=== PATIENT | male | born 1955 | race Caucasian/White ===

== ENCOUNTER → 2018-04-30 10:52 | Outpatient (CLI) | payer OTHER, SELFPAY ==
--- NOTE | 2018-04-30 10:54 | DI.RAD.S_ITS ---
PROCEDURE: XR CHEST 2V INDICATIONS: shortness of breath TECHNIQUE: 2 views of the chest were acquired. COMPARISON: None. FINDINGS: Surgical changes and devices: None. Lungs and pleura: No pleural effusions or pneumothorax. Lungs are abnormal with an interstitial prominence but no pneumonia or underlying neoplasm is found. Mediastinum: Mediastinal contours are normal. Heart size is normal. Bones and chest wall: No suspicious bony abnormalities. Soft tissues appear unremarkable. IMPRESSION: Interstitial prominence, no mass or consolidative pneumonia seen. Dictated by: Eulogio Ortega M.D. on 04/30/2018 at 11:23 Approved by: Eulogio Ortega M.D. on 04/30/2018 at 11:23
== END ==
PROVIDERS: PCP Family Medicine
DX: R06.02 Shortness of breath (principal); J06.9 Acute upper respiratory infection, unspecified
CPT/HCPCS: 71046

== ENCOUNTER → 2018-05-09 11:28 | Outpatient (CLI) | payer OTHER, SELFPAY ==
--- NOTE | 2018-05-09 11:29 | DI.RAD.S_ITS ---
PROCEDURE: XR CHEST 2V INDICATIONS: cough x3 months TECHNIQUE: 2 views of the chest were acquired. COMPARISON: [facility], CR, XR CHEST 2V, 04/30/2018, 10:31. FINDINGS: Surgical changes and devices: None. Lungs and pleura: No pleural effusions or pneumothorax. Lungs are clear except for a chronic mild interstitial prominence. Mediastinum: Mediastinal contours are normal. Heart size is normal. Bones and chest wall: No suspicious bony abnormalities. Soft tissues appear unremarkable. IMPRESSION: Chronic mild interstitial prominence, no acute disease, source persistent cough is not seen otherwise. Dictated by: Eulogio Ortega M.D. on 05/09/2018 at 13:18 Approved by: Eulogio Ortega M.D. on 05/09/2018 at 13:18
== END ==
PROVIDERS: Family Provider Family Medicine; PCP Family Medicine
DX: R05 Cough (principal)
CPT/HCPCS: 71046

== ENCOUNTER 2018-05-19 15:28 | Emergency (ER) | payer OTHER, SELFPAY ==
[2018-05-19 15:32] VITALS: BP 112/68; PULSE 85; RESP 20; TEMP 37.2; O2SAT 99
--- NOTE | 2018-05-19 16:05 | DI.RAD.S_ITS ---
PROCEDURE: XR CHEST 1V INDICATIONS: suspected sepsis TECHNIQUE: One view of the chest was acquired. COMPARISON: [facility], CR, XR CHEST 2V, 04/30/2018, 10:31. [facility], CR, XR CHEST 2V, 05/09/2018, 11:14. FINDINGS: Surgical changes and devices: None. Lungs and pleura: An incomplete inspiratory result is noted, causing a crowded appearance to the lung markings. No focal infiltrates are seen. No pneumothorax or significant pleural effusions are seen. Mediastinum: Mediastinal contours appear normal. Heart size is normal. Bones and chest wall: Age-appropriate bony degenerative changes are seen. No suspicious bony lesions. Overlying soft tissues appear unremarkable. IMPRESSION: Limited portable chest examination, without a significant cardiopulmonary abnormality identified. If there is clinical concern for a developing pulmonary process, a short-term followup chest series (with PA and lateral views, performed in deep inspiration) is suggested for further evaluation. Dictated by: Rasheed Alfaro M.D. on 05/19/2018 at 15:16 Approved by: Rasheed Alfaro M.D. on 05/19/2018 at 15:17
[2018-05-19 16:13] LABS: Add Manual Diff / Slide Review NO; Basophils Percent Auto 0.3 % (0-2); Eosinophils Percent Auto 1.7 % (2-4); Hemoglobin 10.2 g/dL (13.5-17.5); Lymphocytes Percent Auto 4.4 % (25-40); Mean Corpuscular HGB Conc 33.9 % (30-36); Mean Corpuscular Volume 76.7 fL (80-100); Monocytes Percent Auto 9.7 % (3-14); Neutrophils Absolute Auto 10100 /uL (3000-5900); Neutrophils Percent Auto 83.9 % (50-75); Platelet Count 237 X10^3/uL (150-400); Red Blood Cell Count 3.91 X10^6/uL (4.5-5.9); Red Cell Distribution Width 14.5 % (11.6-14.8)
[2018-05-19 16:19] LABS: INR 1.8 (0.9-1.3); Prothrombin Time 19.3 SECONDS (10.1-12.7)
[2018-05-19 16:21] LABS: PTT Partial Thromboplastin Tim 28 SECONDS (26.4-36.2)
[2018-05-19 16:22] LABS: Lactate (Lactic Acid) 1.2 mmol/L (0.7-2.1)
[2018-05-19 16:24] LABS: Alanine Aminotransferase 22 IU/L (21-72); Albumin 3.7 g/dL (3.5-5.0); Albumin Globulin Ratio 1.1 (1.0-2.8); Alkaline Phosphatase 96 U/L (38-126); Aspartate Aminotransferase 25 IU/L (17-59); Bilirubin Total 0.9 mg/dL (0.2-1.3); Blood Urea Nitrogen 25 mg/dL (9-20); Calcium 8.6 mg/dL (8.4-10.2); Carbon Dioxide 27 mmol/L (22-32); Chloride 90 mmol/L (98-107); Creatine Kinase 38 U/L (55-170); Estimated Glomerular Filt Rate > 60.0 mL/min (>60); Globulin 3.4 g/dL (1.7-4.1); Glucose 137 mg/dL (80-110); HEMOLYSIS < 15 (0-50); Lipase 30 U/L (23-300); Potassium 4.1 mmol/L (3.4-5.1); Sodium 128 mmol/L (137-145); Total Protein 7.1 g/dL (6.3-8.2)
[2018-05-19 16:42] LABS: Troponin I < 0.012 ng/mL (0.01-0.034)
[2018-05-19 16:50] LABS: Procalcitonin 1.61 ng/mL (<0.5)
--- NOTE | 2018-05-19 16:52 | DI.CT.S_ITS ---
PROCEDURE: CT ABDOMEN PELVIS W CON INDICATIONS: anemia,weakness, weight loss, PO and IV contrast please. TECHNIQUE: After the administration of oral and intravenous contrast, 5 mm thick sections acquired from the diaphragms to the symphysis. 5 mm thick coronal and sagittal reformats were performed. For radiation dose reduction, the following was used: automated exposure control, adjustment of mA and/or kV according to patient size. COMPARISON: None. FINDINGS: Image quality: Excellent. ABDOMEN: Lung bases: Chronic appearing thickening of interlobular septa is seen through all visualized bilateral lower lung timmons. No pleural effusion or pneumothorax is seen Heart size is normal. Solid organs: Liver is normal in size. 1.4 x 0.8 cm hypointense area in posterior aspect of left hepatic lobe is seen and is not consistent with a simple cyst. Subtle 7 mm hypointense area involving anterior aspect of right hepatic lobe is also seen and is too small to characterize. 4 mm hypodense area is noted in right hepatic dome and is also too small to characterize. Gallbladder is mildly distended. No calcified gallstone is seen. There is suggestion of small amount of pericholecystic fluid. No definite gallbladder wall thickening.. Biliary system is non-dilated. Heterogeneous contrast enhancement involving head of pancreas is seen, underlying pancreatic head mass cannot be excluded. There is no peripancreatic fluid collection. Marked splenomegaly is seen. A few calcified granuloma are noted in the splenic parenchyma. No discrete splenic lesion. No adrenal nodules. Kidneys are normal in size and enhancement, without hydronephrosis. Peritoneum and bowel: Stomach, small bowel, and colon loops are normal in caliber and wall thickness. No free fluid or air. Appendix is visualized and is within normal limits. Small hiatal hernia is seen. Nodes and vessels: Extensive retroperitoneal adenopathy is noted with prominent periaortic lymph nodes measures up to 1.7 cm in short axis diameter in right and left periaortic space. There is also suggestion of prominent lymph nodes along celiac axis and near GE junction measures up to 1.4 cm in short axis diameter. Subcentimeter lymph nodes are noted near head of pancreas that measures up to 7-8 mm in size. Miscellaneous: No ventral hernias. PELVIS: Genitourinary: Bladder wall thickness is normal. Mildly enlarged prostate gland with mild mass effect of floor of urinary bladder is seen. Miscellaneous: There is a small fat containing right inguinal hernia. Prominent bilateral inguinal lymph nodes are seen measures up to 1.3 x 2.7 cm in size in left inguinal region. Largest lymph node in right inguinal region measures 1.8 x 2.9 cm in size. Bones: No suspicious bony lesions. No vertebral body compression fractures. IMPRESSION: 1. Markedly enlarged retroperitoneal lymph nodes. Enlarged bilateral inguinal lymph nodes as well as celiac nodes. Subcentimeter lymph node seen adjacent to head of pancreas. Findings could represent extensive metastatic adenopathy versus lymphoma. 2. Marked splenomegaly, no discrete splenic lesion. 3. Questionable 1.6 cm area of heterogeneous enhancement involving head of pancreas. Consider further evaluation of this region with MRI of abdomen without and with contrast. Multiple small hypodense areas scattered in left and right hepatic lobes as described above. Finding could represent a hepatic hemangioma versus hepatic cysts. These can also be evaluated on MRI of abdomen study. 4. No bowel obstruction. No free fluid or free air. Small hiatal hernia. Dictated by: Tiago Martinez M.D. on 05/19/2018 at 18:05 Approved by: Tiago Martinez M.D. on 05/19/2018 at 18:19
[2018-05-19] MEDS: SODIUM CHLORIDE 0.9% 1,000 ML 1000 ML IV (17:04)
[2018-05-19 17:21] VITALS: BP 109/56; PULSE 84; RESP 16; O2SAT 99
[2018-05-19 18:40] LABS: Bacteria Urine None Seen; RBC Urine None Seen (0-5/HPF)
--- NOTE | 2018-05-19 18:43 | ED.WEAKNESS ---
HPI - Weakness General Chief complaint: Weakness Stated complaint: SENT BY WALK IN CLINIC,MULTIPLE COMPLAINTS Time Seen by Provider: 05/19/18 16:09 Source: patient Mode of arrival: ambulatory Limitations: no limitations History of Present Illness HPI Narrative: This is a 62-year-old gentleman who comes to the emergency department with complaint weakness, general fatigue with been going on for about 5 months. He states he has also had a mild cough for about 5 months. Patient states that sometimes he will cough so hard that it causes pain in his back. The sometimes gets hot flashes. He has had anorexia and some early satiety with meals. He is eating about a quarter of what he would normally eat and a meal and only once daily. He states he has had about a 24 lb weight loss over the last 2 weeks. Patient states that when he tries to eat he will often vomit up his food. He is not really having diarrhea or constipation. His stools have been sort of a distinct yellowish color. He has not had any major urinary issues other than difficulty with starting and stopping stream. He is not having any chest pain or shortness of breath. He was treated for what sounded like pneumonia couple months ago. He has also been having lot of dental work done as a result of a traumatic jaw injury in the 1970s followed by a requiring extensive facial maxilla surgery. Patient also has a history of testicular cancer 14 years ago. States he had 1 round of radiation, 3 rounds of chemo and does not currently follow with any oncologist. It is unclear when his last evaluation for cancer surveillance was. He also takes medication for migraines including nadolol. MD Complaint: generalized weakness Onset (ago): month(s) (5) Duration: constant Location: generalized Associated symptoms: other (cough) Related Data Home Medications Medication Instructions Recorded Confirmed [knee joint compound] 2 tab PO DAILY #0 12/31/16 05/19/18 esomeprazole magnesium [Nexium] 20 mg PO DAILY #0 12/31/16 05/19/18 omega 6-eof-hqe-fish oil [Fish Oil] 2 cap PO DAILY #0 12/31/16 05/19/18 glucosamine-chondroitin 1 dose PO DAILY 05/19/18 05/19/18 Previous Rx's Medication Instructions Recorded nadolol 80 mg tablet 80 mg PO DAILY #30 tab 02/10/18 naratriptan 2.5 mg tablet 2.5 mg PO .COMPLEX PRN #12 tab 02/10/18 Allergies Allergy/AdvReac Type Severity Reaction Status Date / Time ioidine i.v. Allergy Unknown Uncoded 12/18/17 12:15 Review of Systems Review of Systems All systems reviewed & are unremarkable except as noted in HPI and below Constitutional Reports anorexia, Reports body ache(s), Reports chills, Reports fatigue, Reports fever(s), Denies frequent falls, Reports headache(s), Reports lethargy, Reports night sweats, Reports poor appetite, Reports weakness and Reports weight loss ENT Ears, Nose, Mouth, and Throat: Reports headache(s) Cardiovascular Denies chest pain, Denies edema, Denies irregular heart rhythm, Denies lightheadedness, Denies palpitations, Denies dyspnea, Denies dyspnea on exertion and Denies orthopnea Respiratory Reports cough, Denies hemoptysis, Reports pain with cough, Denies dyspnea, Denies dyspnea on exertion and Denies wheezing Gastrointestinal Gastrointestinal: Denies abdominal pain, Denies melena, Denies hematochezia, Reports change in stool character, Denies constipation, Denies diarrhea, Denies loose stools, Reports nausea and Reports vomiting Genitourinary Denies dysuria, Reports nocturia and Reports urinary hesitancy (sometimes) Musculoskeletal Reports back pain (with cough), Reports muscle weakness, Denies numbness and Denies tingling Neurologic Denies frequent falls, Reports headache(s), Denies numbness, Denies tingling and Reports weakness Endocrine Reports fatigue and Denies palpitations Allergic/Immunologic Denies wheezing PFSH Medical History Migraines (Acute) Family History Mother Hypochondria Sister Age: 65 Breast cancer Sister Age: 64 Spina bifida Social History Smoking Status: Never smoker Exam Initial Vital Signs Initial Vital Signs: Vital Signs Temperature 98.9 F 05/19/18 15:32 Pulse Rate 85 05/19/18 15:32 Respiratory Rate 20 05/19/18 15:32 Blood Pressure 112/68 05/19/18 15:32 Pulse Oximetry 99 05/19/18 15:32 Const General: cooperative, healthy appearing, in distress (mild) and No diaphoretic Orientation: alert, awake and oriented x3 Chest Chest: normal inspection of the chest Resp Effort & Inspection: normal respiratory effort, able to speak in complete sentences, no respiratory distress and no use of accessory muscles Auscultation: clear to auscultation bilaterally, no rales, no rhonchi and no wheezes Cardio Rate: regular rate Rhythm: regular rhythm Heart Sounds: no click, no gallops, no murmurs and no rubs Pulses: normal peripheral pulses GI Inspection: non-distended Palpation: soft, firm, No guarding, No pulsatile mass, No rigid, splenomegaly, No tender and No ascites Auscultation: normal bowel sounds General: No CVA tenderness Back/Spine/Pelvis Back: normal to inspection Skin General: no rashes or lesions noted, No jaundice and No petechiae Neuro General: alert, oriented x3 and no focal motor deficits Speech: speech normal Extrem General: full ROM, no clubbing, cyanosis or edema and no pedal edema Course Orders Ordered: ED Orders 05/19/18 18:20 Urine Microscopic Stat Discontinued Medications Sodium Chloride (Normal Saline 0.9%) 1,000 mls @ 1,000 mls/hr IV BOLUS ONE Stop: 05/19/18 17:03 Last Infusion: 05/19/18 18:34 Dose: 0 mls/hr Admin: 05/19/18 17:04 Dose: 1,000 mls/hr Consultations Consultation #1: Oncology paged regarding patient CT and lab work. Spoke with Dr. Vance with oncology here in [place]. Plan for follow up in the next few days to get biopsy and further evaluation and treatment. Time: 19:26 Vital Signs - 8 hr 05/19/18 19:49 Pulse Rate 94 H Respiratory Rate 14 Blood Pressure [Left Arm] 145/100 H Pulse Oximetry 98 MDM - Weakness Lab Data Attestation: I reviewed the patient's lab results. Result diagrams: 05/19/18 15:58 05/19/18 15:58 Lab Results 05/19/18 05/19/18 05/19/18 Range/Units 15:58 15:58 15:58 WBC 12.0 H (4.5-11.0) X10^3/uL RBC 3.91 L (4.5-5.9) X10^6/uL Hgb 10.2 L (13.5-17.5) g/dL Hct 30.0 L (41-53) % MCV 76.7 L (80-100) fL MCH 26.0 (26-34) PG MCHC 33.9 (30-36) % RDW 14.5 (11.6-14.8) % Plt Count 237 (150-400) X10^3/uL Neut % (Auto) 83.9 H (50-75) % Lymph % (Auto) 4.4 L (25-40) % [place] % (Auto) 9.7 (3-14) % Eos % (Auto) 1.7 L (2-4) % Baso % (Auto) 0.3 (0-2) % Neut # (Auto) 05053 H (7556-0182) /uL PT 19.3 H (10.1-12.7) SECONDS INR 1.8 H (0.9-1.3) APTT 28 (26.4-36.2) SECONDS Sodium (137-145) mmol/L Potassium (3.4-5.1) mmol/L Chloride (98-107) mmol/L Carbon Dioxide (22-32) mmol/L BUN (9-20) mg/dL Creatinine (0.66-1.25) mg/dL Estimated GFR (>60) mL/min BUN/Creatinine Ratio (6-22) Glucose (80-110) mg/dL Lactate (0.7-2.1) mmol/L Calcium (8.4-10.2) mg/dL Total Bilirubin (0.2-1.3) mg/dL AST (17-59) IU/L ALT (21-72) IU/L Alkaline Phosphatase (38-126) U/L Total Creatine Kinase (55-170) U/L Troponin I (0.01-0.034) ng/mL Total Protein (6.3-8.2) g/dL Albumin (3.5-5.0) g/dL Globulin (1.7-4.1) g/dL Albumin/Globulin Ratio (1.0-2.8) Lipase (23-300) U/L Procalcitonin 1.61 H (<0.5) ng/mL Urine RBC (0-5/HPF) Urine WBC (0-5/HPF) Ur Squamous Epith Cells Urine Bacteria (None) Ur Culture Indicated? Micro UA Comment 05/19/18 05/19/18 05/19/18 Range/Units 15:58 15:58 18:20 WBC (4.5-11.0) X10^3/uL RBC (4.5-5.9) X10^6/uL Hgb (13.5-17.5) g/dL Hct (41-53) % MCV (80-100) fL MCH (26-34) PG MCHC (30-36) % RDW (11.6-14.8) % Plt Count (150-400) X10^3/uL Neut % (Auto) (50-75) % Lymph % (Auto) (25-40) % [place] % (Auto) (3-14) % Eos % (Auto) (2-4) % Baso % (Auto) (0-2) % Neut # (Auto) (8605-8411) /uL PT (10.1-12.7) SECONDS INR (0.9-1.3) APTT (26.4-36.2) SECONDS Sodium 128 L (137-145) mmol/L Potassium 4.1 (3.4-5.1) mmol/L Chloride 90 L (98-107) mmol/L Carbon Dioxide 27 (22-32) mmol/L BUN 25 H (9-20) mg/dL Creatinine 1.00 (0.66-1.25) mg/dL Estimated GFR > 60.0 (>60) mL/min BUN/Creatinine Ratio 25.0 H (6-22) Glucose 137 H (80-110) mg/dL Lactate 1.2 (0.7-2.1) mmol/L Calcium 8.6 (8.4-10.2) mg/dL Total Bilirubin 0.9 (0.2-1.3) mg/dL AST 25 (17-59) IU/L ALT 22 (21-72) IU/L Alkaline Phosphatase 96 (38-126) U/L Total Creatine Kinase 38 L (55-170) U/L Troponin I < 0.012 (0.01-0.034) ng/mL Total Protein 7.1 (6.3-8.2) g/dL Albumin 3.7 (3.5-5.0) g/dL Globulin 3.4 (1.7-4.1) g/dL Albumin/Globulin Ratio 1.1 (1.0-2.8) Lipase 30 (23-300) U/L Procalcitonin (<0.5) ng/mL Urine RBC None seen (0-5/HPF) Urine WBC 0-1/hpf (0-5/HPF) Ur Squamous Epith Cells 0-1 /hpf Urine Bacteria None seen (None) Ur Culture Indicated? Cult not indicated Micro UA Comment Not Reportable Urine Dip Bedside Urine Glucose Negative Bedside Urine Bilirubin - Negative Bedside Urine Ketone - Negative Urine Specific [place] 1.005 Bedside Urine Occult Blood - Negative Bedside Urine pH 6.0 Bedside Urine Protein +/- 15 Bedside Urine Urobilinogen +/- 1mg Bedside Urine Nitrite - Negative Bedside Urine Leukocytes - Negative Esterase Imaging Data Chest x-ray: Radiologist's impression: Patient: Abbi Diaz BMR#: [id number] : 5Acct:[id number] Age/Sex: 62 / MDate of Service: 05/19/18 Loc: ED Accession Number: [id number] Procedure: XR chest 1V Ordering Provider: Vladimir Pastrana D.O. PROCEDURE: XR CHEST 1V INDICATIONS: suspected sepsis TECHNIQUE: One view of the chest was acquired. COMPARISON: [facility], , XR CHEST 2V, 04/30/2018, 10:31. [facility], , XR CHEST 2V, 05/09/2018, 11:14. FINDINGS: Surgical changes and devices: None. Lungs and pleura: An incomplete inspiratory result is noted, causing a crowded appearance to the lung markings. No focal infiltrates are seen. No pneumothorax or significant pleural effusions are seen. Mediastinum: Mediastinal contours appear normal. Heart size is normal. Bones and chest wall: Age-appropriate bony degenerative changes are seen. No suspicious bony lesions. Overlying soft tissues appear unremarkable. IMPRESSION: Limited portable chest examination, without a significant cardiopulmonary abnormality identified. If there is clinical concern for a developing pulmonary process, a short-term followup chest series (with PA and lateral views, performed in deep inspiration) is suggested for further evaluation. Dictated by: Rasheed Alfaro M.D. on 05/19/2018 at 15:16 Approved by: Rasheed Alfaro M.D. on 05/19/2018 at 15:17 CT scan - abdomen: Radiologist's impression: Patient: Abbi Diaz BMR#: [id number] : 5Acct:[id number] Age/Sex: 62 / MDate of Service: 05/19/18 Loc: ED Accession Number: [id number] Procedure: CT abdomen pelvis w con Ordering Provider: Vladimir Pastrana D.O. PROCEDURE: CT ABDOMEN PELVIS W CON INDICATIONS: anemia,weakness, weight loss, PO and IV contrast please. TECHNIQUE: After the administration of oral and intravenous contrast, 5 mm thick sections acquired from the diaphragms to the symphysis. 5 mm thick coronal and sagittal reformats were performed. For radiation dose reduction, the following was used: automated exposure control, adjustment of mA and/or kV according to patient size. COMPARISON: None. FINDINGS: Image quality: Excellent. ABDOMEN: Lung bases: Chronic appearing thickening of interlobular septa is seen through all visualized bilateral lower lung timmons. No pleural effusion or pneumothorax is seen Heart size is normal. Solid organs: Liver is normal in size. 1.4 x 0.8 cm hypointense area in posterior aspect of left hepatic lobe is seen and is not consistent with a simple cyst. Subtle 7 mm hypointense area involving anterior aspect of right hepatic lobe is also seen and is too small to characterize. 4 mm hypodense area is noted in right hepatic dome and is also too small to characterize. Gallbladder is mildly distended. No calcified gallstone is seen. There is suggestion of small amount of pericholecystic fluid. No definite gallbladder wall thickening.. Biliary system is non-dilated. Heterogeneous contrast enhancement involving head of pancreas is seen, underlying pancreatic head mass cannot be excluded. There is no peripancreatic fluid collection. Marked splenomegaly is seen. A few calcified granuloma are noted in the splenic parenchyma. No discrete splenic lesion. No adrenal nodules. Kidneys are normal in size and enhancement, without hydronephrosis. Peritoneum and bowel: Stomach, small bowel, and colon loops are normal in caliber and wall thickness. No free fluid or air. Appendix is visualized and is within normal limits. Small hiatal hernia is seen. Nodes and vessels: Extensive retroperitoneal adenopathy is noted with prominent periaortic lymph nodes measures up to 1.7 cm in short axis diameter in right and left periaortic space. There is also suggestion of prominent lymph nodes along celiac axis and near GE junction measures up to 1.4 cm in short axis diameter. Subcentimeter lymph nodes are noted near head of pancreas that measures up to 7-8 mm in size. Miscellaneous: No ventral hernias. PELVIS: Genitourinary: Bladder wall thickness is normal. Mildly enlarged prostate gland with mild mass effect of floor of urinary bladder is seen. Miscellaneous: There is a small fat containing right inguinal hernia. Prominent bilateral inguinal lymph nodes are seen measures up to 1.3 x 2.7 cm in size in left inguinal region. Largest lymph node in right inguinal region measures 1.8 x 2.9 cm in size. Bones: No suspicious bony lesions. No vertebral body compression fractures. IMPRESSION: 1. Markedly enlarged retroperitoneal lymph nodes. Enlarged bilateral inguinal lymph nodes as well as celiac nodes. Subcentimeter lymph node seen adjacent to head of pancreas. Findings could represent extensive metastatic adenopathy versus lymphoma. 2. Marked splenomegaly, no discrete splenic lesion. 3. Questionable 1.6 cm area of heterogeneous enhancement involving head of pancreas. Consider further evaluation of this region with MRI of abdomen without and with contrast. Multiple small hypodense areas scattered in left and right hepatic lobes as described above. Finding could represent a hepatic hemangioma versus hepatic cysts. These can also be evaluated on MRI of abdomen study. 4. No bowel obstruction. No free fluid or free air. Small hiatal hernia. Dictated by: Tiago Martinez M.D. on 05/19/2018 at 18:05 Approved by: Tiago Martinez M.D. on 05/19/2018 at 18:19 Discharge Plan Departure Patient Disposition: Home Clinical Impression: Lymphadenopathy, abdominal Discharge Date/Time: 05/19/18 20:36 Interventions: ED Discharge Assessment Last Done: 05/19/18 20:36 Instructions: DI for Lymphadenopathy Activity Restrictions/Additional Instructions: Call 1st thing in the morning to follow up with the Oncology Clinic. I spoke with Dr. Vance they will be expecting your phone call and would planning to setup a biopsy and further evaluation. You may continue your home medications as prescribed. Return to the emergency department for any fevers greater than 100.4, worsening symptoms, syncope, chest pain or shortness of breath. Prescriptions: No Action esomeprazole magnesium [Nexium] 20 MG capsule,delayed release(DR/EC) 20 mg PO DAILY Qty: 0 RF: 0 omega 9-umk-hsf-fish oil [Fish Oil] 1,000 MG capsule 2 cap PO DAILY Qty: 0 RF: 0 [knee joint compound] 2 tab PO DAILY Qty: 0 RF: 0 glucosamine-chondroitin 1 dose PO DAILY RF: 0 nadolol 80 mg tablet 80 mg PO DAILY Qty: 30 RF: 11 naratriptan 2.5 mg tablet 2.5 mg PO .COMPLEX PRN (Reason: migraine headache) Qty: 12 RF: 11 Referrals: Antonio Sykes MD [Primary Care Provider] - Doug Vance MD [Physician] -
[2018-05-19 18:57] LABS: Culture Indicated Urine Cult Not Indicated; Squamous Epithelial Cell Urine 0-1 /HPF; WBC Urine 0-1/HPF (0-5/HPF)
[2018-05-19 19:49] VITALS: BP 145/100; PULSE 94; RESP 14; O2SAT 98
== END 2018-05-19 20:36 | disposition home or self-care (01) ==
PROVIDERS: Emergency Medicine; Emergency Provider Emergency Medicine; Family Provider Family Medicine; PCP Family Medicine
DX: R59.0 Localized enlarged lymph nodes (principal)
CPT/HCPCS: 36415; 36591; 71045; 74177; 80053; 81003; 81015; 82550; 82553; 83605; 83690; 84145; 84484; 85025; 85610; 85730; 87040; 93041; 96360; 99283; 99285; Q9967

== ENCOUNTER 2018-05-22 13:12 | Inpatient (IN) | payer OTHER, SELFPAY ==
[2018-05-22] VITALS (8 sets, daily range): BP systolic 91–113; BP diastolic 46–62; PULSE 91–102; RESP 16–20; TEMP 36.1–37.2; O2SAT 94–99; BMI 25.0
--- NOTE | 2018-05-22 | DI.CT.S_ITS ---
PROCEDURE: CT CHEST WO CON INDICATIONS: pneumonia TECHNIQUE: Noncontrast 5 mm thick sections acquired from the pulmonary apices to the posterior costophrenic angles. 7 mm thick coronal and sagittal MIP reformats were then acquired. For radiation dose reduction, the following was used: automated exposure control, adjustment of mA and/or kV according to patient size. COMPARISON: [facility], CR, XR CHEST 1V, 05/19/2018, 16:09. [facility], CT, CT ABDOMEN PELVIS W CON, 05/19/2018, 17:38. [facility], CR, XR CHEST 2V, 05/22/2018, 14:37. FINDINGS: Image quality: There are respiratory motion artifacts. Lungs and pleura: There are small bilateral nodules or nodular infiltrates, left greater than right. Small bilateral pleural effusions are present, left greater than right. No pneumothorax. Central and peripheral airways are patent and normal in caliber. Mediastinum: Heart size is normal. There is moderate to severe coronary atherosclerosis. No pericardial effusion. There are enlarged mediastinal nodes. The largest lymph node is in the subcarinal region measuring 2.6 x 3.7 cm. Thoracic aorta and central pulmonary arteries are normal in size. Esophagus is normal in caliber. No hiatal hernia. Bones and chest wall: No suspicious bony lesions. No vertebral body compression fractures. Enlarged axillary or supraclavicular present bilaterally. Thyroid gland is normal as visualized. Abdomen: Liver demonstrates nodular contour suggesting cirrhosis. Calcified granulomas are present in spleen. Spleen is enlarged which may be secondary to portal hypertension. There is marked retroperitoneal lymphadenopathy. IMPRESSION: 1. Bilateral small lung nodules or nodular infiltrates, suspicious for atypical infections. Differential diagnoses include inflammatory nodules and metastatic disease. 2. Mediastinal, hilar, supraclavicular and axillary lymphadenopathy, as well as retroperitoneal lymphadenopathy. Differential diagnoses include lymphoma and metastasis. 3. Nodular contour of liver suggesting cirrhosis. 4. Splenomegaly. This finding is nonspecific and may be secondary to infectious, inflammatory or neoplastic etiology. In the setting of chronic liver disease, this finding could be secondary to portal hypertension. Recommend clinical correlation and follow up. 5. Old calcified granulomatous in spleen. Dictated by: Claudia Ritter M.D. on 05/22/2018 at 20:11 Approved by: Claudia Ritter M.D. on 05/22/2018 at 20:23
--- NOTE | 2018-05-22 14:59 | DI.RAD.S_ITS ---
PROCEDURE: XR CHEST 2V INDICATIONS: 62-year-old man productive cough, weakness, tactile fever and chills TECHNIQUE: 2 views of the chest were acquired. COMPARISON: [facility], CT, CT ABDOMEN PELVIS W CON, 05/19/2018, 17:38. [facility], CR, XR CHEST 2V, 04/30/2018, 10:31. [facility], CR, XR CHEST 1V, 05/19/2018, 16:09. [facility], CR, XR CHEST 2V, 05/09/2018, 11:14. FINDINGS: Surgical changes and devices: None. Lungs and pleura: There are left mid to lower lung infiltrate. Probable small left pleural effusion or pleural thickening. No pneumothorax. Mediastinum: Mediastinal contours are normal. Heart size is normal. Bones and chest wall: No suspicious bony abnormalities. Soft tissues appear unremarkable. IMPRESSION: Left mid to lower lung infiltrates, suspicious for pneumonia. There is small left pleural effusion or pleural thickening. Dictated by: Claudia Ritter M.D. on 05/22/2018 at 15:32 Approved by: Claudia Ritter M.D. on 05/22/2018 at 15:35
[2018-05-22] MEDS: SODIUM CHLORIDE 0.9% 1,000 ML 1000 ML IV ×2 (15:01→16:44)
--- NOTE | 2018-05-22 15:09 | ED_ITS ---
HPI - Weakness <Yessenia Dotson PA-C - Last Filed: 05/22/18 21:46> General Chief complaint: Weakness Stated complaint: CANT EAT,OUT OF ENERGY,CANT STAND UP Time Seen by Provider: 05/22/18 14:07 Source: patient Mode of arrival: ambulatory Limitations: no limitations History of Present Illness HPI Narrative: This 62-year-old gentleman states that he was sent here by the cancer center. He was seen here a few days ago with general weakness and fatigue that has been going on for months, he states gradually worsening every day. He has had unintended weight loss. He has had an intermittently productive cough last 4 months as well his CT scan was concerning for multiple areas of lymphadenopathy concerning for metastatic lesions or lymphoma. He was referred to the Cancer Center, however when he went there today, he was unable to be seen due to new oncologist not being yet credentialed with his insurance. Over the last couple of days since he was here, he states that he has had even less oral intake. He states he has no appetite. He states that in the last 2 days he has drank 1 small bottle of water and 1 Boost each day. Normally he would drink 10 bottles of water. He states that when he has tried to eat, even when he eats a small amount, he tends to vomit. He denies nausea currently and states he has not vomited in the last 2 days which she thinks relates to not eating. He denies any acute symptoms such as new chest pain, abdominal pain, or dyspnea. His cough is not worse. He denies any new fever. He states he is able to get around the house but has to walk slowly. Systems review is also positive for ongoing bilateral posterior shoulder pain. Related Data Home Medications Medication Instructions Recorded Confirmed esomeprazole magnesium [Nexium] 20 mg PO DAILY #0 12/31/16 05/22/18 omega [id number]-fish oil [Fish Oil] 2 cap PO DAILY #0 12/31/16 05/22/18 [id number] serr 1 tab PO QAM 05/22/18 05/22/18 [Glucosamine Daily Complex] Previous Rx's Medication Instructions Recorded nadolol 80 mg tablet 80 mg PO DAILY #30 tab 02/10/18 Allergies Allergy/AdvReac Type Severity Reaction Status Date / Time iodine Allergy Verified 05/22/18 13:17 Review of Systems <Yessenia Dotson PA-C - Last Filed: 05/22/18 21:46> Review of Systems All systems reviewed & are unremarkable except as noted in HPI and below Exam <Yessenia Dotson PA-C - Last Filed: 05/22/18 21:46> Narrative Exam Narrative: GENERAL APPEARANCE: Patient resting comfortably, in no distress. Eating ice chips HEENT: PERRL, EOMI, conjunctivae a little pale, no scleral icterus NECK: Supple, no masses LUNGS: Clear to auscultation bilaterally, no cough on exam. HEART: Rate and rhythm regular, normal S1 and S2, no S3 or S4. ABDOMEN: Soft, nontender, nondistended, bowel sounds present x 4 quadrants, no masses palpable, no hepatosplenomegaly. EXTREMITIES: No edema, no cyanosis, no calf tenderness NEUROLOGIC: Patient is alert and oriented with normal speech and coordination DERMATOLOGIC: No jaundice or exanthem Initial Vital Signs Initial Vital Signs: Vital Signs Temperature 97.0 F L 05/22/18 13:17 Pulse Rate 100 H 05/22/18 13:17 Respiratory Rate 16 05/22/18 13:17 Blood Pressure 111/62 05/22/18 13:17 Pulse Oximetry 99 05/22/18 13:17 <Nydia Norwood DO - Last Filed: 05/23/18 10:14> Initial Vital Signs Initial Vital Signs: Vital Signs Temperature 97.0 F L 05/22/18 13:17 Pulse Rate 100 H 05/22/18 13:17 Respiratory Rate 16 05/22/18 13:17 Blood Pressure 111/62 05/22/18 13:17 Pulse Oximetry 99 05/22/18 13:17 Course <Yessenia Dotson PA-C - Last Filed: 05/22/18 21:46> Additional Information: Patient is actually feeling somewhat improved in terms of weakness after fluids though states he is starting to have some recurrent pain when up out of bed. He appears to have a new pneumonia on his chest x-ray (not noted on previous studies) with increasing weakness, maybe related. More hyponatremic today as well prior to fluids. I spoke with Dr. Pineda injection molder hospitalist who agrees to admit patient for IV antibiotics and monitoring. He is being scheduled with Oncologist at [facility]. Orders Ordered: ED Orders 05/23/18 05:40 Complete Blood Count AUTO DIFF Routine Comprehensive Metabolic Panel Routine Acetaminophen (Tylenol) 650 mg PO Q6HR PRN PRN Reason: As Needed for Fever/Mild Pain Hydrocodone Bitart/Acetaminophen ([place] 5/325) 1 tab PO Q4HR PRN PRN Reason: Pain, Moderate (4-6) Last Admin: 05/23/18 08:21 Dose: 1 tab Admin: 05/23/18 03:16 Dose: 1 tab Admin: 05/22/18 19:46 Dose: 1 tab Al Hydrox/Mg Hydrox/Simethicone (Maalox Plus) 30 ml PO Q6HR PRN PRN Reason: Dyspepsia Bisacodyl (Dulcolax) 10 mg WA DAILY PRN PRN Reason: Constipation Docusate Sodium (Colace) 100 mg PO BID [facility] Last Admin: 05/23/18 08:24 Dose: 100 mg Admin: 05/22/18 20:44 Dose: 100 mg Enoxaparin Sodium (Lovenox) 40 mg SUBCUT DAILY [facility] Last Admin: 05/23/18 08:24 Dose: 40 mg Sodium Chloride (Normal Saline 0.9%) 1,000 mls @ 100 mls/hr IV CONT [facility] Last Admin: 05/23/18 03:25 Dose: 100 mls/hr Infusion: 05/23/18 03:25 Dose: 100 mls/hr Admin: 05/22/18 19:43 Dose: 100 mls/hr Ceftriaxone Sodium/Dextrose (Rocephin) 1 gm in 50 mls @ 100 mls/hr IV Q24H [facility] Last Infusion: 05/22/18 20:45 Dose: 0 mls/hr Admin: 05/22/18 19:44 Dose: 100 mls/hr Magnesium Hydroxide (Milk Of Magnesia) 30 ml PO DAILY PRN PRN Reason: Constipation Nadolol (Corgard) 80 mg PO DAILY [facility] Last Admin: 05/23/18 08:24 Dose: 80 mg Pantoprazole Sodium (Protonix) 20 mg PO 0600 [facility] Last Admin: 05/23/18 05:35 Dose: 20 mg Discontinued Medications Sodium Chloride (Normal Saline 0.9%) 1,000 mls @ 1,000 mls/hr IV BOLUS ONE Stop: 05/22/18 15:57 Last Infusion: 05/22/18 16:38 Dose: 0 mls/hr Admin: 05/22/18 15:01 Dose: 1,000 mls/hr Sodium Chloride (Normal Saline 0.9%) 1,000 mls @ 1,000 mls/hr IV BOLUS ONE Stop: 05/22/18 16:53 Last Infusion: 05/22/18 17:13 Dose: 1,000 mls/hr Admin: 05/22/18 16:44 Dose: 1,000 mls/hr Azithromycin 250 mg/ Dextrose 250 mls @ 250 mls/hr IV NOW ONE Stop: 05/22/18 18:48 Last Infusion: 05/22/18 21:59 Dose: 0 mls/hr Admin: 05/22/18 20:44 Dose: 250 mls/hr Vital Signs - 8 hr 05/23/18 06:05 05/23/18 08:00 05/23/18 08:24 Temperature 97.8 F 98.7 F Pulse Rate 95 H 89 110 H Respiratory Rate 16 22 Blood Pressure 92/52 L 133/66 133/66 Pulse Oximetry 96 92 <Nydia Norwood, - Last Filed: 05/23/18 10:14> Orders Ordered: ED Orders 05/23/18 05:40 Complete Blood Count AUTO DIFF Routine Comprehensive Metabolic Panel Routine Acetaminophen (Tylenol) 650 mg PO Q6HR PRN PRN Reason: As Needed for Fever/Mild Pain Hydrocodone Bitart/Acetaminophen ([place] 5/325) 1 tab PO Q4HR PRN PRN Reason: Pain, Moderate (4-6) Last Admin: 05/23/18 08:21 Dose: 1 tab Admin: 05/23/18 03:16 Dose: 1 tab Admin: 05/22/18 19:46 Dose: 1 tab Al Hydrox/Mg Hydrox/Simethicone (Maalox Plus) 30 ml PO Q6HR PRN PRN Reason: Dyspepsia Bisacodyl (Dulcolax) 10 mg WA DAILY PRN PRN Reason: Constipation Docusate Sodium (Colace) 100 mg PO BID [facility] Last Admin: 05/23/18 08:24 Dose: 100 mg Admin: 05/22/18 20:44 Dose: 100 mg Enoxaparin Sodium (Lovenox) 40 mg SUBCUT DAILY [facility] Last Admin: 05/23/18 08:24 Dose: 40 mg Sodium Chloride (Normal Saline 0.9%) 1,000 mls @ 100 mls/hr IV CONT [facility] Last Admin: 05/23/18 03:25 Dose: 100 mls/hr Infusion: 05/23/18 03:25 Dose: 100 mls/hr Admin: 05/22/18 19:43 Dose: 100 mls/hr Ceftriaxone Sodium/Dextrose (Rocephin) 1 gm in 50 mls @ 100 mls/hr IV Q24H [facility] Last Infusion: 05/22/18 20:45 Dose: 0 mls/hr Admin: 05/22/18 19:44 Dose: 100 mls/hr Magnesium Hydroxide (Milk Of Magnesia) 30 ml PO DAILY PRN PRN Reason: Constipation Nadolol (Corgard) 80 mg PO DAILY [facility] Last Admin: 05/23/18 08:24 Dose: 80 mg Pantoprazole Sodium (Protonix) 20 mg PO 0600 [facility] Last Admin: 05/23/18 05:35 Dose: 20 mg Discontinued Medications Sodium Chloride (Normal Saline 0.9%) 1,000 mls @ 1,000 mls/hr IV BOLUS ONE Stop: 05/22/18 15:57 Last Infusion: 05/22/18 16:38 Dose: 0 mls/hr Admin: 05/22/18 15:01 Dose: 1,000 mls/hr Sodium Chloride (Normal Saline 0.9%) 1,000 mls @ 1,000 mls/hr IV BOLUS ONE Stop: 05/22/18 16:53 Last Infusion: 05/22/18 17:13 Dose: 1,000 mls/hr Admin: 05/22/18 16:44 Dose: 1,000 mls/hr Azithromycin 250 mg/ Dextrose 250 mls @ 250 mls/hr IV NOW ONE Stop: 05/22/18 18:48 Last Infusion: 05/22/18 21:59 Dose: 0 mls/hr Admin: 05/22/18 20:44 Dose: 250 mls/hr Vital Signs - 8 hr 05/23/18 06:05 05/23/18 08:00 05/23/18 08:24 Temperature 97.8 F 98.7 F Pulse Rate 95 H 89 110 H Respiratory Rate 16 22 Blood Pressure 92/52 L 133/66 133/66 Pulse Oximetry 96 92 MDM - Weakness <Yessenia Dotson PA-C - Last Filed: 05/22/18 21:46> Lab Data Attestation: I reviewed the patient's lab results. Result diagrams: 05/23/18 05:40 05/23/18 05:40 Lab Results 05/22/18 05/22/18 05/22/18 Range/Units 15:38 15:38 15:38 WBC 10.1 (4.5-11.0) X10^3/uL RBC 3.39 L (4.5-5.9) X10^6/uL Hgb 9.1 L (13.5-17.5) g/dL Hct 25.7 L (41-53) % MCV 75.9 L (80-100) fL MCH 26.9 (26-34) PG MCHC 35.4 (30-36) % RDW 14.8 (11.6-14.8) % Plt Count 208 (150-400) X10^3/uL Neut % (Auto) (50-75) % Lymph % (Auto) (25-40) % [place] % (Auto) (3-14) % Eos % (Auto) (2-4) % Baso % (Auto) (0-2) % Neut # (Auto) (1453-4869) /uL Total Counted 100 Seg Neutrophils % 78.0 H (38-70) % Band Neutrophils % 1.0 L (3-7) % Atypical Lymphs % 5.0 H ( - 0) % Monocytes % (Manual) 12.0 H (2-11) % Eosinophils % (Manual) 3.0 (2-4) % Basophils % (Manual) 1.0 (0-1) % Neutrophils # (Manual) 7979 H (1942-4971) /uL RBC Morphology Not Reportable Anisocytosis 1+ H PT 19.4 H (10.1-12.7) SECONDS INR 1.8 H (0.9-1.3) APTT 28 (26.4-36.2) SECONDS ABG pH (7.35-7.45) ABG pCO2 (35-45) mmHg ABG pO2 (80-105) mmHg ABG HCO3 (23-27) mmol/L ABG Total CO2 (23-27) mmol/L ABG O2 Saturation (95-100) % ABG Base Excess (-2-3) mmol/L FiO2 Sodium 125 L (137-145) mmol/L Potassium 3.8 (3.4-5.1) mmol/L Chloride 92 L (98-107) mmol/L Carbon Dioxide 25 (22-32) mmol/L BUN 24 H (9-20) mg/dL Creatinine 1.00 (0.66-1.25) mg/dL Estimated GFR > 60.0 (>60) mL/min BUN/Creatinine Ratio 24.0 H (6-22) Glucose 134 H (80-110) mg/dL Lactate (0.7-2.1) mmol/L Calcium 7.7 L (8.4-10.2) mg/dL Total Bilirubin 1.0 (0.2-1.3) mg/dL AST 23 (17-59) IU/L ALT 26 (21-72) IU/L Alkaline Phosphatase 92 (38-126) U/L Total Protein 6.3 (6.3-8.2) g/dL Albumin 3.1 L (3.5-5.0) g/dL Globulin 3.2 (1.7-4.1) g/dL Albumin/Globulin Ratio 1.0 (1.0-2.8) 05/22/18 05/22/18 05/23/18 Range/Units 15:38 19:11 05:40 WBC 10.3 (4.5-11.0) X10^3/uL RBC 3.51 L (4.5-5.9) X10^6/uL Hgb 9.2 L (13.5-17.5) g/dL Hct 27.1 L (41-53) % MCV 77.2 L (80-100) fL MCH 26.1 (26-34) PG MCHC 33.8 (30-36) % RDW 15.0 H (11.6-14.8) % Plt Count 211 (150-400) X10^3/uL Neut % (Auto) 79.9 H (50-75) % Lymph % (Auto) 3.7 L (25-40) % [place] % (Auto) 11.6 (3-14) % Eos % (Auto) 4.2 H (2-4) % Baso % (Auto) 0.6 (0-2) % Neut # (Auto) 8300 H (0278-4015) /uL Total Counted Seg Neutrophils % (38-70) % Band Neutrophils % (3-7) % Atypical Lymphs % ( - 0) % Monocytes % (Manual) (2-11) % Eosinophils % (Manual) (2-4) % Basophils % (Manual) (0-1) % Neutrophils # (Manual) (9358-1012) /uL RBC Morphology Anisocytosis PT (10.1-12.7) SECONDS INR (0.9-1.3) APTT (26.4-36.2) SECONDS ABG pH 7.48 H (7.35-7.45) ABG pCO2 27.4 L (35-45) mmHg ABG pO2 63 L (80-105) mmHg ABG HCO3 20 L (23-27) mmol/L ABG Total CO2 21 L (23-27) mmol/L ABG O2 Saturation 94 L (95-100) % ABG Base Excess -3.0 L (-2-3) mmol/L FiO2 21 Sodium (137-145) mmol/L Potassium (3.4-5.1) mmol/L Chloride (98-107) mmol/L Carbon Dioxide (22-32) mmol/L BUN (9-20) mg/dL Creatinine (0.66-1.25) mg/dL Estimated GFR (>60) mL/min BUN/Creatinine Ratio (6-22) Glucose (80-110) mg/dL Lactate 1.2 (0.7-2.1) mmol/L Calcium (8.4-10.2) mg/dL Total Bilirubin (0.2-1.3) mg/dL AST (17-59) IU/L ALT (21-72) IU/L Alkaline Phosphatase (38-126) U/L Total Protein (6.3-8.2) g/dL Albumin (3.5-5.0) g/dL Globulin (1.7-4.1) g/dL Albumin/Globulin Ratio (1.0-2.8) 05/23/18 Range/Units 05:40 WBC (4.5-11.0) X10^3/uL RBC (4.5-5.9) X10^6/uL Hgb (13.5-17.5) g/dL Hct (41-53) % MCV (80-100) fL MCH (26-34) PG MCHC (30-36) % RDW (11.6-14.8) % Plt Count (150-400) X10^3/uL Neut % (Auto) (50-75) % Lymph % (Auto) (25-40) % [place] % (Auto) (3-14) % Eos % (Auto) (2-4) % Baso % (Auto) (0-2) % Neut # (Auto) (2851-7394) /uL Total Counted Seg Neutrophils % (38-70) % Band Neutrophils % (3-7) % Atypical Lymphs % ( - 0) % Monocytes % (Manual) (2-11) % Eosinophils % (Manual) (2-4) % Basophils % (Manual) (0-1) % Neutrophils # (Manual) (1294-5293) /uL RBC Morphology Anisocytosis PT (10.1-12.7) SECONDS INR (0.9-1.3) APTT (26.4-36.2) SECONDS ABG pH (7.35-7.45) ABG pCO2 (35-45) mmHg ABG pO2 (80-105) mmHg ABG HCO3 (23-27) mmol/L ABG Total CO2 (23-27) mmol/L ABG O2 Saturation (95-100) % ABG Base Excess (-2-3) mmol/L FiO2 Sodium 127 L (137-145) mmol/L Potassium 4.4 (3.4-5.1) mmol/L Chloride 94 L (98-107) mmol/L Carbon Dioxide 23 (22-32) mmol/L BUN 24 H (9-20) mg/dL Creatinine 1.10 (0.66-1.25) mg/dL Estimated GFR > 60.0 (>60) mL/min BUN/Creatinine Ratio 21.8 (6-22) Glucose 141 H (80-110) mg/dL Lactate (0.7-2.1) mmol/L Calcium 7.5 L (8.4-10.2) mg/dL Total Bilirubin 0.8 (0.2-1.3) mg/dL AST 20 (17-59) IU/L ALT 22 (21-72) IU/L Alkaline Phosphatase 93 (38-126) U/L Total Protein 6.4 (6.3-8.2) g/dL Albumin 3.2 L (3.5-5.0) g/dL Globulin 3.2 (1.7-4.1) g/dL Albumin/Globulin Ratio 1.0 (1.0-2.8) ABG Data Interpretation: [address] [address] XRay Report Signed Patient: Abbi Diaz MR#: [id number] : 1955 Acct:[id number] Age/Sex: 62 / M Date of Service: 05/22/18 Loc: ED Accession Number: [id number] Procedure: XR chest 2V Ordering Provider: Yessenia Dotson P.A-C PROCEDURE: XR CHEST 2V INDICATIONS: 62-year-old man productive cough, weakness, tactile fever and chills TECHNIQUE: 2 views of the chest were acquired. COMPARISON: [facility], CT, CT ABDOMEN PELVIS W CON, 05/19/2018, 17:38. [facility], CR, XR CHEST 2V, 04/30/2018, 10:31. [facility], CR, XR CHEST 1V, 05/19/2018, 16:09. [facility], CR, XR CHEST 2V, 05/09/2018, 11:14. FINDINGS: Surgical changes and devices: None. Lungs and pleura: There are left mid to lower lung infiltrate. Probable small left pleural effusion or pleural thickening. No pneumothorax. Mediastinum: Mediastinal contours are normal. Heart size is normal. Bones and chest wall: No suspicious bony abnormalities. Soft tissues appear unremarkable. IMPRESSION: Left mid to lower lung infiltrates, suspicious for pneumonia. There is small left pleural effusion or pleural thickening. Dictated by: Claudia Ritter M.D. on 05/22/2018 at 15:32 Approved by: Claudia Ritter M.D. on 05/22/2018 at 15:35 <Nydia Norwood DO - Last Filed: 05/23/18 10:14> Lab Data Lab Results 05/22/18 05/22/18 05/22/18 Range/Units 15:38 15:38 15:38 WBC 10.1 (4.5-11.0) X10^3/uL RBC 3.39 L (4.5-5.9) X10^6/uL Hgb 9.1 L (13.5-17.5) g/dL Hct 25.7 L (41-53) % MCV 75.9 L (80-100) fL MCH 26.9 (26-34) PG MCHC 35.4 (30-36) % RDW 14.8 (11.6-14.8) % Plt Count 208 (150-400) X10^3/uL Neut % (Auto) (50-75) % Lymph % (Auto) (25-40) % [place] % (Auto) (3-14) % Eos % (Auto) (2-4) % Baso % (Auto) (0-2) % Neut # (Auto) (2898-7714) /uL Total Counted 100 Seg Neutrophils % 78.0 H (38-70) % Band Neutrophils % 1.0 L (3-7) % Atypical Lymphs % 5.0 H ( - 0) % Monocytes % (Manual) 12.0 H (2-11) % Eosinophils % (Manual) 3.0 (2-4) % Basophils % (Manual) 1.0 (0-1) % Neutrophils # (Manual) 7979 H (7927-2637) /uL RBC Morphology Not Reportable Anisocytosis 1+ H PT 19.4 H (10.1-12.7) SECONDS INR 1.8 H (0.9-1.3) APTT 28 (26.4-36.2) SECONDS ABG pH (7.35-7.45) ABG pCO2 (35-45) mmHg ABG pO2 (80-105) mmHg ABG HCO3 (23-27) mmol/L ABG Total CO2 (23-27) mmol/L ABG O2 Saturation (95-100) % ABG Base Excess (-2-3) mmol/L FiO2 Sodium 125 L (137-145) mmol/L Potassium 3.8 (3.4-5.1) mmol/L Chloride 92 L (98-107) mmol/L Carbon Dioxide 25 (22-32) mmol/L BUN 24 H (9-20) mg/dL Creatinine 1.00 (0.66-1.25) mg/dL Estimated GFR > 60.0 (>60) mL/min BUN/Creatinine Ratio 24.0 H (6-22) Glucose 134 H (80-110) mg/dL Lactate (0.7-2.1) mmol/L Calcium 7.7 L (8.4-10.2) mg/dL Total Bilirubin 1.0 (0.2-1.3) mg/dL AST 23 (17-59) IU/L ALT 26 (21-72) IU/L Alkaline Phosphatase 92 (38-126) U/L Total Protein 6.3 (6.3-8.2) g/dL Albumin 3.1 L (3.5-5.0) g/dL Globulin 3.2 (1.7-4.1) g/dL Albumin/Globulin Ratio 1.0 (1.0-2.8) 05/22/18 05/22/18 05/23/18 Range/Units 15:38 19:11 05:40 WBC 10.3 (4.5-11.0) X10^3/uL RBC 3.51 L (4.5-5.9) X10^6/uL Hgb 9.2 L (13.5-17.5) g/dL Hct 27.1 L (41-53) % MCV 77.2 L (80-100) fL MCH 26.1 (26-34) PG MCHC 33.8 (30-36) % RDW 15.0 H (11.6-14.8) % Plt Count 211 (150-400) X10^3/uL Neut % (Auto) 79.9 H (50-75) % Lymph % (Auto) 3.7 L (25-40) % [place] % (Auto) 11.6 (3-14) % Eos % (Auto) 4.2 H (2-4) % Baso % (Auto) 0.6 (0-2) % Neut # (Auto) 8300 H (5250-1449) /uL Total Counted Seg Neutrophils % (38-70) % Band Neutrophils % (3-7) % Atypical Lymphs % ( - 0) % Monocytes % (Manual) (2-11) % Eosinophils % (Manual) (2-4) % Basophils % (Manual) (0-1) % Neutrophils # (Manual) (8812-1652) /uL RBC Morphology Anisocytosis PT (10.1-12.7) SECONDS INR (0.9-1.3) APTT (26.4-36.2) SECONDS ABG pH 7.48 H (7.35-7.45) ABG pCO2 27.4 L (35-45) mmHg ABG pO2 63 L (80-105) mmHg ABG HCO3 20 L (23-27) mmol/L ABG Total CO2 21 L (23-27) mmol/L ABG O2 Saturation 94 L (95-100) % ABG Base Excess -3.0 L (-2-3) mmol/L FiO2 21 Sodium (137-145) mmol/L Potassium (3.4-5.1) mmol/L Chloride (98-107) mmol/L Carbon Dioxide (22-32) mmol/L BUN (9-20) mg/dL Creatinine (0.66-1.25) mg/dL Estimated GFR (>60) mL/min BUN/Creatinine Ratio (6-22) Glucose (80-110) mg/dL Lactate 1.2 (0.7-2.1) mmol/L Calcium (8.4-10.2) mg/dL Total Bilirubin (0.2-1.3) mg/dL AST (17-59) IU/L ALT (21-72) IU/L Alkaline Phosphatase (38-126) U/L Total Protein (6.3-8.2) g/dL Albumin (3.5-5.0) g/dL Globulin (1.7-4.1) g/dL Albumin/Globulin Ratio (1.0-2.8) 05/23/18 Range/Units 05:40 WBC (4.5-11.0) X10^3/uL RBC (4.5-5.9) X10^6/uL Hgb (13.5-17.5) g/dL Hct (41-53) % MCV (80-100) fL MCH (26-34) PG MCHC (30-36) % RDW (11.6-14.8) % Plt Count (150-400) X10^3/uL Neut % (Auto) (50-75) % Lymph % (Auto) (25-40) % [place] % (Auto) (3-14) % Eos % (Auto) (2-4) % Baso % (Auto) (0-2) % Neut # (Auto) (2902-5570) /uL Total Counted Seg Neutrophils % (38-70) % Band Neutrophils % (3-7) % Atypical Lymphs % ( - 0) % Monocytes % (Manual) (2-11) % Eosinophils % (Manual) (2-4) % Basophils % (Manual) (0-1) % Neutrophils # (Manual) (5080-6563) /uL RBC Morphology Anisocytosis PT (10.1-12.7) SECONDS INR (0.9-1.3) APTT (26.4-36.2) SECONDS ABG pH (7.35-7.45) ABG pCO2 (35-45) mmHg ABG pO2 (80-105) mmHg ABG HCO3 (23-27) mmol/L ABG Total CO2 (23-27) mmol/L ABG O2 Saturation (95-100) % ABG Base Excess (-2-3) mmol/L FiO2 Sodium 127 L (137-145) mmol/L Potassium 4.4 (3.4-5.1) mmol/L Chloride 94 L (98-107) mmol/L Carbon Dioxide 23 (22-32) mmol/L BUN 24 H (9-20) mg/dL Creatinine 1.10 (0.66-1.25) mg/dL Estimated GFR > 60.0 (>60) mL/min BUN/Creatinine Ratio 21.8 (6-22) Glucose 141 H (80-110) mg/dL Lactate (0.7-2.1) mmol/L Calcium 7.5 L (8.4-10.2) mg/dL Total Bilirubin 0.8 (0.2-1.3) mg/dL AST 20 (17-59) IU/L ALT 22 (21-72) IU/L Alkaline Phosphatase 93 (38-126) U/L Total Protein 6.4 (6.3-8.2) g/dL Albumin 3.2 L (3.5-5.0) g/dL Globulin 3.2 (1.7-4.1) g/dL Albumin/Globulin Ratio 1.0 (1.0-2.8) Discharge Plan Departure Patient Disposition: Admitted As Inpatient Clinical Impression: Pneumonia, Dehydration Discharge Date/Time: 05/22/18 17:14 Interventions: ED Discharge Assessment Last Done: 05/22/18 17:14 Admit Date/Time: 05/22/18 17:05 Admit Provider: Lesly Pineda <Nydia Norwood, - Last Filed: 05/23/18 10:14> Cosign ED Attending Cosignature Attestation: I was immediately available in the department for consultation. Documentation has been reviewed. I agree with assessment and plan.
--- NOTE | 2018-05-22 15:32 | PC.NURSE ---
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
--- NOTE | 2018-05-22 15:40 | TAR.TRANSNT ---
Pt recently dx with adenopathy and advised to f/u with oncologist. Pt in process of waiting for [employer] approval for [facility] oncologist visit but now plans to f/u at [facility]. c/o generalized weakness, hasn't been eating or hydrating well due decreased appetite and N-V. Wt loss >20lbs last a few months. pt also c/o productive cough-yellow thick mucous and has had occasional tactile temp, chills, sweaty.
[2018-05-22 15:47] LABS: Hematocrit 25.7 % (41-53); Hemoglobin 9.1 g/dL (13.5-17.5); Mean Corpuscular HGB Conc 35.4 % (30-36); Mean Corpuscular Hemoglobin 26.9 PG (26-34); Mean Corpuscular Volume 75.9 fL (80-100); Platelet Count 208 X10^3/uL (150-400); Red Blood Cell Count 3.39 X10^6/uL (4.5-5.9); Red Cell Distribution Width 14.8 % (11.6-14.8); White Blood Cell Count 10.1 X10^3/uL (4.5-11.0)
[2018-05-22 15:54] LABS: INR 1.8 (0.9-1.3); Prothrombin Time 19.4 SECONDS (10.1-12.7)
[2018-05-22 15:57] LABS: PTT Partial Thromboplastin Tim 28 SECONDS (26.4-36.2)
[2018-05-22 15:58] LABS: Lactate (Lactic Acid) 1.2 mmol/L (0.7-2.1)
[2018-05-22 15:59] LABS: Alanine Aminotransferase 26 IU/L (21-72); Albumin 3.1 g/dL (3.5-5.0); Alkaline Phosphatase 92 U/L (38-126); Aspartate Aminotransferase 23 IU/L (17-59); Blood Urea Nitrogen 24 mg/dL (9-20); Calcium 7.7 mg/dL (8.4-10.2); Carbon Dioxide 25 mmol/L (22-32); Chloride 92 mmol/L (98-107); Estimated Glomerular Filt Rate > 60.0 mL/min (>60); Globulin 3.2 g/dL (1.7-4.1); Glucose 134 mg/dL (80-110); HEMOLYSIS < 15 (0-50); Potassium 3.8 mmol/L (3.4-5.1); Sodium 125 mmol/L (137-145); Total Protein 6.3 g/dL (6.3-8.2)
[2018-05-22 16:15] LABS: Neutrophils Absolute Manual 7979 /uL (3000-5900); Total Cells Counted 100
[2018-05-22 16:19] LABS: Anisocytosis 1+
--- NOTE | 2018-05-22 18:39 | PC.NURSE ---
patient is a&ox4, reports 5/10 pain and reports feeling SOB. O2 sat is 95% on RA. Patient denies tingling or numbness, skin is intact, and he demonstrates he can ambulate safely SBA to BR. Patient reports he has had low urinary output last couple days d/t not being able to keep food/fluids down. Patient reports he has lost about 25 lbs in the last couple weeks. Patient reports when he has to talk for more than a few minutes it stimulates him to cough hard and gag, and then throw up. Lung sounds are difficult to auscletate at this time d/t patient coughing. Bowel tones are present. Heart rate is regular. Patient requested his bed be turned so he can comfortably lay on his left side and watch TV. Sodium level today was 125, H&H was 9.1 and 25.7. Patient has been oriented to room and call light, states he will not get oob by himself and will call for assistance. Will continue to monitor.
--- NOTE | 2018-05-22 18:56 | PM.HP.1 ---
History of Present Illness Date Patient Seen: 05/22/18 Time Patient Seen: 18:58 Chief complaint: CANT EAT,OUT OF ENERGY,CANT STAND UP Narrative: A 62-year-old male previously healthy presents with several week history of increasing cough anorexia and weight loss. He [facility] the end of April with the symptoms of cough he was treated with an antibiotic at that time he was seen again this Saturday on the 19 of May and then referred to the ER because he was little bit hypotensive. ER at that time did a CT scan of the abdomen that showed extensive adenopathy and was set up to see Oncology however when he went to see Oncology was told that he could be seen because he had a an insurance that they did not see. In the meantime his cough and symptoms got worse increasing weakness increasing lethargy and presented back to the ER today. Cough shortness of breath decreased appetite weight loss anorexia and lethargy are his main symptoms. 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) Chronic intractable headache (11/07/17) Testicular cancer (Resolved) Migraines (Acute) Family & Social History Social History: household members none Prior Living Arrangements Apartment/Condo Safety & Behavioral: Feels Safe in Current Yes Environment Been Physically Hurt or No Threatened By a Person Suicidal Ideation Description None Suicide Plan Description No Plan Tobacco & Substance use: Smoking Status Never smoker alcohol intake never alcohol intake frequency 0-2 drinks per day Substance Use Type does not use Meds Home Medications Medication Instructions Recorded Confirmed Type esomeprazole magnesium [Nexium] 20 mg PO DAILY #0 12/31/16 05/22/18 History omega 2-nqt-ctv-fish oil [Fish Oil] 2 cap PO DAILY #0 12/31/16 05/22/18 History nadolol 80 mg tablet 80 mg PO DAILY #30 tab 02/10/18 05/22/18 Rx [id number] serr 1 tab PO QAM 05/22/18 05/22/18 History [Glucosamine Daily Complex] Allergies Allergy/AdvReac Type Severity Reaction Status Date / Time iodine Allergy Verified 05/22/18 13:17 Review of Systems Constitutional Constitutional: Reports anorexia and Reports headache(s) ENT Ears, Nose, Mouth, and Throat: Yes headache(s) Cardiovascular Cardiovascular: Denies chest pain, Reports lightheadedness and Reports shortness of breath Respiratory Respiratory: Denies change in phlegm color, Reports cough and Reports dyspnea Gastrointestinal Gastrointestinal: Denies hematochezia, Denies coffee ground emesis, Denies nausea and Denies vomiting Genitourinary Genitourinary: Denies difficulty urinating and Denies dysuria Musculoskeletal Musculoskeletal: Reports back pain Integumentary/Breasts Skin/Breast: Reports system reviewed and no additional complaints, except as documented Neurologic Neurologic: Reports system reviewed and no additional complaints, except as documented and Reports headache(s) Psychiatric Psychiatric: Reports system reviewed and no additional complaints, except as documented Endocrine Endocrine: Reports system reviewed and no additional complaints, except as documented Hematologic/Lymphatic Hematologic/Lymphatic: Denies easy bleeding and Denies easy bruising Allergic/Immunologic Allergic/Immunologic: Reports system reviewed and no additional complaints, except as documented Exam Vital Signs (past 8 hours): - 05/22/18 13:17 05/22/18 15:49 05/22/18 16:49 Temperature 97.0 F L Pulse Rate 100 H 91 H 94 H Respiratory Rate 16 16 Blood Pressure 111/62 Blood Pressure [Right Arm] 110/57 L 91/55 L Pulse Oximetry 99 98 97 05/22/18 17:39 05/22/18 18:47 Temperature 97.8 F Pulse Rate 94 H Respiratory Rate 20 Blood Pressure 113/60 Blood Pressure [Right Arm] Pulse Oximetry 95 95 Oxygen Delivery Method Room Air Oxygen Flow Rate 0 Narrative Exam Narrative: He is resting on the bed he is looking somewhat uncomfortable resting on his left side as the patient feels more comfortable on that side. Oropharynx clear Neck no adenopathy noted Lungs decreased breath sounds in the bases bilateral no wheezing Heart tachycardic Abdomen soft no tenderness to palpation bowel sounds hypoactive Lower extremities no edema Skin warm and dry Neuro exam awake alert Of gives a good history no memory deficits Objective Labs Result Diagrams: 05/22/18 15:38 05/22/18 15:38 Labs: Laboratory Results - last 24 hr 05/22/18 05/22/18 05/22/18 15:38 15:38 15:38 WBC 10.1 RBC 3.39 L Hgb 9.1 L Hct 25.7 L MCV 75.9 L MCH 26.9 MCHC 35.4 RDW 14.8 Plt Count 208 Total Counted 100 Seg Neutrophils % 78.0 H Band Neutrophils % 1.0 L Atypical Lymphs % 5.0 H Monocytes % (Manual) 12.0 H Eosinophils % (Manual) 3.0 Basophils % (Manual) 1.0 Neutrophils # (Manual) 7979 H RBC Morphology Not Reportable Anisocytosis 1+ H PT 19.4 H INR 1.8 H APTT 28 Sodium 125 L Potassium 3.8 Chloride 92 L Carbon Dioxide 25 BUN 24 H Creatinine 1.00 Estimated GFR > 60.0 BUN/Creatinine Ratio 24.0 H Glucose 134 H Lactate Calcium 7.7 L Total Bilirubin 1.0 AST 23 ALT 26 Alkaline Phosphatase 92 Total Protein 6.3 Albumin 3.1 L Globulin 3.2 Albumin/Globulin Ratio 1.0 05/22/18 15:38 WBC RBC Hgb Hct MCV MCH MCHC RDW Plt Count Total Counted Seg Neutrophils % Band Neutrophils % Atypical Lymphs % Monocytes % (Manual) Eosinophils % (Manual) Basophils % (Manual) Neutrophils # (Manual) RBC Morphology Anisocytosis PT INR APTT Sodium Potassium Chloride Carbon Dioxide BUN Creatinine Estimated GFR BUN/Creatinine Ratio Glucose Lactate 1.2 Calcium Total Bilirubin AST ALT Alkaline Phosphatase Total Protein Albumin Globulin Albumin/Globulin Ratio Assessment & Plan Plan: Assessment/Plan Narrative: One. Possible pneumonia x-ray showing left mid to lower lung infiltrates. Small left pleural effusion. Chronic cough. White count mildly elevated. Plan to do room air blood gas plant do a CT scan of the lungs look at this little closer plan to place him on IV antibiotics and do blood cultures 2. Hyponatremia patient will place on IV fluids normal saline he is symptomatic from this with extreme fatigue 3. Retroperitoneal adenopathy by CT scan. He has splenomegaly and a possible mass in the pancreas. There is some lesions in the liver also. Consider a MRI of the pancreas and liver to further evaluate. He also has significant anemia that may go along with this lymphadenopathy this could represent lymphoma. Finding something to biopsy would be important. He does have bilateral inguinal lymph nodes that might be a place that we could do a biopsy. Referral to Oncology at some point also. 4. Code status full code 5. Disposition initially admitted as an inpatient for the probable pneumonia and the sit significant hyponatremia along with his probable lymphoma. Quality VTE Deep Vein Thrombosis/Pulmonary Embolism Present on Admission: No
[2018-05-22 19:21] LABS: Fractionated Inspired Oxygen 21; HCO3 ABG 20 mmol/L (23-27); Oxygen Saturation ABG 94 % (95-100); PCO2 ABG 27.4 mmHg (35-45); PO2 ABG 63 mmHg (80-105); TCO2 ABG 21 mmol/L (23-27); pH ABG 7.48 (7.35-7.45)
[2018-05-22] MEDS: SODIUM CHLORIDE 0.9% 1,000 ML 100 ML IV (19:43)
[2018-05-22] MEDS: CEFTRIAXONE 1 GM/50 ML FROZ.PIGGY IV (19:44)
[2018-05-22] MEDS: HYDROCODONE/ACET 5/325 TABLET 1 TAB PO (19:46)
[2018-05-22] MEDS: DOCUSATE 100 MG CAPSULE PO (20:44)
[2018-05-22] MEDS: AZITHROMYCIN 250 MG in DEXTROSE 5% IN WATER 250 ML IV (20:44)
[2018-05-23] VITALS (9 sets, daily range): BP systolic 88–133; BP diastolic 51–66; PULSE 85–110; RESP 16–22; TEMP 36.3–37.2; O2SAT 91–98; BMI 25.7
[2018-05-23] MEDS: HYDROCODONE/ACET 5/325 TABLET 1 TAB PO ×4 (03:16→20:31)
[2018-05-23] MEDS: SODIUM CHLORIDE 0.9% 1,000 ML 100 ML IV ×2 (03:25→13:50)
[2018-05-23] MEDS: PANTOPRAZOLE 20 MG TABLET PO (05:35)
[2018-05-23 06:19] LABS: Add Manual Diff / Slide Review NO; Basophils Percent Auto 0.6 % (0-2); Eosinophils Percent Auto 4.2 % (2-4); Hematocrit 27.1 % (41-53); Hemoglobin 9.2 g/dL (13.5-17.5); Lymphocytes Percent Auto 3.7 % (25-40); Mean Corpuscular HGB Conc 33.8 % (30-36); Mean Corpuscular Hemoglobin 26.1 PG (26-34); Mean Corpuscular Volume 77.2 fL (80-100); Monocytes Percent Auto 11.6 % (3-14); Neutrophils Absolute Auto 8300 /uL (3000-5900); Neutrophils Percent Auto 79.9 % (50-75); Platelet Count 211 X10^3/uL (150-400); Red Blood Cell Count 3.51 X10^6/uL (4.5-5.9); White Blood Cell Count 10.3 X10^3/uL (4.5-11.0)
[2018-05-23 06:26] LABS: Alanine Aminotransferase 22 IU/L (21-72); Albumin 3.2 g/dL (3.5-5.0); Alkaline Phosphatase 93 U/L (38-126); Aspartate Aminotransferase 20 IU/L (17-59); BUN Creatinine Ratio 21.8 (6-22); Bilirubin Total 0.8 mg/dL (0.2-1.3); Blood Urea Nitrogen 24 mg/dL (9-20); Calcium 7.5 mg/dL (8.4-10.2); Carbon Dioxide 23 mmol/L (22-32); Chloride 94 mmol/L (98-107); Estimated Glomerular Filt Rate > 60.0 mL/min (>60); Globulin 3.2 g/dL (1.7-4.1); Glucose 141 mg/dL (80-110); HEMOLYSIS < 15 (0-50); Potassium 4.4 mmol/L (3.4-5.1); Sodium 127 mmol/L (137-145); Total Protein 6.4 g/dL (6.3-8.2)
[2018-05-23] MEDS: ENOXAPARIN 40 MG/0.4 ML SYRINGE SUBCUT (08:24)
[2018-05-23] MEDS: NADOLOL 40 MG TABLET 80 MG PO (08:24)
[2018-05-23] MEDS: DOCUSATE 100 MG CAPSULE PO ×2 (08:24→21:59)
[2018-05-23] MEDS: SODIUM CHLORIDE 0.9% 500 ML IV (14:08)
--- NOTE | 2018-05-23 14:43 | PC.NURSE ---
Pt states improvement in overall feeling and increased appetite through out the day. Obtained 500ml NS bolus order for dark tea colored urine, tachycardia, hypotension, and decreased skin turgor.
--- NOTE | 2018-05-23 15:04 | P.PN_ITS ---
Subjective Date Patient Seen: 05/23/18 Time Patient Seen: 15:01 Interval history: Chart reviewed, patient seen and examined Overall patient feels significantly better. He has had no further diarrhea and no further vomitting. He tolerated his food without difficulty He denies shortness of breath Exam Vital Signs (past 8 hours): - 05/23/18 08:00 05/23/18 08:10 05/23/18 08:24 Temperature 98.7 F Pulse Rate 89 110 H Respiratory Rate 22 Blood Pressure 133/66 133/66 Pulse Oximetry 92 93 05/23/18 12:00 Temperature 98.9 F Pulse Rate 85 Respiratory Rate 22 Blood Pressure 88/52 L Pulse Oximetry 91 Oxygen Delivery Method Room Air Oxygen Flow Rate 0 Narrative Exam Narrative: Lungs: clear to auscultation CV: RRR nl Sl S2 Abd: soft/ mildly distended, no fluid wave Ext: 2+ pitting edema bilaterally Objective Labs Result Diagrams: 05/23/18 05:40 05/23/18 05:40 Labs: Laboratory Results - last 24 hr 05/22/18 05/22/18 05/22/18 15:38 15:38 15:38 WBC 10.1 RBC 3.39 L Hgb 9.1 L Hct 25.7 L MCV 75.9 L MCH 26.9 MCHC 35.4 RDW 14.8 Plt Count 208 Neut % (Auto) Lymph % (Auto) Fountain % (Auto) Eos % (Auto) Baso % (Auto) Neut # (Auto) Total Counted 100 Seg Neutrophils % 78.0 H Band Neutrophils % 1.0 L Atypical Lymphs % 5.0 H Monocytes % (Manual) 12.0 H Eosinophils % (Manual) 3.0 Basophils % (Manual) 1.0 Neutrophils # (Manual) 7979 H RBC Morphology Not Reportable Anisocytosis 1+ H PT 19.4 H INR 1.8 H APTT 28 ABG pH ABG pCO2 ABG pO2 ABG HCO3 ABG Total CO2 ABG O2 Saturation ABG Base Excess FiO2 Sodium 125 L Potassium 3.8 Chloride 92 L Carbon Dioxide 25 BUN 24 H Creatinine 1.00 Estimated GFR > 60.0 BUN/Creatinine Ratio 24.0 H Glucose 134 H Lactate Calcium 7.7 L Total Bilirubin 1.0 AST 23 ALT 26 Alkaline Phosphatase 92 Total Protein 6.3 Albumin 3.1 L Globulin 3.2 Albumin/Globulin Ratio 1.0 05/22/18 05/22/18 05/23/18 15:38 19:11 05:40 WBC 10.3 RBC 3.51 L Hgb 9.2 L Hct 27.1 L MCV 77.2 L MCH 26.1 MCHC 33.8 RDW 15.0 H Plt Count 211 Neut % (Auto) 79.9 H Lymph % (Auto) 3.7 L Fountain % (Auto) 11.6 Eos % (Auto) 4.2 H Baso % (Auto) 0.6 Neut # (Auto) 8300 H Total Counted Seg Neutrophils % Band Neutrophils % Atypical Lymphs % Monocytes % (Manual) Eosinophils % (Manual) Basophils % (Manual) Neutrophils # (Manual) RBC Morphology Anisocytosis PT INR APTT ABG pH 7.48 H ABG pCO2 27.4 L ABG pO2 63 L ABG HCO3 20 L ABG Total CO2 21 L ABG O2 Saturation 94 L ABG Base Excess -3.0 L FiO2 21 Sodium Potassium Chloride Carbon Dioxide BUN Creatinine Estimated GFR BUN/Creatinine Ratio Glucose Lactate 1.2 Calcium Total Bilirubin AST ALT Alkaline Phosphatase Total Protein Albumin Globulin Albumin/Globulin Ratio 05/23/18 05:40 WBC RBC Hgb Hct MCV MCH MCHC RDW Plt Count Neut % (Auto) Lymph % (Auto) Fountain % (Auto) Eos % (Auto) Baso % (Auto) Neut # (Auto) Total Counted Seg Neutrophils % Band Neutrophils % Atypical Lymphs % Monocytes % (Manual) Eosinophils % (Manual) Basophils % (Manual) Neutrophils # (Manual) RBC Morphology Anisocytosis PT INR APTT ABG pH ABG pCO2 ABG pO2 ABG HCO3 ABG Total CO2 ABG O2 Saturation ABG Base Excess FiO2 Sodium 127 L Potassium 4.4 Chloride 94 L Carbon Dioxide 23 BUN 24 H Creatinine 1.10 Estimated GFR > 60.0 BUN/Creatinine Ratio 21.8 Glucose 141 H Lactate Calcium 7.5 L Total Bilirubin 0.8 AST 20 ALT 22 Alkaline Phosphatase 93 Total Protein 6.4 Albumin 3.2 L Globulin 3.2 Albumin/Globulin Ratio 1.0 Assessment & Plan (1) Hyponatremia syndrome: Problem details: Iv hydration, will check serum osmolality Current visit: Yes Status: Acute (2) Dehydration: Problem details: continue fluids, d/c nadolol for now Current visit: Yes Status: Acute (3) Pneumonia: Problem details: continue antibiotics Qualifiers: Aspiration pneumonia type: Laterality: left Lung location: lower lobe of lung Pneumonia type: due to unspecified organism Qualified Code(s): J18.1 - Lobar pneumonia, unspecified organism Current visit: Yes Status: Acute (4) Hyponatremia: Current visit: Yes Status: Acute (5) Anemia: Current visit: Yes Status: Acute (6) Lymphadenopathy, abdominal: Problem details: Outpatient Oncology evaluation Current visit: No Status: Acute Quality VTE Deep Vein Thrombosis/Pulmonary Embolism Present on Admission: No
--- NOTE | 2018-05-23 15:33 | CM.DANOTE ---
Discharge Planning/Care Management DCP: assesssment: case received, EMR reviewed and met briefly with pt and his sister Denise. Pt is a 62 year old male who [facility] to care of hospitalist team. Payer: [facility] Brief check in only....pt is sitting on side of bed, coughing continually and whimpering in pain. Denise says he is supposed to cough all that up but it hurts his back badly. P: DCP team to follow as POC unfolds....much is unclear at this time CM Discharge Assessment Start: 05/23/18 15:30 Freq: Status: Active Protocol: Document 05/23/18 15:31 ITV (Rec: 05/23/18 15:33 ITV [id number]) Discharge Planning Assessment Advance Directives? No Advance Directives on File No History Provided By Patient Family Member Medical Record Has Patient been admitted in last 30 No days? Prior Living Arrangements Apartment/Condo Household Members none Comment sister: Denise Colón is at bedside: [phone] Independent with ADL's Yes Is patient alert and oriented? Yes Whiteboard Updated in Patient Room with Yes name and ext. # of Program Checker Review Status In Process Next Review Type Continued Stay Review
--- NOTE | 2018-05-23 16:02 | PT.IPTN ---
Current Diagnoses Anemia, unspecified (05/22/18) Dehydration (05/22/18) Hypo-osmolality and hyponatremia (05/22/18) Lobar pneumonia, unspecified organism (05/22/18) Pneumonia, unspecified organism (05/22/18) Localized enlarged lymph nodes (05/22/18) Physical Therapy Treatment Note M3 PT-IP Subjective Start: 05/23/18 15:59 Freq: NEEDED Status: Active Protocol: Document 05/23/18 16:00 AB (Rec: 05/23/18 16:02 AB [id number]) Subjective Physical Therapy Visit Type Type Patient Refusal Notes checked on pt and pt stated that he has back pain due to his coughing spells and had pain meds and is just getting comfortable. pt refused PT at this time but agreeable to do it tomorrow. will check on pt tomorrow morning.
[2018-05-23] MEDS: CEFTRIAXONE 1 GM/50 ML FROZ.PIGGY IV (20:27)
--- NOTE | 2018-05-23 21:51 | PC.NURSE ---
assumed care of pt from outgoing shift. PT awake, sister at bedside. PT complains of pain, given pain med per MAR. Pt uses call light. compliant with nursing assessments. Pt vitals ok, similar to what they have been. states may want to go for a walk. urine still tea colored and minimal. pt taking orals, ice chips and some water. Pt denies any needs. discussed plan of acre with pt and pt compliant. uses call light. frequent checks. will continue to monitor pt for safety.
[2018-05-24] VITALS (14 sets, daily range): BP systolic 75–125; BP diastolic 44–72; PULSE 77–97; RESP 13–22; TEMP 36.3–38.1; O2SAT 93–97
[2018-05-24] MEDS: ACETAMINOPHEN 325 MG TABLET 650 MG PO ×3 (00:26→10:29)
[2018-05-24] MEDS: SODIUM CHLORIDE 0.9% 1,000 ML 100 ML IV ×3 (00:27→20:38)
[2018-05-24] MEDS: PANTOPRAZOLE 20 MG TABLET PO (05:00)
[2018-05-24 05:34] LABS: Alanine Aminotransferase 20 IU/L (21-72); Albumin Globulin Ratio 0.9 (1.0-2.8); Alkaline Phosphatase 95 U/L (38-126); Aspartate Aminotransferase 20 IU/L (17-59); BUN Creatinine Ratio 22.5 (6-22); Bilirubin Total 0.7 mg/dL (0.2-1.3); Blood Urea Nitrogen 27 mg/dL (9-20); Calcium 7.1 mg/dL (8.4-10.2); Carbon Dioxide 20 mmol/L (22-32); Chloride 96 mmol/L (98-107); Estimated Glomerular Filt Rate > 60.0 mL/min (>60); Globulin 3.3 g/dL (1.7-4.1); Glucose 107 mg/dL (80-110); HEMOLYSIS < 15 (0-50); Hematocrit 27.8 % (41-53); Hemoglobin 9.4 g/dL (13.5-17.5); Mean Corpuscular HGB Conc 33.8 % (30-36); Mean Corpuscular Volume 76.9 fL (80-100); Platelet Count 245 X10^3/uL (150-400); Potassium 4.1 mmol/L (3.4-5.1); Red Blood Cell Count 3.62 X10^6/uL (4.5-5.9); Red Cell Distribution Width 14.8 % (11.6-14.8); Sodium 126 mmol/L (137-145); Total Protein 6.3 g/dL (6.3-8.2); White Blood Cell Count 12.1 X10^3/uL (4.5-11.0)
[2018-05-24 05:41] LABS: Add Manual Diff / Slide Review YES
[2018-05-24] MEDS: HYDROCODONE/ACET 5/325 TABLET 1 TAB PO ×4 (06:08→20:37)
[2018-05-24 06:25] LABS: Anisocytosis 1+
[2018-05-24] MEDS: guaiFENesin Liquid 100 MG/5 ML UDC PO ×2 (06:33→13:28)
[2018-05-24] MEDS: SODIUM CHLORIDE 0.9% 1,000 ML 1000 ML IV (09:14)
[2018-05-24] MEDS: DOCUSATE 100 MG CAPSULE PO ×2 (09:14→20:19)
[2018-05-24] MEDS: ENOXAPARIN 40 MG/0.4 ML SYRINGE SUBCUT (09:14)
--- NOTE | 2018-05-24 09:21 | P.PN_ITS ---
Subjective Date Patient Seen: 05/24/18 Interval history: Patient with poor appetite and oral intake. This a.m. with low blood pressure 78 systolic. Urine output remains low but improving. He did have some vomiting last night with eating small amount supper. No nausea. Also states his cough is better since admission. Exam Vital Signs (past 8 hours): - 05/24/18 02:00 05/24/18 02:25 05/24/18 05:00 Temperature 98.2 F 97.6 F Pulse Rate 97 H Respiratory Rate 22 Blood Pressure 125/72 Pulse Oximetry 96 94 05/24/18 06:13 05/24/18 07:40 Temperature 100.5 F H 98.2 F Pulse Rate 77 Respiratory Rate 18 Blood Pressure 78/44 L Pulse Oximetry 93 Oxygen Delivery Method Room Air Oxygen Flow Rate 0 Narrative Exam Narrative: GENERAL: Patient is asleep but is easily awakened, no acute distress HEENT: Head normocephalic, atraumatic. Pupils equal. CHEST: Clear to auscultation bilaterally. CARDIAC: Regular rate and rhythm. ABDOMEN: Soft and nontender EXTREMITIES: Mild pretibial, ankle and pedal edema bilaterally NEUROLOGICAL: Pleasant, well oriented, nonfocal SKIN: Warm, dry, no petechiae, no rash Objective Labs Result Diagrams: 05/24/18 05:05 05/24/18 05:05 Labs: Laboratory Results - last 24 hr 05/24/18 05/24/18 05:05 05:05 WBC 12.1 H RBC 3.62 L Hgb 9.4 L Hct 27.8 L MCV 76.9 L MCH 26.0 MCHC 33.8 RDW 14.8 Plt Count 245 Neut % (Auto) Not Reportable Lymph % (Auto) Not Reportable Hayes % (Auto) Not Reportable Eos % (Auto) Not Reportable Baso % (Auto) Not Reportable Seg Neutrophils % 75.0 H Band Neutrophils % 10.0 H Lymphocytes % (Manual) 2.0 L Monocytes % (Manual) 9.0 Eosinophils % (Manual) 3.0 Basophils % (Manual) 1.0 RBC Morphology Not Reportable Anisocytosis 1+ H Sodium 126 L Potassium 4.1 Chloride 96 L Carbon Dioxide 20 L BUN 27 H Creatinine 1.20 Estimated GFR > 60.0 BUN/Creatinine Ratio 22.5 H Glucose 107 Calcium 7.1 L Total Bilirubin 0.7 AST 20 ALT 20 L Alkaline Phosphatase 95 Total Protein 6.3 Albumin 3.0 L Globulin 3.3 Albumin/Globulin Ratio 0.9 L Assessment & Plan Plan: Assessment/Plan Narrative: 1. Acute dehydration: Patient is receiving IV fluids. Urine output low but improving. Hypotensive this morning for unclear reasons but does not appear septic or another acute distress. Plan: Continue IV hydration with normal saline. Give additional 1 L normal saline bolus for hypotension. Trach urine output. 2. Hyponatremia, likely due to dehydration: Stable but not improving. Continue IV fluids. 3. Possible bacterial pneumonia: Cough is chronic x5 months although improving in hospital. He had left lower lobe infiltrates on lung imaging so it is difficult to separate out from his metastatic malignancy. He had recent outpatient treatment with a Z-Christian. Plan: Continue IV Rocephin and switch to oral antibiotic at discharge to complete 10 day course. 4. Metastatic malignancy, unknown nature, recently diagnosed based on CT imaging: He has diffuse pulmonary and retroperitoneal adenopathy. He has oncology appointment at [facility] on next SaturdayMay 30. He has history of testicular carcinoma treated with radiation and 3 cycles chemotherapy about 14 years ago back in [place]. 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 He never smoked. 5. Anemia, secondary to malignancy 6. Moderate protein calorie malnutrition: Noted greater than 25 lb weight loss in the past 6 months. 7. DVT prophylaxis: Continue low-dose Lovenox 8. Disposition: Continue inpatient care. Possible discharge tomorrow if medically stable. Quality VTE Deep Vein Thrombosis/Pulmonary Embolism Present on Admission: No
--- NOTE | 2018-05-24 10:36 | PC.NURSE ---
Addendum entered by Nakita Hussein R.N. 05/24/18 15:25: - pt continues to moan, earlier norco has started to provide some relief, does not want to ambul at this time or stand to void, discussed voiding patterns with pt and bladder scan done now shows 320ml in bladder, discussed cath with pt and declines now and would like to try to void soon when he feels some more relief from the norco. Original Note: Addendum entered by Nakita Hussein R.N. 05/24/18 14:08: ANXIETY/PAIN//GI - pt seated chair, req assistance to br, was given guif for cough earlier, reported incr back pain after coughing and pt seated chair, leaning forward moaning, states pain back intense after cough, given norco 5/325mg now with sip water before mobilizing. Original Note: Addendum entered by Nakita Hussein R.N. 05/24/18 13:13: MS - pt req that he wanted to ambulate, had stand w/fww for several minutes, no dizziness, with ammunition supervisor and 2nd w/wc behind pt, ambul around SW loop x2, before sitting back down bp checked and 94/56, hr 80. Original Note: Addendum entered by Nakita Hussein R.N. 05/24/18 12:33: MS/VITALS - SVP OPERATIONS assisted to chair, positioned comfort, legs elev, bp 78/44 reported to taken after the completion of the 1L NS bolus, new lab ordered. Original Note: AM NOTE - sitting up dangle position w/cool clothes on head and his shoulders, moaning, poor sleep last night, had coughing earlier, the guif helped relieve, bs dim w/few fine crackles, ra 94%, hr reg 76, bp 78/44 this am, 1+ pedal edema, Dr. Haro notified this am and new order for 1L bolus admin, poor appetite and had kitchen staff in to try and find palatable food for lunch, vicnent bites fruit and juice this am, when ready to rest, given norco 5/325mg and addl x1 tab tylenol, states sheets are irritating to his skin, declines chair at this time.
--- NOTE | 2018-05-24 12:25 | PT.IPTN ---
Current Diagnoses Anemia, unspecified (05/22/18) Dehydration (05/22/18) Hypo-osmolality and hyponatremia (05/22/18) Lobar pneumonia, unspecified organism (05/22/18) Pneumonia, unspecified organism (05/22/18) Localized enlarged lymph nodes (05/22/18) Physical Therapy Treatment Note M3 PT-IP Subjective Start: 05/23/18 15:59 Freq: NEEDED Status: Active Protocol: Document 05/24/18 12:22 AB (Rec: 05/24/18 12:24 AB [id number]) Subjective Physical Therapy Visit Type Notes per nurse Nakita: pt on hold for PT this morning due to low BP and she is giving pt a bolus and also will give pt pain meds and stated that pt will take a nap afterwards and just better see pt for PT in the afternoon.
[2018-05-24 12:48] LABS: Cortisol AM (Before 10AM) 18.3 ug/dL (4.46-22.7)
--- NOTE | 2018-05-24 16:24 | PT.IPTN ---
Current Diagnoses Anemia, unspecified (05/22/18) Dehydration (05/22/18) Hypo-osmolality and hyponatremia (05/22/18) Lobar pneumonia, unspecified organism (05/22/18) Pneumonia, unspecified organism (05/22/18) Localized enlarged lymph nodes (05/22/18) Physical Therapy Treatment Note M3 PT-IP Subjective Start: 05/23/18 15:59 Freq: NEEDED Status: Active Protocol: Document 05/24/18 16:23 AB (Rec: 05/24/18 16:24 AB [id number]) Subjective Physical Therapy Visit Type Type Patient Refusal Notes checked on pt and pt sitting on chair and stated that he is not feeling well and cannot do PT. offered to assist to bed but pt prefers to just sit on chair. Pt has (+) SOB. nursing aware.
--- NOTE | 2018-05-24 16:27 | OT.IP.TRT ---
Current Diagnoses Anemia, unspecified (05/22/18) Dehydration (05/22/18) Hypo-osmolality and hyponatremia (05/22/18) Lobar pneumonia, unspecified organism (05/22/18) Pneumonia, unspecified organism (05/22/18) Localized enlarged lymph nodes (05/22/18) Occupational Therapy Treatment Note M3 OT- IP Subjective and Pain Start: 05/24/18 16:25 Freq: Status: Active Protocol: Document 05/24/18 16:25 [facility] (Rec: 05/24/18 16:27 [facility] [id number]) OT- Subjective Occupational Therapy Visit Type Type Patient Unavailable Notes Pt sleeping in chair when checked on in PM, therefore to do OT eval on Saturday as not OT present on Saturday.
[2018-05-24] MEDS: CEFTRIAXONE 1 GM/50 ML FROZ.PIGGY IV (18:41)
[2018-05-24] MEDS: ZOLPIDEM 5 MG TABLET PO (21:23)
--- NOTE | 2018-05-24 22:46 | PC.NURSE ---
assumed care of pt from outgoing shift. Pt asleep at this time. belongings and call light within reach. pt compliant with assessment. pt complains of pain and given med per NOV. requested ambien for sleep. pt in bed. very distended and abdomen is much firmer today than it was yesterday. pt hands are dusky and yellow tinged. will continue to monitor. pt walked with propeller tester twice. after maradiaga in bed he gets very hot. cools off with ice chips and fan, and takes gown off. will continue to monitor.
[2018-05-25 00:30] VITALS: O2SAT 97
[2018-05-25] MEDS: guaiFENesin Liquid 100 MG/5 ML UDC PO ×3 (00:35→10:14)
[2018-05-25] MEDS: HYDROCODONE/ACET 5/325 TABLET 1 TAB PO ×3 (02:03→10:16)
[2018-05-25] MEDS: ACETAMINOPHEN 325 MG TABLET 650 MG PO ×3 (02:04→10:17)
[2018-05-25 03:00] VITALS: BP 121/44; PULSE 100; RESP 18; TEMP 36.4; O2SAT 94
[2018-05-25] MEDS: PANTOPRAZOLE 20 MG TABLET PO (05:15)
[2018-05-25] MEDS: SODIUM CHLORIDE 0.9% 1,000 ML 100 ML IV (05:42)
[2018-05-25 07:25] VITALS: BP 89/47; PULSE 83; RESP 18; TEMP 36.1; O2SAT 97
[2018-05-25] MEDS: DOCUSATE 100 MG CAPSULE PO (09:14)
[2018-05-25] MEDS: ENOXAPARIN 40 MG/0.4 ML SYRINGE SUBCUT (09:14)
[2018-05-25 09:30] VITALS: O2SAT 96
--- NOTE | 2018-05-25 09:55 | PT.IIE ---
Current Diagnoses Anemia, unspecified (05/22/18) Dehydration (05/22/18) Hypo-osmolality and hyponatremia (05/22/18) Lobar pneumonia, unspecified organism (05/22/18) Pneumonia, unspecified organism (05/22/18) Localized enlarged lymph nodes (05/22/18) Medical History (Last Updated 05/22/18 @ 18:57 by Gregory Hastings MD) Arthralgia of left knee (04/04/17) Tailor's bunion of right foot (04/04/17) History of unilateral orchiectomy (04/04/17) History of malignant neoplasm of testis (04/04/17) Chronic intractable headache (11/07/17) Testicular cancer (Resolved) Migraines (Acute) Physical Therapy Inpatient Evaluation/Re-Eval M1 PT/OT-IP Prior Functional Status Start: 05/24/18 16:25 Freq: NEEDED Status: Active Protocol: Document 05/25/18 09:55 [facility] (Rec: 05/25/18 12:17 [facility] [id number]) Medical Review Prior Functional Status Medical History Reviewed Yes Communication WNL Mobility and Gait outdoor gait without device Activities of Daily Living and IADL's indep. I/ADLs Social History Household Members none Living Arrangements Apartment/Condo Number of Floors (Floors) One Floor Number of Stairs To Enter/Railing? ramped entry Home Environment Standard Height Toilet Additional Social History Comment pt wit increased cough, anorexia, weight loss and possible pneumonia per chest radiograph. Chest CT showed possible metastasis. M2 PT-IP Current Condition Start: 05/23/18 15:59 Freq: NEEDED Status: Active Protocol: Document 05/25/18 09:55 [facility] (Rec: 05/25/18 12:17 [facility] [id number]) Physical Therapy Current Condition Current Condition Evaluation Date 05/25/18 Treatment Diagnosis weakness, pneumonia M3 PT-IP Subjective Start: 05/23/18 15:59 Freq: NEEDED Status: Active Protocol: Document 05/25/18 09:55 [facility] (Rec: 05/25/18 12:17 [facility] [id number]) Subjective Physical Therapy Visit Type Type Initial Evaluation Visit Start Time 09:30 Visit Stop Time 09:55 Total Visit Minutes 25 Number of TUBING MACHINE OPERATOR Visits 0 Physical Therapy Visit Comments Patient Comments pt states he is SOB, he needs his voice to be able to work but fears he cannot work yet. M4 PT-IP Mobility and Gait Start: 05/23/18 15:59 Freq: NEEDED Status: Active Protocol: Document 05/25/18 09:55 [facility] (Rec: 05/25/18 12:17 [facility] [id number]) PT-Transfer Assessment Sit to and From Stand Sit to and from Stand Independent Equipment Transfer Assistive Device Gait Belt Front Wheeled Walker Transfers Transfer Destination Chair Transfer Technique Stand Step Pivot Transfer Ability Level of Assist Standby Assistance Gait Assessment Gait Gait Assistance Required: Standby Assistance Distance (Feet) 500 Assistive Devices Assistive Device Gait Belt Front Wheeled Walker Gait Deviations General Gait Pattern Decreased Stride Length Factors Limiting Gait Function Factors Limiting Gait Function Decreased Activity Tolerance Decreased Strength Respiratory Distress Comments Gait Comments pt able to speak 2-3 words per breath during ambulation, fatigued. O2 saturation 96-98% . BP 121/63. PT-Balance Assessment Sitting Balance and Reactions Static Sitting Balance Ability Normal Dynamic Sitting Balance Ability Normal Standing Balance and Reactions Static Standing Balance Ability Good Dynamic Standing Balance Ability Good Device Used FWW M5 PT-IP Objective Assessments Start: 05/23/18 15:59 Freq: NEEDED Status: Active Protocol: Document 05/25/18 09:55 [facility] (Rec: 05/25/18 12:17 [facility] [id number]) Orientation Orientation/Cognition Level of Alertness Alert Orientation Name Age Birthday Month Date Year Day of Week Place Situation Strength Upper Extremity Strength Assessment Within Functional Limits Comments Strength Comments LE grossly 4/5. Coordination Assessment Gross Coordination Gross Coordination WNL Muscle Tone Muscle Tone WNL Yes M7 PT-IP Assessment and Plan Start: 05/23/18 15:59 Freq: NEEDED Status: Active Protocol: Document 05/25/18 09:55 [facility] (Rec: 05/25/18 12:17 [facility] [id number]) PT Summary Assessment and Plan Potential Rehabilitation Potential Fair Status of Condition at Evaluation Unstable Summary Impairments Strength Gait Activity Tolerance Assessment Summary Pt requires cuing for energy conservation and fatigues with ambulation, recommend using a walker which his sister has one he can use. Eventually, if weakness persists, pt would likely benefit from a 4WW for energy conservation (seat for seated rest). He demonstrates good safety awareness. Overall , pt likely to be able to d/c home when medically stable. We will continue to follow for safe progression of ambulation and activity tolerance. High complexity due to medical and potential progression of disease. Goals Bed Mobility Goal Independent Transfer Goal Independent Gait Goal Independent Gait Distance 300 Days to Meet Goals 2 Frequency of Treatment Frequency Of Treatment Once a Day Treatment Plan Physical Therapy Treatment Plan Gait Training Therapeutic Exercise Neuromuscular Re-ed Other Recommendations and Next Treatment gait with 4WW, progression Focus toward cane. Recommendations To Nursing Amount of Assist Needed Standby Assistance Discharge Recommendations PT Discharge Recommendations Home with Assistance
--- NOTE | 2018-05-25 11:24 | PM.DS.1 ---
History of Present Illness Chief complaint: CANT EAT,OUT OF ENERGY,CANT STAND UP Narrative: A 62-year-old male previously healthy presents with several week history of increasing cough anorexia and weight loss. He was seen [facility] if the end april with the symptoms of cough he was treated with an antibiotic at that time he was seen again this Saturday on the 19 of May and then referred to the ER because he was little bit hypotensive. ER at that time did a CT scan of the abdomen that showed extensive adenopathy and was set up to see Oncology however when he went to see Oncology was told that he could be seen because he had a an insurance that they did not see. In the meantime his cough and symptoms got worse increasing weakness increasing lethargy and presented back to the ER today. Cough shortness of breath decreased appetite weight loss anorexia and lethargy are his main symptoms. Discharge Providers Date of admission: 05/22/18 17:05 Primary care physician: Antonio Sykes MD Consults: 05/22/18 17:51 Consult to Dietitian, Adult Routine Comment: Reason For Exam: probable cancer. wt loss 25+ lbs in 3 weeks 05/23/18 15:06 Consult to Occupational Therapy Evaluate & Treat Comment: Physician Instructions: Evaluate and treat Consult to Physical Therapy Evaluate & Treat Comment: Physician Instructions: Evaluate and Treat Discharge provider: Bunny Haro MD Summary Discharge Diagnosis: 1. Acute dehydration 2. Hyponatremia, persistent 3. Bacterial pneumonia 4. Metastatic malignancy, unknown primary 5. Anemia of malignancy 6. Severe protein calorie malnutrition 7. Hypotension Hospital Course: Patient was hypovolemic and provided IV hydration during course of hospitalization. Unfortunately he did develop significant 3rd spacing due to hypoalbuminemia from malnutrition. Serum sodium really did not change from admission with sodium of 126 on labs yesterday in spite of normal saline. Serum sodium was 128 on admission. His late morning serum cortisol was 18 which makes adrenal insufficiency unlikely as cause of low sodium and low blood pressures. He had on and off low blood pressures even down to below 80 systolic but not very responsive to IV fluid boluses. However, he did not present as sepsis syndrome. This a.m. BP 80/47 but BP a few hours earlier 121/44 so he does tend to fluctuate quite a bit with his blood pressures. However, he is not feeling dizzy or off balance with standing and walking in spite of his low blood pressure. We did take him off his nadolol which he takes for migraine prophylaxis. We thought he might have some degree bacterial pneumonia. He has had chronic cough x5 months. Chest x-ray with left lower lobe infiltrates although hard to separate out from his metastatic cancer abnormalities. He had been treated with Zithromax as outpatient with continued cough. However his cough did improve quite a bit with Rocephin. He is being discharged on 1 week of cefuroxime by mouth to complete 10 day course of antibiotic for presumed pneumonia. He is severely malnourished with over 25 lb weight loss in the past 5-6 months and evidence of muscle wasting. This is all most obviously secondary to his malignancy. He was seen by crm marketing analyst and was provided appropriate dietary recommendations. In regards to his metastatic cancer he has an appointment on SaturdayMay 30 with [facility]. He has history of testicular carcinoma treated with radiation and 3 cycles chemotherapy about 14 years ago back in [place]. 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 He never smoked. Status at Discharge Functional status at discharge: independent ambulation Time Spent with Patient Greater than 30 minutes Exam Vital Signs (past 8 hours): - 05/25/18 07:25 Temperature 97.0 F L Pulse Rate 83 Respiratory Rate 18 Blood Pressure 89/47 L Pulse Oximetry 97 Oxygen Delivery Method Room Air Oxygen Flow Rate 0 Narrative Exam Narrative: GENERAL: Patient is asleep but is easily awakened, no acute distress HEENT: Head normocephalic, atraumatic. Pupils equal. CHEST: Clear to auscultation bilaterally. CARDIAC: Regular rate and rhythm. ABDOMEN: Soft and nontender EXTREMITIES: Mild pretibial, ankle and pedal edema bilaterally NEUROLOGICAL: Pleasant, well oriented, nonfocal SKIN: Warm, dry, no petechiae, no rash Objective Labs Result Diagrams: 05/24/18 05:05 05/24/18 05:05 Labs: Laboratory Results - last 24 hr 05/24/18 05:05 Cortisol AM Sample 18.3 Discharge Plan Discharge Plan Patient Disposition: Home Discharge Med Rec/Prescriptions Prescriptions: New cefuroxime axetil 500 mg tablet 500 mg PO Q12H 7 Days Qty: 14 RF: 0 ondansetron 4 mg tablet,disintegrating 4 mg PO TID PRN (Reason: nausea and vomiting) 5 Days Qty: 15 RF: 0 Continue esomeprazole magnesium [Nexium] 20 MG capsule,delayed release(DR/EC) 20 mg PO DAILY Qty: 0 RF: 0 omega 4-bhq-xlj-fish oil [Fish Oil] 1,000 MG capsule 2 cap PO DAILY Qty: 0 RF: 0 [id number] serr [Glucosamine Daily Complex] 1,500-400-100 mg-unit-mg Tablet 1 tab PO QAM RF: 0 Discontinued nadolol 80 mg tablet 80 mg PO DAILY Qty: 30 RF: 11 Follow up/Referrals: Antonio Sykes MD [Primary Care Provider] - 3-5 Days Provider Discharge Instructions Diet: Diet as Tolerated Visit Report/Discharge Packet Visit Report Forms: Stroke Signs & Symptoms Discharge Data Primary Care Provider: Antonio Sykes Attending Provider: Lesly Pineda Admit Date/Time: 05/22/18 17:05 Quality VTE Deep Vein Thrombosis/Pulmonary Embolism Present on Admission: No
--- NOTE | 2018-05-25 11:35 | P.DS_ITS ---
History of Present Illness Chief complaint: CANT EAT,OUT OF ENERGY,CANT STAND UP Narrative: A 62-year-old male previously healthy presents with several week history of increasing cough anorexia and weight loss. He was seen in the [facility] if the end april with the symptoms of cough he was treated with an antibiotic at that time he was seen again this Saturday on the 19 of May and then referred to the ER because he was little bit hypotensive. ER at that time did a CT scan of the abdomen that showed extensive adenopathy and was set up to see Oncology however when he went to see Oncology was told that he could be seen because he had a an insurance that they did not see. In the meantime his cough and symptoms got worse increasing weakness increasing lethargy and presented back to the ER today. Cough shortness of breath decreased appetite weight loss anorexia and lethargy are his main symptoms. Discharge Providers Date of admission: 05/22/18 17:05 Primary care physician: Antonio Sykes MD Consults: 05/22/18 17:51 Consult to Dietitian, Adult Routine Comment: Reason For Exam: probable cancer. wt loss 25+ lbs in 3 weeks 05/23/18 15:06 Consult to Occupational Therapy Evaluate & Treat Comment: Physician Instructions: Evaluate and treat Consult to Physical Therapy Evaluate & Treat Comment: Physician Instructions: Evaluate and Treat Discharge provider: Bunny Haro MD Summary Discharge Diagnosis: 1. Acute dehydration 2. Hyponatremia, persistent 3. Bacterial pneumonia 4. Metastatic malignancy, unknown primary 5. Anemia of malignancy 6. Severe protein calorie malnutrition 7. Hypotension Hospital Course: Patient was hypovolemic and provided IV hydration during course of hospitalization. Unfortunately he did develop significant 3rd spacing due to hypoalbuminemia from malnutrition. Serum sodium really did not change from admission with sodium of 126 on labs yesterday in spite of normal saline. Serum sodium was 128 on admission. His late morning serum cortisol was 18 which makes adrenal insufficiency unlikely as cause of low sodium and low blood pressures. He had on and off low blood pressures even down to below 80 systolic but not very responsive to IV fluid boluses. However, he did not present as sepsis syndrome. This a.m. BP 80/47 but BP a few hours earlier 121/ 44 so he does tend to fluctuate quite a bit with his blood pressures. However, he is not feeling dizzy or off balance with standing and walking in spite of his low blood pressure. We did take him off his nadolol which he takes for migraine prophylaxis. We thought he might have some degree bacterial pneumonia. He has had chronic cough x5 months. Chest x-ray with left lower lobe infiltrates although hard to separate out from his metastatic cancer abnormalities. He had been treated with Zithromax as outpatient with continued cough. However his cough did improve quite a bit with Rocephin. He is being discharged on 1 week of cefuroxime by mouth to complete 10 day course of antibiotic for presumed pneumonia. He is severely malnourished with over 25 lb weight loss in the past 5-6 months and evidence of muscle wasting. This is all most obviously secondary to his malignancy. He was seen by sheetrock applicator and was provided appropriate dietary recommendations. In regards to his metastatic cancer he has an appointment on SaturdayMay 30 with [facility]. He has history of testicular carcinoma treated with radiation and 3 cycles chemotherapy about 14 years ago back in [place]. 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 He never smoked. Status at Discharge Functional status at discharge: independent ambulation Time Spent with Patient Greater than 30 minutes Exam Vital Signs (past 8 hours): - 05/25/18 07:25 Temperature 97.0 F L Pulse Rate 83 Respiratory Rate 18 Blood Pressure 89/47 L Pulse Oximetry 97 Oxygen Delivery Method Room Air Oxygen Flow Rate 0 Narrative Exam Narrative: GENERAL: Patient is asleep but is easily awakened, no acute distress HEENT: Head normocephalic, atraumatic. Pupils equal. CHEST: Clear to auscultation bilaterally. CARDIAC: Regular rate and rhythm. ABDOMEN: Soft and nontender EXTREMITIES: Mild pretibial, ankle and pedal edema bilaterally NEUROLOGICAL: Pleasant, well oriented, nonfocal SKIN: Warm, dry, no petechiae, no rash Objective Labs Result Diagrams: 05/24/18 05:05 05/24/18 05:05 Labs: Laboratory Results - last 24 hr 05/24/18 05:05 Cortisol AM Sample 18.3 Discharge Plan Discharge Plan Patient Disposition: Home Discharge Med Rec/Prescriptions Prescriptions: New cefuroxime axetil 500 mg tablet 500 mg PO Q12H 7 Days Qty: 14 RF: 0 ondansetron 4 mg tablet,disintegrating 4 mg PO TID PRN (Reason: nausea and vomiting) 5 Days Qty: 15 RF: 0 Continue esomeprazole magnesium [Nexium] 20 MG capsule,delayed release(DR/EC) 20 mg PO DAILY Qty: 0 RF: 0 omega 4-dfw-dfs-fish oil [Fish Oil] 1,000 MG capsule 2 cap PO DAILY Qty: 0 RF: 0 [id number] serr [Glucosamine Daily Complex] 1,500-400-100 mg- unit-mg Tablet 1 tab PO QAM RF: 0 Discontinued nadolol 80 mg tablet 80 mg PO DAILY Qty: 30 RF: 11 Follow up/Referrals: Antonio Sykes MD [Primary Care Provider] - 3-5 Days Provider Discharge Instructions Diet: Diet as Tolerated Visit Report/Discharge Packet Visit Report Forms: Stroke Signs & Symptoms Discharge Data Primary Care Provider: Antonio Sykes Attending Provider: Lesly Pineda Admit Date/Time: 05/22/18 17:05 Quality VTE Deep Vein Thrombosis/Pulmonary Embolism Present on Admission: No
--- NOTE | 2018-05-25 11:35 | PC.NURSE ---
Addendum entered by Nakita Hussein R.N. 05/25/18 14:20: DC - when family arrived, reviewed dc instructions, scripts sent electronically to [facility], belongings gathered, clothing, cell phone, bag, tsf to and escorted to family car by electric well logging operator. Original Note: AM NOTE - awake, seated chair, sob at rest, bs clear w/find crackles lll, 02 sat 96% ra, abd is firm, did have bm earlier,2+ pedal edema, wearing dar hose, occass cough, states not as hard as previously, does incr back pain w/cough, given guif and norco tab this am prior to mobilizing with phys therapy, no dizziness when up, did ambul w/fww down hallway and ret chair.
[2018-05-25 11:55] VITALS: BP 81/52; PULSE 99; RESP 20; TEMP 36.4; O2SAT 94
[2018-05-26 16:20] LABS: Osmolality, Serum 265 mosm/kg (260-310)
== END 2018-05-25 13:35 | disposition home or self-care (01) | DRG 193 ==
LOC: ED 16:35 → AC 17:06
PROVIDERS: Internal Medicine; Admitting Provider Internal Medicine; Emergency Provider Internal Medicine; Family Provider Family Medicine; PCP Family Medicine; Visit Provider Internal Medicine
DX: J15.9 Unspecified bacterial pneumonia (principal); E43 Unspecified severe protein-calorie malnutrition; J90 Pleural effusion, not elsewhere classified; E87.1 Hypo-osmolality and hyponatremia; C78.6 Secondary malignant neoplasm of retroperitoneum and peritoneum; Z68.25 Body mass index [BMI] 25.0-25.9, adult; C80.1 Malignant (primary) neoplasm, unspecified; D63.0 Anemia in neoplastic disease; Z85.47 Personal history of malignant neoplasm of testis; R16.1 Splenomegaly, not elsewhere classified; E86.0 Dehydration; Z77.090 Contact with and (suspected) exposure to asbestos; G43.909 Migraine, unspecified, not intractable, without status migrainosus
CPT/HCPCS: 36415; 36600; 71046; 71250; 80053; 82533; 82805; 83605; 83930; 85025; 85610; 85730; 87040; 96360; 96361; 97163; 99283; 99285; J1650

== ENCOUNTER 2018-05-30 16:41 | Emergency (ER) | payer OTHER, SELFPAY ==
[2018-05-22 17:37] VITALS: BMI 25.0
[2018-05-30 16:48] VITALS: BP 138/84; PULSE 114; RESP 20; TEMP 36; O2SAT 97; BMI 27.6
--- NOTE | 2018-05-30 16:52 | DI.RAD.S_ITS ---
PROCEDURE: XR ACUTE ABDOMEN SERIES INDICATIONS: Abdominal pain TECHNIQUE: One view chest and two views of the abdomen were acquired. COMPARISON: None. FINDINGS: Surgical changes and devices: None. Chest: Small bilateral pleural fluid collections noted. There is interstitial prominence and bilateral hilar opacities compatible pulmonary edema. Heart size is normal. No pleural effusions. No pneumoperitoneum. Abdomen: Bowel gas pattern is nonspecific. Scattered air-fluid levels are noted which do not have differential height. No suspicious calcifications. Visualized solid organ contours appear normal. Bones: No suspicious bony lesions. IMPRESSION: 1. Pulmonary edema. 2. Small bilateral pleural effusions. 3. Nonspecific bowel gas pattern without definite evidence of obstruction. If patient's symptoms persist or worsen, then repeat plain film radiographs or CT scan abdomen/pelvis should be considered for further evaluation. Dictated by: Marisol Vasquez MD, PhD on 05/30/2018 at 18:32 Approved by: Marisol Vasquez MD, PhD on 05/30/2018 at 18:33
--- NOTE | 2018-05-30 17:04 | DI.US.S_ITS ---
PROCEDURE: US ABDOMEN LIMITED INDICATIONS: new ascites TECHNIQUE: Real-time focused scanning was performed of the abdomen, with image documentation. COMPARISON: None. FINDINGS: Moderate ascites noted in the right lower quadrant, left lower quadrant and right upper quadrant. No ascites identified in the left upper quadrant. IMPRESSION: Moderate ascites. Dictated by: Marisol Vasquez MD, PhD on 05/30/2018 at 17:47 Approved by: Marisol Vasquez MD, PhD on 05/30/2018 at 17:47
--- NOTE | 2018-05-30 17:18 | ED.ABDPAIN ---
HPI - Abdominal Pain <Glenn TorresDO - Last Filed: 05/31/18 07:20> General Chief Complaint: Abdominal Pain Stated Complaint: DEHYDRATION FAST HEART RATE Time Seen by Provider: 05/30/18 16:51 Source: patient and family Mode of arrival: ambulatory Limitations: no limitations History of Present Illness HPI narrative: 62-year-old male with history of testicular cancer presents to the emergency department with his and a chief complaint of worsening symptoms over the past week including significant abdominal swelling, decreased bowel movements and 27 lb weight loss over past few weeks. The patient was sent by his oncologist to have significant concern for recurrence of his cancer or the presence of another such as lymphoma. Patient was evaluated in the emergency department on May 22 and was admitted for generalized weakness, patient is had multiple evaluations suggesting pneumonia but did not respond to antibiotics. During these frequent visits to outpatient clinics for possible pneumonia he was eventually sent to the emergency department because he had become hypotensive. During the ER evaluation he had an abdominal CT showed extensive lymphadenopathy. The patient continues to worsen and has not eaten in many days. He has had no bowel movement in 4 days. He takes significant help to get out of the wheelchair, this is a change even from his most recent hospitalization. MD complaint: abdominal pain Onset (ago): week(s) Pain Consistency: constant Location: diffuse Severity: severe Quality: cramping Radiation: none Migration to: no migration Relieving factors: nothing Exacerbating factors: movement Associated symptoms: nausea and constipation Related Data Home Medications Medication Instructions Recorded Confirmed esomeprazole magnesium [Nexium] 20 mg PO DAILY #0 12/31/16 05/27/18 omega 3-xla-xjz-fish oil [Fish Oil] 2 cap PO DAILY #0 12/31/16 05/27/18 [id number] serr 1 tab PO QAM 05/22/18 05/27/18 [Glucosamine Daily Complex] cetirizine 1 tab PO BID PRN 05/30/18 05/30/18 famotidine 1 tab PO DAILY 05/30/18 05/30/18 hydroxyzine pamoate 1 cap PO BID PRN 05/30/18 05/30/18 nadolol 80 mg PO DAILY 05/30/18 05/30/18 naratriptan 1 tab PO DIRECTED 05/30/18 05/30/18 Previous Rx's Medication Instructions Recorded cefuroxime axetil 500 mg PO Q12H 7 Days #14 tab 05/25/18 albuterol sulfate HFA 90 1 puff INHALATION Q4-6H PRN #6.7 05/27/18 mcg/actuation aerosol inhaler gram furosemide 40 mg tablet 40 mg PO DAILY PRN #8 tab 05/27/18 Allergies Allergy/AdvReac Type Severity Reaction Status Date / Time iodine Allergy Verified 05/27/18 14:53 Review of Systems <DO Petra Lewis Last Filed: 05/31/18 07:20> Review of Systems All systems reviewed & are unremarkable except as noted in HPI and below Constitutional Denies chills, Denies fever(s), Denies lethargy, Reports poor appetite, Reports weakness and Reports weight loss Eyes Denies change in vision, Denies eye discharge, Denies irritation and Denies loss of vision ENT Ears, Nose, Mouth, and Throat: Denies change in voice, Denies neck pain and Denies sore throat Cardiovascular Denies chest pain, Denies irregular heart rhythm, Denies lightheadedness, Denies palpitations, Denies dyspnea, Denies dyspnea on exertion and Denies orthopnea Respiratory Denies cough, Denies dyspnea, Denies dyspnea on exertion and Denies wheezing Gastrointestinal Gastrointestinal: Reports abdominal pain, Denies change in bowel habits, Denies diarrhea, Reports nausea and Denies vomiting Genitourinary Denies hematuria, Denies flank pain, Denies urinary incontinence and Denies urinary urgency Musculoskeletal Denies neck pain Integumentary/Breasts Denies pruritus, Denies erythema, Denies rash and Denies wounds Neurologic Denies confusion, Denies loss of vision and Reports weakness Psychiatric Denies anxiety, Denies confusion, Denies depression, Denies homicidal ideation and Denies suicidal ideation Endocrine Denies palpitations Hematologic/Lymphatic Denies easy bruising Allergic/Immunologic Denies wheezing Exam <DO Petra Lewis Filed: 05/31/18 07:20> Narrative Exam Narrative: 62-year-old male, ill-appearing in obviously very uncomfortable, writhing in pain the cart Initial Vital Signs Initial Vital Signs: Vital Signs Temperature 96.8 F L 05/30/18 16:48 Pulse Rate 114 H 05/30/18 16:48 Respiratory Rate 20 05/30/18 16:48 Blood Pressure 138/84 05/30/18 16:48 Pulse Oximetry 97 05/30/18 16:48 Const General: cooperative, well developed and acute distress Nutritional Appearance: underweight Orientation: alert, awake, oriented x3 and not confused [facility] Head: normocephalic and atraumatic Ears: external ears normal and TM's normal bilaterally Nose: external nose normal and No nasal discharge Face and sinus: sinuses nontender, face symmetric, no sinus tenderness and dry mucous membranes Teeth and gingiva: dentition normal Throat: tonsils normal and uvula midline Eyes General: appearance normal, both eyes and all related structures Eyelids: eyelids normal Conjunctivae: conjunctivae normal Sclera: sclerae normal Pupils: PERRL EOM: EOM intact bilaterally Neck Neck: normal visual inspection, trachea midline, No lymphadenopathy, No midline deformity and No JVD Lymphatic: No lymphedema Resp Effort & Inspection: normal respiratory effort, able to speak in complete sentences, no respiratory distress and no use of accessory muscles Auscultation: clear to auscultation bilaterally, no rales, no rhonchi and no wheezes Cardio Rate: tachycardic Rhythm: regular rhythm Heart Sounds: no click, no gallops, no murmurs and no rubs Pulses: normal peripheral pulses GI Inspection: distended Palpation: soft, firm, guarding, No pulsatile mass, tender and ascites Auscultation: normal bowel sounds and hypoactive bowel sounds External: inguinal lymphadenopathy (Tender in the right) on the right Penis: normal penis Scrotum: scrotum normal Testes: normal Back/Spine/Pelvis Back: No CVA tenderness Cervical Spine: cervical ROM normal and No pain with cervical ROM Thoracic/Lumbar Spine: thoracic and lumbar spine normal to inspection Skin General: no rashes or lesions noted, No jaundice and No petechiae Neuro General: alert, oriented x3, gait normal and no focal motor deficits Speech: speech normal Extrem Right lower extremity: edema Left lower extremity: edema <Nydia Norwood, - Last Filed: 05/31/18 04:34> Initial Vital Signs Initial Vital Signs: Vital Signs Temperature 96.8 F L 05/30/18 16:48 Pulse Rate 114 H 05/30/18 16:48 Respiratory Rate 20 05/30/18 16:48 Blood Pressure 138/84 05/30/18 16:48 Pulse Oximetry 97 05/30/18 16:48 Course <Glenn Torres DO - Last Filed: 05/31/18 07:20> Orders Ordered: Discontinued Medications Hydromorphone HCl (Dilaudid) 0.5 mg IV NOW ONE Stop: 05/30/18 17:02 Last Admin: 05/30/18 18:50 Dose: 0.5 mg Hydromorphone HCl (Dilaudid) 0.5 mg IV NOW ONE Stop: 05/30/18 21:43 Last Admin: 05/30/18 21:43 Dose: 0.5 mg Hydromorphone HCl (Dilaudid) 0.5 mg IV NOW ONE Stop: 05/30/18 23:53 Last Admin: 05/30/18 23:53 Dose: 0.5 mg Sodium Chloride (Normal Saline 0.9%) 1,000 mls @ 1,000 mls/hr IV BOLUS ONE Stop: 05/30/18 17:50 Last Infusion: 05/30/18 21:30 Dose: 0 mls/hr Admin: 05/30/18 18:49 Dose: 1,000 mls/hr Sodium Chloride (Normal Saline 0.9%) 1,000 mls @ 200 mls/hr IV CONT MARIEL Last Infusion: 05/31/18 00:58 Dose: 0 mls/hr Infusion: 05/31/18 00:48 Dose: 200 mls/hr Admin: 05/31/18 00:17 Dose: 200 mls/hr Ondansetron HCl (Zofran) 4 mg IV NOW ONE Stop: 05/30/18 16:52 Last Admin: 05/30/18 18:49 Dose: 4 mg Reevaluation(s) Reevaluation #1: initial evaluation and orders by myself. Patient had received PICC access and first round of pain meds when I was giving sign out to Dr. Norwood. She will disposition patient, with likely admission, probable transfer Vital Signs - 8 hr 05/31/18 00:00 Pulse Rate 134 H Respiratory Rate 25 H Blood Pressure [Right Arm] 164/93 H Pulse Oximetry 93 <Nydia Norwood DO - Last Filed: 05/31/18 04:34> Orders Ordered: Discontinued Medications Hydromorphone HCl (Dilaudid) 0.5 mg IV NOW ONE Stop: 05/30/18 17:02 Last Admin: 05/30/18 18:50 Dose: 0.5 mg Hydromorphone HCl (Dilaudid) 0.5 mg IV NOW ONE Stop: 05/30/18 21:43 Last Admin: 05/30/18 21:43 Dose: 0.5 mg Hydromorphone HCl (Dilaudid) 0.5 mg IV NOW ONE Stop: 05/30/18 23:53 Last Admin: 05/30/18 23:53 Dose: 0.5 mg Sodium Chloride (Normal Saline 0.9%) 1,000 mls @ 1,000 mls/hr IV BOLUS ONE Stop: 05/30/18 17:50 Last Infusion: 05/30/18 21:30 Dose: 0 mls/hr Admin: 05/30/18 18:49 Dose: 1,000 mls/hr Sodium Chloride (Normal Saline 0.9%) 1,000 mls @ 200 mls/hr IV CONT MARIEL Last Infusion: 05/31/18 00:58 Dose: 0 mls/hr Infusion: 05/31/18 00:48 Dose: 200 mls/hr Admin: 05/31/18 00:17 Dose: 200 mls/hr Ondansetron HCl (Zofran) 4 mg IV NOW ONE Stop: 05/30/18 16:52 Last Admin: 05/30/18 18:49 Dose: 4 mg Reevaluation(s) Reevaluation #1: Patient signed out to me at discharge by Dr. Torres. I have seen evaluated patient myself. Pain seems to be much better controlled after Dilaudid. He was seen by Dr. Serna earlier today he was sent to the emergency department for further testing evaluation admission, lymph node biopsy and surgical consult for port placement. Patient would like to start treatment as soon as possible. He has had overall weakness and failure to thrive at which has progressively gotten worse. Consultations Consultation #1: [place] doctor Ponce, recommend patient go to [facility] Consultation #2: Dr. Fontanez [facility] Time: 22:41 Consultation #3: Dr. Zhang oncology has been updated on patient. He saw the patient earlier today. He does not yet know what is the primary cancer and needs biopsy. Interventional Radiology is not available at [facility]. Patient will also likely need IV fluids all and a port placed. He recommends patient be transferred over to [facility]. Hospitalist at [facility] has been updated on patient's symptoms and oncology recommendations. Vital Signs - 8 hr 05/31/18 00:00 Pulse Rate 134 H Respiratory Rate 25 H Blood Pressure [Right Arm] 164/93 H Pulse Oximetry 93 MDM - Abdominal Pain <Glenn Torres DO - Last Filed: 05/31/18 07:20> Differential Diagnosis Differential diagnosis: Likely abdominal pain, acute appendicitis, constipation, gastroenteritis, pancreatitis and small bowel obstruction Lab Data Attestation: I reviewed the patient's lab results. Result diagrams: 05/30/18 19:00 05/30/18 19:00 Lab Results 05/30/18 05/30/18 Range/Units 19:00 19:00 WBC 16.5 H (4.5-11.0) X10^3/uL RBC 3.63 L (4.5-5.9) X10^6/uL Hgb 9.3 L (13.5-17.5) g/dL Hct 27.8 L (41-53) % MCV 76.5 L (80-100) fL MCH 25.6 L (26-34) PG MCHC 33.4 (30-36) % RDW 15.9 H (11.6-14.8) % Plt Count 64 L (150-400) X10^3/uL Neut % (Auto) Not Reportable Lymph % (Auto) Not Reportable [place] % (Auto) Not Reportable Eos % (Auto) Not Reportable Baso % (Auto) Not Reportable Total Counted 100 Seg Neutrophils % 71.0 H (38-70) % Band Neutrophils % 6.0 (3-7) % Lymphocytes % (Manual) 9.0 L (25-45) % Monocytes % (Manual) 12.0 H (2-11) % Eosinophils % (Manual) 2.0 (2-4) % Neutrophils # (Manual) 19934 H (6446-0002) /uL RBC Morphology Not Reportable Polychromasia 1+ H Anisocytosis 1+ H Sodium 129 L (137-145) mmol/L Potassium 5.1 (3.4-5.1) mmol/L Chloride 101 (98-107) mmol/L Carbon Dioxide 22 (22-32) mmol/L BUN 26 H (9-20) mg/dL Creatinine 1.00 (0.66-1.25) mg/dL Estimated GFR > 60.0 (>60) mL/min BUN/Creatinine Ratio 26.0 H (6-22) Glucose 121 H (80-110) mg/dL Calcium 7.7 L (8.4-10.2) mg/dL Total Bilirubin 0.6 (0.2-1.3) mg/dL AST 34 (17-59) IU/L ALT 27 (21-72) IU/L Alkaline Phosphatase 166 H D (38-126) U/L Total Protein 6.7 (6.3-8.2) g/dL Albumin 2.9 L (3.5-5.0) g/dL Globulin 3.8 (1.7-4.1) g/dL Albumin/Globulin Ratio 0.8 L (1.0-2.8) Point of care testing: Point of Care Testing Glucose POC 138 Imaging Data US - abdomen: Radiologist's impression: [address] [address] Ultrasound Report Signed Patient: Abbi Diaz MR#: [id number] : 1955 Acct:[id number] Age/Sex: 62 / M Date of Service: 05/30/18 Loc: ED Accession Number: [id number] Procedure: US abdomen limited Ordering Provider: Glenn Torres D.O. PROCEDURE: US ABDOMEN LIMITED INDICATIONS: new ascites TECHNIQUE: Real-time focused scanning was performed of the abdomen, with image documentation. COMPARISON: None. FINDINGS: Moderate ascites noted in the right lower quadrant, left lower quadrant and right upper quadrant. No ascites identified in the left upper quadrant. IMPRESSION: Moderate ascites. Dictated by: Marisol Vasquez MD, PhD on 05/30/2018 at 17:47 Approved by: Marisol Vasquez MD, PhD on 05/30/2018 at 17:47 <Nydia Norwood DO - Last Filed: 05/31/18 04:34> Medical Records Attestation: I reviewed the patient's medical records. Lab Data Attestation: I reviewed the patient's lab results. Lab Results 05/30/18 05/30/18 Range/Units 19:00 19:00 WBC 16.5 H (4.5-11.0) X10^3/uL RBC 3.63 L (4.5-5.9) X10^6/uL Hgb 9.3 L (13.5-17.5) g/dL Hct 27.8 L (41-53) % MCV 76.5 L (80-100) fL MCH 25.6 L (26-34) PG MCHC 33.4 (30-36) % RDW 15.9 H (11.6-14.8) % Plt Count 64 L (150-400) X10^3/uL Neut % (Auto) Not Reportable Lymph % (Auto) Not Reportable [place] % (Auto) Not Reportable Eos % (Auto) Not Reportable Baso % (Auto) Not Reportable Total Counted 100 Seg Neutrophils % 71.0 H (38-70) % Band Neutrophils % 6.0 (3-7) % Lymphocytes % (Manual) 9.0 L (25-45) % Monocytes % (Manual) 12.0 H (2-11) % Eosinophils % (Manual) 2.0 (2-4) % Neutrophils # (Manual) 87392 H (0578-6738) /uL RBC Morphology Not Reportable Polychromasia 1+ H Anisocytosis 1+ H Sodium 129 L (137-145) mmol/L Potassium 5.1 (3.4-5.1) mmol/L Chloride 101 (98-107) mmol/L Carbon Dioxide 22 (22-32) mmol/L BUN 26 H (9-20) mg/dL Creatinine 1.00 (0.66-1.25) mg/dL Estimated GFR > 60.0 (>60) mL/min BUN/Creatinine Ratio 26.0 H (6-22) Glucose 121 H (80-110) mg/dL Calcium 7.7 L (8.4-10.2) mg/dL Total Bilirubin 0.6 (0.2-1.3) mg/dL AST 34 (17-59) IU/L ALT 27 (21-72) IU/L Alkaline Phosphatase 166 H D (38-126) U/L Total Protein 6.7 (6.3-8.2) g/dL Albumin 2.9 L (3.5-5.0) g/dL Globulin 3.8 (1.7-4.1) g/dL Albumin/Globulin Ratio 0.8 L (1.0-2.8) Point of care testing: Point of Care Testing Glucose POC 138 Imaging Data Chest x-ray: Radiologist's impression: PROCEDURE: XR CHEST FOR PICC 1V INDICATIONS: picc placement COMPARISON: None. FINDINGS: PICC was placed by the intravenous therapy team from the left side. Fluoroscopic spot film demonstrates tip of PICC in the mid SVC. IMPRESSION: Tip of PICC lies within the mid SVC. Dictated by: Marisol Vasquez MD, PhD on 05/30/2018 at 18:42 Abdominal x-ray: Radiologist's impression: PROCEDURE: XR ACUTE ABDOMEN SERIES INDICATIONS: Abdominal pain TECHNIQUE: One view chest and two views of the abdomen were acquired. COMPARISON: None. FINDINGS: Surgical changes and devices: None. Chest: Small bilateral pleural fluid collections noted. There is interstitial prominence and bilateral hilar opacities compatible pulmonary edema. Heart size is normal. No pleural effusions. No pneumoperitoneum. Abdomen: Bowel gas pattern is nonspecific. Scattered air-fluid levels are noted which do not have differential height. No suspicious calcifications. Visualized solid organ contours appear normal. Bones: No suspicious bony lesions. IMPRESSION: 1. Pulmonary edema. 2. Small bilateral pleural effusions. 3. Nonspecific bowel gas pattern without definite evidence of obstruction. If patient's symptoms persist or worsen, then repeat plain film radiographs or CT scan abdomen/pelvis should be considered for further evaluation. Dictated by: Marisol Vasquez MD, PhD on 05/30/2018 at 18:32 CT Chest/AB/Pelvis: Radiologist's impression: [place] [address] CT Scan Report Signed Patient: Abbi Diaz MR#: [id number] : 1955 Acct:[id number] Age/Sex: 62 / M Date of Service: 05/30/18 Loc: ED Accession Number: [id number] Procedure: CT chest abd pel w con Ordering Provider: Glenn Torres D.O. PROCEDURE: CT CHEST ABD PEL W CON INDICATIONS: severe abdominal pain, not eating, lymphadenopathy, no BM TECHNIQUE: After the administration of intravenous contrast, 5 mm thick sections acquired from the lung apices to the symphysis. 5 mm coronal and sagittal reformats were performed, with additional 7 mm MIP reformats through the lungs. For radiation dose reduction, the following was used: automated exposure control, adjustment of mA and/or kV according to patient size. COMPARISON: None. FINDINGS: Image quality: Excellent. CHEST: Lungs and pleura: Patchy airspace opacities noted in the lung bases bilaterally. Small bilateral pleural fluid collection is noted. There is bilateral perihilar predominant interstitial prominence. Central and peripheral airways appear patent and normal in caliber. Mediastinum: Heart size is normal. Atherosclerotic calcifications are noted in the aorta, great vessels and the coronary vasculature. No pericardial effusion. Bulky mediastinal and bilateral hilar lymphadenopathy is noted. Thoracic aorta and central pulmonary arteries are normal in size. Esophagus is normal in caliber. No hiatal hernia. Chest wall: Bilateral neck visualized level I, level III and level IV lymphadenopathy. Bilateral axillary or supraclavicular lymphadenopathy. Thyroid gland is within normal limits. ABDOMEN: Solid organs: Liver is normal in size and enhancement. Gallbladder chains a small gallstone. Biliary system is non dilated. Pancreas enhances normally. Spleen is enlarged measuring 14.8 cm in long axis. Punctate calcifications noted in the spleen compatible sequela prior granulomatous disease. No adrenal nodules. Kidneys demonstrate normal size and enhancement, without hydronephrosis. Peritoneum and bowel: Bowel loops demonstrate normal wall thickness and caliber. No free air. Moderate amount of ascites is scattered throughout the abdomen and pelvis. Nodes and vessels: Bulky retroperitoneal lymphadenopathy is noted. Scattered enlarged lymph nodes are noted in the mesentery. Aorta and inferior vena cava are normal in size. Miscellaneous: No ventral hernias. PELVIS: Genitourinary: Bladder wall thickness is normal. Miscellaneous: No inguinal hernias. Bilateral inguinal lymphadenopathy is noted. Bones: No suspicious bony lesions. No vertebral body compression fractures. IMPRESSION: 1. Extensive, bulky lymphadenopathy involving the visualized neck, the mediastinum, jt, the axilla, the retroperitoneum, the mesentery and the bilateral groins highly suspicious for lymphoma. 2. Splenomegaly concerning for lymphomatous involvement. 3. Patchy airspace opacities in the lung bases bilaterally which could represent pneumonia or lymphomatous involvement. 4. Interstitial prominence involving the lungs bilaterally with perihilar predominance concerning for pulmonary edema versus carcinomatosis. 5. Atherosclerosis including the coronary vasculature. 6. Cholelithiasis. Dictated by: Marisol Vasquez MD, PhD on 05/30/2018 at 19:56 Approved by: Marisol Vasquez MD, PhD on 05/30/2018 at 20:08 [facility] Narrative Medical decision making narrative: Patient's pain is controlled with Dilaudid all. He does have increased leukocytosis he has been afebrile. Low suspicion for spontaneous bacterial peritonitis. Blood cultures from May 19 and May 22 are all negative. History of testicular cancer 14 years ago, overall decline over the last 5 months and mostly over the last 1 month. 25 lb weight loss. Discharge Plan Departure Patient Disposition: [facility] Clinical Impression: Lymphoma, Chronic hyponatremia Discharge Date/Time: 05/31/18 01:06 Interventions: ED Discharge Assessment Last Done: 05/31/18 00:54 Prescriptions: No Action furosemide 40 mg tablet 40 mg PO DAILY PRN (Reason: edema) Qty: 8 RF: 0 albuterol sulfate 90 mcg/actuation HFA aerosol inhaler 1 puff INHALATION Q4-6H PRN (Reason: shortness of breath or wheezing) Qty: 6.7 RF: 0 esomeprazole magnesium [Nexium] 20 MG capsule,delayed release(DR/EC) 20 mg PO DAILY Qty: 0 RF: 0 omega 4-yag-eyo-fish oil [Fish Oil] 1,000 MG capsule 2 cap PO DAILY Qty: 0 RF: 0 sidlutsydzq-W5-Vlhlvukno serr [Glucosamine Daily Complex] 1,500-400-100 mg-unit-mg Tablet 1 tab PO QAM RF: 0 cefuroxime axetil 500 mg tablet 500 mg PO Q12H 7 Days Qty: 14 RF: 0 nadolol 80 mg tablet 80 mg PO DAILY RF: 0 cetirizine 10 mg tablet 1 tab PO BID PRN (Reason: Allergy Symptoms) RF: 0 famotidine 40 mg tablet 1 tab PO DAILY RF: 0 naratriptan 2.5 mg tablet 1 tab PO DIRECTED RF: 0 hydroxyzine pamoate 25 mg capsule 1 cap PO BID PRN (Reason: Itching) RF: 0
--- NOTE | 2018-05-30 17:29 | ED_ITS ---
HPI - Abdominal Pain <Glenn TorresDO - Last Filed: 05/31/18 07:20> General Chief Complaint: Abdominal Pain Stated Complaint: DEHYDRATION FAST HEART RATE Time Seen by Provider: 05/30/18 16:51 Source: patient and family Mode of arrival: ambulatory Limitations: no limitations History of Present Illness HPI narrative: 62-year-old male with history of testicular cancer presents to the emergency department with his and a chief complaint of worsening symptoms over the past week including significant abdominal swelling, decreased bowel movements and 27 lb weight loss over past few weeks. The patient was sent by his oncologist to have significant concern for recurrence of his cancer or the presence of another such as lymphoma. Patient was evaluated in the emergency department on May 22 and was admitted for generalized weakness , patient is had multiple evaluations suggesting pneumonia but did not respond to antibiotics. During these frequent visits to outpatient clinics for possible pneumonia he was eventually sent to the emergency department because he had become hypotensive. During the ER evaluation he had an abdominal CT showed extensive lymphadenopathy. The patient continues to worsen and has not eaten in many days. He has had no bowel movement in 4 days. He takes significant help to get out of the wheelchair, this is a change even from his most recent hospitalization. MD complaint: abdominal pain Onset (ago): week(s) Pain Consistency: constant Location: diffuse Severity: severe Quality: cramping Radiation: none Migration to: no migration Relieving factors: nothing Exacerbating factors: movement Associated symptoms: nausea and constipation Related Data Home Medications Medication Instructions Recorded Confirmed esomeprazole magnesium [Nexium] 20 mg PO DAILY #0 12/31/16 05/27/18 omega 3-dnf-yzz-fish oil [Fish Oil] 2 cap PO DAILY #0 12/31/16 05/27/18 [id number] serr 1 tab PO QAM 05/22/18 05/27/18 [Glucosamine Daily Complex] cetirizine 1 tab PO BID PRN 05/30/18 05/30/18 famotidine 1 tab PO DAILY 05/30/18 05/30/18 hydroxyzine pamoate 1 cap PO BID PRN 05/30/18 05/30/18 nadolol 80 mg PO DAILY 05/30/18 05/30/18 naratriptan 1 tab PO DIRECTED 05/30/18 05/30/18 Previous Rx's Medication Instructions Recorded cefuroxime axetil 500 mg PO Q12H 7 Days #14 tab 05/25/18 albuterol sulfate HFA 90 1 puff INHALATION Q4-6H PRN #6.7 05/27/18 mcg/actuation aerosol inhaler gram furosemide 40 mg tablet 40 mg PO DAILY PRN #8 tab 05/27/18 Allergies Allergy/AdvReac Type Severity Reaction Status Date / Time iodine Allergy Verified 05/27/18 14:53 Review of Systems <DO Petra Lewis Last Filed: 05/31/18 07:20> Review of Systems All systems reviewed & are unremarkable except as noted in HPI and below Constitutional Denies chills, Denies fever(s), Denies lethargy, Reports poor appetite, Reports weakness and Reports weight loss Eyes Denies change in vision, Denies eye discharge, Denies irritation and Denies loss of vision ENT Ears, Nose, Mouth, and Throat: Denies change in voice, Denies neck pain and Denies sore throat Cardiovascular Denies chest pain, Denies irregular heart rhythm, Denies lightheadedness, Denies palpitations, Denies dyspnea, Denies dyspnea on exertion and Denies orthopnea Respiratory Denies cough, Denies dyspnea, Denies dyspnea on exertion and Denies wheezing Gastrointestinal Gastrointestinal: Reports abdominal pain, Denies change in bowel habits, Denies diarrhea, Reports nausea and Denies vomiting Genitourinary Denies hematuria, Denies flank pain, Denies urinary incontinence and Denies urinary urgency Musculoskeletal Denies neck pain Integumentary/Breasts Denies pruritus, Denies erythema, Denies rash and Denies wounds Neurologic Denies confusion, Denies loss of vision and Reports weakness Psychiatric Denies anxiety, Denies confusion, Denies depression, Denies homicidal ideation and Denies suicidal ideation Endocrine Denies palpitations Hematologic/Lymphatic Denies easy bruising Allergic/Immunologic Denies wheezing Exam <DO Petra Lewis Filed: 05/31/18 07:20> Narrative Exam Narrative: 62-year-old male, ill-appearing in obviously very uncomfortable , writhing in pain the cart Initial Vital Signs Initial Vital Signs: Vital Signs Temperature 96.8 F L 05/30/18 16:48 Pulse Rate 114 H 05/30/18 16:48 Respiratory Rate 20 05/30/18 16:48 Blood Pressure 138/84 05/30/18 16:48 Pulse Oximetry 97 05/30/18 16:48 Const General: cooperative, well developed and acute distress Nutritional Appearance: underweight Orientation: alert, awake, oriented x3 and not confused [facility] Head: normocephalic and atraumatic Ears: external ears normal and TM's normal bilaterally Nose: external nose normal and No nasal discharge Face and sinus: sinuses nontender, face symmetric, no sinus tenderness and dry mucous membranes Teeth and gingiva: dentition normal Throat: tonsils normal and uvula midline Eyes General: appearance normal, both eyes and all related structures Eyelids: eyelids normal Conjunctivae: conjunctivae normal Sclera: sclerae normal Pupils: PERRL EOM: EOM intact bilaterally Neck Neck: normal visual inspection, trachea midline, No lymphadenopathy, No midline deformity and No JVD Lymphatic: No lymphedema Resp Effort & Inspection: normal respiratory effort, able to speak in complete sentences, no respiratory distress and no use of accessory muscles Auscultation: clear to auscultation bilaterally, no rales, no rhonchi and no wheezes Cardio Rate: tachycardic Rhythm: regular rhythm Heart Sounds: no click, no gallops, no murmurs and no rubs Pulses: normal peripheral pulses GI Inspection: distended Palpation: soft, firm, guarding, No pulsatile mass, tender and ascites Auscultation: normal bowel sounds and hypoactive bowel sounds External: inguinal lymphadenopathy (Tender in the right) on the right Penis: normal penis Scrotum: scrotum normal Testes: normal Back/Spine/Pelvis Back: No CVA tenderness Cervical Spine: cervical ROM normal and No pain with cervical ROM Thoracic/Lumbar Spine: thoracic and lumbar spine normal to inspection Skin General: no rashes or lesions noted, No jaundice and No petechiae Neuro General: alert, oriented x3, gait normal and no focal motor deficits Speech: speech normal Extrem Right lower extremity: edema Left lower extremity: edema <Nydia Norwood, - Last Filed: 05/31/18 04:34> Initial Vital Signs Initial Vital Signs: Vital Signs Temperature 96.8 F L 05/30/18 16:48 Pulse Rate 114 H 05/30/18 16:48 Respiratory Rate 20 05/30/18 16:48 Blood Pressure 138/84 05/30/18 16:48 Pulse Oximetry 97 05/30/18 16:48 Course <Glenn Torres DO - Last Filed: 05/31/18 07:20> Orders Ordered: Discontinued Medications Hydromorphone HCl (Dilaudid) 0.5 mg IV NOW ONE Stop: 05/30/18 17:02 Last Admin: 05/30/18 18:50 Dose: 0.5 mg Hydromorphone HCl (Dilaudid) 0.5 mg IV NOW ONE Stop: 05/30/18 21:43 Last Admin: 05/30/18 21:43 Dose: 0.5 mg Hydromorphone HCl (Dilaudid) 0.5 mg IV NOW ONE Stop: 05/30/18 23:53 Last Admin: 05/30/18 23:53 Dose: 0.5 mg Sodium Chloride (Normal Saline 0.9%) 1,000 mls @ 1,000 mls/hr IV BOLUS ONE Stop: 05/30/18 17:50 Last Infusion: 05/30/18 21:30 Dose: 0 mls/hr Admin: 05/30/18 18:49 Dose: 1,000 mls/hr Sodium Chloride (Normal Saline 0.9%) 1,000 mls @ 200 mls/hr IV CONT MARIEL Last Infusion: 05/31/18 00:58 Dose: 0 mls/hr Infusion: 05/31/18 00:48 Dose: 200 mls/hr Admin: 05/31/18 00:17 Dose: 200 mls/hr Ondansetron HCl (Zofran) 4 mg IV NOW ONE Stop: 05/30/18 16:52 Last Admin: 05/30/18 18:49 Dose: 4 mg Reevaluation(s) Reevaluation #1: initial evaluation and orders by myself. Patient had received PICC access and first round of pain meds when I was giving sign out to Dr. Norwood. She will disposition patient, with likely admission, probable transfer Vital Signs - 8 hr 05/31/18 00:00 Pulse Rate 134 H Respiratory Rate 25 H Blood Pressure [Right Arm] 164/93 H Pulse Oximetry 93 <Nydia Norwood DO - Last Filed: 05/31/18 04:34> Orders Ordered: Discontinued Medications Hydromorphone HCl (Dilaudid) 0.5 mg IV NOW ONE Stop: 05/30/18 17:02 Last Admin: 05/30/18 18:50 Dose: 0.5 mg Hydromorphone HCl (Dilaudid) 0.5 mg IV NOW ONE Stop: 05/30/18 21:43 Last Admin: 05/30/18 21:43 Dose: 0.5 mg Hydromorphone HCl (Dilaudid) 0.5 mg IV NOW ONE Stop: 05/30/18 23:53 Last Admin: 05/30/18 23:53 Dose: 0.5 mg Sodium Chloride (Normal Saline 0.9%) 1,000 mls @ 1,000 mls/hr IV BOLUS ONE Stop: 05/30/18 17:50 Last Infusion: 05/30/18 21:30 Dose: 0 mls/hr Admin: 05/30/18 18:49 Dose: 1,000 mls/hr Sodium Chloride (Normal Saline 0.9%) 1,000 mls @ 200 mls/hr IV CONT MARIEL Last Infusion: 05/31/18 00:58 Dose: 0 mls/hr Infusion: 05/31/18 00:48 Dose: 200 mls/hr Admin: 05/31/18 00:17 Dose: 200 mls/hr Ondansetron HCl (Zofran) 4 mg IV NOW ONE Stop: 05/30/18 16:52 Last Admin: 05/30/18 18:49 Dose: 4 mg Reevaluation(s) Reevaluation #1: Patient signed out to me at discharge by Dr. Torres. I have seen evaluated patient myself. Pain seems to be much better controlled after Dilaudid. He was seen by Dr. Serna earlier today he was sent to the emergency department for further testing evaluation admission, lymph node biopsy and surgical consult for port placement. Patient would like to start treatment as soon as possible. He has had overall weakness and failure to thrive at which has progressively gotten worse. Consultations Consultation #1: [facility], recommend patient go to [facility] Consultation #2: Dr. Fontanez Recommends patient be admitted at [facility] where his oncologist is Time: 22:41 Consultation #3: Dr. Zhang oncology has been updated on patient. He saw the patient earlier today. He does not yet know what is the primary cancer and needs biopsy. Interventional Radiology is not available at [facility]. Patient will also likely need IV fluids all and a port placed. He recommends patient be transferred over to [facility]. Hospitalist at [facility] has been updated on patient's symptoms and oncology recommendations. Vital Signs - 8 hr 05/31/18 00:00 Pulse Rate 134 H Respiratory Rate 25 H Blood Pressure [Right Arm] 164/93 H Pulse Oximetry 93 MDM - Abdominal Pain <Glenn Torres DO - Last Filed: 05/31/18 07:20> Differential Diagnosis Differential diagnosis: Likely abdominal pain, acute appendicitis, constipation , gastroenteritis, pancreatitis and small bowel obstruction Lab Data Attestation: I reviewed the patient's lab results. Result diagrams: 05/30/18 19:00 05/30/18 19:00 Lab Results 05/30/18 05/30/18 Range/Units 19:00 19:00 WBC 16.5 H (4.5-11.0) X10^3/uL RBC 3.63 L (4.5-5.9) X10^6/uL Hgb 9.3 L (13.5-17.5) g/dL Hct 27.8 L (41-53) % MCV 76.5 L (80-100) fL MCH 25.6 L (26-34) PG MCHC 33.4 (30-36) % RDW 15.9 H (11.6-14.8) % Plt Count 64 L (150-400) X10^3/uL Neut % (Auto) Not Reportable Lymph % (Auto) Not Reportable [place] % (Auto) Not Reportable Eos % (Auto) Not Reportable Baso % (Auto) Not Reportable Total Counted 100 Seg Neutrophils % 71.0 H (38-70) % Band Neutrophils % 6.0 (3-7) % Lymphocytes % (Manual) 9.0 L (25-45) % Monocytes % (Manual) 12.0 H (2-11) % Eosinophils % (Manual) 2.0 (2-4) % Neutrophils # (Manual) 66579 H (7779-2667) /uL RBC Morphology Not Reportable Polychromasia 1+ H Anisocytosis 1+ H Sodium 129 L (137-145) mmol/L Potassium 5.1 (3.4-5.1) mmol/L Chloride 101 (98-107) mmol/L Carbon Dioxide 22 (22-32) mmol/L BUN 26 H (9-20) mg/dL Creatinine 1.00 (0.66-1.25) mg/dL Estimated GFR > 60.0 (>60) mL/min BUN/Creatinine Ratio 26.0 H (6-22) Glucose 121 H (80-110) mg/dL Calcium 7.7 L (8.4-10.2) mg/dL Total Bilirubin 0.6 (0.2-1.3) mg/dL AST 34 (17-59) IU/L ALT 27 (21-72) IU/L Alkaline Phosphatase 166 H D (38-126) U/L Total Protein 6.7 (6.3-8.2) g/dL Albumin 2.9 L (3.5-5.0) g/dL Globulin 3.8 (1.7-4.1) g/dL Albumin/Globulin Ratio 0.8 L (1.0-2.8) Point of care testing: Point of Care Testing Glucose POC 138 Imaging Data US - abdomen: Radiologist's impression: [address] [address] Ultrasound Report Signed Patient: Abbi Diaz MR#: [id number] : 1955 Acct:[id number] Age/Sex: 62 / M Date of Service: 05/30/18 Loc: ED Accession Number: [id number] Procedure: US abdomen limited Ordering Provider: Glenn Torres D.O. PROCEDURE: US ABDOMEN LIMITED INDICATIONS: new ascites TECHNIQUE: Real-time focused scanning was performed of the abdomen, with image documentation. COMPARISON: None. FINDINGS: Moderate ascites noted in the right lower quadrant, left lower quadrant and right upper quadrant. No ascites identified in the left upper quadrant. IMPRESSION: Moderate ascites. Dictated by: Marisol Vasquez MD, PhD on 05/30/2018 at 17:47 Approved by: Marisol Vasquez MD, PhD on 05/30/2018 at 17:47 <Nydia Norwood DO - Last Filed: 05/31/18 04:34> Medical Records Attestation: I reviewed the patient's medical records. Lab Data Attestation: I reviewed the patient's lab results. Lab Results 05/30/18 05/30/18 Range/Units 19:00 19:00 WBC 16.5 H (4.5-11.0) X10^3/uL RBC 3.63 L (4.5-5.9) X10^6/uL Hgb 9.3 L (13.5-17.5) g/dL Hct 27.8 L (41-53) % MCV 76.5 L (80-100) fL MCH 25.6 L (26-34) PG MCHC 33.4 (30-36) % RDW 15.9 H (11.6-14.8) % Plt Count 64 L (150-400) X10^3/uL Neut % (Auto) Not Reportable Lymph % (Auto) Not Reportable [place] % (Auto) Not Reportable Eos % (Auto) Not Reportable Baso % (Auto) Not Reportable Total Counted 100 Seg Neutrophils % 71.0 H (38-70) % Band Neutrophils % 6.0 (3-7) % Lymphocytes % (Manual) 9.0 L (25-45) % Monocytes % (Manual) 12.0 H (2-11) % Eosinophils % (Manual) 2.0 (2-4) % Neutrophils # (Manual) 47738 H (9605-5415) /uL RBC Morphology Not Reportable Polychromasia 1+ H Anisocytosis 1+ H Sodium 129 L (137-145) mmol/L Potassium 5.1 (3.4-5.1) mmol/L Chloride 101 (98-107) mmol/L Carbon Dioxide 22 (22-32) mmol/L BUN 26 H (9-20) mg/dL Creatinine 1.00 (0.66-1.25) mg/dL Estimated GFR > 60.0 (>60) mL/min BUN/Creatinine Ratio 26.0 H (6-22) Glucose 121 H (80-110) mg/dL Calcium 7.7 L (8.4-10.2) mg/dL Total Bilirubin 0.6 (0.2-1.3) mg/dL AST 34 (17-59) IU/L ALT 27 (21-72) IU/L Alkaline Phosphatase 166 H D (38-126) U/L Total Protein 6.7 (6.3-8.2) g/dL Albumin 2.9 L (3.5-5.0) g/dL Globulin 3.8 (1.7-4.1) g/dL Albumin/Globulin Ratio 0.8 L (1.0-2.8) Point of care testing: Point of Care Testing Glucose POC 138 Imaging Data Chest x-ray: Radiologist's impression: PROCEDURE: XR CHEST FOR PICC 1V INDICATIONS: picc placement COMPARISON: None. FINDINGS: PICC was placed by the intravenous therapy team from the left side. Fluoroscopic spot film demonstrates tip of PICC in the mid SVC. IMPRESSION: Tip of PICC lies within the mid SVC. Dictated by: Marisol Vasquez MD, PhD on 05/30/2018 at 18:42 Abdominal x-ray: Radiologist's impression: PROCEDURE: XR ACUTE ABDOMEN SERIES INDICATIONS: Abdominal pain TECHNIQUE: One view chest and two views of the abdomen were acquired. COMPARISON: None. FINDINGS: Surgical changes and devices: None. Chest: Small bilateral pleural fluid collections noted. There is interstitial prominence and bilateral hilar opacities compatible pulmonary edema. Heart size is normal. No pleural effusions. No pneumoperitoneum. Abdomen: Bowel gas pattern is nonspecific. Scattered air-fluid levels are noted which do not have differential height. No suspicious calcifications. Visualized solid organ contours appear normal. Bones: No suspicious bony lesions. IMPRESSION: 1. Pulmonary edema. 2. Small bilateral pleural effusions. 3. Nonspecific bowel gas pattern without definite evidence of obstruction. If patient's symptoms persist or worsen, then repeat plain film radiographs or CT scan abdomen/pelvis should be considered for further evaluation. Dictated by: Marisol Vasquez MD, PhD on 05/30/2018 at 18:32 CT Chest/AB/Pelvis: Radiologist's impression: [place] [address] CT Scan Report Signed Patient: Abbi Diaz MR#: [id number] : 1955 Acct:[id number] Age/Sex: 62 / M Date of Service: 05/30/18 Loc: ED Accession Number: [id number] Procedure: CT chest abd pel w con Ordering Provider: Glenn Torres D.O. PROCEDURE: CT CHEST ABD PEL W CON INDICATIONS: severe abdominal pain, not eating, lymphadenopathy, no BM TECHNIQUE: After the administration of intravenous contrast, 5 mm thick sections acquired from the lung apices to the symphysis. 5 mm coronal and sagittal reformats were performed, with additional 7 mm MIP reformats through the lungs. For radiation dose reduction, the following was used: automated exposure control, adjustment of mA and/or kV according to patient size. COMPARISON: None. FINDINGS: Image quality: Excellent. CHEST: Lungs and pleura: Patchy airspace opacities noted in the lung bases bilaterally. Small bilateral pleural fluid collection is noted. There is bilateral perihilar predominant interstitial prominence. Central and peripheral airways appear patent and normal in caliber. Mediastinum: Heart size is normal. Atherosclerotic calcifications are noted in the aorta, great vessels and the coronary vasculature. No pericardial effusion. Bulky mediastinal and bilateral hilar lymphadenopathy is noted. Thoracic aorta and central pulmonary arteries are normal in size. Esophagus is normal in caliber. No hiatal hernia. Chest wall: Bilateral neck visualized level I, level III and level IV lymphadenopathy. Bilateral axillary or supraclavicular lymphadenopathy. Thyroid gland is within normal limits. ABDOMEN: Solid organs: Liver is normal in size and enhancement. Gallbladder chains a small gallstone. Biliary system is non dilated. Pancreas enhances normally. Spleen is enlarged measuring 14.8 cm in long axis. Punctate calcifications noted in the spleen compatible sequela prior granulomatous disease. No adrenal nodules. Kidneys demonstrate normal size and enhancement, without hydronephrosis. Peritoneum and bowel: Bowel loops demonstrate normal wall thickness and caliber. No free air. Moderate amount of ascites is scattered throughout the abdomen and pelvis. Nodes and vessels: Bulky retroperitoneal lymphadenopathy is noted. Scattered enlarged lymph nodes are noted in the mesentery. Aorta and inferior vena cava are normal in size. Miscellaneous: No ventral hernias. PELVIS: Genitourinary: Bladder wall thickness is normal. Miscellaneous: No inguinal hernias. Bilateral inguinal lymphadenopathy is noted. Bones: No suspicious bony lesions. No vertebral body compression fractures. IMPRESSION: 1. Extensive, bulky lymphadenopathy involving the visualized neck, the mediastinum, jt, the axilla, the retroperitoneum, the mesentery and the bilateral groins highly suspicious for lymphoma. 2. Splenomegaly concerning for lymphomatous involvement. 3. Patchy airspace opacities in the lung bases bilaterally which could represent pneumonia or lymphomatous involvement. 4. Interstitial prominence involving the lungs bilaterally with perihilar predominance concerning for pulmonary edema versus carcinomatosis. 5. Atherosclerosis including the coronary vasculature. 6. Cholelithiasis. Dictated by: Marisol Vasquez MD, PhD on 05/30/2018 at 19:56 Approved by: Marisol Vasquez MD, PhD on 05/30/2018 at 20:[address] [facility] Narrative Medical decision making narrative: Patient's pain is controlled with Dilaudid all. He does have increased leukocytosis he has been afebrile. Low suspicion for spontaneous bacterial peritonitis. Blood cultures from May 19 and May 22 are all negative. History of testicular cancer 14 years ago, overall decline over the last 5 months and mostly over the last 1 month. 25 lb weight loss. Discharge Plan Departure Patient Disposition: [facility] Clinical Impression: Lymphoma, Chronic hyponatremia Discharge Date/Time: 05/31/18 01:06 Interventions: ED Discharge Assessment Last Done: 05/31/18 00:54 Prescriptions: No Action furosemide 40 mg tablet 40 mg PO DAILY PRN (Reason: edema) Qty: 8 RF: 0 albuterol sulfate 90 mcg/actuation HFA aerosol inhaler 1 puff INHALATION Q4-6H PRN (Reason: shortness of breath or wheezing) Qty: 6.7 RF: 0 esomeprazole magnesium [Nexium] 20 MG capsule,delayed release(DR/EC) 20 mg PO DAILY Qty: 0 RF: 0 omega 0-qtr-bww-fish oil [Fish Oil] 1,000 MG capsule 2 cap PO DAILY Qty: 0 RF: 0 nldjfhjists-Y2-Phcyxvfld serr [Glucosamine Daily Complex] 1,500-400-100 mg- unit-mg Tablet 1 tab PO QAM RF: 0 cefuroxime axetil 500 mg tablet 500 mg PO Q12H 7 Days Qty: 14 RF: 0 nadolol 80 mg tablet 80 mg PO DAILY RF: 0 cetirizine 10 mg tablet 1 tab PO BID PRN (Reason: Allergy Symptoms) RF: 0 famotidine 40 mg tablet 1 tab PO DAILY RF: 0 naratriptan 2.5 mg tablet 1 tab PO DIRECTED RF: 0 hydroxyzine pamoate 25 mg capsule 1 cap PO BID PRN (Reason: Itching) RF: 0
--- NOTE | 2018-05-30 18:23 | DI.RAD.S_ITS ---
PROCEDURE: XR CHEST FOR PICC 1V INDICATIONS: picc placement COMPARISON: None. FINDINGS: PICC was placed by the intravenous therapy team from the left side. Fluoroscopic spot film demonstrates tip of PICC in the mid SVC. IMPRESSION: Tip of PICC lies within the mid SVC. Dictated by: Marisol Vasquez MD, PhD on 05/30/2018 at 18:42 Approved by: Marisol Vasquez MD, PhD on 05/30/2018 at 18:42
--- NOTE | 2018-05-30 18:30 | DI.CT.S_ITS ---
PROCEDURE: CT CHEST ABD PEL W CON INDICATIONS: severe abdominal pain, not eating, lymphadenopathy, no BM TECHNIQUE: After the administration of intravenous contrast, 5 mm thick sections acquired from the lung apices to the symphysis. 5 mm coronal and sagittal reformats were performed, with additional 7 mm MIP reformats through the lungs. For radiation dose reduction, the following was used: automated exposure control, adjustment of mA and/or kV according to patient size. COMPARISON: None. FINDINGS: Image quality: Excellent. CHEST: Lungs and pleura: Patchy airspace opacities noted in the lung bases bilaterally. Small bilateral pleural fluid collection is noted. There is bilateral perihilar predominant interstitial prominence. Central and peripheral airways appear patent and normal in caliber. Mediastinum: Heart size is normal. Atherosclerotic calcifications are noted in the aorta, great vessels and the coronary vasculature. No pericardial effusion. Bulky mediastinal and bilateral hilar lymphadenopathy is noted. Thoracic aorta and central pulmonary arteries are normal in size. Esophagus is normal in caliber. No hiatal hernia. Chest wall: Bilateral neck visualized level I, level III and level IV lymphadenopathy. Bilateral axillary or supraclavicular lymphadenopathy. Thyroid gland is within normal limits. ABDOMEN: Solid organs: Liver is normal in size and enhancement. Gallbladder chains a small gallstone. Biliary system is non dilated. Pancreas enhances normally. Spleen is enlarged measuring 14.8 cm in long axis. Punctate calcifications noted in the spleen compatible sequela prior granulomatous disease. No adrenal nodules. Kidneys demonstrate normal size and enhancement, without hydronephrosis. Peritoneum and bowel: Bowel loops demonstrate normal wall thickness and caliber. No free air. Moderate amount of ascites is scattered throughout the abdomen and pelvis. Nodes and vessels: Bulky retroperitoneal lymphadenopathy is noted. Scattered enlarged lymph nodes are noted in the mesentery. Aorta and inferior vena cava are normal in size. Miscellaneous: No ventral hernias. PELVIS: Genitourinary: Bladder wall thickness is normal. Miscellaneous: No inguinal hernias. Bilateral inguinal lymphadenopathy is noted. Bones: No suspicious bony lesions. No vertebral body compression fractures. IMPRESSION: 1. Extensive, bulky lymphadenopathy involving the visualized neck, the mediastinum, jt, the axilla, the retroperitoneum, the mesentery and the bilateral groins highly suspicious for lymphoma. 2. Splenomegaly concerning for lymphomatous involvement. 3. Patchy airspace opacities in the lung bases bilaterally which could represent pneumonia or lymphomatous involvement. 4. Interstitial prominence involving the lungs bilaterally with perihilar predominance concerning for pulmonary edema versus carcinomatosis. 5. Atherosclerosis including the coronary vasculature. 6. Cholelithiasis. Dictated by: Marisol Vasquez MD, PhD on 05/30/2018 at 19:56 Approved by: Marisol Vasquez MD, PhD on 05/30/2018 at 20:08
[2018-05-30] MEDS: ONDANSETRON 4 MG/2 ML INJ IV (18:49)
[2018-05-30] MEDS: SODIUM CHLORIDE 0.9% 1,000 ML 1000 ML IV (18:49)
[2018-05-30] MEDS: HYDROMORPHONE 1 MG INJ 0.5 MG IV ×3 (18:50→23:53)
--- NOTE | 2018-05-30 19:11 | PC.NURSE ---
PICC LINE PLACED WITH NO PROBLEMS. LT ARM BASCILIC VEIN. PICC NOTE TO BE IN SVC. LT ARM 26CM AROUND AT TIME OF PLACEMENT. 39CM IN ARM AND 5CM OUT. FLUSHED BOTH LUMENS AND HEP LOCKED.
[2018-05-30 19:14] LABS: Hematocrit 27.8 % (41-53); Hemoglobin 9.3 g/dL (13.5-17.5); Mean Corpuscular HGB Conc 33.4 % (30-36); Mean Corpuscular Hemoglobin 25.6 PG (26-34); Mean Corpuscular Volume 76.5 fL (80-100); Platelet Count 64 X10^3/uL (150-400); Red Blood Cell Count 3.63 X10^6/uL (4.5-5.9); Red Cell Distribution Width 15.9 % (11.6-14.8); White Blood Cell Count 16.5 X10^3/uL (4.5-11.0)
[2018-05-30 19:18] LABS: Add Manual Diff / Slide Review YES
[2018-05-30 19:23] LABS: Alanine Aminotransferase 27 IU/L (21-72); Albumin 2.9 g/dL (3.5-5.0); Albumin Globulin Ratio 0.8 (1.0-2.8); Alkaline Phosphatase 166 U/L (38-126); Aspartate Aminotransferase 34 IU/L (17-59); Bilirubin Total 0.6 mg/dL (0.2-1.3); Blood Urea Nitrogen 26 mg/dL (9-20); Calcium 7.7 mg/dL (8.4-10.2); Carbon Dioxide 22 mmol/L (22-32); Chloride 101 mmol/L (98-107); Estimated Glomerular Filt Rate > 60.0 mL/min (>60); Globulin 3.8 g/dL (1.7-4.1); Glucose 121 mg/dL (80-110); HEMOLYSIS < 15 (0-50); Potassium 5.1 mmol/L (3.4-5.1); Sodium 129 mmol/L (137-145); Total Protein 6.7 g/dL (6.3-8.2)
[2018-05-30 19:35] LABS: Neutrophils Absolute Manual 12705 /uL (3000-5900); Total Cells Counted 100
[2018-05-30 19:37] LABS: Anisocytosis 1+; Polychromasia 1+
[2018-05-30 19:55] VITALS: BP 159/82; PULSE 109; RESP 17; O2SAT 95
[2018-05-30 21:00] VITALS: BP 154/88; PULSE 114; RESP 31; O2SAT 94
[2018-05-30 22:00] VITALS: BP 151/87; PULSE 113; RESP 21; O2SAT 91
[2018-05-30 23:00] VITALS: BP 149/85; PULSE 118; RESP 23; TEMP 37.6; O2SAT 92
[2018-05-31] VITALS: BP 164/93; PULSE 134; RESP 25; O2SAT 93
[2018-05-31] MEDS: SODIUM CHLORIDE 0.9% 1,000 ML 200 ML IV (00:17)
== END 2018-05-31 01:06 | disposition short-term general hospital (02) ==
PROVIDERS: Emergency Medicine; Emergency Provider Emergency Medicine; Family Provider Family Medicine; PCP Student in an Organized Health Care Education/Training Program
DX: C85.90 Non-Hodgkin lymphoma, unspecified, unspecified site (principal); E87.1 Hypo-osmolality and hyponatremia
CPT/HCPCS: 36569; 71260; 74022; 74177; 76705; 80053; 82962; 85025; 96361; 96374; 96375; 96376; 99284; 99285; J1170; J2405; Q9967

== ENCOUNTER → 2018-10-07 10:07 | Outpatient (CLI) | payer OTHER, SELFPAY ==
[2018-05-22 17:37] VITALS: BMI 25.0
--- NOTE | 2018-10-07 10:13 | DI.CT.S_ITS ---
PROCEDURE: CT CHEST ABD PEL W CON INDICATIONS: Lymphoma surveillance TECHNIQUE: After the administration of oral and intravenous contrast, 5 mm thick sections acquired from the lung apices to the symphysis. 5 mm coronal and sagittal reformats were performed, with additional 7 mm coronal MIP reformats through the lungs. For radiation dose reduction, the following was used: automated exposure control, adjustment of mA and/or kV according to patient size. COMPARISON: [facility], CT, CT CHEST WO CON, 05/22/2018, 19:09. [facility], CR, XR CHEST 1 VIEW, 06/07/2018, 13:30. [facility], CT, CT CHEST ABD PEL W CON, 05/30/2018, 19:03. FINDINGS: Image quality: Excellent. CHEST: Lungs and pleura: There is right lower lobe infiltrate and consolidation consistent with pneumonia. A 1.1 cm groundglass nodule is present in the lingula. There is trace left pleural effusion, decreased compared to last exam. Right pleural effusion has resolved. No pneumothorax. Central and peripheral airways appear patent and normal in caliber. Mediastinum: Decreased mediastinal and bilateral hilar lymphadenopathy. For example a 1.9 x 3.4 cm subcarinal lymph node seen on the last CT now measures 1.5 x 3.0 cm. The previous 2.2 cm right hilar lymph node now measures 1.5 cm. Heart size is normal. Trace pericardial effusion. There is a cardiac pacemaker. Moderate coronary artery calcification. Thoracic aorta and central pulmonary arteries are normal in size. Esophagus is normal in caliber. There is a small hiatal hernia. Chest wall: Bilateral supraclavicular and axillary lymphadenopathy appears slightly decreased. Thyroid gland is normal. ABDOMEN: Solid organs: Liver and spleen are moderately enlarged but stable in size. There are calcified granulomas in the liver and spleen. Small indeterminate hepatic hypodensities are most likely cysts. Gallbladder contains small gallstones. Biliary system is non dilated. Pancreas enhances normally. Spleen is normal in size and enhancement. No adrenal nodules. Kidneys demonstrate normal size and enhancement, without hydronephrosis. Peritoneum and bowel: Bowel loops demonstrate normal wall thickness and caliber. No free air. There is a small amount of ascites, decreased. Nodes and vessels: There is retroperitoneal or mesenteric adenopathy, decreased compared to the last exam. For instance, a 2.9 x 4.3 cm periportal lymph node just behind the portal vein now measures 1.4 x 2.0 cm. A 1.9 cm aortocaval lymph node now measures 1.0 cm. Several small iliac lymph nodes are noted bilaterally, decreased in size since the last exam. Aorta and inferior vena cava are normal in size. Mild aortic calcification. Miscellaneous: No ventral hernias. PELVIS: Genitourinary: Bladder wall thickness is normal. Miscellaneous: There is decreased bilateral inguinal lymphadenopathy. For example, the largest left inguinal lymph node measures 1.2 x 2.2 cm, previously 1.6 x 3.3 cm. A small fat containing right inguinal hernia is noted. There surgical clips in the right groin. Bones: No suspicious bony lesions. No vertebral body compression fractures. IMPRESSION: 1. Decreased lymphadenopathy in thorax, abdomen and pelvis. 2. Stable hepatosplenomegaly. 3. Decreased ascites. 4. Left lower lobe pneumonia. A 1.1 cm groundglass nodule is noted in the lingula. There is trace residual left pleural effusion, which is decreased compared to the prior examination. Right pleural effusion has resolved. 5. Cholelithiasis. 6. Remote granulomatous infections involving the liver and spleen. Dictated by: Claudia Ritter M.D. on 10/07/2018 at 12:21 Approved by: Claudia Ritter M.D. on 10/07/2018 at 18:00
== END ==
PROVIDERS: Family Provider Family Medicine; PCP Student in an Organized Health Care Education/Training Program; Visit Provider Internal Medicine Hematology & Oncology
DX: C85.90 Non-Hodgkin lymphoma, unspecified, unspecified site (principal); J18.9 Pneumonia, unspecified organism; R59.1 Generalized enlarged lymph nodes; R16.2 Hepatomegaly with splenomegaly, not elsewhere classified; R18.8 Other ascites; K80.80 Other cholelithiasis without obstruction
CPT/HCPCS: 71260; 74177; Q9967

== ENCOUNTER → 2018-10-20 11:35 | Outpatient (CLI) | payer OTHER, SELFPAY ==
[2018-05-22 17:37] VITALS: BMI 25.0
--- NOTE | 2018-10-20 | PATH_ITS ---
Note [facility] Accession Number: [id number] TESTS RESULT FLAG UNITS REF RANGE LAB Clinician Provided Cytology Information No. of containers..01 Other (Miscellaneous) 01 ASCITIES DIAGNOSIS: 02 ASCITIES NEGATIVE FOR MALIGNANT CELLS. Pathologist ICD10: 02 R18.8 02 Wilmer Mistry MD, PhD, Pathologist NPI- [id number] Wero Viera, Supervisor [employer] (ASCP) 01 5.5 CC, YELLOW, CLEAR /LCS FLAG LEGEND: L-Low Normal,H-High Normal,LL-Alert Low,HH-Alert High <-Panic Low,>-Panic High,A-Abnormal,AA-Critical Abnormal Performed at: 01 =Z [facility] [address], [place] [address] Phil Kamara MD, 02 LCL[facility] [address] [place] [id number] Charito Gaming MD, Performed at: 01 [facility] [address], [place], [place] [id number] MD Phil Kamara MD Phone: [phone]
--- NOTE | 2018-10-20 11:36 | DI.RAD.S_ITS ---
PROCEDURE: XR CHEST 2V INDICATIONS: cough TECHNIQUE: 2 views of the chest were acquired. COMPARISON: [facility], CT, CT CHEST ABD PEL W CON, 10/07/2018, 11:09. [facility], CR, XR CHEST FOR PICC 1V, 05/30/2018, 18:32. [facility], CR, XR CHEST 2V, 05/22/2018, 14:37. FINDINGS: Surgical changes and devices: None. Lungs and pleura: Lungs are abnormal with generalized pulmonary edema slightly worse than on the comparison study is from late last year in April and May. A recent chest CT 10/07/18 and shown asymmetric mild to moderate left lower lobe pulmonary edema/alveolitis but this has appreciably worsened bilaterally. No pleural effusions or pneumothorax. Mediastinum: Mediastinal contours are normal. Heart size is normal. Bones and chest wall: No suspicious bony abnormalities. Soft tissues appear unremarkable. IMPRESSION: Alveolar infiltration is prominent bilaterally, left greater than right, representing a significant interval worsening from the most recent chest CT imaging from 10/07/18. The appearance may reflect worsening asymmetric atypical pneumonia. Port-A-Cath is noted, in normal position from right sided approach. Dictated by: Eulogio Ortega M.D. on 10/20/2018 at 13:00 Approved by: Eulogio Ortega M.D. on 10/20/2018 at 13:03
--- NOTE | 2018-10-20 11:36 | DI.US.S_ITS ---
PROCEDURE: US PARACENTESIS INDICATIONS: ASCITIES TECHNIQUE: The indications, alternatives, benefits, risks, and complications of the procedure were explained to the patient. Written informed consent was obtained and placed in the chart. The abdomen and pelvis were examined sonographically, and an appropriate site was chosen for paracentesis. The skin was prepared and draped in the usual sterile fashion, and 1% lidocaine was infiltrated from the skin down through the peritoneal surface. A 19-gauge catheter-covered needle was then introduced into the peritoneal space, the catheter was advanced and the needle was withdrawn, and thereafter peritoneal fluid was withdrawn. The catheter was then removed and a dressing was applied. The fluid was discarded if the clinician did not order diagnostic testing of the fluid. COMPARISON: [facility], CT, CT CHEST ABD PEL W CON, 10/07/2018, 11:09. FINDINGS: Access site: Right lower anterior pelvic body wall Needle: 20 gauge 1.5 inch straight needle, under ultrasound guidance. Fluid volume and description: 2 small aliquots were obtained in 2 separate syringes from this pathway, with this procedure utilized due to the absence of significant ascites and only a small access pathway for safe paracentesis. Fluid sent for diagnostic testing: At the direction of the ordering health care provider, in 2 aliquots, to include cytology. Medications: 1% lidocaine for local anaesthesia. Complications: None. IMPRESSION: Successful ultrasound-guided paracentesis. The amount of peritoneal fluid is low, and only a small access point for safe paracentesis was identified. Fluid was obtained, into small aliquots, and provided to the clinical laboratory for analysis. Dictated by: Eulogio Ortega M.D. on 10/20/2018 at 13:06 Approved by: Eulogio Ortega M.D. on 10/20/2018 at 13:09
[2018-10-20 14:07] LABS: LDH Body Fluid 287 U/L; Total Protein Body Fluid < 2.0 g/dL
[2018-10-20 14:47] LABS: Body Fluid Appearance SLIGHTLY CLOUDY; Body Fluid Color YELLOW
[2018-10-20 14:48] LABS: Body Fluid Clotted? NO CLOTS PRESENT
[2018-10-20 14:49] LABS: Eosinophils Body Fluid 0 %; Mononuclear WBC Body Fluid 93 %; Polynuclear WBC Body Fluid 5 %
[2018-10-20 14:50] LABS: Body Fluid Tot Nucleated Cells 749 /uL; Other Cells Body Fluid 2 %
[2018-10-20 14:51] LABS: Body Fluid Red Blood Cells 1293 /uL
== END ==
PROVIDERS: Family Provider Family Medicine; PCP Student in an Organized Health Care Education/Training Program; Visit Provider Nurse Practitioner Gerontology
DX: C85.90 Non-Hodgkin lymphoma, unspecified, unspecified site (principal)
CPT/HCPCS: 49083; 71046; 83615; 84157; 87070; 87075; 87205; 89051

== ENCOUNTER 2018-10-20 15:46 | Emergency (ER) | payer OTHER, SELFPAY ==
[2018-05-22 17:37] VITALS: BMI 25.0
[2018-10-20 16:01] VITALS: BP 117/72; PULSE 109; RESP 14; TEMP 36.6; O2SAT 96
[2018-10-20 16:49] VITALS: BP 128/67; PULSE 118; RESP 18; O2SAT 96
--- NOTE | 2018-10-20 16:52 | PC.NURSE ---
Pt w/ extensive cancer history. last chemo 08/2018. Sent from cancer care r/t + pneumonia on chest x ray.
[2018-10-20 16:56] LABS: Hemoglobin 7.7 g/dL (13.5-17.5); Red Blood Cell Count 2.58 X10^6/uL (4.5-5.9)
[2018-10-20 17:00] VITALS: BP 115/60; RESP 25
[2018-10-20 17:01] LABS: Hematocrit 22.6 % (41-53); Mean Corpuscular Hemoglobin 29.8 PG (26-34); Mean Corpuscular Volume 87.7 fL (80-100); Platelet Count 40 X10^3/uL (150-400); Red Cell Distribution Width 18.6 % (11.6-14.8); White Blood Cell Count 7.6 X10^3/uL (4.5-11.0)
[2018-10-20 17:03] LABS: INR 1.8 (0.9-1.3); Prothrombin Time 20.7 SECONDS (10.1-12.7)
[2018-10-20 17:05] LABS: Add Manual Diff / Slide Review YES
[2018-10-20 17:06] LABS: PTT Partial Thromboplastin Tim 32 SECONDS (26.4-36.2)
[2018-10-20 17:08] LABS: Alanine Aminotransferase 27 IU/L (21-72); Albumin Globulin Ratio 1.1 (1.0-2.8); Alkaline Phosphatase 136 U/L (38-126); Aspartate Aminotransferase 25 IU/L (17-59); BUN Creatinine Ratio 43.8 (6-22); Bilirubin Total 0.9 mg/dL (0.2-1.3); Blood Urea Nitrogen 35 mg/dL (9-20); Calcium 11.3 mg/dL (8.4-10.2); Carbon Dioxide 24 mmol/L (22-32); Chloride 101 mmol/L (98-107); Estimated Glomerular Filt Rate > 60.0 mL/min (>60); Globulin 2.8 g/dL (1.7-4.1); Glucose 105 mg/dL (80-110); HEMOLYSIS < 15 (0-50); Lipase 24 U/L (23-300); Potassium 3.8 mmol/L (3.4-5.1); Sodium 134 mmol/L (137-145); Total Protein 5.8 g/dL (6.3-8.2)
[2018-10-20 17:09] LABS: Lactate (Lactic Acid) 1.3 mmol/L (0.7-2.1)
[2018-10-20 17:24] LABS: Neutrophils Absolute Manual 5624 /uL (3000-5900); Nucleated Red Blood Cells 1 #/Diff; Total Cells Counted 100
[2018-10-20 17:25] LABS: Anisocytosis 2+; Poikilocytosis 1+
[2018-10-20] MEDS: levoFLOXacin 750 MG/150 ML PIGGYBACK 100 MG IV (17:54)
[2018-10-20 18:23] VITALS: BP 124/83; PULSE 109
--- NOTE | 2018-10-20 18:43 | ED.SOB ---
HPI - SOB/Dyspnea General Chief Complaint: Shortness of Breath/Dyspnea Stated Complaint: THINKS HE HAS PNEUMONIA Time Seen by Provider: 10/20/18 17:28 Source: patient Mode of arrival: ambulatory Limitations: no limitations History of Present Illness Patient is a 63-year-old male with known T-cell lymphoma. He is not currently undergoing chemotherapy. He came to the emergency department today after he was told to come by his oncology office. It appears that earlier today he had a paracentesis performed which was unremarkable. He also had a chest x-ray which was concerning for pneumonia. Apparently this pneumonia was seen on a CT scan of his chest abdomen pelvis several days ago but it does not appear that he was treated with any antibiotics. Patient states that he has been having a cough otherwise feels at baseline Related Data Home Medications Medication Instructions Recorded Confirmed esomeprazole magnesium [Nexium] 40 mg PO DAILY #0 12/31/16 08/14/18 velirppmdre-F5-Kvraufmou serr 2 tab PO QAM 05/22/18 08/14/18 [Glucosamine Daily Complex] lokmjkn-nmbtzvzcrywcp-kmbcadpo 1 tab PO Q4-6H PRN 06/24/18 08/14/18 [Excedrin Extra Strength] filgrastim-sndz [Zarxio] 5 mcg/kg SUBCUT Q24H 06/24/18 08/14/18 fish,bora,flax oils-om3,6,9no1 1 cap PO DAILY 07/04/18 08/14/18 [[place] 3-6-9 Complex] nadolol 80 mg PO DAILY 07/04/18 08/14/18 ondansetron 4 mg PO TID PRN 07/04/18 08/14/18 loratadine 10 mg PO DAILY 10/17/18 10/17/18 prednisone See Rx Instructions .ROUTE .COMPLEX 10/20/18 10/20/18 Previous Rx's Medication Instructions Recorded zolpidem [Ambien] 10 mg PO BEDTIME PRN #30 tab 08/14/18 oxycodone-acetaminophen 1 tab PO Q4-6H PRN #60 tab 09/04/18 sertraline 50 mg PO DAILY #60 tab 09/04/18 acyclovir 800 mg PO Q12H #60 tab 10/10/18 levofloxacin [Levaquin] 750 mg PO DAILY 5 Days #5 tab 10/20/18 Allergies Allergy/AdvReac Type Severity Reaction Status Date / Time Sulfa (Sulfonamide Allergy Intermediate Hives Verified 10/20/18 16:03 Antibiotics) iodine Allergy Verified 10/20/18 16:03 Review of Systems Constitutional Denies fever(s) Cardiovascular Denies chest pain and Denies dyspnea Respiratory Reports cough and Denies dyspnea Gastrointestinal Gastrointestinal: Denies abdominal pain, Denies nausea and Denies vomiting Musculoskeletal Denies myalgias and Denies arthralgias Neurologic Denies behavioral changes Psychiatric Denies behavioral changes Hematologic/Lymphatic Denies easy bleeding and Denies easy bruising PFSH Family History Mother Hypochondria Sister Age: 65 Breast cancer Sister Age: 64 Spina bifida Social History household members: none Smoking Status: Never smoker alcohol intake: never Social History household members: none Smoking Status: Never smoker alcohol intake: never Exam Initial Vital Signs Initial Vital Signs: Vital Signs Temperature 98 F 10/20/18 16:01 Pulse Rate 109 H 10/20/18 16:01 Respiratory Rate 14 10/20/18 16:01 Blood Pressure 117/72 10/20/18 16:01 Pulse Oximetry 96 10/20/18 16:01 Const General: cooperative, comfortable, well developed, well groomed and No acute distress Orientation: alert, awake and oriented x3 HENMT Head: normal to inspection and normocephalic Resp Effort & Inspection: normal respiratory effort Auscultation: clear to auscultation bilaterally Cardio Rate: tachycardic Rhythm: regular rhythm Pulses: radial pulses present GI Inspection: non-distended Palpation: soft Skin Lesions: no lesions Rashes: no rashes Neuro General: alert, awake and oriented x3 Extrem General: normal to inspection and capillary refill normal Psych Appearance: grossly normal and well kempt Course Orders Ordered: ED Orders 10/20/18 16:44 Complete Blood Count AUTO DIFF Stat Comprehensive Metabolic Panel Stat Lactate (Lactic Acid) Stat Lipase Stat Partial Thromboplastin Time Stat Procalcitonin Stat Prothrombin Time INR Stat 10/20/18 17:05 Blood Culture Stat Discontinued Medications Levofloxacin (Levaquin) 750 mg in 150 mls @ 100 mls/hr IV NOW ONE Stop: 10/20/18 19:15 Last Infusion: 10/20/18 19:48 Dose: 0 mls/hr Admin: 10/20/18 17:54 Dose: 100 mls/hr Vital Signs - 8 hr 10/20/18 16:01 10/20/18 16:49 10/20/18 17:00 Temperature 98 F Pulse Rate 109 H 118 H Respiratory Rate 14 18 25 H Blood Pressure 117/72 Blood Pressure [Left Arm] 128/67 115/60 Pulse Oximetry 96 96 10/20/18 18:23 10/20/18 19:00 Temperature Pulse Rate 109 H 106 H Respiratory Rate 20 Blood Pressure Blood Pressure [Left Arm] 124/83 135/73 Pulse Oximetry 98 MDM - SOB/Dyspnea Lab Data Attestation: I reviewed the patient's lab results. Result diagrams: 10/20/18 16:44 10/20/18 16:44 Lab Results 10/20/18 10/20/18 10/20/18 Range/Units 16:44 16:44 16:44 WBC 7.6 (4.5-11.0) X10^3/uL RBC 2.58 L (4.5-5.9) X10^6/uL Hgb 7.7 L (13.5-17.5) g/dL Hct 22.6 L (41-53) % MCV 87.7 (80-100) fL MCH 29.8 (26-34) PG MCHC 34.0 (30-36) % RDW 18.6 H (11.6-14.8) % Plt Count 40 L (150-400) X10^3/uL Neut % (Auto) Not Reportable Lymph % (Auto) Not Reportable [place] % (Auto) Not Reportable Eos % (Auto) Not Reportable Baso % (Auto) Not Reportable Lymph # (Auto) Not Reportable [place] # (Auto) Not Reportable Baso # (Auto) Not Reportable Total Counted 100 Seg Neutrophils % 67.0 (38-70) % Band Neutrophils % 7.0 (3-7) % Lymphocytes % (Manual) 3.0 L (25-45) % Atypical Lymphs % 8.0 H ( - 0) % Monocytes % (Manual) 13.0 H (2-11) % Eosinophils % (Manual) 2.0 (2-4) % Neutrophils # (Manual) 5624 (5854-0269) /uL Nucleated RBCs 1 H ( - 0) #/Diff RBC Morphology See below Poikilocytosis 1+ H Anisocytosis 2+ H PT 20.7 H (10.1-12.7) SECONDS INR 1.8 H (0.9-1.3) APTT 32 D (26.4-36.2) SECONDS Sodium (137-145) mmol/L Potassium (3.4-5.1) mmol/L Chloride (98-107) mmol/L Carbon Dioxide (22-32) mmol/L BUN (9-20) mg/dL Creatinine (0.66-1.25) mg/dL Estimated GFR (>60) mL/min BUN/Creatinine Ratio (6-22) Glucose (80-110) mg/dL Lactate (0.7-2.1) mmol/L Calcium (8.4-10.2) mg/dL Total Bilirubin (0.2-1.3) mg/dL AST (17-59) IU/L ALT (21-72) IU/L Alkaline Phosphatase (38-126) U/L Total Protein (6.3-8.2) g/dL Albumin (3.5-5.0) g/dL Globulin (1.7-4.1) g/dL Albumin/Globulin Ratio (1.0-2.8) Lipase (23-300) U/L Procalcitonin 3.00 H (<0.5) ng/mL 10/20/18 10/20/18 Range/Units 16:44 16:44 WBC (4.5-11.0) X10^3/uL RBC (4.5-5.9) X10^6/uL Hgb (13.5-17.5) g/dL Hct (41-53) % MCV (80-100) fL MCH (26-34) PG MCHC (30-36) % RDW (11.6-14.8) % Plt Count (150-400) X10^3/uL Neut % (Auto) Lymph % (Auto) [place] % (Auto) Eos % (Auto) Baso % (Auto) Lymph # (Auto) [place] # (Auto) Baso # (Auto) Total Counted Seg Neutrophils % (38-70) % Band Neutrophils % (3-7) % Lymphocytes % (Manual) (25-45) % Atypical Lymphs % ( - 0) % Monocytes % (Manual) (2-11) % Eosinophils % (Manual) (2-4) % Neutrophils # (Manual) (9864-4511) /uL Nucleated RBCs ( - 0) #/Diff RBC Morphology Poikilocytosis Anisocytosis PT (10.1-12.7) SECONDS INR (0.9-1.3) APTT (26.4-36.2) SECONDS Sodium 134 L (137-145) mmol/L Potassium 3.8 (3.4-5.1) mmol/L Chloride 101 (98-107) mmol/L Carbon Dioxide 24 (22-32) mmol/L BUN 35 H (9-20) mg/dL Creatinine 0.80 (0.66-1.25) mg/dL Estimated GFR > 60.0 (>60) mL/min BUN/Creatinine Ratio 43.8 H (6-22) Glucose 105 (80-110) mg/dL Lactate 1.3 (0.7-2.1) mmol/L Calcium 11.3 H (8.4-10.2) mg/dL Total Bilirubin 0.9 (0.2-1.3) mg/dL AST 25 (17-59) IU/L ALT 27 (21-72) IU/L Alkaline Phosphatase 136 H (38-126) U/L Total Protein 5.8 L (6.3-8.2) g/dL Albumin 3.0 L (3.5-5.0) g/dL Globulin 2.8 (1.7-4.1) g/dL Albumin/Globulin Ratio 1.1 (1.0-2.8) Lipase 24 (23-300) U/L Procalcitonin (<0.5) ng/mL Urine Dip Bedside Urine Glucose Negative Bedside Urine Bilirubin - Negative Bedside Urine Ketone - Negative Urine Specific [place] 1.020 Bedside Urine Occult Blood - Negative Bedside Urine pH 6.0 Bedside Urine Protein +/- 15 Bedside Urine Urobilinogen - Negative Bedside Urine Nitrite - Negative Bedside Urine Leukocytes - Negative Esterase MDM Narrative Medical decision making narrative: Patient is not neutropenic. Does have an elevated procalcitonin but his lactate is unremarkable. He was given Levaquin here in the emergency department. Patient is afebrile. He states he feels at baseline. He is not hypoxic. Discussed the case with Dr. Hastings who is the hospitalist to stated that the patient could be treated as an outpatient. I discussed the case with Dr. Palacios oncology who states that the patient does look well and tolerate oral intake is not unreasonable for him to be treated as an outpatient. I did discuss this with the patient. He was given a prescription for Levaquin. Informed him of return precautions. He expressed understanding and agreement with plan. Discharge Plan Departure Patient Disposition: Home Clinical Impression: Pneumonia Discharge Date/Time: 10/20/18 19:50 Interventions: ED Discharge Assessment Last Done: 10/20/18 19:49 Instructions: DI for Pneumonia -- Adult Activity Restrictions/Additional Instructions: Your 1st dose of the antibiotics will be tomorrow 10/21/18. I do recommend you contact your oncology office tomorrow for follow-up and also your primary care doctor's office. Continue all of your other medication. Return to the emergency department for any new or worsening symptoms Prescriptions: New levofloxacin [Levaquin] 750 mg tablet 750 mg PO DAILY 5 Days Qty: 5 RF: 0 No Action esomeprazole magnesium [Nexium] 20 MG capsule,delayed release(DR/EC) 40 mg PO DAILY Qty: 0 RF: 0 uddglcnyoqk-D0-Lbuzgnwzk serr [Glucosamine Daily Complex] 1,500-400-100 mg-unit-mg Tablet 2 tab PO QAM RF: 0 prednisone 50 mg tablet See Rx Instructions .ROUTE .COMPLEX RF: 0 ogdjdps-lzwngfeqdozus-gptyfoje [Excedrin Extra Strength] 250-250-65 mg Tablet 1 tab PO Q4-6H PRN (Reason: Migraine Headache) RF: 0 filgrastim-sndz [Zarxio] 480 mcg/0.8 mL Syringe 5 mcg/kg SUBCUT Q24H RF: 0 nadolol 80 mg Tablet 80 mg PO DAILY RF: 0 ondansetron 4 mg Tablet,Disintegrating 4 mg PO TID PRN (Reason: Nausea) RF: 0 fish,bora,flax oils-om3,6,9no1 [[place] 3-6-9 Complex] 400-400-400 mg Capsule 1 cap PO DAILY RF: 0 zolpidem [Ambien] 10 mg Tablet 10 mg PO BEDTIME PRN (Reason: insomnia) Qty: 30 RF: 0 oxycodone-acetaminophen 5-325 mg Tablet 1 tab PO Q4-6H PRN (Reason: Pain (Scale Score 7-10)) Qty: 60 RF: 0 sertraline 50 mg Tablet 50 mg PO DAILY Qty: 60 RF: 0 acyclovir 800 mg Tablet 800 mg PO Q12H Qty: 60 RF: 2 loratadine 10 mg Capsule 10 mg PO DAILY RF: 0 Referrals: Shawn Osborne MD [Primary Care Provider] -
[2018-10-20 19:00] VITALS: BP 135/73; PULSE 106; RESP 20; O2SAT 98
== END 2018-10-20 19:50 | disposition home or self-care (01) ==
PROVIDERS: Emergency Medicine; Emergency Provider Emergency Medicine; Family Provider Family Medicine; PCP Student in an Organized Health Care Education/Training Program
DX: J18.9 Pneumonia, unspecified organism (principal)
CPT/HCPCS: 36415; 36591; 49083; 71046; 80053; 81003; 83605; 83615; 83690; 84145; 84157; 85025; 85610; 85730; 87040; 87070; 87075; 87205; 89051; 96365; 96366; 99283; 99284; J1956

== ENCOUNTER 2018-10-27 14:33 | Emergency (ER) | payer OTHER, SELFPAY ==
[2018-05-22 17:37] VITALS: BMI 25.0
[2018-10-27] VITALS (9 sets, daily range): BP systolic 87–139; BP diastolic 45–98; PULSE 105–114; RESP 18–27; TEMP 36.4–36.6; O2SAT 94–97; BMI 23.2
--- NOTE | 2018-10-27 15:36 | ED.EPISTAXIS ---
HPI - Epistaxis General Chief complaint: Nasal Problem Stated complaint: nose bleed Time Seen by Provider: 10/27/18 15:22 Source: patient and family Mode of arrival: ambulatory Limitations: no limitations History of Present Illness HPI Narrative: This is a 63-year-old male who comes to the emergency department with complaint of nosebleed patient states he has had a few small once but today was large. He has known lymphoma and his platelets have been low. He had a platelet transfusion on . Patient states that it seem like clots were coming from both sides but it started on the right side. Patient has felt slightly dizzy denying any shortness of breath at this time, no chest pain or pressure. He states he has been having swelling in his lower extremities. Patient states that started about 8 days ago. States that he is currently off his chemotherapy because his doctor told him he needs to get healthier before he can return to treatment. He has been off that for about 5 weeks. He has not had nosebleeds that require cauterization or intervention in the past. Related Data Home Medications Medication Instructions Recorded Confirmed esomeprazole magnesium [Nexium] 40 mg PO DAILY #0 12/31/16 10/27/18 [id number]-Eggmfniaq serr 2 tab PO QAM 05/22/18 10/27/18 [Glucosamine Daily Complex] eivdjql-imebsbgrnonnz-poiyddso 1 tab PO Q4-6H PRN 06/24/18 10/27/18 [Excedrin Extra Strength] filgrastim-sndz [Zarxio] 5 mcg/kg SUBCUT Q24H 06/24/18 10/27/18 fish,bora,flax oils-om3,6,9no1 1 cap PO DAILY 07/04/18 10/27/18 [Gardiner 3-6-9 Complex] nadolol 80 mg PO DAILY 07/04/18 10/27/18 ondansetron 4 mg PO TID PRN 07/04/18 10/27/18 loratadine 10 mg PO DAILY 10/17/18 10/27/18 prednisone See Rx Instructions .ROUTE .COMPLEX 10/20/18 10/27/18 levofloxacin 500 mg PO DAILY 10/27/18 10/27/18 Previous Rx's Medication Instructions Recorded zolpidem [Ambien] 10 mg PO BEDTIME PRN #30 tab 08/14/18 oxycodone-acetaminophen 1 tab PO Q4-6H PRN #60 tab 09/04/18 sertraline 50 mg PO DAILY #60 tab 09/04/18 acyclovir 800 mg PO Q12H #60 tab 10/10/18 Allergies Allergy/AdvReac Type Severity Reaction Status Date / Time Sulfa (Sulfonamide Allergy Intermediate Hives Verified 10/20/18 16:03 Antibiotics) iodine Allergy Verified 10/20/18 16:03 Review of Systems ENT Ears, Nose, Mouth, and Throat: Reports nasal discharge (Epistaxis) Cardiovascular Denies chest pain, Denies syncope, Reports edema (Bilateral lower extremity), Denies irregular heart rhythm, Denies lightheadedness, Denies palpitations, Denies dyspnea, Denies dyspnea on exertion and Denies orthopnea Respiratory Reports cough, Denies pain on inspiration, Denies pain with cough, Denies dyspnea, Denies dyspnea on exertion and Denies wheezing Gastrointestinal Gastrointestinal: Denies abdominal pain, Denies change in bowel habits, Denies diarrhea, Denies nausea and Denies vomiting Genitourinary Denies hematuria, Denies flank pain and Denies urinary urgency Musculoskeletal Reports other (Swelling bilaterally) Integumentary/Breasts Reports unusual bruising Neurologic Denies syncope Endocrine Denies palpitations Allergic/Immunologic Denies wheezing PFSH Medical History Arthralgia of left knee (04/04/17) Tailor's bunion of right foot (04/04/17) 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 HEENT: Atraumatic, pupils are equal round reactive to light, extraocular movements are intact, patient has some drying blood but no active bleeding noted. On the right septum there appears to be bruising /ecchymosis but no clear source of bleeding. On the left side of the septum there is a small area of bruising that looks like there may have been ulceration there is no active bleeding no signs of trauma, TMs are clear with no fluid, there is no conjunctival pallor. Throat is clear without any exudates, erythema, tonsillar enlargement or uvular deviation. HEART: Regular rate and rhythm without murmur, clicks, rubs. LUNGS:Lungs clear to auscultation, no wheezes, rales, crackles, chest moves symmetrically. ABD:bowel sounds normal, soft, non-tender, no guarding, rebound, rigidity, no masses noted, no hepatosplenomegaly :No CVA tenderness, [male/female exam] MSCL: Non-tender, no muscle atrophy, muscles strength 5/5 upper and lower extremities, full range of motion, normal gait NEURO:CN 2-12 intact, sensation normal, reflexes 2/4 upper and lower extremities. finger nose finger test normal, heel manning test normal, romberg normal Initial Vital Signs Initial Vital Signs: Vital Signs Temperature 97.9 F 10/27/18 15:12 Pulse Rate 108 H 10/27/18 15:12 Respiratory Rate 20 10/27/18 15:12 Blood Pressure 99/62 10/27/18 15:12 Course Orders Ordered: ED Orders 10/27/18 15:35 XR chest 1V Stat B Type Natriuretic Peptide Stat Complete Blood Count AUTO DIFF Stat Comprehensive Metabolic Panel Stat Partial Thromboplastin Time Stat Procalcitonin Stat Prothrombin Time INR Stat 10/27/18 17:25 Packed Cells Stat Platelet Irradiated Stat Type and Screen Stat Discontinued Medications Ceftriaxone Sodium/Dextrose (Rocephin) 2 gm in 50 mls @ 100 mls/hr IV NOW ONE Stop: 10/27/18 17:24 Last Infusion: 10/27/18 18:07 Dose: 0 mls/hr Admin: 10/27/18 17:29 Dose: 100 mls/hr Vital Signs - 8 hr 10/27/18 15:12 10/27/18 16:35 10/27/18 18:10 Temperature 97.9 F Pulse Rate 108 H 112 H 112 H Respiratory Rate 20 18 21 Blood Pressure 99/62 Blood Pressure [Right Arm] 87/54 L 105/49 L Pulse Oximetry 95 97 MDM - Epistaxis Lab Data Attestation: I reviewed the patient's lab results. Result diagrams: 10/27/18 15:35 10/27/18 15:35 Lab Results 10/27/18 10/27/18 10/27/18 Range/Units 15:35 15:35 15:35 WBC 14.8 H (4.5-11.0) X10^3/uL RBC 2.99 L (4.5-5.9) X10^6/uL Hgb 8.8 L (13.5-17.5) g/dL Hct 26.5 L (41-53) % MCV 88.5 (80-100) fL MCH 29.5 (26-34) PG MCHC 33.3 (30-36) % RDW 18.0 H (11.6-14.8) % Plt Count 11 L* (150-400) X10^3/uL Neut % (Auto) Not Reportable Lymph % (Auto) Not Reportable Archer % (Auto) Not Reportable Eos % (Auto) Not Reportable Baso % (Auto) Not Reportable Lymph # (Auto) Not Reportable Archer # (Auto) Not Reportable Baso # (Auto) Not Reportable Total Counted 100 Seg Neutrophils % 77.0 H (38-70) % Band Neutrophils % 12.0 H (3-7) % Lymphocytes % (Manual) 8.0 L (25-45) % Eosinophils % (Manual) 3.0 (2-4) % Neutrophils # (Manual) 51696 H (3599-8079) /uL RBC Morphology Normal morphology PT 27.5 H D (10.1-12.7) SECONDS INR 2.3 H (0.9-1.3) APTT 38 H D (26.4-36.2) SECONDS Sodium 129 L (137-145) mmol/L Potassium 3.9 (3.4-5.1) mmol/L Chloride 99 (98-107) mmol/L Carbon Dioxide 16 L (22-32) mmol/L BUN 68 H (9-20) mg/dL Creatinine 1.70 H (0.66-1.25) mg/dL Estimated GFR 40.9 L (>60) mL/min BUN/Creatinine Ratio 40.0 H (6-22) Glucose 72 L (80-110) mg/dL Calcium 8.7 (8.4-10.2) mg/dL Total Bilirubin 0.5 (0.2-1.3) mg/dL AST 31 (17-59) IU/L ALT 24 (21-72) IU/L Alkaline Phosphatase 141 H (38-126) U/L B-Natriuretic Peptide 233 H (<100) Total Protein 6.0 L (6.3-8.2) g/dL Albumin 2.9 L (3.5-5.0) g/dL Globulin 3.1 (1.7-4.1) g/dL Albumin/Globulin Ratio 0.9 L (1.0-2.8) Procalcitonin (<0.5) ng/mL Crossmatch 10/27/18 10/27/18 Range/Units 15:35 17:25 WBC (4.5-11.0) X10^3/uL RBC (4.5-5.9) X10^6/uL Hgb (13.5-17.5) g/dL Hct (41-53) % MCV (80-100) fL MCH (26-34) PG MCHC (30-36) % RDW (11.6-14.8) % Plt Count (150-400) X10^3/uL Neut % (Auto) Lymph % (Auto) Archer % (Auto) Eos % (Auto) Baso % (Auto) Lymph # (Auto) Archer # (Auto) Baso # (Auto) Total Counted Seg Neutrophils % (38-70) % Band Neutrophils % (3-7) % Lymphocytes % (Manual) (25-45) % Eosinophils % (Manual) (2-4) % Neutrophils # (Manual) (7704-7355) /uL RBC Morphology PT (10.1-12.7) SECONDS INR (0.9-1.3) APTT (26.4-36.2) SECONDS Sodium (137-145) mmol/L Potassium (3.4-5.1) mmol/L Chloride (98-107) mmol/L Carbon Dioxide (22-32) mmol/L BUN (9-20) mg/dL Creatinine (0.66-1.25) mg/dL Estimated GFR (>60) mL/min BUN/Creatinine Ratio (6-22) Glucose (80-110) mg/dL Calcium (8.4-10.2) mg/dL Total Bilirubin (0.2-1.3) mg/dL AST (17-59) IU/L ALT (21-72) IU/L Alkaline Phosphatase (38-126) U/L B-Natriuretic Peptide (<100) Total Protein (6.3-8.2) g/dL Albumin (3.5-5.0) g/dL Globulin (1.7-4.1) g/dL Albumin/Globulin Ratio (1.0-2.8) Procalcitonin 13.65 H (<0.5) ng/mL Crossmatch See Detail Imaging Data Chest x-ray: Radiologist's impression: [address] [address] XRay Report Signed Patient: Abbi Diaz BMR#: [id number] : 5Acct:[id number] Age/Sex: 63 / MDate of Service: 10/27/18 Loc: ED Accession Number: [id number] Procedure: XR chest 1V Ordering Provider: Margarette Watson D.O. PROCEDURE: XR CHEST 1V INDICATIONS: swelling in legs. TECHNIQUE: One view of the chest was acquired. COMPARISON: [facility], CT, CT CHEST ABD PEL W CON, 10/07/2018, 11:09. [facility], CR, XR CHEST 2V, 10/20/2018, 11:39. FINDINGS: Surgical changes and devices: There is a right sided laurence cath central line with the tip overlying the low superior vena cava, unchanged. Lungs and pleura: Interstitial prominence is identified within the bilateral perihilar regions with probable developing bibasilar airspace disease. No large effusion or pneumothorax is evident. However, there may be a trace left-sided pleural effusion. The overall aeration of the lungs has a similar pattern to the prior study, but may be slightly more pronounced on the current examination. Mediastinum: Mediastinal contours appear normal. Heart size is normal. There is aortic atherosclerosis. Bones and chest wall: No suspicious bony lesions. Overlying soft tissues appear unremarkable. IMPRESSION: Overall findings are suggestive of pulmonary edema. However, atypical pneumonia and or interstitial lung changes may also have this appearance and clinical correlation is recommended. Dictated by: Darron Wilkinson M.D. on 10/27/2018 at 14:48 Approved by: Darron Wilkinson M.D. on 10/27/2018 at 14:53 [facility] Narrative Medical decision making narrative: patient's platelets were checked today as he has had low platelets Um and with his bleeding it would be prudent to recheck. Today's platelet level is 11. Contacted Oncology and spoke with Dr. patient was recently diagnosed with pneumonia on the and started on antibiotics. Procalcitonin was repeated today as his white count appears to be raising. His cough has not improved. CBC shows an elevated BUN and creatinine will await BNP and if not elevated we will start IV fluids. IV fluids started. Patient epistaxis stopped after afrin and nasal clamp, no recurrence in the last several hours. Platelets ordered will be here around 9p. Patient is wishing to return home. Discussed changing antibiotics, given dose of Rocephin. Discussed with Dr. Norwood who will follow patient for final disposition. Discharge Plan Departure Clinical Impression: Epistaxis, Thrombocytopenia Instructions: DI for Nosebleed Prescriptions: No Action esomeprazole magnesium [Nexium] 20 MG capsule,delayed release(DR/EC) 40 mg PO DAILY Qty: 0 RF: 0 dtnhcitciar-B5-Vnmcswblg serr [Glucosamine Daily Complex] 1,500-400-100 mg-unit-mg Tablet 2 tab PO QAM RF: 0 prednisone 50 mg tablet See Rx Instructions .ROUTE .COMPLEX RF: 0 levofloxacin 500 mg tablet 500 mg PO DAILY RF: 0 Excedrin Extra Strength 250-250-65 mg Tablet 1 tab PO Q4-6H PRN (Reason: Migraine Headache) RF: 0 Zarxio 480 mcg/0.8 mL Syringe 5 mcg/kg SUBCUT Q24H RF: 0 nadolol 80 mg Tablet 80 mg PO DAILY RF: 0 ondansetron 4 mg Tablet,Disintegrating 4 mg PO TID PRN (Reason: Nausea) RF: 0 fish,bora,flax oils-om3,6,9no1 [Gardiner 3-6-9 Complex] 400-400-400 mg Capsule 1 cap PO DAILY RF: 0 zolpidem [Ambien] 10 mg Tablet 10 mg PO BEDTIME PRN (Reason: insomnia) Qty: 30 RF: 0 oxycodone-acetaminophen 5-325 mg Tablet 1 tab PO Q4-6H PRN (Reason: Pain (Scale Score 7-10)) Qty: 60 RF: 0 sertraline 50 mg Tablet 50 mg PO DAILY Qty: 60 RF: 0 acyclovir 800 mg Tablet 800 mg PO Q12H Qty: 60 RF: 2 loratadine 10 mg Capsule 10 mg PO DAILY RF: 0 Referrals: Shawn Osborne MD [Primary Care Provider] -
--- NOTE | 2018-10-27 15:40 | ED_ITS ---
HPI - Epistaxis General Chief complaint: Nasal Problem Stated complaint: nose bleed Time Seen by Provider: 10/27/18 15:22 Source: patient and family Mode of arrival: ambulatory Limitations: no limitations History of Present Illness HPI Narrative: This is a 63-year-old male who comes to the emergency department with complaint of nosebleed patient states he has had a few small once but today was large. He has known lymphoma and his platelets have been low. He had a platelet transfusion on . Patient states that it seem like clots were coming from both sides but it started on the right side. Patient has felt slightly dizzy denying any shortness of breath at this time, no chest pain or pressure. He states he has been having swelling in his lower extremities. Patient states that started about 8 days ago. States that he is currently off his chemotherapy because his doctor told him he needs to get healthier before he can return to treatment. He has been off that for about 5 weeks. He has not h ad nosebleeds that require cauterization or intervention in the past. Related Data Home Medications Medication Instructions Recorded Confirmed esomeprazole magnesium [Nexium] 40 mg PO DAILY #0 12/31/16 10/27/18 [id number] serr 2 tab PO QAM 05/22/18 10/27/18 [Glucosamine Daily Complex] zddpjom-sldhumkdlbmzk-ssgnefig 1 tab PO Q4-6H PRN 06/24/18 10/27/18 [Excedrin Extra Strength] filgrastim-sndz [Zarxio] 5 mcg/kg SUBCUT Q24H 06/24/18 10/27/18 fish,bora,flax oils-om3,6,9no1 1 cap PO DAILY 07/04/18 10/27/18 [Luck 3-6-9 Complex] nadolol 80 mg PO DAILY 07/04/18 10/27/18 ondansetron 4 mg PO TID PRN 07/04/18 10/27/18 loratadine 10 mg PO DAILY 10/17/18 10/27/18 prednisone See Rx Instructions .ROUTE .COMPLEX 10/20/18 10/27/18 levofloxacin 500 mg PO DAILY 10/27/18 10/27/18 Previous Rx's Medication Instructions Recorded zolpidem [Ambien] 10 mg PO BEDTIME PRN #30 tab 08/14/18 oxycodone-acetaminophen 1 tab PO Q4-6H PRN #60 tab 09/04/18 sertraline 50 mg PO DAILY #60 tab 09/04/18 acyclovir 800 mg PO Q12H #60 tab 10/10/18 Allergies Allergy/AdvReac Type Severity Reaction Status Date / Time Sulfa (Sulfonamide Allergy Intermediate Hives Verified 10/20/18 16:03 Antibiotics) iodine Allergy Verified 10/20/18 16:03 Review of Systems ENT Ears, Nose, Mouth, and Throat: Reports nasal discharge (Epistaxis) Cardiovascular Denies chest pain, Denies syncope, Reports edema (Bilateral lower extremity), Denies irregular heart rhythm, Denies lightheadedness, Denies palpitations, Denies dyspnea, Denies dyspnea on exertion and Denies orthopnea Respiratory Reports cough, Denies pain on inspiration, Denies pain with cough, Denies dyspnea, Denies dyspnea on exertion and Denies wheezing Gastrointestinal Gastrointestinal: Denies abdominal pain, Denies change in bowel habits, Denies diarrhea, Denies nausea and Denies vomiting Genitourinary Denies hematuria, Denies flank pain and Denies urinary urgency Musculoskeletal Reports other (Swelling bilaterally) Integumentary/Breasts Reports unusual bruising Neurologic Denies syncope Endocrine Denies palpitations Allergic/Immunologic Denies wheezing PFSH Medical History Arthralgia of left knee (04/04/17) Tailor's bunion of right foot (04/04/17) 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 HEENT: Atraumatic, pupils are equal round reactive to light, extraocular movements are intact, patient has some drying blood but no active bleeding noted. On the right septum there appears to be bruising /ecchymosis but no clear source of bleeding. On the left side of the septum there is a small area of bruising that looks like there may have been ulceration there is no active bleeding no signs of trauma, TMs are clear with no fluid, there is no conjunctival pallor. Throat is clear without any exudates, erythema, tonsillar enlargement or uvular deviation. HEART: Regular rate and rhythm without murmur, clicks, rubs. LUNGS:Lungs clear to auscultation, no wheezes, rales, crackles, chest moves symmetrically. ABD:bowel sounds normal, soft, non-tender, no guarding, rebound, rigidity, no masses noted, no hepatosplenomegaly :No CVA tenderness, [male/female exam] MSCL: Non-tender, no muscle atrophy, muscles strength 5/5 upper and lower extremities, full range of motion, normal gait NEURO:CN 2-12 intact, sensation normal, reflexes 2/4 upper and lower extremities. finger nose finger test normal, heel manning test normal, romberg normal Initial Vital Signs Initial Vital Signs: Vital Signs Temperature 97.9 F 10/27/18 15:12 Pulse Rate 108 H 10/27/18 15:12 Respiratory Rate 20 10/27/18 15:12 Blood Pressure 99/62 10/27/18 15:12 Course Orders Ordered: ED Orders 10/27/18 15:35 XR chest 1V Stat B Type Natriuretic Peptide Stat Complete Blood Count AUTO DIFF Stat Comprehensive Metabolic Panel Stat Partial Thromboplastin Time Stat Procalcitonin Stat Prothrombin Time INR Stat 10/27/18 17:25 Packed Cells Stat Platelet Irradiated Stat Type and Screen Stat Discontinued Medications Ceftriaxone Sodium/Dextrose (Rocephin) 2 gm in 50 mls @ 100 mls/hr IV NOW ONE Stop: 10/27/18 17:24 Last Infusion: 10/27/18 18:07 Dose: 0 mls/hr Admin: 10/27/18 17:29 Dose: 100 mls/hr Vital Signs - 8 hr 10/27/18 15:12 10/27/18 16:35 10/27/18 18:10 Temperature 97.9 F Pulse Rate 108 H 112 H 112 H Respiratory Rate 20 18 21 Blood Pressure 99/62 Blood Pressure [Right Arm] 87/54 L 105/49 L Pulse Oximetry 95 97 MDM - Epistaxis Lab Data Attestation: I reviewed the patient's lab results. Result diagrams: 10/27/18 15:35 10/27/18 15:35 Lab Results 10/27/18 10/27/18 10/27/18 Range/Units 15:35 15:35 15:35 WBC 14.8 H (4.5-11.0) X10^3/uL RBC 2.99 L (4.5-5.9) X10^6/uL Hgb 8.8 L (13.5-17.5) g/dL Hct 26.5 L (41-53) % MCV 88.5 (80-100) fL MCH 29.5 (26-34) PG MCHC 33.3 (30-36) % RDW 18.0 H (11.6-14.8) % Plt Count 11 L* (150-400) X10^3/uL Neut % (Auto) Not Reportable Lymph % (Auto) Not Reportable Cecil % (Auto) Not Reportable Eos % (Auto) Not Reportable Baso % (Auto) Not Reportable Lymph # (Auto) Not Reportable Cecil # (Auto) Not Reportable Baso # (Auto) Not Reportable Total Counted 100 Seg Neutrophils % 77.0 H (38-70) % Band Neutrophils % 12.0 H (3-7) % Lymphocytes % (Manual) 8.0 L (25-45) % Eosinophils % (Manual) 3.0 (2-4) % Neutrophils # (Manual) 65772 H (0781-2379) /uL RBC Morphology Normal morphology PT 27.5 H D (10.1-12.7) SECONDS INR 2.3 H (0.9-1.3) APTT 38 H D (26.4-36.2) SECONDS Sodium 129 L (137-145) mmol/L Potassium 3.9 (3.4-5.1) mmol/L Chloride 99 (98-107) mmol/L Carbon Dioxide 16 L (22-32) mmol/L BUN 68 H (9-20) mg/dL Creatinine 1.70 H (0.66-1.25) mg/dL Estimated GFR 40.9 L (>60) mL/min BUN/Creatinine Ratio 40.0 H (6-22) Glucose 72 L (80-110) mg/dL Calcium 8.7 (8.4-10.2) mg/dL Total Bilirubin 0.5 (0.2-1.3) mg/dL AST 31 (17-59) IU/L ALT 24 (21-72) IU/L Alkaline Phosphatase 141 H (38-126) U/L B-Natriuretic Peptide 233 H (<100) Total Protein 6.0 L (6.3-8.2) g/dL Albumin 2.9 L (3.5-5.0) g/dL Globulin 3.1 (1.7-4.1) g/dL Albumin/Globulin Ratio 0.9 L (1.0-2.8) Procalcitonin (<0.5) ng/mL Crossmatch 10/27/18 10/27/18 Range/Units 15:35 17:25 WBC (4.5-11.0) X10^3/uL RBC (4.5-5.9) X10^6/uL Hgb (13.5-17.5) g/dL Hct (41-53) % MCV (80-100) fL MCH (26-34) PG MCHC (30-36) % RDW (11.6-14.8) % Plt Count (150-400) X10^3/uL Neut % (Auto) Lymph % (Auto) Cecil % (Auto) Eos % (Auto) Baso % (Auto) Lymph # (Auto) Cecil # (Auto) Baso # (Auto) Total Counted Seg Neutrophils % (38-70) % Band Neutrophils % (3-7) % Lymphocytes % (Manual) (25-45) % Eosinophils % (Manual) (2-4) % Neutrophils # (Manual) (0045-1756) /uL RBC Morphology PT (10.1-12.7) SECONDS INR (0.9-1.3) APTT (26.4-36.2) SECONDS Sodium (137-145) mmol/L Potassium (3.4-5.1) mmol/L Chloride (98-107) mmol/L Carbon Dioxide (22-32) mmol/L BUN (9-20) mg/dL Creatinine (0.66-1.25) mg/dL Estimated GFR (>60) mL/min BUN/Creatinine Ratio (6-22) Glucose (80-110) mg/dL Calcium (8.4-10.2) mg/dL Total Bilirubin (0.2-1.3) mg/dL AST (17-59) IU/L ALT (21-72) IU/L Alkaline Phosphatase (38-126) U/L B-Natriuretic Peptide (<100) Total Protein (6.3-8.2) g/dL Albumin (3.5-5.0) g/dL Globulin (1.7-4.1) g/dL Albumin/Globulin Ratio (1.0-2.8) Procalcitonin 13.65 H (<0.5) ng/mL Crossmatch See Detail Imaging Data Chest x-ray: Radiologist's impression: [address] [id number] XRay Report Signed Patient: Abbi Diaz BMR#: [id number] : 5Acct:[id number] Age/Sex: 63 / MDate of Service: 10/27/18 Loc: ED Accession Number: [id number] Procedure: XR chest 1V Ordering Provider: Margarette Watson D.O. PROCEDURE: XR CHEST 1V INDICATIONS: swelling in legs. TECHNIQUE: One view of the chest was acquired. COMPARISON: [facility], CT, CT CHEST ABD PEL W CON, 10/07/2018, 11:09. [facility], CR, XR CHEST 2V, 10/20/2018, 11:39. FINDINGS: Surgical changes and devices: There is a right sided laurence cath central line with the tip overlying the low superior vena cava, unchanged. Lungs and pleura: Interstitial prominence is identified within the bilateral perihilar regions with probable developing bibasilar airspace disease. No large effusion or pneumothorax is evident. However, there may be a trace left-sided pleural effusion. The overall aeration of the lungs has a similar pattern to the prior study, but may be slightly more pronounced on the current examination. Mediastinum: Mediastinal contours appear normal. Heart size is normal. There is aortic atherosclerosis. Bones and chest wall: No suspicious bony lesions. Overlying soft tissues appear unremarkable. IMPRESSION: Overall findings are suggestive of pulmonary edema. However, atypical pneumonia and or interstitial lung changes may also have this appearance and clinical correlation is recommended. Dictated by: Darron Wilkinson M.D. on 10/27/2018 at 14:48 Approved by: Darron Wilkinson M.D. on 10/27/2018 at 14:53 [facility] Narrative Medical decision making narrative: patient's platelets were checked today as he has had low platelets Um and with his bleeding it would be prudent to recheck. Today's platelet level is 11. Contacted Oncology and spoke with Dr. patient was recently diagnosed with pneumonia on the and started on antibiotics. Procalcitonin was repeated today as his white count appears to be raising. His cough has not improved. CBC shows an elevated BUN and creatinine will await BNP and if not elevated we will start IV fluids. IV fluids started. Patient epistaxis stopped after afrin and nasal clamp, no recurrence in the last several hours. Platelets ordered will be here around 9p. Patient is wishing to return home. Discussed changing antibiotics, given dose of Rocephin. Discussed with Dr. Norwood who will follow patient for final disposition. Discharge Plan Departure Clinical Impression: Epistaxis, Thrombocytopenia Instructions: DI for Nosebleed Prescriptions: No Action esomeprazole magnesium [Nexium] 20 MG capsule,delayed release(DR/EC) 40 mg PO DAILY Qty: 0 RF: 0 [id number] serr [Glucosamine Daily Complex] 1,500-400-100 mg-unit-mg Tablet 2 tab PO QAM RF: 0 prednisone 50 mg tablet See Rx Instructions .ROUTE .COMPLEX RF: 0 levofloxacin 500 mg tablet 500 mg PO DAILY RF: 0 Excedrin Extra Strength 250-250-65 mg Tablet 1 tab PO Q4-6H PRN (Reason: Migraine Headache) RF: 0 Zarxio 480 mcg/0.8 mL Syringe 5 mcg/kg SUBCUT Q24H RF: 0 nadolol 80 mg Tablet 80 mg PO DAILY RF: 0 ondansetron 4 mg Tablet,Disintegrating 4 mg PO TID PRN (Reason: Nausea) RF: 0 fish,bora,flax oils-om3,6,9no1 [Luck 3-6-9 Complex] 400-400-400 mg Capsule 1 cap PO DAILY RF: 0 zolpidem [Ambien] 10 mg Tablet 10 mg PO BEDTIME PRN (Reason: insomnia) Qty: 30 RF: 0 oxycodone-acetaminophen 5-325 mg Tablet 1 tab PO Q4-6H PRN (Reason: Pain (Scale Score 7-10)) Qty: 60 RF: 0 sertraline 50 mg Tablet 50 mg PO DAILY Qty: 60 RF: 0 acyclovir 800 mg Tablet 800 mg PO Q12H Qty: 60 RF: 2 loratadine 10 mg Capsule 10 mg PO DAILY RF: 0 Referrals: Shawn Osborne MD [Primary Care Provider] -
--- NOTE | 2018-10-27 15:43 | PC.NURSE ---
pt c/o nose bleed, started this am, intermittent blood dripping from right nostril, nasal clamp on. pt has chronic low platelets due to cancer.
[2018-10-27 15:51] LABS: INR 2.3 (0.9-1.3); Prothrombin Time 27.5 SECONDS (10.1-12.7)
[2018-10-27 15:53] LABS: PTT Partial Thromboplastin Tim 38 SECONDS (26.4-36.2)
[2018-10-27 15:55] LABS: Hematocrit 26.5 % (41-53); Hemoglobin 8.8 g/dL (13.5-17.5); Mean Corpuscular HGB Conc 33.3 % (30-36); Mean Corpuscular Hemoglobin 29.5 PG (26-34); Mean Corpuscular Volume 88.5 fL (80-100); Red Blood Cell Count 2.99 X10^6/uL (4.5-5.9); White Blood Cell Count 14.8 X10^3/uL (4.5-11.0)
[2018-10-27 15:57] LABS: Alanine Aminotransferase 24 IU/L (21-72); Albumin 2.9 g/dL (3.5-5.0); Albumin Globulin Ratio 0.9 (1.0-2.8); Alkaline Phosphatase 141 U/L (38-126); Aspartate Aminotransferase 31 IU/L (17-59); Bilirubin Total 0.5 mg/dL (0.2-1.3); Blood Urea Nitrogen 68 mg/dL (9-20); Calcium 8.7 mg/dL (8.4-10.2); Carbon Dioxide 16 mmol/L (22-32); Chloride 99 mmol/L (98-107); Estimated Glomerular Filt Rate 40.9 mL/min (>60); Globulin 3.1 g/dL (1.7-4.1); Glucose 72 mg/dL (80-110); HEMOLYSIS < 15 (0-50); Potassium 3.9 mmol/L (3.4-5.1); Sodium 129 mmol/L (137-145)
[2018-10-27 15:58] LABS: Add Manual Diff / Slide Review YES; Platelet Count 11 X10^3/uL (150-400)
[2018-10-27 16:27] LABS: B Type Natriuretic Peptide 233 (<100)
[2018-10-27 16:29] LABS: Procalcitonin 13.65 ng/mL (<0.5)
[2018-10-27 16:37] LABS: Neutrophils Absolute Manual 13172 /uL (3000-5900); Total Cells Counted 100
[2018-10-27 16:38] LABS: RBC Morphology Normal Morphology
[2018-10-27] MEDS: CEFTRIAXONE 2 GM/50 ML FROZ.PIGGY IV (17:29)
--- NOTE | 2018-10-27 19:35 | PC.NURSE ---
patient given turkey sandwich, vanilla pudding and chicken noodle soup.
[2018-10-27] MEDS: OXYCODONE/APAP 5/325 PREPACK 1 BOTTLE MISC (21:35)
== END 2018-10-27 21:51 | disposition home or self-care (01) ==
PROVIDERS: Emergency Medicine; Emergency Provider Emergency Medicine; Family Provider Family Medicine; PCP Student in an Organized Health Care Education/Training Program
DX: D69.6 Thrombocytopenia, unspecified (principal); R04.0 Epistaxis
CPT/HCPCS: 36430; 36591; 71045; 80053; 83880; 84145; 85025; 85610; 85730; 86850; 86900; 86901; 86945; 96365; 96375; 99283; 99285; P9016; J0696; J1642; P9035

== ENCOUNTER → 2018-11-10 10:00 | Oncology outpatient (ONC) | payer OTHER, SELFPAY ==
[2018-05-22 17:37] VITALS: BMI 25.0
[2018-06-19] VITALS (7 sets, daily range): BP systolic 111–137; BP diastolic 65–73; PULSE 97–123; RESP 16–18; TEMP 36.1–37; O2SAT 100
--- NOTE | 2018-06-19 09:15 | ONC.PN ---
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 History of present illness Mr. Irvin Diaz is a 62-year-old gentleman whom I saw at [facility]. He is transfer his care to [facility]. He has a remote history of left testicular cancer diagnosed in 2004 status post radical left orchiectomy followed by chemotherapy for 3 cycles without radiation treatment. Patient presented with about 5-6 months of history of weight loss, fatigue, malaise, abdominal distention, and adenopathy. CT CAP on 05/30/2018 showed extensive lymphadenopathy in the neck, retroperitoneum, along the celiac axis, near the GE junction, head of pancreas and prominent bilateral inguinal lymph nodes as well as markedly enlarged spleen. Patient was hospitalized at [facility] on May 31, 2018. Patient underwent TTE on 05/31/2018 that showedLVEF of 60-65%. Due to findings of ascites, patient underwent paracentesis and the cytology showed atypical lymphocytes suspicious for lymphoma. He underwent excisional biopsy of the right groin lymph node on June 03, 2018. And the final pathology showed T-lymphoproliferative disorder, favoring angioimmunoblastic T-cell lymphoma. And on June 10, 2018 patient was transferred to [facility] for further evaluation and treatment. At [facility], on June 11, 2018 the patient underwent bone marrow aspiration biopsy. The final pathology showed morphologically abnormal bone marrow with multi-focal, ill-defined mixed (lymphohistiocytic and eosinophilic) infiltrate suggestive of marrow involvement by T-cell lymphoma, hypercellular marrow with trilineage hematopoiesis and anemia with borderline microcytic anemia and absolute lymphopenia. At [facility], the patient was started on chemotheray CHOEP (C1D1 = Jun 12, 2018) Doxorubicin 50 mg/m2 (95 mg) IVP once. IV push over 10-15 minutes day 1, for 1 dose Vincristine 1.4 mg/m2(max = 2 mg) IV once. Infuse over 10 min. Day 1, for 1 dose Cyclophosphamide 750 mg/m2 (1400 mg) IV once. Infused over 1 hr. Day 1, dfor 1 dose Etoposide 100 mg/m2 (190 mg) IVPB Q24H. Days 1 to 2, for 2 doses Prednisone 100 mg p.o. Q24H. Days 1 to 5, for 5 doses Cycle every 21 days. Patient said that his energy level is great. He was able to walk by himself. However he is having exertional fatigue. Patient said that the appetite is excellent. He is having some problems sleeping likely due to the use of prednisone. Patient continues to have back pain at the site of the bone marrow. Patient denies any shortness of breath. The hiccup has completely resolved. He denies chest pain. He denies nausea or vomiting. He said the abdomen still feels achy and irritated but mild. He denies any constipation or diarrhea. Patient denies any sore throat. He denies any fever. Patient is currently taking medications including acyclovir, Bactrim DS, Levaquin and filgrastim injection. The last dose of filgrastim injection is next Saturday (06/23/2018) - Additional ROS All systems PM: reviewed and no additional remarkable complaints except as stated Home Medications and Allergies Home Medications Medication Instructions Recorded Confirmed Type esomeprazole magnesium [Nexium] 20 mg PO DAILY #0 12/31/16 05/27/18 History omega 4-csx-oug-fish oil [Fish Oil] 2 cap PO DAILY #0 12/31/16 05/27/18 History vpxiefkoqsb-C9-Somaifrfh serr 1 tab PO QAM 05/22/18 05/27/18 History [Glucosamine Daily Complex] furosemide 40 mg tablet 40 mg PO DAILY PRN #8 tab 05/27/18 Rx hydroxyzine pamoate 1 cap PO BID PRN 05/30/18 05/30/18 History Allergies Allergy/AdvReac Type Severity Reaction Status Date / Time iodine Allergy Verified 05/27/18 14:53 Exam Vital signs: Temperature 97.8?, heart rate 123, respiratory rate 18, blood pressure 137/65, oxygenation 100% on room air, weight 70.4 kilos. Narrative: Constitutional: well developed, thin, not in any acute respiratory distress, well groomed, pleasant and cooperative. HEENT: Normocephalic atraumatic. Extraocular muscle movement intact. Pupils are round, equal and reactive to light and accommodations. Anicteric sclera. No hearing difficulty; Oral mucus membrane moist and without ulcers. Neck: Supple, symmetrical, and tracheal midline; No palpable thyromegaly and no palpable lymph nodes. Respiratory: No use of accessory muscles. Clear to auscultation, and no wheezes or rales or rubs. Cardiovascular: Regular rate and rhythm, S1 and S2 normal, no murmurs gallops or rubs. No JVD. Abdomen: Soft, nontender, non-distended, bowel sounds normal, no palpable organomegaly, no hernia, no palpable masses. Lower extremities: 2+ pitting edema bilaterally. Lymphatic: positive for cervical, axillary, and left sided inguinal adenopathy. Musculoskeletal: mild to moderate sarcopenia noted. Skin: no rashes, no ulcers, no petechiae Neurological: Awake and alert and oriented x3. CN II-XII grossly intact. No focal motor or sensory deficit. Psychiatric: Good judgment, good insight, normal affect, normal thought process, cooperative, no depression, no anxiety. Results - Labs All labs were reviewed. Patient's WBC 0.5. Hemoglobin level 6.7, HCT 19.7, platelets count 130. Assessment and Plan (1) T-cell lymphoma We will continue the treatment with chemotherapy initiated at [facility]. The regimen is CHOEP, C1D1 = 06/12/2018: Doxorubicin 50 mg/m2 (95 mg) IVP once. IV push over 10-15 minutes day 1, for 1 dose Vincristine 1.4 mg/m2(max = 2 mg) IV once. Infuse over 10 min. Day 1, for 1 dose Cyclophosphamide 750 mg/m2 (1400 mg) IV once. Infused over 1 hr. Day 1, dfor 1 dose Etoposide 100 mg/m2 (190 mg) IVPB Q24H. Days 1 to 2, for 2 doses Prednisone 100 mg p.o. Q24H. Days 1 to 5, for 5 doses Cycle every 21 days. (2) Neutropenia, drug-induced Patient is currently taking prophylactically Levaquin, Bactrim, and acyclovir. I encouraged instructed the patient to continue as instructed. Patient is also taking filgrastim 480 mg once daily. Patient has 3 more doses left. The last dose will be on next Saturday. I instructed patient continue to use the filgrastim. I will see the patient next Saturday and repeat CBC and CMP. (3) Anemia Severe anemia with tachycardia. We will give patient 2 units of blood transfusion today. (4) History of malignant neoplasm of testis Patient underwent radical left orchiectomy followed by 3 cycles of chemotherapy likely in 2003. No clinical evidence or biochemical evidence of disease recurrence or metastasis. I will continue active surveillance.
[2018-06-19 11:16] LABS: Mean Corpuscular Hemoglobin 26.9 PG (26-34); Platelet Count 130 X10^3/uL (150-400); Red Blood Cell Count 2.49 X10^6/uL (4.5-5.9); Red Cell Distribution Width 23.8 % (11.6-14.8)
[2018-06-19 11:22] LABS: Hemoglobin 6.7 g/dL (13.5-17.5); White Blood Cell Count 0.5 X10^3/uL (4.5-11.0)
[2018-06-19 11:23] LABS: Hematocrit 19.7 % (41-53)
[2018-06-19 11:24] LABS: Add Manual Diff / Slide Review NO; Alanine Aminotransferase 17 IU/L (21-72); Albumin 3.7 g/dL (3.5-5.0); Albumin Globulin Ratio 1.1 (1.0-2.8); Alkaline Phosphatase 108 U/L (38-126); Aspartate Aminotransferase 9 IU/L (17-59); BUN Creatinine Ratio 26.7 (6-22); Bilirubin Total 0.5 mg/dL (0.2-1.3); Blood Urea Nitrogen 16 mg/dL (9-20); Carbon Dioxide 25 mmol/L (22-32); Chloride 100 mmol/L (98-107); Estimated Glomerular Filt Rate > 60.0 mL/min (>60); Globulin 3.4 g/dL (1.7-4.1); Glucose 150 mg/dL (80-110); HEMOLYSIS < 15 (0-50); Potassium 3.3 mmol/L (3.4-5.1); Sodium 137 mmol/L (137-145); Total Protein 7.1 g/dL (6.3-8.2)
[2018-06-19 11:46] LABS: Anisocytosis 2+; Hypochromasia 2+
[2018-06-19] MEDS: SODIUM CHLORIDE 0.9% 250 ML 21 ML IV (14:26)
[2018-06-19] MEDS: HYDROCODONE/ACET 5/325 TABLET 2 TAB PO (14:28)
--- NOTE | 2018-06-20 10:43 | ONC.NAV ---
Description: New Pt Intro Activity: Met with pt to introduce myself as the Pt Daniel/PRODUCTION TECH, offer services card, and explain some of the available resources and support available here. Pt indicated a (3) on his distress screening, expressing financial and insurance concerns. Discussed the availability of the Medical Relief Fund, as well as discussed questions that he had relating to how to apply for Social Security Disability. F/u later with sending him the link for the Social Security online application. Pt became tearful during this visit, sharing that his is also a long-time cancer survivor, that she's a [place] citizen, and actually is needing to reside in [place] right now in order to access the medical care and insurance that she needs. Pt is living with his niece, who helps him with ADL's as needed. Pt's will be visiting later this coming weekend, and will be able to remain with him for about 2-weeks. He states that they only see each other twice per year right now, which has been very hard on both of them, emotionally and financially. PRODUCTION TECH offered emotional and coping support as he processes this new diagnosis and impending cancer treatment. Plan: Continue to monitor pt for resource and support needs.
[2018-06-23 15:56] LABS: Add Manual Diff / Slide Review NO; Basophils Percent Auto 0.8 % (0-2); Eosinophils Percent Auto 0.8 % (2-4); Hematocrit 24.6 % (41-53); Hemoglobin 8.4 g/dL (13.5-17.5); Lymphocytes Percent Auto 6.3 % (25-40); Mean Corpuscular HGB Conc 34.1 % (30-36); Mean Corpuscular Hemoglobin 26.6 PG (26-34); Mean Corpuscular Volume 78.1 fL (80-100); Monocytes Percent Auto 0.7 % (3-14); Neutrophils Absolute Auto 11000 /uL (3000-5900); Neutrophils Percent Auto 91.4 % (50-75); Platelet Count 81 X10^3/uL (150-400); Red Blood Cell Count 3.15 X10^6/uL (4.5-5.9); Red Cell Distribution Width 21.2 % (11.6-14.8); White Blood Cell Count 12.1 X10^3/uL (4.5-11.0)
[2018-06-23 16:04] LABS: Alanine Aminotransferase 18 IU/L (21-72); Albumin 4.1 g/dL (3.5-5.0); Albumin Globulin Ratio 1.2 (1.0-2.8); Alkaline Phosphatase 119 U/L (38-126); Aspartate Aminotransferase 18 IU/L (17-59); BUN Creatinine Ratio 24.3 (6-22); Bilirubin Total 0.4 mg/dL (0.2-1.3); Blood Urea Nitrogen 17 mg/dL (9-20); Calcium 9.2 mg/dL (8.4-10.2); Carbon Dioxide 25 mmol/L (22-32); Chloride 103 mmol/L (98-107); Estimated Glomerular Filt Rate > 60.0 mL/min (>60); Globulin 3.3 g/dL (1.7-4.1); Glucose 97 mg/dL (80-110); HEMOLYSIS < 15 (0-50); Sodium 140 mmol/L (137-145); Total Protein 7.4 g/dL (6.3-8.2)
[2018-06-23 16:27] LABS: Anisocytosis 3+
[2018-06-23 16:29] LABS: Hypochromasia 2+; Microcytosis 2+
[2018-06-23 16:30] LABS: Poikilocytosis 1+
--- NOTE | 2018-06-23 17:01 | ONC.PN ---
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 History of present illness Mr. Irvin Diaz is a 62-year-old gentleman whom I saw at [facility]. He is transfer his care to [facility]. He has a remote history of left testicular cancer diagnosed in 2004 status post radical left orchiectomy followed by chemotherapy for 3 cycles without radiation treatment. Patient presented with about 5-6 months of history of weight loss, fatigue, malaise, abdominal distention, and adenopathy. CT CAP on 05/30/2018 showed extensive lymphadenopathy in the neck, retroperitoneum, along the celiac axis, near the GE junction, head of pancreas and prominent bilateral inguinal lymph nodes as well as markedly enlarged spleen. Patient was hospitalized at [facility] on May 31, 2018. Patient underwent TTE on 05/31/2018 that showedLVEF of 60-65%. Due to findings of ascites, patient underwent paracentesis and the cytology showed atypical lymphocytes suspicious for lymphoma. He underwent excisional biopsy of the right groin lymph node on June 03, 2018. And the final pathology showed T-lymphoproliferative disorder, favoring angioimmunoblastic T-cell lymphoma. And on June 10, 2018 patient was transferred to [facility] for further evaluation and treatment. At [facility], on June 11, 2018 the patient underwent bone marrow aspiration biopsy. The final pathology showed morphologically abnormal bone marrow with multi-focal, ill-defined mixed (lymphohistiocytic and eosinophilic) infiltrate suggestive of marrow involvement by T-cell lymphoma, hypercellular marrow with trilineage hematopoiesis and anemia with borderline microcytic anemia and absolute lymphopenia. At [facility], the patient was started on chemotheray CHOEP (C1D1 = Jun 12, 2018) Doxorubicin 50 mg/m2 (95 mg) IVP once. IV push over 10-15 minutes day 1, for 1 dose Vincristine 1.4 mg/m2(max = 2 mg) IV once. Infuse over 10 min. Day 1, for 1 dose Cyclophosphamide 750 mg/m2 (1400 mg) IV once. Infused over 1 hr. Day 1, dfor 1 dose Etoposide 100 mg/m2 (190 mg) IVPB Q24H. Days 1 to 2, for 2 doses Prednisone 100 mg p.o. Q24H. Days 1 to 5, for 5 doses Cycle every 21 days. Interim Events: Patient completed the last injection of filgrastim today. Patient overall has been doing well and he said he has good energy especially after the blood transfusion during his previous visit with me last week. Patient started taking Bactrim the 1st dose on June 19, 2018. The next day patient noticed scattered petechiae in the right lower extremity. With time the patient noticed peteahiae in his left lower extremity too. Today the rashes seem to be more confluent on the right side. Patient reported minimal itching associated with the rashes. He denies any bleeding events. He denies any fever or chills. Patient has already taking Bactrim today. He is complaining lots of back pain, sometimes as severe 05/19. - Patient Self-Reported Symptoms SR Constitution: Chills, Weight loss/gain SR ears, nose, mouth, throat issues: Cough SR Cardiovascular issues: Extreme swelling SR Musculoskeletal issues: Back or neck pain SR Neuro issues: Headache - Additional ROS All systems PM: reviewed and no additional remarkable complaints except as stated Home Medications and Allergies Home Medications Medication Instructions Recorded Confirmed Type esomeprazole magnesium [Nexium] 20 mg PO DAILY #0 12/31/16 05/27/18 History omega 3-ujs-jhy-fish oil [Fish Oil] 2 cap PO DAILY #0 12/31/16 05/27/18 History sufppkqmpsr-W4-Xdwepsfij serr 1 tab PO QAM 05/22/18 05/27/18 History [Glucosamine Daily Complex] furosemide 40 mg tablet 40 mg PO DAILY PRN #8 tab 05/27/18 Rx hydroxyzine pamoate 1 cap PO BID PRN 05/30/18 05/30/18 History oxycodone-acetaminophen 1 tab PO Q4-6H PRN 10 Days #60 tab 06/23/18 Rx Allergies Allergy/AdvReac Type Severity Reaction Status Date / Time iodine Allergy Verified 05/27/18 14:53 Exam Vital signs: Temp 97.0 F L 06/19/18 18:47 Pulse 99 H 06/19/18 18:47 Resp 17 06/19/18 18:47 BP 126/65 06/19/18 18:47 Pulse Ox 100 06/19/18 11:30 ECOG 1 Narrative: Constitutional: well developed, thin, not in any acute respiratory distress, well groomed, pleasant and cooperative, accompanied by his today HEENT: Normocephalic atraumatic. Extraocular muscle movement intact. Pupils are round, equal and reactive to light and accommodations. Anicteric sclera. No hearing difficulty; Oral mucus membrane moist and without ulcers. Neck: Supple, symmetrical, and tracheal midline; No palpable thyromegaly and no palpable lymph nodes. Respiratory: No use of accessory muscles. Clear to auscultation, and no wheezes or rales or rubs. Cardiovascular: Regular rate and rhythm, S1 and S2 normal, no murmurs gallops or rubs. No JVD. Abdomen: Soft, nontender, non-distended, bowel sounds normal, no palpable organomegaly, no hernia, no palpable masses. Lower extremities: 2+ pitting edema bilaterally. Confluent petechiae noted in both lower extremities up to the knee level. No scraches. Lymphatic: positive for cervical, axillary, and left sided inguinal adenopathy. Musculoskeletal: mild to moderate sarcopenia noted. Skin: no rashes, no ulcers. see Lower extremities above. Neurological: Awake and alert and oriented x3. CN II-XII grossly intact. No focal motor or sensory deficit. Psychiatric: Good judgment, good insight, normal affect, normal thought process, cooperative, no depression, no anxiety. Results - Labs WBC 12.1 X10^3/uL (4.5-11.0) H 06/23/18 15:32 RBC 3.15 X10^6/uL (4.5-5.9) L 06/23/18 15:32 Hgb 8.4 g/dL (13.5-17.5) L 06/23/18 15: Hct 24.6 % (41-53) L 06/23/18 15:32 MCV 78.1 fL (80-100) L 06/23/18 15:32 MCH 26.6 PG (26-34) 06/23/18 15: MCHC 34.1 % (30-36) 06/23/18 15:32 RDW 21.2 % (11.6-14.8) H 06/23/18 15:32 Plt Count 81 X10^3/uL (150-400) L 06/23/18 15: Neut % (Auto) 91.4 % (50-75) H 06/23/18 15:32 Lymph % (Auto) 6.3 % (25-40) L 06/23/18 15:32 [place] % (Auto) 0.7 % (3-14) L 06/23/18 15: Eos % (Auto) 0.8 % (2-4) L 06/23/18 15:32 Baso % (Auto) 0.8 % (0-2) 06/23/18 15: Neut # (Auto) 53642 /uL (0631-9815) H 06/23/18 15:32 RBC Morphology Not Reportable 06/23/18 15: Hypochromasia 2+ H 06/23/18: Poikilocytosis 1+ H 06/23/18:32 Anisocytosis 3+ H 06/23/18: Microcytosis 2+ H 06/23/18 15:32 Sodium 140 mmol/L (137-145) 06/23/18 15: Potassium 3.0 mmol/L (3.4-5.1) L 06/23/18: Chloride 103 mmol/L (98-107) 06/23/18: Carbon Dioxide 25 mmol/L (22-32) 06/23/18 15: BUN 17 mg/dL (9-20) 06/23/18: Creatinine 0.70 mg/dL (0.66-1.25) 06/23/18 15:32 Estimated GFR > 60.0 mL/min (>60) 06/23/18 15: BUN/Creatinine Ratio 24.3 (6-22) H 06/23/18: Glucose 97 mg/dL (80-110) 06/23/18 15: Calcium 9.2 mg/dL (8.4-10.2) 06/23/18 15: Total Bilirubin 0.4 mg/dL (0.2-1.3) 06/23/18 15: AST 18 IU/L (17-59) 06/23/18 15: ALT 18 IU/L (21-72) L 06/23/18 15:32 Alkaline Phosphatase 119 U/L (38-126) 06/23/18 15: Total Protein 7.4 g/dL (6.3-8.2) 10/15/18 15:32 Albumin 4.1 g/dL (3.5-5.0) 06/23/18 15:32 Globulin 3.3 g/dL (1.7-4.1) 06/23/18 15:32 Albumin/Globulin Ratio 1.2 (1.0-2.8) 06/23/18 15:32 Blood Type A Positive 06/19/18 11:07 Antibody Screen Negative 06/19/18 11:07 Crossmatch See Detail 06/19/18 11:07 Assessment and Plan (1) T-cell lymphoma We will continue the treatment with chemotherapy initiated at [facility]. The regimen is CHOEP, C1D1 = 06/12/2018: Doxorubicin 50 mg/m2 (95 mg) IVP once. IV push over 10-15 minutes day 1, for 1 dose Vincristine 1.4 mg/m2(max = 2 mg) IV once. Infuse over 10 min. Day 1, for 1 dose Cyclophosphamide 750 mg/m2 (1400 mg) IV once. Infused over 1 hr. Day 1, dfor 1 dose Etoposide 100 mg/m2 (190 mg) IVPB Q24H. Days 1 to 2, for 2 doses Prednisone 100 mg p.o. Q24H. Days 1 to 5, for 5 doses Cycle every 21 days. His next cycle will be scheduled for 07/03/2018 (next ) (2) Neutropenia, drug-induced Patient just completed filgrastim injection today. His white cell count has improved to more than 10,000. No fever and no chills. We will stop the Levaquin. And will have the patient come back next Saturday for further evaluation. (3) Anemia The transfusion threshold will be 7.0/21. Status post blood transfusion last Saturday. Hemoglobin and hematocrit were 8.4/24.6. We will continue the weekly check and transfuse on a as needed basis. (4) Thrombocytopenia Patient has developed more thrombocytopenia since his last visit. Clinically patient did show bilateral lower extremity petechiae. But he does not have any other active bleeding events. Patient's platelet count was 81 today. The etiology of the thrombocytopenia could be due to his underlying lymphoma, or chemotherapy related or Bactrim allergic reactions. It is difficult to differentiate. I advised the patient to temporarily hold Bactrim. I will have the patient come back in 1 week and repeat CBC with differentials. (5) Petechiae Bilateral lower extremities. Confluent. Right more so than the left. No other active bleeding events. I will continue active surveillance. Please see thrombocytopenia above. (6) Pain, low back His back pain is most likely related to his underlying T-cell lymphoma. It is 9/10 in severity. I will prescribe oxycodone 5/325, 1# p.o. every 4-6 hours on an as needed basis. Sixty pills written. (7) History of malignant neoplasm of testis Patient underwent radical left orchiectomy followed by 3 cycles of chemotherapy likely in 2003. No clinical evidence or biochemical evidence of disease recurrence or metastasis. I will continue active surveillance. - Time Spent with Patient Plan in summary 1. Hold Bactrim for now. 2. Oxycodone 5/325 x 60#, 1# q4-6 h, prn back pain 3. RTC in 1 week (next Saturday). We will repeat CBC with differentials and CMP. We will need to evaluate the patient clinically and decide if he is fit enough for 2nd cycle of chemotherapy with CHOEP (on )
--- NOTE | 2018-06-23 17:06 | P.PNONC_ITS ---
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 History of present illness Mr. Irvin Diaz is a 62-year-old gentleman whom I saw at [facility]. He is transfer his care to [facility]. He has a remote history of left testicular cancer diagnosed in 2004 status post radical left orchiectomy followed by chemotherapy for 3 cycles without radiation treatment. Patient presented with about 5-6 months of history of weight loss, fatigue, malaise, abdominal distention, and adenopathy. CT CAP on 05/30/2018 showed extensive lymphadenopathy in the neck, retroperitoneum, along the celiac axis, near the GE junction, head of pancreas and prominent bilateral inguinal lymph nodes as well as markedly enlarged spleen. Patient was hospitalized at [facility] on May 31, 2018. Patient underwent TTE on 05/31/2018 that showedLVEF of 60-65%. Due to findings of ascites, patient underwent paracentesis and the cytology showed atypical lymphocytes suspicious for lymphoma. He underwent excisional biopsy of the right groin lymph node on June 03, 2018. And the final pathology showed T- lymphoproliferative disorder, favoring angioimmunoblastic T-cell lymphoma. And on June 10, 2018 patient was transferred to [facility] for further evaluation and treatment. At [facility], on June 11, 2018 the patient underwent bone marrow aspiration biopsy. The final pathology showed morphologically abnormal bone marrow with multi-focal, ill-defined mixed (lymphohistiocytic and eosinophilic) infiltrate suggestive of marrow involvement by T-cell lymphoma, hypercellular marrow with trilineage hematopoiesis and anemia with borderline microcytic anemia and absolute lymphopenia. At [facility], the patient was started on chemotheray CHOEP (C1D1 = Jun 12, 2018) Doxorubicin 50 mg/m2 (95 mg) IVP once. IV push over 10-15 minutes day 1, for 1 dose Vincristine 1.4 mg/m2(max = 2 mg) IV once. Infuse over 10 min. Day 1, for 1 dose Cyclophosphamide 750 mg/m2 (1400 mg) IV once. Infused over 1 hr. Day 1, dfor 1 dose Etoposide 100 mg/m2 (190 mg) IVPB Q24H. Days 1 to 2, for 2 doses Prednisone 100 mg p.o. Q24H. Days 1 to 5, for 5 doses Cycle every 21 days. Interim Events: Patient completed the last injection of filgrastim today. Patient overall has been doing well and he said he has good energy especially after the blood transfusion during his previous visit with me last week. Patient started taking Bactrim the 1st dose on June 19, 2018. The next day patient noticed scattered petechiae in the right lower extremity. With time the patient noticed peteahiae in his left lower extremity too. Today the rashes seem to be more confluent on the right side. Patient reported minimal itching associated with the rashes. He denies any bleeding events. He denies any fever or chills. Patient has already taking Bactrim today. He is complaining lots of back pain , sometimes as severe 05/19. - Patient Self-Reported Symptoms SR Constitution: Chills, Weight loss/gain SR ears, nose, mouth, throat issues: Cough SR Cardiovascular issues: Extreme swelling SR Musculoskeletal issues: Back or neck pain SR Neuro issues: Headache - Additional ROS All systems PM: reviewed and no additional remarkable complaints except as stated Home Medications and Allergies Home Medications Medication Instructions Recorded Confirmed Type esomeprazole magnesium [Nexium] 20 mg PO DAILY #0 12/31/16 05/27/18 History omega 5-nrj-fbh-fish oil [Fish Oil] 2 cap PO DAILY #0 12/31/16 05/27/18 History clbogtzihfn-K8-Dgcnnsnun serr 1 tab PO QAM 05/22/18 05/27/18 History [Glucosamine Daily Complex] furosemide 40 mg tablet 40 mg PO DAILY PRN #8 tab 05/27/18 Rx hydroxyzine pamoate 1 cap PO BID PRN 05/30/18 05/30/18 History oxycodone-acetaminophen 1 tab PO Q4-6H PRN 10 Days #60 tab 06/23/18 Rx Allergies Allergy/AdvReac Type Severity Reaction Status Date / Time iodine Allergy Verified 05/27/18 14:53 Exam Vital signs: 3 Temp 97.0 F L 06/19/18 18:47 Pulse 99 H 06/19/18 18:47 Resp 17 06/19/18 18:47 BP 126/65 06/19/18 18:47 Pulse Ox 100 06/19/18 11:30 ECOG 1 Narrative: Constitutional: well developed, thin, not in any acute respiratory distress, well groomed, pleasant and cooperative, accompanied by his today HEENT: Normocephalic atraumatic. Extraocular muscle movement intact. Pupils are round, equal and reactive to light and accommodations. Anicteric sclera. No hearing difficulty; Oral mucus membrane moist and without ulcers. Neck: Supple, symmetrical, and tracheal midline; No palpable thyromegaly and no palpable lymph nodes. Respiratory: No use of accessory muscles. Clear to auscultation, and no wheezes or rales or rubs. Cardiovascular: Regular rate and rhythm, S1 and S2 normal, no murmurs gallops or rubs. No JVD. Abdomen: Soft, nontender, non-distended, bowel sounds normal, no palpable organomegaly, no hernia, no palpable masses. Lower extremities: 2+ pitting edema bilaterally. Confluent petechiae noted in both lower extremities up to the knee level. No scraches. Lymphatic: positive for cervical, axillary, and left sided inguinal adenopathy. Musculoskeletal: mild to moderate sarcopenia noted. Skin: no rashes, no ulcers. see Lower extremities above. Neurological: Awake and alert and oriented x3. CN II-XII grossly intact. No focal motor or sensory deficit. Psychiatric: Good judgment, good insight, normal affect, normal thought process , cooperative, no depression, no anxiety. Results - Labs 3 WBC 12.1 X10^3/uL (4.5-11.0) H 06/23/18 15:32 RBC 3.15 X10^6/uL (4.5-5.9) L 06/23/18 15:32 Hgb 8.4 g/dL (13.5-17.5) L 06/23/18 15:32 Hct 24.6 % (41-53) L 06/23/18 15:32 MCV 78.1 fL (80-100) L 06/23/18 15:32 MCH 26.6 PG (26-34) 06/23/18 15: MCHC 34.1 % (30-36) 06/23/18 15:32 RDW 21.2 % (11.6-14.8) H 06/23/18 15:32 Plt Count 81 X10^3/uL (150-400) L 06/23/18 15: Neut % (Auto) 91.4 % (50-75) H 06/23/18 15:32 Lymph % (Auto) 6.3 % (25-40) L 06/23/18 15:32 [place] % (Auto) 0.7 % (3-14) L 06/23/18: Eos % (Auto) 0.8 % (2-4) L 06/23/18 15:32 Baso % (Auto) 0.8 % (0-2) 06/23/18: Neut # (Auto) 47749 /uL (6249-4510) H 06/23/18 15: RBC Morphology Not Reportable 06/23/18: Hypochromasia 2+ H 06/23/18: Poikilocytosis 1+ H 06/23/18: Anisocytosis 3+ H 06/23/18: Microcytosis 2+ H 06/23/18 15:32 Sodium 140 mmol/L (137-145) 06/23/18: Potassium 3.0 mmol/L (3.4-5.1) L 06/23/18: Chloride 103 mmol/L (98-107) 06/23/18: Carbon Dioxide 25 mmol/L (22-32) 06/23/18: BUN 17 mg/dL (9-20) 06/23/18: Creatinine 0.70 mg/dL (0.66-1.25) 06/23/18 15: Estimated GFR > 60.0 mL/min (>60) 06/23/18 15: BUN/Creatinine Ratio 24.3 (6-22) H 06/23/18: Glucose 97 mg/dL (80-110) 06/23/18: Calcium 9.2 mg/dL (8.4-10.2) 06/23/18: Total Bilirubin 0.4 mg/dL (0.2-1.3) 06/23/18: AST 18 IU/L (17-59) 06/23/18: ALT 18 IU/L (21-72) L 06/23/18 15: Alkaline Phosphatase 119 U/L (38-126) 06/23/18: Total Protein 7.4 g/dL (6.3-8.2) 10/15/18 15:32 Albumin 4.1 g/dL (3.5-5.0) 06/23/18 15:32 Globulin 3.3 g/dL (1.7-4.1) 06/23/18 15:32 Albumin/Globulin Ratio 1.2 (1.0-2.8) 06/23/18 15:32 Blood Type A Positive 06/19/18 11:07 Antibody Screen Negative 06/19/18 11:07 Crossmatch See Detail 06/19/18 11:07 Assessment and Plan (1) T-cell lymphoma We will continue the treatment with chemotherapy initiated at [facility]. The regimen is CHOEP, C1D1 = 06/12/2018: Doxorubicin 50 mg/m2 (95 mg) IVP once. IV push over 10-15 minutes day 1, for 1 dose Vincristine 1.4 mg/m2(max = 2 mg) IV once. Infuse over 10 min. Day 1, for 1 dose Cyclophosphamide 750 mg/m2 (1400 mg) IV once. Infused over 1 hr. Day 1, dfor 1 dose Etoposide 100 mg/m2 (190 mg) IVPB Q24H. Days 1 to 2, for 2 doses Prednisone 100 mg p.o. Q24H. Days 1 to 5, for 5 doses Cycle every 21 days. His next cycle will be scheduled for 07/03/2018 (next ) (2) Neutropenia, drug-induced Patient just completed filgrastim injection today. His white cell count has improved to more than 10,000. No fever and no chills. We will stop the Levaquin. And will have the patient come back next Saturday for further evaluation. (3) Anemia The transfusion threshold will be 7.0/21. Status post blood transfusion last Saturday. Hemoglobin and hematocrit were 8.4/24.6. We will continue the weekly check and transfuse on a as needed basis. (4) Thrombocytopenia Patient has developed more thrombocytopenia since his last visit. Clinically patient did show bilateral lower extremity petechiae. But he does not have any other active bleeding events. Patient's platelet count was 81 today. The etiology of the thrombocytopenia could be due to his underlying lymphoma, or chemotherapy related or Bactrim allergic reactions. It is difficult to differentiate. I advised the patient to temporarily hold Bactrim. I will have the patient come back in 1 week and repeat CBC with differentials. (5) Petechiae Bilateral lower extremities. Confluent. Right more so than the left. No other active bleeding events. I will continue active surveillance. Please see thrombocytopenia above. (6) Pain, low back His back pain is most likely related to his underlying T-cell lymphoma. It is 9 /10 in severity. I will prescribe oxycodone 5/325, 1# p.o. every 4-6 hours on an as needed basis. Sixty pills written. (7) History of malignant neoplasm of testis Patient underwent radical left orchiectomy followed by 3 cycles of chemotherapy likely in 2003. No clinical evidence or biochemical evidence of disease recurrence or metastasis. I will continue active surveillance. - Time Spent with Patient Plan in summary 1. Hold Bactrim for now. 2. Oxycodone 5/325 x 60#, 1# q4-6 h, prn back pain 3. RTC in 1 week (next Saturday). We will repeat CBC with differentials and CMP. We will need to evaluate the patient clinically and decide if he is fit enough for 2nd cycle of chemotherapy with CHOEP (on )
[2018-06-24 08:46] VITALS: BP 133/72; PULSE 116; RESP 19; TEMP 36.8; O2SAT 99
[2018-06-30 09:04] LABS: Mean Corpuscular HGB Conc 34.8 % (30-36); Mean Corpuscular Volume 80.5 fL (80-100); Platelet Count 162 X10^3/uL (150-400); Red Blood Cell Count 2.81 X10^6/uL (4.5-5.9); Red Cell Distribution Width 23.6 % (11.6-14.8); White Blood Cell Count 10.4 X10^3/uL (4.5-11.0)
[2018-06-30 09:11] LABS: Hemoglobin 7.9 g/dL (13.5-17.5)
[2018-06-30 09:12] LABS: Add Manual Diff / Slide Review YES; Hematocrit 22.6 % (41-53)
[2018-06-30 09:29] LABS: Alanine Aminotransferase 22 IU/L (21-72); Albumin 3.8 g/dL (3.5-5.0); Albumin Globulin Ratio 1.2 (1.0-2.8); Alkaline Phosphatase 119 U/L (38-126); Aspartate Aminotransferase 14 IU/L (17-59); BUN Creatinine Ratio 13.3 (6-22); Bilirubin Total 0.4 mg/dL (0.2-1.3); Blood Urea Nitrogen 8 mg/dL (9-20); Calcium 8.6 mg/dL (8.4-10.2); Carbon Dioxide 26 mmol/L (22-32); Chloride 100 mmol/L (98-107); Estimated Glomerular Filt Rate > 60.0 mL/min (>60); Globulin 3.2 g/dL (1.7-4.1); Glucose 121 mg/dL (80-110); HEMOLYSIS < 15 (0-50); Potassium 3.6 mmol/L (3.4-5.1); Sodium 139 mmol/L (137-145)
[2018-06-30 09:43] LABS: Neutrophils Absolute Manual 7384 /uL (3000-5900); Nucleated Red Blood Cells 3 #/Diff; Total Cells Counted 100
[2018-06-30 09:44] VITALS: BP 153/85; PULSE 127; RESP 18; TEMP 37.1; O2SAT 100
[2018-06-30 09:44] LABS: Anisocytosis 3+
[2018-06-30 09:45] LABS: Polychromasia 2+
--- NOTE | 2018-06-30 09:54 | ONC.PN ---
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 History of present illness Mr. Irvin Diaz is a 62-year-old gentleman whom I saw at [facility]. He is transfer his care to [facility]. He has a remote history of left testicular cancer diagnosed in 2004 status post radical left orchiectomy followed by chemotherapy for 3 cycles without radiation treatment. Patient presented with about 5-6 months of history of weight loss, fatigue, malaise, abdominal distention, and adenopathy. CT CAP on 05/30/2018 showed extensive lymphadenopathy in the neck, retroperitoneum, along the celiac axis, near the GE junction, head of pancreas and prominent bilateral inguinal lymph nodes as well as markedly enlarged spleen. Patient was hospitalized at [facility] on May 31, 2018. Patient underwent TTE on 05/31/2018 that showedLVEF of 60-65%. Due to findings of ascites, patient underwent paracentesis and the cytology showed atypical lymphocytes suspicious for lymphoma. He underwent excisional biopsy of the right groin lymph node on June 03, 2018. And the final pathology showed T-lymphoproliferative disorder, favoring angioimmunoblastic T-cell lymphoma. And on June 10, 2018 patient was transferred to [facility] for further evaluation and treatment. At [facility], on June 11, 2018 the patient underwent bone marrow aspiration biopsy. The final pathology showed morphologically abnormal bone marrow with multi-focal, ill-defined mixed (lymphohistiocytic and eosinophilic) infiltrate suggestive of marrow involvement by T-cell lymphoma, hypercellular marrow with trilineage hematopoiesis and anemia with borderline microcytic anemia and absolute lymphopenia. At [facility], the patient was started on chemotheray CHOEP (C1D1 = Jun 12, 2018) Doxorubicin 50 mg/m2 (95 mg) IVP once. IV push over 10-15 minutes day 1, for 1 dose Vincristine 1.4 mg/m2(max = 2 mg) IV once. Infuse over 10 min. Day 1, for 1 dose Cyclophosphamide 750 mg/m2 (1400 mg) IV once. Infused over 1 hr. Day 1, dfor 1 dose Etoposide 100 mg/m2 (190 mg) IVPB Q24H. Days 1 to 2, for 2 doses Prednisone 100 mg p.o. Q24H. Days 1 to 5, for 5 doses Cycle every 21 days. Interim Events: He said he has been doing fine except the migraine headache which probably has recurred. The intensity of the pain is about 7-8/10 every day, used to nadalol 80 mg daily. He is wondering if he is Ok to continue. As far as the lower extremity erythema is concerned, it has almost completely resolved after the Bactrim was held. Patient reports good appetite and the weight has improved by about 2 lb since last visit. No fever. No chills. No nausea no vomiting. No hiccups. No abdominal pain. Overall he has been doing well. - Patient Self-Reported Symptoms SR Constitution: Weight loss/gain (gain 2 lbs since last visit, good appetite) SR ears, nose, mouth, throat issues: Cough (minor cough, dry with some upper chest congestion) SR Cardiovascular issues: Extreme swelling (improving.) SR Skin issues: Skin rash or itching (on the lower legs and are improving.) SR Musculoskeletal issues: Back or neck pain (on oxycodone and helpful.) SR Neuro issues: Headache (migraine.) - Additional ROS All systems PM: reviewed and no additional remarkable complaints except as stated Home Medications and Allergies Home Medications Medication Instructions Recorded Confirmed Type esomeprazole magnesium [Nexium] 40 mg PO DAILY #0 12/31/16 06/24/18 History omega 2-cnj-ffx-fish oil [Fish Oil] 2 cap PO DAILY #0 12/31/16 06/24/18 History xfesatrjixe-V1-Ksqimrolm serr 2 tab PO QAM 05/22/18 06/24/18 History [Glucosamine Daily Complex] oxycodone-acetaminophen 1 tab PO Q4-6H PRN 10 Days #60 tab 06/23/18 06/24/18 Rx acyclovir 800 mg PO Q12H 06/24/18 06/30/18 History zkfuoaf-vmgoxoxmkapkk-jaxoxtgb 1 tab PO Q4-6H PRN 06/24/18 06/24/18 History [Excedrin Extra Strength] filgrastim-sndz [Zarxio] 5 mcg/kg SUBCUT Q24H 06/24/18 06/24/18 History furosemide 20 mg PO BID 06/24/18 06/24/18 History levofloxacin 750 mg PO DAILY 06/24/18 06/24/18 History ondansetron 4 mg PO Q6-8H PRN 06/24/18 06/24/18 History Allergies Allergy/AdvReac Type Severity Reaction Status Date / Time Sulfa (Sulfonamide Allergy Intermediate Hives Verified 06/24/18 08:50 Antibiotics) iodine Allergy Verified 05/27/18 14:53 Exam Vital signs: Temp 98.8 F 06/30/18 09:44 Pulse 127 H 06/30/18 09:44 Resp 18 06/30/18 09:44 BP 153/85 H 06/30/18 09:44 Pulse Ox 100 06/30/18 09:44 ECOG 1 Narrative: Constitutional: Well developed, thin, not in any acute respiratory distress, average body habitus, well groomed, pleasant and cooperative. HEENT: Normocephalic atraumatic. Extraocular muscle movement intact. Pupils are round, equal and reactive to light and accommodations. Anicteric sclera. No hearing difficulty; Oral mucus membrane moist and without ulcers. Neck: Supple, symmetrical, and tracheal midline; No palpable thyromegaly and no palpable lymph nodes. Respiratory: No use of accessory muscles. Clear to auscultation, and no wheezes or rales or rubs. Cardiovascular: Regular rate and rhythm, S1 and S2 normal, no murmurs gallops or rubs. No JVD. No pitting edema of lower extremities. Abdomen: Soft, nontender, non-distended, bowel sounds normal, no hernia, no palpable masses. Palpable splenomegaly and mild hepatomegaly. Lower extremities: 1+ edema, erythema almost resolved. Lymphatic: no palpable lymph nodes in the neck, axillae, or groins. Musculoskeletal: normal gait and station, no clubbing, no cyanosis, no pitting edema. Skin: no rashes, no ulcers, no petechiae Neurological: Awake and alert and oriented x3. CN II-XII grossly intact. No focal motor or sensory deficit. Psychiatric: Good judgment, good insight, normal affect, normal thought process, cooperative, no depression, no anxiety. Results - Labs WBC 10.4 X10^3/uL (4.5-11.0) 06/30/18 08:39 RBC 2.81 X10^6/uL (4.5-5.9) L 06/30/18 08:39 Hgb 7.9 g/dL (13.5-17.5) L 06/30/18 08:39 Hct 22.6 % (41-53) L 06/30/18 08:39 MCV 80.5 fL (80-100) 06/30/18 08:39 MCH 28.0 PG (26-34) 06/30/18 08:39 MCHC 34.8 % (30-36) 06/30/18 08:39 RDW 23.6 % (11.6-14.8) H 06/30/18 08:39 Plt Count 162 X10^3/uL (150-400) 06/30/18 08:39 Neut % (Auto) Not Reportable 06/30/18 08:39 Lymph % (Auto) Not Reportable 06/30/18 08:39 [place] % (Auto) Not Reportable 06/30/18 08:39 Eos % (Auto) Not Reportable 06/30/18 08:39 Baso % (Auto) Not Reportable 06/30/18 08:39 Neut # (Auto) 33834 /uL (4884-0708) H 06/23/18 15:32 Total Counted 100 06/30/18 08:39 Seg Neutrophils % 63.0 % (38-70) 06/30/18 08:39 Band Neutrophils % 8.0 % (3-7) H 06/30/18 08:39 Lymphocytes % (Manual) 11.0 % (25-45) L 06/30/18 08:39 Atypical Lymphs % 3.0 % (-0) H 06/30/18 08:39 Monocytes % (Manual) 6.0 % (2-11) 06/30/18 08:39 Basophils % (Manual) 1.0 % (0-1) 06/30/18 08:39 Metamyelocytes % 4.0 % (-0) H 06/30/18 08:39 Myelocytes % 4.0 % (-0) H 06/30/18 08:39 Neutrophils # (Manual) 7384 /uL (8407-8300) H 06/30/18 08:39 Nucleated RBCs 3 #/Diff (-0) H 06/30/18 08:39 RBC Morphology See below 06/30/18 08:39 Polychromasia 2+ H 06/30/18 08:39 Hypochromasia 2+ H 06/23/18 15:32 Poikilocytosis 1+ H 06/23/18 15:32 Anisocytosis 3+ H 06/30/18 08:39 Microcytosis 2+ H 06/23/18 15:32 Sodium 139 mmol/L (137-145) 06/30/18 08:39 Potassium 3.6 mmol/L (3.4-5.1) 06/30/18 08:39 Chloride 100 mmol/L (98-107) 06/30/18 08:39 Carbon Dioxide 26 mmol/L (22-32) 06/30/18 08:39 BUN 8 mg/dL (9-20) L 06/30/18 08:39 Creatinine 0.60 mg/dL (0.66-1.25) L 06/30/18 08:39 Estimated GFR > 60.0 mL/min (>60) 06/30/18 08:39 BUN/Creatinine Ratio 13.3 (6-22) 06/30/18 08:39 Glucose 121 mg/dL (80-110) H 06/30/18 08:39 Calcium 8.6 mg/dL (8.4-10.2) 06/30/18 08:39 Total Bilirubin 0.4 mg/dL (0.2-1.3) 06/30/18 08:39 AST 14 IU/L (17-59) L 06/30/18 08:39 ALT 22 IU/L (21-72) 06/30/18 08:39 Alkaline Phosphatase 119 U/L (38-126) 06/30/18 08:39 Total Protein 7.0 g/dL (6.3-8.2) 06/30/18 08:39 Albumin 3.8 g/dL (3.5-5.0) 06/30/18 08:39 Globulin 3.2 g/dL (1.7-4.1) 06/30/18 08:39 Albumin/Globulin Ratio 1.2 (1.0-2.8) 06/30/18 08:39 Blood Type A Positive 06/19/18 11:07 Antibody Screen Negative 06/19/18 11:07 Crossmatch See Detail 06/19/18 11:07 Assessment and Plan (1) T-cell lymphoma We will continue the treatment with chemotherapy initiated at [facility]. The regimen is CHOEP, C1D1 = 06/12/2018: Doxorubicin 50 mg/m2 (95 mg) IVP once. IV push over 10-15 minutes day 1, for 1 dose Vincristine 1.4 mg/m2(max = 2 mg) IV once. Infuse over 10 min. Day 1, for 1 dose Cyclophosphamide 750 mg/m2 (1400 mg) IV once. Infused over 1 hr. Day 1, dfor 1 dose Etoposide 100 mg/m2 (190 mg) IVPB Q24H. Days 1 to 2, for 2 doses Prednisone 100 mg p.o. Q24H. Days 1 to 5, for 5 doses Cycle every 21 days. His next cycle will be scheduled for 07/03/2018 (this ) Today I also talked with the patient and patient's that this is a intense chemotherapy. I highly recommend that is family member be with him all the time. Patient said that his knees will be with him and the a very good at taking care of him. His is going to live in 3 weeks for [place] to continue her treatment of cancer. I talked with the patient that if he has any difficulties, we can ask our licensed clinical social worker to talk with him. Will continue Acyclovir 800 mg q12h prophylactically. (2) Neutropenia, drug-induced Neutropenia is associated with the chemotherapy and has resolved today. We will continue to use filgrastim during his 2nd cycle of chemotherapy.. (3) Anemia The transfusion threshold will be 7.9. He denies any shortness of breath or chest pain. We will continue to monitor closely. (4) Thrombocytopenia The lower extremity erythema and swelling have improved significantly after we held the Bactrim. No further interventions needed except stay away from Bactrim. (5) Petechiae Bilateral lower extremities. Confluent. Right more so than the left. No other active bleeding events. I will continue active surveillance. Please see thrombocytopenia above. (6) Pain, low back His back pain is most likely related to his underlying T-cell lymphoma. It is 9/10 in severity. Continue oxycodone 5/325, 1# p.o. every 4-6 hours on an as needed basis. (7) History of malignant neoplasm of testis Patient underwent radical left orchiectomy followed by 3 cycles of chemotherapy likely in 2003. No clinical evidence or biochemical evidence of disease recurrence or metastasis. I will continue active surveillance. (8) Migraine Status: Acute He has history of migraine. He said he seems to be back again. And he was asking if he is able to take nadolol. I talked with him and it would be fine to continue nadolol 80 mg once a day.
--- NOTE | 2018-06-30 10:00 | P.PNONC_ITS ---
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 History of present illness Mr. Irvin Diaz is a 62-year-old gentleman whom I saw at [facility]. He is transfer his care to [facility]. He has a remote history of left testicular cancer diagnosed in 2004 status post radical left orchiectomy followed by chemotherapy for 3 cycles without radiation treatment. Patient presented with about 5-6 months of history of weight loss, fatigue, malaise, abdominal distention, and adenopathy. CT CAP on 05/30/2018 showed extensive lymphadenopathy in the neck, retroperitoneum, along the celiac axis, near the GE junction, head of pancreas and prominent bilateral inguinal lymph nodes as well as markedly enlarged spleen. Patient was hospitalized at [facility] on May 31, 2018. Patient underwent TTE on 05/31/2018 that showedLVEF of 60-65%. Due to findings of ascites, patient underwent paracentesis and the cytology showed atypical lymphocytes suspicious for lymphoma. He underwent excisional biopsy of the right groin lymph node on June 03, 2018. And the final pathology showed T- lymphoproliferative disorder, favoring angioimmunoblastic T-cell lymphoma. And on June 10, 2018 patient was transferred to [facility] for further evaluation and treatment. At [facility], on June 11, 2018 the patient underwent bone marrow aspiration biopsy. The final pathology showed morphologically abnormal bone marrow with multi-focal, ill-defined mixed (lymphohistiocytic and eosinophilic) infiltrate suggestive of marrow involvement by T-cell lymphoma, hypercellular marrow with trilineage hematopoiesis and anemia with borderline microcytic anemia and absolute lymphopenia. At [facility], the patient was started on chemotheray CHOEP (C1D1 = Jun 12, 2018) Doxorubicin 50 mg/m2 (95 mg) IVP once. IV push over 10-15 minutes day 1, for 1 dose Vincristine 1.4 mg/m2(max = 2 mg) IV once. Infuse over 10 min. Day 1, for 1 dose Cyclophosphamide 750 mg/m2 (1400 mg) IV once. Infused over 1 hr. Day 1, dfor 1 dose Etoposide 100 mg/m2 (190 mg) IVPB Q24H. Days 1 to 2, for 2 doses Prednisone 100 mg p.o. Q24H. Days 1 to 5, for 5 doses Cycle every 21 days. Interim Events: He said he has been doing fine except the migraine headache which probably has recurred. The intensity of the pain is about 7-8/10 every day, used to nadalol 80 mg daily. He is wondering if he is Ok to continue. As far as the lower extremity erythema is concerned, it has almost completely resolved after the Bactrim was held. Patient reports good appetite and the weight has improved by about 2 lb since last visit. No fever. No chills. No nausea no vomiting. No hiccups. No abdominal pain. Overall he has been doing well. - Patient Self-Reported Symptoms SR Constitution: Weight loss/gain (gain 2 lbs since last visit, good appetite) SR ears, nose, mouth, throat issues: Cough (minor cough, dry with some upper chest congestion) SR Cardiovascular issues: Extreme swelling (improving.) SR Skin issues: Skin rash or itching (on the lower legs and are improving.) SR Musculoskeletal issues: Back or neck pain (on oxycodone and helpful.) SR Neuro issues: Headache (migraine.) - Additional ROS All systems PM: reviewed and no additional remarkable complaints except as stated Home Medications and Allergies Home Medications Medication Instructions Recorded Confirmed Type esomeprazole magnesium [Nexium] 40 mg PO DAILY #0 12/31/16 06/24/18 History omega 5-ewe-rje-fish oil [Fish Oil] 2 cap PO DAILY #0 12/31/16 06/24/18 History bcsvccnviab-E4-Iitvhfois serr 2 tab PO QAM 05/22/18 06/24/18 History [Glucosamine Daily Complex] oxycodone-acetaminophen 1 tab PO Q4-6H PRN 10 Days #60 tab 06/23/18 06/24/18 Rx acyclovir 800 mg PO Q12H 06/24/18 06/30/18 History wqkeahf-rihhidnwxllvs-zofgeplk 1 tab PO Q4-6H PRN 06/24/18 06/24/18 History [Excedrin Extra Strength] filgrastim-sndz [Zarxio] 5 mcg/kg SUBCUT Q24H 06/24/18 06/24/18 History furosemide 20 mg PO BID 06/24/18 06/24/18 History levofloxacin 750 mg PO DAILY 06/24/18 06/24/18 History ondansetron 4 mg PO Q6-8H PRN 06/24/18 06/24/18 History Allergies Allergy/AdvReac Type Severity Reaction Status Date / Time Sulfa (Sulfonamide Allergy Intermediate Hives Verified 06/24/18 08:50 Antibiotics) iodine Allergy Verified 05/27/18 14:53 Exam Vital signs: Temp 98.8 F 06/30/18 09:44 Pulse 127 H 06/30/18 09:44 Resp 18 06/30/18 09:44 BP 153/85 H 06/30/18 09:44 Pulse Ox 100 06/30/18 09:44 ECOG 1 Narrative: Constitutional: Well developed, thin, not in any acute respiratory distress, average body habitus, well groomed, pleasant and cooperative. HEENT: Normocephalic atraumatic. Extraocular muscle movement intact. Pupils are round, equal and reactive to light and accommodations. Anicteric sclera. No hearing difficulty; Oral mucus membrane moist and without ulcers. Neck: Supple, symmetrical, and tracheal midline; No palpable thyromegaly and no palpable lymph nodes. Respiratory: No use of accessory muscles. Clear to auscultation, and no wheezes or rales or rubs. Cardiovascular: Regular rate and rhythm, S1 and S2 normal, no murmurs gallops or rubs. No JVD. No pitting edema of lower extremities. Abdomen: Soft, nontender, non-distended, bowel sounds normal, no hernia, no palpable masses. Palpable splenomegaly and mild hepatomegaly. Lower extremities: 1+ edema, erythema almost resolved. Lymphatic: no palpable lymph nodes in the neck, axillae, or groins. Musculoskeletal: normal gait and station, no clubbing, no cyanosis, no pitting edema. Skin: no rashes, no ulcers, no petechiae Neurological: Awake and alert and oriented x3. CN II-XII grossly intact. No focal motor or sensory deficit. Psychiatric: Good judgment, good insight, normal affect, normal thought process , cooperative, no depression, no anxiety. Results - Labs WBC 10.4 X10^3/uL (4.5-11.0) 06/30/18 08:39 RBC 2.81 X10^6/uL (4.5-5.9) L 06/30/18 08:39 Hgb 7.9 g/dL (13.5-17.5) L 06/30/18 08:39 Hct 22.6 % (41-53) L 06/30/18 08:39 MCV 80.5 fL (80-100) 06/30/18 08:39 MCH 28.0 PG (26-34) 06/30/18 08:39 MCHC 34.8 % (30-36) 06/30/18 08:39 RDW 23.6 % (11.6-14.8) H 06/30/18 08:39 Plt Count 162 X10^3/uL (150-400) 06/30/18 08:39 Neut % (Auto) Not Reportable 06/30/18 08:39 Lymph % (Auto) Not Reportable 06/30/18 08:39 [place] % (Auto) Not Reportable 06/30/18 08:39 Eos % (Auto) Not Reportable 06/30/18 08:39 Baso % (Auto) Not Reportable 06/30/18 08:39 Neut # (Auto) 26465 /uL (1327-2923) H 06/23/18 15:32 Total Counted 100 06/30/18 08:39 Seg Neutrophils % 63.0 % (38-70) 06/30/18 08:39 Band Neutrophils % 8.0 % (3-7) H 06/30/18 08:39 Lymphocytes % (Manual) 11.0 % (25-45) L 06/30/18 08:39 Atypical Lymphs % 3.0 % (-0) H 06/30/18 08:39 Monocytes % (Manual) 6.0 % (2-11) 06/30/18 08:39 Basophils % (Manual) 1.0 % (0-1) 06/30/18 08:39 Metamyelocytes % 4.0 % (-0) H 06/30/18 08:39 Myelocytes % 4.0 % (-0) H 06/30/18 08:39 Neutrophils # (Manual) 7384 /uL (6857-6052) H 06/30/18 08:39 Nucleated RBCs 3 #/Diff (-0) H 06/30/18 08:39 RBC Morphology See below 06/30/18 08:39 Polychromasia 2+ H 06/30/18 08:39 Hypochromasia 2+ H 06/23/18 15:32 Poikilocytosis 1+ H 06/23/18 15:32 Anisocytosis 3+ H 06/30/18 08:39 Microcytosis 2+ H 06/23/18 15:32 Sodium 139 mmol/L (137-145) 06/30/18 08:39 Potassium 3.6 mmol/L (3.4-5.1) 06/30/18 08:39 Chloride 100 mmol/L (98-107) 06/30/18 08:39 Carbon Dioxide 26 mmol/L (22-32) 06/30/18 08:39 BUN 8 mg/dL (9-20) L 06/30/18 08:39 Creatinine 0.60 mg/dL (0.66-1.25) L 06/30/18 08:39 Estimated GFR > 60.0 mL/min (>60) 06/30/18 08:39 BUN/Creatinine Ratio 13.3 (6-22) 06/30/18 08:39 Glucose 121 mg/dL (80-110) H 06/30/18 08:39 Calcium 8.6 mg/dL (8.4-10.2) 06/30/18 08:39 Total Bilirubin 0.4 mg/dL (0.2-1.3) 06/30/18 08:39 AST 14 IU/L (17-59) L 06/30/18 08:39 ALT 22 IU/L (21-72) 06/30/18 08:39 Alkaline Phosphatase 119 U/L (38-126) 06/30/18 08:39 Total Protein 7.0 g/dL (6.3-8.2) 06/30/18 08:39 Albumin 3.8 g/dL (3.5-5.0) 06/30/18 08:39 Globulin 3.2 g/dL (1.7-4.1) 06/30/18 08:39 Albumin/Globulin Ratio 1.2 (1.0-2.8) 06/30/18 08:39 Blood Type A Positive 06/19/18 11:07 Antibody Screen Negative 06/19/18 11:07 Crossmatch See Detail 06/19/18 11:07 Assessment and Plan (1) T-cell lymphoma We will continue the treatment with chemotherapy initiated at [facility]. The regimen is CHOEP, C1D1 = 06/12/2018: Doxorubicin 50 mg/m2 (95 mg) IVP once. IV push over 10-15 minutes day 1, for 1 dose Vincristine 1.4 mg/m2(max = 2 mg) IV once. Infuse over 10 min. Day 1, for 1 dose Cyclophosphamide 750 mg/m2 (1400 mg) IV once. Infused over 1 hr. Day 1, dfor 1 dose Etoposide 100 mg/m2 (190 mg) IVPB Q24H. Days 1 to 2, for 2 doses Prednisone 100 mg p.o. Q24H. Days 1 to 5, for 5 doses Cycle every 21 days. His next cycle will be scheduled for 07/03/2018 (this ) Today I also talked with the patient and patient's that this is a intense chemotherapy. I highly recommend that is family member be with him all the time. Patient said that his knees will be with him and the a very good at taking care of him. His is going to live in 3 weeks for [place] to continue her treatment of cancer. I talked with the patient that if he has any difficulties, we can ask our social media designer to talk with him. Will continue Acyclovir 800 mg q12h prophylactically. (2) Neutropenia, drug-induced Neutropenia is associated with the chemotherapy and has resolved today. We will continue to use filgrastim during his 2nd cycle of chemotherapy.. (3) Anemia The transfusion threshold will be 7.9. He denies any shortness of breath or chest pain. We will continue to monitor closely. (4) Thrombocytopenia The lower extremity erythema and swelling have improved significantly after we held the Bactrim. No further interventions needed except stay away from Bactrim. (5) Petechiae Bilateral lower extremities. Confluent. Right more so than the left. No other active bleeding events. I will continue active surveillance. Please see thrombocytopenia above. (6) Pain, low back His back pain is most likely related to his underlying T-cell lymphoma. It is 9 /10 in severity. Continue oxycodone 5/325, 1# p.o. every 4-6 hours on an as needed basis. (7) History of malignant neoplasm of testis Patient underwent radical left orchiectomy followed by 3 cycles of chemotherapy likely in 2003. No clinical evidence or biochemical evidence of disease recurrence or metastasis. I will continue active surveillance. (8) Migraine Status: Acute He has history of migraine. He said he seems to be back again. And he was asking if he is able to take nadolol. I talked with him and it would be fine to continue nadolol 80 mg once a day.
[2018-07-02 10:39] LABS: Add Manual Diff / Slide Review YES; Hematocrit 23.3 % (41-53); Hemoglobin 7.9 g/dL (13.5-17.5); Mean Corpuscular HGB Conc 34.1 % (30-36); Mean Corpuscular Hemoglobin 27.9 PG (26-34); Mean Corpuscular Volume 81.7 fL (80-100); Platelet Count 272 X10^3/uL (150-400); Red Blood Cell Count 2.85 X10^6/uL (4.5-5.9); Red Cell Distribution Width 24.4 % (11.6-14.8); White Blood Cell Count 8.3 X10^3/uL (4.5-11.0)
[2018-07-02 10:45] LABS: Alanine Aminotransferase 19 IU/L (21-72); Albumin 3.9 g/dL (3.5-5.0); Albumin Globulin Ratio 1.3 (1.0-2.8); Alkaline Phosphatase 116 U/L (38-126); Aspartate Aminotransferase 18 IU/L (17-59); BUN Creatinine Ratio 16.7 (6-22); Bilirubin Total 0.4 mg/dL (0.2-1.3); Blood Urea Nitrogen 10 mg/dL (9-20); Carbon Dioxide 27 mmol/L (22-32); Chloride 99 mmol/L (98-107); Estimated Glomerular Filt Rate > 60.0 mL/min (>60); Globulin 3.1 g/dL (1.7-4.1); Glucose 100 mg/dL (80-110); HEMOLYSIS < 15 (0-50); Potassium 4.2 mmol/L (3.4-5.1); Sodium 138 mmol/L (137-145)
[2018-07-02 11:02] LABS: Neutrophils Absolute Manual 5727 /uL (3000-5900); Nucleated Red Blood Cells 1 #/Diff; Total Cells Counted 100
[2018-07-02 11:03] LABS: Anisocytosis 2+; Poikilocytosis 1+; Polychromasia 1+
[2018-07-03] MEDS: LORazepam 0.5 MG TABLET PO (11:12)
[2018-07-03 11:20] VITALS: BP 115/66; PULSE 81; RESP 16; TEMP 36.4; O2SAT 100
[2018-07-03] MEDS: DEXAMETHASONE 12 MG in SODIUM CHLORIDE 0.9% 50 ML 212 ML IV (11:31)
[2018-07-03] MEDS: SODIUM CHLORIDE 0.9% 100 ML 21 ML IV (11:32)
[2018-07-03] MEDS: diphenhydrAMINE 50 MG/ML VIAL 25 MG IV ×2 (11:32→13:14)
[2018-07-03] MEDS: FOSAPREPITANT 150 MG in SODIUM CHLORIDE 0.9% 150 ML 300 ML IV (11:57)
[2018-07-03] MEDS: ONDANSETRON 16 MG in SODIUM CHLORIDE 0.9% 50 ML 232 ML IV (12:32)
[2018-07-03] MEDS: [UNRECOGNIZED DRUG - OTHER] IV (13:09)
[2018-07-03] MEDS: CYCLOPHOSPHAMIDE IV (13:09)
[2018-07-03] MEDS: SODIUM CHLORIDE 0.9% IV ×2 (13:52→16:02)
[2018-07-03] MEDS: DOXORUBICIN HCL IV (13:52)
[2018-07-03] MEDS: ETOPOSIDE IV (14:42)
[2018-07-03] MEDS: NORMAL SALINE IV (14:42)
[2018-07-03] MEDS: VINCRISTINE IV (16:02)
[2018-07-04 09:52] VITALS: BP 108/54; PULSE 82; RESP 16; TEMP 36.6
[2018-07-04] MEDS: ONDANSETRON 8 MG in SODIUM CHLORIDE 0.9% 50 ML 216 ML IV (10:06)
[2018-07-04 10:07] VITALS: BP 117/62; PULSE 80; RESP 16; TEMP 36.7
[2018-07-04] MEDS: diphenhydrAMINE 50 MG/ML VIAL IV (10:31)
[2018-07-04] MEDS: DEXAMETHASONE 10 MG/ML VIAL 8 MG IV (10:53)
[2018-07-04] MEDS: SODIUM CHLORIDE 0.9% 100 ML 21 ML IV (11:33)
[2018-07-04] MEDS: ETOPOSIDE IV (11:34)
[2018-07-04] MEDS: SODIUM CHLORIDE 0.9% 250 ML 21 ML IV (11:34)
[2018-07-04] MEDS: NORMAL SALINE IV (11:34)
[2018-07-04 12:22] VITALS: BP 117/53; PULSE 67; RESP 16; TEMP 36.5
[2018-07-04 12:23] VITALS: BP 117/53; PULSE 67; RESP 16; TEMP 36.5
[2018-07-04] MEDS: OXYCODONE/ACETAMINOPHEN 5/325 TABLET 2 TAB PO (12:31)
[2018-07-04 12:41] VITALS: BP 131/71; PULSE 74; RESP 16; TEMP 36.5
[2018-07-04 14:40] VITALS: BP 129/73; PULSE 68; RESP 18; TEMP 36.6
--- NOTE | 2018-07-07 13:29 | ONC.SCHED ---
Ole-Dr. Zhang ordered Peg-Filgrastim but due to authorization issues he said it was ok to use Zarxio. [place] denied Peg-Filgrastim. Document scanned in.
[2018-07-09 14:03] VITALS: BP 86/56; PULSE 86; RESP 18; TEMP 36.5; O2SAT 99
[2018-07-09 14:04] LABS: Add Manual Diff / Slide Review NO; Basophils Percent Auto 1.2 % (0-2); Eosinophils Percent Auto 0.4 % (2-4); Hematocrit 26.5 % (41-53); Hemoglobin 9.3 g/dL (13.5-17.5); Lymphocytes Percent Auto 10.8 % (25-40); Mean Corpuscular Hemoglobin 28.8 PG (26-34); Mean Corpuscular Volume 82.3 fL (80-100); Monocytes Percent Auto 0.4 % (3-14); Neutrophils Absolute Auto 3800 /uL (3000-5900); Neutrophils Percent Auto 87.2 % (50-75); Platelet Count 223 X10^3/uL (150-400); Red Blood Cell Count 3.22 X10^6/uL (4.5-5.9); Red Cell Distribution Width 20.9 % (11.6-14.8); White Blood Cell Count 4.3 X10^3/uL (4.5-11.0)
--- NOTE | 2018-07-09 14:05 | PC.NURSE ---
Patient became light headed during port blood draw, reclined in chair with feet up and brought him water to drink. BP was low at 86/56. Patient states he only slept 2.5 hours and had not had many liquids today. Issue resolved after 5 minutes. Patient states no more light headedness and was discharged.
[2018-07-09 14:13] LABS: Alanine Aminotransferase 21 IU/L (21-72); Albumin 4.2 g/dL (3.5-5.0); Albumin Globulin Ratio 1.4 (1.0-2.8); Alkaline Phosphatase 102 U/L (38-126); Aspartate Aminotransferase 14 IU/L (17-59); Bilirubin Total 0.2 mg/dL (0.2-1.3); Blood Urea Nitrogen 27 mg/dL (9-20); Calcium 9.1 mg/dL (8.4-10.2); Carbon Dioxide 25 mmol/L (22-32); Chloride 100 mmol/L (98-107); Estimated Glomerular Filt Rate > 60.0 mL/min (>60); Globulin 2.9 g/dL (1.7-4.1); Glucose 130 mg/dL (80-110); HEMOLYSIS < 15 (0-50); Potassium 4.2 mmol/L (3.4-5.1); Sodium 138 mmol/L (137-145); Total Protein 7.1 g/dL (6.3-8.2)
[2018-07-09 14:35] LABS: Anisocytosis 1+
[2018-07-16 14:09] LABS: Hematocrit 25.5 % (41-53); Hemoglobin 8.8 g/dL (13.5-17.5); Mean Corpuscular HGB Conc 34.5 % (30-36); Mean Corpuscular Hemoglobin 29.2 PG (26-34); Mean Corpuscular Volume 84.7 fL (80-100); Platelet Count 209 X10^3/uL (150-400); Red Blood Cell Count 3.01 X10^6/uL (4.5-5.9); Red Cell Distribution Width 21.8 % (11.6-14.8)
[2018-07-16 14:14] LABS: Add Manual Diff / Slide Review YES; White Blood Cell Count 1.4 X10^3/uL (4.5-11.0)
[2018-07-16 14:36] VITALS: BP 122/70; PULSE 88; RESP 16
--- NOTE | 2018-07-16 14:36 | PC.NURSE ---
Addendum entered by Charito Weaver R.N. 07/16/18 16:00: Per Dr Zhang, pt doesn't need transfusion if feeling ok. Notified pt that if he starts feeling asymptomatic from low red cells (reviewed symptoms with him), to please call us so he can come in sooner than next Saturday for a CBC. Verbalized understanding. Original Note: Labs faxed to Dr Zhang, along with Vital signs. Pt denies shortness of breath, chest pressure or pain, light headedness, headaches. Will contact pt if it's determined that Dr Zhang would like pt to have a transfusion.
[2018-07-16 14:37] LABS: Alanine Aminotransferase 22 IU/L (21-72); Albumin 4.1 g/dL (3.5-5.0); Albumin Globulin Ratio 1.4 (1.0-2.8); Alkaline Phosphatase 108 U/L (38-126); Aspartate Aminotransferase 15 IU/L (17-59); Bilirubin Total 0.2 mg/dL (0.2-1.3); Blood Urea Nitrogen 11 mg/dL (9-20); Calcium 9.3 mg/dL (8.4-10.2); Carbon Dioxide 24 mmol/L (22-32); Chloride 101 mmol/L (98-107); Estimated Glomerular Filt Rate > 60.0 mL/min (>60); Glucose 133 mg/dL (80-110); HEMOLYSIS < 15 (0-50); Potassium 3.8 mmol/L (3.4-5.1); Sodium 139 mmol/L (137-145); Total Protein 7.1 g/dL (6.3-8.2)
[2018-07-16 14:45] LABS: Neutrophils Absolute Manual 504 /uL (3000-5900); Total Cells Counted 50
[2018-07-16 14:46] LABS: Anisocytosis 1+; Poikilocytosis 2+; Polychromasia 1+
--- NOTE | 2018-07-22 09:10 | ONC.NAV ---
Description: FMLA Activity: Completed pt's FMLA forms, called pt and left him a message that they are ready for him to pick-up at his convenience. No additional needs identified at this time.
[2018-07-23 13:53] LABS: Hematocrit 29.8 % (41-53); Hemoglobin 10.4 g/dL (13.5-17.5); Mean Corpuscular HGB Conc 34.9 % (30-36); Mean Corpuscular Hemoglobin 28.8 PG (26-34); Mean Corpuscular Volume 82.5 fL (80-100); Platelet Count 364 X10^3/uL (150-400); Red Blood Cell Count 3.62 X10^6/uL (4.5-5.9); Red Cell Distribution Width 20.3 % (11.6-14.8); White Blood Cell Count 3.6 X10^3/uL (4.5-11.0)
[2018-07-23 13:54] LABS: Add Manual Diff / Slide Review YES
[2018-07-23 14:05] LABS: Alanine Aminotransferase 18 IU/L (21-72); Albumin 4.5 g/dL (3.5-5.0); Albumin Globulin Ratio 1.5 (1.0-2.8); Alkaline Phosphatase 121 U/L (38-126); Aspartate Aminotransferase 17 IU/L (17-59); BUN Creatinine Ratio 18.3 (6-22); Bilirubin Total 0.4 mg/dL (0.2-1.3); Blood Urea Nitrogen 11 mg/dL (9-20); Calcium 9.7 mg/dL (8.4-10.2); Carbon Dioxide 25 mmol/L (22-32); Chloride 99 mmol/L (98-107); Estimated Glomerular Filt Rate > 60.0 mL/min (>60); Glucose 122 mg/dL (80-110); HEMOLYSIS < 15 (0-50); Potassium 4.1 mmol/L (3.4-5.1); Sodium 137 mmol/L (137-145); Total Protein 7.5 g/dL (6.3-8.2)
[2018-07-23 14:20] LABS: Neutrophils Absolute Manual 1512 /uL (3000-5900); Total Cells Counted 100
[2018-07-23 14:22] LABS: Anisocytosis 1+; Poikilocytosis 1+
--- NOTE | 2018-07-24 10:03 | ONC.APRN.PN ---
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 He presents today for consideration of cycle 3 D1 of CHOEP. Overall the pt reports he is doing better than last time. Specifically appetite has improved, he is not having any more vomiting. He continues to have some itching however this is not as intense. He does report relief with using Benadryl 25 mg which he is taking every 4 hr. He continues to have chronic migraine headaches these have not changed in frequency nor intensity. He takes Excedrin which he has been taking for many years which does seem to help. If Excedrin is ineffective he will take 1 or 2 of the prescribed oxycodone. No issues with bowel or bladder habits. No cough, fever, chills. No unexplained bleeding or bruising. No new pain. No new lumps or bumps. No chest pain, shortness of breath. No lower extremity edema. He continues with acyclovir 800 mg a.m. and p.m.. History of present illness Mr. Irvin Diaz is a 62-year-old gentleman whom I saw at [facility]. He is transfer his care to [facility]. He has a remote history of left testicular cancer diagnosed in 2004 status post radical left orchiectomy followed by chemotherapy for 3 cycles without radiation treatment. Patient presented with about 5-6 months of history of weight loss, fatigue, malaise, abdominal distention, and adenopathy. CT CAP on 05/30/2018 showed extensive lymphadenopathy in the neck, retroperitoneum, along the celiac axis, near the GE junction, head of pancreas and prominent bilateral inguinal lymph nodes as well as markedly enlarged spleen. Patient was hospitalized at [facility] on May 31, 2018. Patient underwent TTE on 05/31/2018 that showedLVEF of 60-65%. Due to findings of ascites, patient underwent paracentesis and the cytology showed atypical lymphocytes suspicious for lymphoma. He underwent excisional biopsy of the right groin lymph node on June 03, 2018. And the final pathology showed T-lymphoproliferative disorder, favoring angioimmunoblastic T-cell lymphoma. And on June 10, 2018 patient was transferred to [facility] for further evaluation and treatment. At [facility], on June 11, 2018 the patient underwent bone marrow aspiration biopsy. The final pathology showed morphologically abnormal bone marrow with multi-focal, ill-defined mixed (lymphohistiocytic and eosinophilic) infiltrate suggestive of marrow involvement by T-cell lymphoma, hypercellular marrow with trilineage hematopoiesis and anemia with borderline microcytic anemia and absolute lymphopenia. At [facility], the patient was started on chemotheray CHOEP (C1D1 = Jun 12, 2018) Doxorubicin 50 mg/m2 (95 mg) IVP once. IV push over 10-15 minutes day 1, for 1 dose Vincristine 1.4 mg/m2(max = 2 mg) IV once. Infuse over 10 min. Day 1, for 1 dose Cyclophosphamide 750 mg/m2 (1400 mg) IV once. Infused over 1 hr. Day 1, dfor 1 dose Etoposide 100 mg/m2 (190 mg) IVPB Q24H. Days 1 to 2, for 2 doses Prednisone 100 mg p.o. Q24H. Days 1 to 5, for 5 doses Cycle every 21 days. Interim Events: He said he has been doing fine except the migraine headache which probably has recurred. The intensity of the pain is about 7-8/10 every day, used to nadalol 80 mg daily. He is wondering if he is Ok to continue. As far as the lower extremity erythema is concerned, it has almost completely resolved after the Bactrim was held. Patient reports good appetite and the weight has improved by about 2 lb since last visit. No fever. No chills. No nausea no vomiting. No hiccups. No abdominal pain. Overall he has been doing well. - Patient Self-Reported Symptoms SR Constitution: Weight loss/gain (gain 2 lbs since last visit, good appetite) SR ears, nose, mouth, throat issues: Cough (minor cough, dry with some upper chest congestion) SR Cardiovascular issues: Extreme swelling (improving.) SR Skin issues: Skin rash or itching (on the lower legs and are improving.) SR Musculoskeletal issues: Back or neck pain (on oxycodone and helpful.) SR Neuro issues: Headache (migraine.) Home Medications and Allergies Home Medications Medication Instructions Recorded Confirmed Type esomeprazole magnesium [Nexium] 40 mg PO DAILY #0 12/31/16 06/24/18 History tfmleotylnk-W4-Ilnagncqb serr 2 tab PO QAM 05/22/18 06/24/18 History [Glucosamine Daily Complex] acyclovir 800 mg PO Q12H 06/24/18 06/30/18 History yvxljzk-rqizqoknvvczg-eazhstbf 1 tab PO Q4-6H PRN 06/24/18 06/24/18 History [Excedrin Extra Strength] filgrastim-sndz [Zarxio] 5 mcg/kg SUBCUT Q24H 06/24/18 06/24/18 History fish,bora,flax oils-om3,6,9no1 1 cap PO DAILY 07/04/18 07/04/18 History [[place] 3-6-9 Complex] nadolol 80 mg PO DAILY 07/04/18 07/04/18 History ondansetron 4 mg PO TID PRN 07/04/18 07/04/18 History zolpidem [Ambien] 10 mg PO BEDTIME PRN 07/15/18 07/15/18 History oxycodone-acetaminophen 1 tab PO Q4-6H PRN #60 tab 07/24/18 Rx Allergies Allergy/AdvReac Type Severity Reaction Status Date / Time Sulfa (Sulfonamide Allergy Intermediate Hives Verified 06/24/18 08:50 Antibiotics) iodine Allergy Verified 05/27/18 14:53 Exam - Constitutional positive no acute distress, positive thin - Routine HEENT Exam ENT: Present: mucous membranes moist, oropharynx clear - Routine Neck Exam Present: supple, lymphadenopathy Comments: subcentimeter palpable nodes right neck submandibular - Routine Respiratory Exam Present: Clear to auscultation bilaterally. Absent: rales, rhonchi, wheezes - Routine Cardiovascular Exam Present: RRR, S1, S2. Absent: murmur, gallop, rubs, JVD - Routine Abdominal Exam Present: soft, normoactive bowel sounds. Absent: tenderness, distended, mass Palpation/Percussion: Present: splenomegaly Comments: palpable spleen, NT - Routine Extremities Exam Absent: edema, calf tenderness - Routine Skin Exam Present: intact, urticaria, normal turgor. Absent: petechiae, rash - Routine Neurological Exam Present: alert, oriented X3 - Routine Psychiatric Exam Present: normal affect Results - Labs Laboratory Last Values WBC 3.6 X10^3/uL (4.5-11.0) L 07/23/18 13:39 RBC 3.62 X10^6/uL (4.5-5.9) L 07/23/18 13:39 Hgb 10.4 g/dL (13.5-17.5) L 07/23/18 13:39 Hct 29.8 % (41-53) L 07/23/18 13:39 MCV 82.5 fL (80-100) 07/23/18 13:39 MCH 28.8 PG (26-34) 07/23/18 13:39 MCHC 34.9 % (30-36) 07/23/18 13:39 RDW 20.3 % (11.6-14.8) H 07/23/18 13:39 Plt Count 364 X10^3/uL (150-400) 07/23/18 13:39 Neut % (Auto) Not Reportable 07/23/18 13:39 Lymph % (Auto) Not Reportable 07/23/18 13:39 [place] % (Auto) Not Reportable 07/23/18 13:39 Eos % (Auto) Not Reportable 07/23/18 13:39 Baso % (Auto) Not Reportable 07/23/18 13:39 Neut # (Auto) 3800 /uL (7293-9668) 07/09/18 13:41 Total Counted 100 07/23/18 13:39 Seg Neutrophils % 41.0 % (38-70) 07/23/18 13:39 Band Neutrophils % 1.0 % (3-7) L 07/23/18 13:39 Lymphocytes % (Manual) 11.0 % (25-45) L 07/23/18 13:39 Atypical Lymphs % 7.0 % (-0) H 07/23/18 13:39 Monocytes % (Manual) 38.0 % (2-11) H 07/23/18 13:39 Eosinophils % (Manual) 1.0 % (2-4) L 07/23/18 13:39 Basophils % (Manual) 1.0 % (0-1) 07/23/18 13:39 Metamyelocytes % 2.0 % (-0) H 07/02/18 10:17 Myelocytes % 4.0 % (-0) H 06/30/18 08:39 Neutrophils # (Manual) 1512 /uL (0240-0306) L 07/23/18 13:39 Nucleated RBCs 1 #/Diff (-0) H 07/02/18 10:17 RBC Morphology See below 07/23/18 13:39 Polychromasia 1+ H 07/16/18 13:52 Hypochromasia 2+ H 06/23/18 15:32 Poikilocytosis 1+ H 07/23/18 13:39 Anisocytosis 1+ H 07/23/18 13:39 Microcytosis 2+ H 06/23/18 15:32 Sodium 137 mmol/L (137-145) 07/23/18 13:39 Potassium 4.1 mmol/L (3.4-5.1) 07/23/18 13:39 Chloride 99 mmol/L (98-107) 07/23/18 13:39 Carbon Dioxide 25 mmol/L (22-32) 07/23/18 13:39 BUN 11 mg/dL (9-20) 07/23/18 13:39 Creatinine 0.60 mg/dL (0.66-1.25) L 07/23/18 13:39 Estimated GFR > 60.0 mL/min (>60) 07/23/18 13:39 BUN/Creatinine Ratio 18.3 (6-22) 07/23/18 13:39 Glucose 122 mg/dL (80-110) H 07/23/18 13:39 Calcium 9.7 mg/dL (8.4-10.2) 07/23/18 13:39 Total Bilirubin 0.4 mg/dL (0.2-1.3) 07/23/18 13:39 AST 17 IU/L (17-59) 07/23/18 13:39 ALT 18 IU/L (21-72) L 07/23/18 13:39 Alkaline Phosphatase 121 U/L (38-126) 07/23/18 13:39 Total Protein 7.5 g/dL (6.3-8.2) 07/23/18 13:39 Albumin 4.5 g/dL (3.5-5.0) 07/23/18 13:39 Globulin 3.0 g/dL (1.7-4.1) 07/23/18 13:39 Albumin/Globulin Ratio 1.5 (1.0-2.8) 07/23/18 13:39 Blood Type A Positive 07/02/18 10:17 Antibody Screen Negative 07/02/18 10:17 Crossmatch See Detail 07/02/18 10:17 Assessment and Plan (1) T-cell lymphoma We will continue the treatment with chemotherapy initiated at [facility]. CBC stable with white count 3.6 ANC 1512 platelets [id number] hemoglobin 10.4 hematocrit 29.8. CBC largely unremarkable with potassium 4.1 creatinine 0.60 GFR greater than 60 AST within normal limits ALT within normal limits alkaline phosphatase 121. No red flags on exam today. We will proceed with treatment. The regimen is CHOEP, C1D1 = 06/12/2018 at . Today 07/24/2018 he will receive C3D1 : Doxorubicin 50 mg/m2 (95 mg) IVP once. IV push over 10-15 minutes day 1, for 1 dose Vincristine 1.4 mg/m2(max = 2 mg) IV once. Infuse over 10 min. Day 1, for 1 dose Cyclophosphamide 750 mg/m2 (1400 mg) IV once. Infused over 1 hr. Day 1, dfor 1 dose Etoposide 100 mg/m2 (190 mg) IVPB Q24H. Days 1 to 2, for 2 doses Prednisone 100 mg p.o. Q24H. Days 1 to 5, for 5 doses Cycle every 21 days. His next cycle will be scheduled in 3 weeks. Cont Q week cbc cmp. No GCSF support indicated today in review of CBC Will continue Acyclovir 800 mg q12h prophylactically. (2) Neutropenia, drug-induced Neutropenia is associated with the chemotherapy and has resolved today. We will continue to use filgrastim as indicated, no indication today. Cont Q week cbc (3) Anemia The transfusion threshold will be 7.9. He denies any shortness of breath or chest pain. We will continue to monitor closely, hemoglobin and hematocrit stable today 10.4, 29.8. (4) Thrombocytopenia The lower extremity erythema and swelling have improved significantly after we held the Bactrim. No further interventions needed except stay away from Bactrim. (5) Petechiae Resolved (6) Pain, low back His back pain is most likely related to his underlying T-cell lymphoma. It is 9/10 in severity. Continue oxycodone 5/325, 1# p.o. every 4-6 hours on an as needed basis. (7) History of malignant neoplasm of testis Patient underwent radical left orchiectomy followed by 3 cycles of chemotherapy likely in 2003. No clinical evidence or biochemical evidence of disease recurrence or metastasis. I will continue active surveillance. (8) Migraine Status: Acute He has history of migraine. He said he seems to be back again. And he was asking if he is able to take nadolol. I talked with him and it would be fine to continue nadolol 80 mg once a day. Cont PRN oxycodone - Time Spent with Patient 25 mins
[2018-07-24 10:18] VITALS: BP 106/64; PULSE 76; RESP 18; TEMP 36; O2SAT 100
[2018-07-24] MEDS: SODIUM CHLORIDE 0.9% 100 ML 21 ML IV (11:20)
[2018-07-24] MEDS: LORazepam 0.5 MG TABLET PO (11:23)
[2018-07-24] MEDS: DEXAMETHASONE 12 MG in SODIUM CHLORIDE 0.9% 50 ML 212 ML IV (11:42)
[2018-07-24] MEDS: FOSAPREPITANT 150 MG in SODIUM CHLORIDE 0.9% 150 ML 300 ML IV (12:07)
[2018-07-24] MEDS: ONDANSETRON 16 MG in SODIUM CHLORIDE 0.9% 50 ML 232 ML IV (12:49)
[2018-07-24] MEDS: [UNRECOGNIZED DRUG - OTHER] IV (13:14)
[2018-07-24] MEDS: CYCLOPHOSPHAMIDE IV (13:14)
[2018-07-24] MEDS: DOXORUBICIN HCL IV (14:20)
[2018-07-24] MEDS: SODIUM CHLORIDE 0.9% IV ×2 (14:20→16:29)
[2018-07-24] MEDS: LORazepam 2 MG/ML SYRINGE 0.5 MG IV (14:56)
[2018-07-24] MEDS: FAMOTIDINE 20 MG/50 ML PIGGYBACK 200 MG IV (15:03)
[2018-07-24] MEDS: NORMAL SALINE IV (15:18)
[2018-07-24] MEDS: ETOPOSIDE IV (15:18)
[2018-07-24] MEDS: VINCRISTINE IV (16:29)
[2018-07-25 14:42] VITALS: BP 116/66; PULSE 81; RESP 18; TEMP 36.5; O2SAT 98
[2018-07-25] MEDS: DEXAMETHASONE 10 MG/ML VIAL 8 MG IV (14:45)
[2018-07-25] MEDS: SODIUM CHLORIDE 0.9% 100 ML 21 ML IV (14:46)
[2018-07-25] MEDS: FAMOTIDINE 20 MG/50 ML PIGGYBACK 200 MG IV (14:46)
[2018-07-25] MEDS: ONDANSETRON 8 MG in SODIUM CHLORIDE 0.9% 50 ML 216 ML IV (15:20)
[2018-07-25] MEDS: ETOPOSIDE IV (15:46)
[2018-07-25] MEDS: NORMAL SALINE IV (15:46)
[2018-07-30 11:30] LABS: Alanine Aminotransferase 19 IU/L (21-72); Albumin 4.5 g/dL (3.5-5.0); Albumin Globulin Ratio 1.5 (1.0-2.8); Alkaline Phosphatase 110 U/L (38-126); Aspartate Aminotransferase 14 IU/L (17-59); BUN Creatinine Ratio 31.7 (6-22); Bilirubin Total 0.5 mg/dL (0.2-1.3); Blood Urea Nitrogen 19 mg/dL (9-20); Carbon Dioxide 25 mmol/L (22-32); Chloride 98 mmol/L (98-107); Estimated Glomerular Filt Rate > 60.0 mL/min (>60); Glucose 147 mg/dL (80-110); HEMOLYSIS < 15 (0-50); Sodium 137 mmol/L (137-145); Total Protein 7.5 g/dL (6.3-8.2)
[2018-07-30 11:57] LABS: Add Manual Diff / Slide Review NO; Basophils Percent Auto 0.9 % (0-2); Eosinophils Percent Auto 0.9 % (2-4); Hematocrit 26.9 % (41-53); Hemoglobin 9.2 g/dL (13.5-17.5); Lymphocytes Percent Auto 8.8 % (25-40); Mean Corpuscular HGB Conc 34.2 % (30-36); Mean Corpuscular Hemoglobin 28.3 PG (26-34); Mean Corpuscular Volume 82.6 fL (80-100); Neutrophils Absolute Auto 5100 /uL (3000-5900); Neutrophils Percent Auto 88.4 % (50-75); Platelet Count 190 X10^3/uL (150-400); Red Blood Cell Count 3.25 X10^6/uL (4.5-5.9); Red Cell Distribution Width 18.3 % (11.6-14.8); White Blood Cell Count 5.7 X10^3/uL (4.5-11.0)
[2018-08-07 11:17] LABS: Hematocrit 25.1 % (41-53); Hemoglobin 9.1 g/dL (13.5-17.5); Mean Corpuscular HGB Conc 36.1 % (30-36); Mean Corpuscular Hemoglobin 29.9 PG (26-34); Mean Corpuscular Volume 82.9 fL (80-100); Platelet Count 236 X10^3/uL (150-400); Red Blood Cell Count 3.03 X10^6/uL (4.5-5.9); Red Cell Distribution Width 19.5 % (11.6-14.8)
[2018-08-07 11:19] LABS: Add Manual Diff / Slide Review YES
[2018-08-07 11:21] LABS: White Blood Cell Count 1.5 X10^3/uL (4.5-11.0)
[2018-08-07 11:25] LABS: Alanine Aminotransferase 21 IU/L (21-72); Albumin 4.3 g/dL (3.5-5.0); Albumin Globulin Ratio 1.4 (1.0-2.8); Alkaline Phosphatase 98 U/L (38-126); Aspartate Aminotransferase 16 IU/L (17-59); Bilirubin Total 0.3 mg/dL (0.2-1.3); Blood Urea Nitrogen 12 mg/dL (9-20); Calcium 9.3 mg/dL (8.4-10.2); Carbon Dioxide 26 mmol/L (22-32); Chloride 100 mmol/L (98-107); Estimated Glomerular Filt Rate > 60.0 mL/min (>60); Glucose 138 mg/dL (80-110); HEMOLYSIS < 15 (0-50); Potassium 4.2 mmol/L (3.4-5.1); Sodium 137 mmol/L (137-145); Total Protein 7.3 g/dL (6.3-8.2)
[2018-08-07 11:50] LABS: Neutrophils Absolute Manual 240 /uL (3000-5900); Total Cells Counted 50
[2018-08-07 11:51] LABS: Anisocytosis 2+
[2018-08-07] MEDS: FILGRASTIM-SNDZ 300 MCG/0.5 ML SYRINGE SUBCUT (13:01)
[2018-08-08 13:27] LABS: Hemoglobin 9.2 g/dL (13.5-17.5); Mean Corpuscular HGB Conc 35.4 % (30-36); Mean Corpuscular Hemoglobin 29.7 PG (26-34); Platelet Count 282 X10^3/uL (150-400); Red Blood Cell Count 3.09 X10^6/uL (4.5-5.9); Red Cell Distribution Width 20.1 % (11.6-14.8); White Blood Cell Count 2.2 X10^3/uL (4.5-11.0)
[2018-08-08 13:34] LABS: Add Manual Diff / Slide Review YES
[2018-08-08 14:08] LABS: Neutrophils Absolute Manual 286 /uL (3000-5900); Total Cells Counted 100
[2018-08-08 14:09] LABS: Anisocytosis 2+; Dohle Bodies 1+
[2018-08-08 14:10] LABS: Polychromasia 1+
[2018-08-08 14:21] VITALS: BP 107/56; PULSE 76; RESP 18; TEMP 36.6
[2018-08-08] MEDS: FILGRASTIM-SNDZ 300 MCG/0.5 ML SYRINGE SUBCUT (14:28)
[2018-08-09 13:10] VITALS: BP 108/61; PULSE 84; RESP 16; TEMP 36.5
[2018-08-09] MEDS: FILGRASTIM-SNDZ 300 MCG/0.5 ML SYRINGE SUBCUT (13:12)
[2018-08-09 13:20] VITALS: O2SAT 96
[2018-08-10] MEDS: FILGRASTIM-SNDZ 300 MCG/0.5 ML SYRINGE SUBCUT (13:05)
[2018-08-11 13:30] LABS: Hematocrit 26.9 % (41-53); Hemoglobin 9.2 g/dL (13.5-17.5); Mean Corpuscular HGB Conc 34.2 % (30-36); Mean Corpuscular Hemoglobin 28.1 PG (26-34); Mean Corpuscular Volume 82.3 fL (80-100); Platelet Count 268 X10^3/uL (150-400); Red Blood Cell Count 3.26 X10^6/uL (4.5-5.9); Red Cell Distribution Width 18.7 % (11.6-14.8); White Blood Cell Count 20.8 X10^3/uL (4.5-11.0)
[2018-08-11 13:32] LABS: Add Manual Diff / Slide Review YES
[2018-08-11 14:08] LABS: Anisocytosis 2+; Neutrophils Absolute Manual 15184 /uL (3000-5900); Nucleated Red Blood Cells 1 #/Diff; Total Cells Counted 100
[2018-08-11 14:09] LABS: Polychromasia 1+
[2018-08-14 09:14] LABS: Hematocrit 26.6 % (41-53); Hemoglobin 9.1 g/dL (13.5-17.5); Mean Corpuscular HGB Conc 34.3 % (30-36); Mean Corpuscular Hemoglobin 28.2 PG (26-34); Platelet Count 144 X10^3/uL (150-400); Red Blood Cell Count 3.24 X10^6/uL (4.5-5.9); Red Cell Distribution Width 18.7 % (11.6-14.8); White Blood Cell Count 17.4 X10^3/uL (4.5-11.0)
[2018-08-14 09:15] LABS: Add Manual Diff / Slide Review YES
--- NOTE | 2018-08-14 09:16 | ONC.PN ---
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 He presents today for consideration of cycle 4 D1 of CHOEP. He said he is a little bit of depression, he has been staying in house for the past 4 days. He denies suicide ideation. Nila will be talking with him tomorrow. He said that his energy level is normal today. He was low yesterday. He continues with acyclovir 800 mg a.m. and p.m.. No new pain. He is having some issue with sleep. His appetite is great until last 4 days. His birthday is this Sat. He is going to dine out with his sister. No SOb. No Cp. He has slight cough. Has cough for always a week. No abd pain. No bloating. No diarrhea and no constipation. History of present illness Mr. Irvin Diaz is a 62-year-old gentleman whom I saw at [facility]. He is transfer his care to [facility]. He has a remote history of left testicular cancer diagnosed in 2004 status post radical left orchiectomy followed by chemotherapy for 3 cycles without radiation treatment. Patient presented with about 5-6 months of history of weight loss, fatigue, malaise, abdominal distention, and adenopathy. CT CAP on 05/30/2018 showed extensive lymphadenopathy in the neck, retroperitoneum, along the celiac axis, near the GE junction, head of pancreas and prominent bilateral inguinal lymph nodes as well as markedly enlarged spleen. Patient was hospitalized at [facility] on May 31, 2018. Patient underwent TTE on 05/31/2018 that showedLVEF of 60-65%. Due to findings of ascites, patient underwent paracentesis and the cytology showed atypical lymphocytes suspicious for lymphoma. He underwent excisional biopsy of the right groin lymph node on June 03, 2018. And the final pathology showed T-lymphoproliferative disorder, favoring angioimmunoblastic T-cell lymphoma. And on June 10, 2018 patient was transferred to [facility] for further evaluation and treatment. At [facility], on June 11, 2018 the patient underwent bone marrow aspiration biopsy. The final pathology showed morphologically abnormal bone marrow with multi-focal, ill-defined mixed (lymphohistiocytic and eosinophilic) infiltrate suggestive of marrow involvement by T-cell lymphoma, hypercellular marrow with trilineage hematopoiesis and anemia with borderline microcytic anemia and absolute lymphopenia. At [facility], the patient was started on chemotheray CHOEP (C1D1 = Jun 12, 2018) Doxorubicin 50 mg/m2 (95 mg) IVP once. IV push over 10-15 minutes day 1, for 1 dose Vincristine 1.4 mg/m2(max = 2 mg) IV once. Infuse over 10 min. Day 1, for 1 dose Cyclophosphamide 750 mg/m2 (1400 mg) IV once. Infused over 1 hr. Day 1, dfor 1 dose Etoposide 100 mg/m2 (190 mg) IVPB Q24H. Days 1 to 2, for 2 doses Prednisone 100 mg p.o. Q24H. Days 1 to 5, for 5 doses Cycle every 21 days. - Patient Self-Reported Symptoms SR ears, nose, mouth, throat issues: Cough (minor cough, dry with some upper chest congestion) SR Musculoskeletal issues: Back or neck pain (on oxycodone and helpful.) SR Neuro issues: Headache (migraine.) - Additional ROS All systems PM: reviewed and no additional remarkable complaints except as stated Home Medications and Allergies Home Medications Medication Instructions Recorded Confirmed Type esomeprazole magnesium [Nexium] 40 mg PO DAILY #0 12/31/16 08/14/18 History cdsqkflxvsc-I6-Ewjekeahg serr 2 tab PO QAM 05/22/18 08/14/18 History [Glucosamine Daily Complex] lgpfjwq-drbzexrtgpreu-oqgsrhln 1 tab PO Q4-6H PRN 06/24/18 08/14/18 History [Excedrin Extra Strength] filgrastim-sndz [Zarxio] 5 mcg/kg SUBCUT Q24H 06/24/18 08/14/18 History fish,bora,flax oils-om3,6,9no1 1 cap PO DAILY 07/04/18 08/14/18 History [[place] 3-6-9 Complex] nadolol 80 mg PO DAILY 07/04/18 08/14/18 History ondansetron 4 mg PO TID PRN 07/04/18 08/14/18 History oxycodone-acetaminophen 1 tab PO Q4-6H PRN #60 tab 07/24/18 08/14/18 Rx acyclovir 800 mg PO Q12H #60 tab 08/14/18 Rx zolpidem [Ambien] 10 mg PO BEDTIME PRN #30 tab 08/14/18 Rx Allergies Allergy/AdvReac Type Severity Reaction Status Date / Time Sulfa (Sulfonamide Allergy Intermediate Hives Verified 06/24/18 08:50 Antibiotics) iodine Allergy Verified 05/27/18 14:53 Exam Vital signs: Last Vital Signs Temp 98.6 F 08/14/18 09:29 Pulse 89 08/14/18 09:29 Resp 18 08/14/18 09:29 BP 125/51 L 08/14/18 09:29 Pulse Ox 97 08/14/18 09:29 ECOG 1 - Constitutional positive no acute distress, positive thin, positive cooperative - Routine HEENT Exam Head: Present: normocephalic, atraumatic Eye: Present: EOMI, PERRL, normal accommodation. Absent: conjunctival icterus ENT: Present: mucous membranes moist - Routine Neck Exam Present: supple, full ROM. Absent: lymphadenopathy, thyromegaly, swelling - Routine Chest/Breast/Axilla Exam Axillae: Present: lymphadenopathy (Right side > left side. 1-2 cm in size, in groups.) - Routine Respiratory Exam Present: Clear to auscultation bilaterally. Absent: wheezes - Routine Cardiovascular Exam Present: RRR, S1, S2. Absent: murmur, gallop, rubs, S3 - Routine Abdominal Exam Present: soft, normoactive bowel sounds. Absent: tenderness, distended Palpation/Percussion: Present: splenomegaly (4-5 cm below MCL). Absent: hepatomegaly - Routine Extremities Exam Absent: cyanosis, edema - Routine Neurological Exam Present: alert, oriented X3, CN II-XII intact, normal reflexes. Absent: sensory deficit, motor deficit - Routine Psychiatric Exam Present: normal affect, normal thought process, cooperative, good insight, good judgment. Absent: suicidal ideation Results - Labs Laboratory Last Values WBC 17.4 X10^3/uL (4.5-11.0) H 08/14/18 09:00 RBC 3.24 X10^6/uL (4.5-5.9) L 08/14/18 09:00 Hgb 9.1 g/dL (13.5-17.5) L 08/14/18 09:00 Hct 26.6 % (41-53) L 08/14/18 09:00 MCV 82.0 fL (80-100) 08/14/18 09:00 MCH 28.2 PG (26-34) 08/14/18 09:00 MCHC 34.3 % (30-36) 08/14/18 09:00 RDW 18.7 % (11.6-14.8) H 08/14/18 09:00 Plt Count 144 X10^3/uL (150-400) L 08/14/18 09:00 Neut % (Auto) Not Reportable 08/14/18 09:00 Lymph % (Auto) Not Reportable 08/14/18 09:00 [place] % (Auto) Not Reportable 08/14/18 09:00 Eos % (Auto) Not Reportable 08/14/18 09:00 Baso % (Auto) Not Reportable 08/14/18 09:00 Neut # (Auto) 5100 /uL ([id number]) 07/30/18 10:55 Total Counted 100 08/11/18 13:18 Seg Neutrophils % 71.0 % (38-70) H 08/11/18 13:18 Band Neutrophils % 2.0 % (3-7) L 08/11/18 13:18 Lymphocytes % (Manual) 3.0 % (25-45) L 08/11/18 13:18 Atypical Lymphs % 1.0 % (-0) H 08/11/18 13:18 Monocytes % (Manual) 13.0 % (2-11) H 08/11/18 13:18 Eosinophils % (Manual) 2.0 % (2-4) 08/07/18 11:00 Basophils % (Manual) 3.0 % (0-1) H 08/08/18 13:05 Metamyelocytes % 7.0 % (-0) H 08/11/18 13:18 Myelocytes % 1.0 % (-0) H 08/11/18 13:18 Promyelocytes % 2.0 % (-0) H 08/11/18 13:18 Neutrophils # (Manual) 28557 /uL (3083-2948) H 08/11/18 13:18 Nucleated RBCs 1 #/Diff (-0) H 08/11/18 13:18 Dohle Bodies 1+ H 08/08/18 13:05 RBC Morphology See below 08/11/18 13:18 Polychromasia 1+ H 08/11/18 13:18 Hypochromasia 2+ H 06/23/18 15:32 Poikilocytosis 1+ H 07/23/18 13:39 Anisocytosis 2+ H 08/11/18 13:18 Microcytosis 2+ H 06/23/18 15:32 Sodium 136 mmol/L (137-145) L 08/14/18 09:00 Potassium 4.1 mmol/L (3.4-5.1) 08/14/18 09:00 Chloride 98 mmol/L (98-107) 08/14/18 09:00 Carbon Dioxide 25 mmol/L (22-32) 08/14/18 09:00 BUN 13 mg/dL (9-20) 08/14/18 09:00 Creatinine 0.70 mg/dL (0.66-1.25) 08/14/18 09:00 Estimated GFR > 60.0 mL/min (>60) 08/14/18 09:00 BUN/Creatinine Ratio 18.6 (6-22) 08/14/18 09:00 Glucose 179 mg/dL (80-110) H 08/14/18 09:00 Calcium 9.5 mg/dL (8.4-10.2) 08/14/18 09:00 Total Bilirubin 0.4 mg/dL (0.2-1.3) 08/14/18 09:00 AST 26 IU/L (17-59) 08/14/18 09:00 ALT 24 IU/L (21-72) 08/14/18 09:00 Alkaline Phosphatase 175 U/L (38-126) H D 08/14/18 09:00 Total Protein 7.1 g/dL (6.3-8.2) 08/14/18 09:00 Albumin 4.0 g/dL (3.5-5.0) 08/14/18 09:00 Globulin 3.1 g/dL (1.7-4.1) 08/14/18 09:00 Albumin/Globulin Ratio 1.3 (1.0-2.8) 08/14/18 09:00 Blood Type A Positive 07/02/18 10:17 Antibody Screen Negative 07/02/18 10:17 Crossmatch See Detail 07/02/18 10:17 Assessment and Plan (1) T-cell lymphoma Problem details: Presented with weight loss, fatigue, malaise, and abdominal distention. CT CAP 05/30/2018: extensive lymphadenopathy in the neck, retroperitoneum, celiac axis, GE junction, head of pancreas, bilateral inguinal lymph nodes as well as markedly enlarged spleen. Excisional biopsy of the right groin lymph node on 06/03/2018: T-lymphoproliferative disorder, favoring angioimmunoblastic T-cell lymphoma. BMA/Bx 06/11/2018: involvement by T-cell lymphoma. Assessment: At [facility], the patient was started on chemotheray CHOEP (C1D1 = Jun 12, 2018) Doxorubicin 50 mg/m2 (95 mg) IVP once. IV push over 10-15 minutes day 1, for 1 dose Vincristine 1.4 mg/m2(max = 2 mg) IV once. Infuse over 10 min. Day 1, for 1 dose Cyclophosphamide 750 mg/m2 (1400 mg) IV once. Infused over 1 hr. Day 1, dfor 1 dose Etoposide 100 mg/m2 (190 mg) IVPB Q24H. Days 1 to 2, for 2 doses Prednisone 100 mg p.o. Q24H. Days 1 to 5, for 5 doses Cycle every 21 days. Clinically patient apparently has made significant improvement as far as fatigue, and abdominal distention are concerned. I talked with the patient that I will continue current treatment. Plan: 1. Ok to proceed to cycle 4 CHOEP 2. Weekly CBC 3. Continue Acyclovir 800 mg q12h prophylactically. (2) Anemia Assessment and Plan: The transfusion threshold is 8/24. Today, his H/H were 9.1/26.6. No blood transfusion needed. We will continue to monitor weekly (3) Thrombocytopenia Assessment and Plan: Transfusion threshold 20K or bleeding. His platelet was 144. No bleeding. No platelet transfusion needed. Monitor weekly. (4) Pain, low back His back pain is most likely related to his underlying T-cell lymphoma. It is 9/10 in severity. Continue oxycodone 5/325, 1# p.o. every 4-6 hours on an as needed basis. (5) History of malignant neoplasm of testis Patient underwent radical left orchiectomy followed by 3 cycles of chemotherapy likely in 2003. No clinical evidence or biochemical evidence of disease recurrence or metastasis. I will continue active surveillance. (6) Depression Assessment and plan: Patient is complaining a little bit depressed. He said his stayed in home for 4 days. And he denies any suicidal ideation. He has already gotten touch with Nila our social security assessor, who will be talking with him either today or tomorrow.
[2018-08-14 09:29] VITALS: BP 125/51; PULSE 89; RESP 18; TEMP 37; O2SAT 97
[2018-08-14 09:29] LABS: Alanine Aminotransferase 24 IU/L (21-72); Albumin Globulin Ratio 1.3 (1.0-2.8); Alkaline Phosphatase 175 U/L (38-126); Aspartate Aminotransferase 26 IU/L (17-59); BUN Creatinine Ratio 18.6 (6-22); Bilirubin Total 0.4 mg/dL (0.2-1.3); Blood Urea Nitrogen 13 mg/dL (9-20); Calcium 9.5 mg/dL (8.4-10.2); Carbon Dioxide 25 mmol/L (22-32); Chloride 98 mmol/L (98-107); Estimated Glomerular Filt Rate > 60.0 mL/min (>60); Globulin 3.1 g/dL (1.7-4.1); Glucose 179 mg/dL (80-110); HEMOLYSIS < 15 (0-50); Potassium 4.1 mmol/L (3.4-5.1); Sodium 136 mmol/L (137-145); Total Protein 7.1 g/dL (6.3-8.2)
--- NOTE | 2018-08-14 09:29 | P.PNONC_ITS ---
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 He presents today for consideration of cycle 4 D1 of CHOEP. He said he is a little bit of depression, he has been staying in house for the past 4 days. He denies suicide ideation. Nila will be talking with him tomorrow. He said that his energy level is normal today. He was low yesterday. He continues with acyclovir 800 mg a.m. and p.m.. No new pain. He is having some issue with sleep. His appetite is great until last 4 days. His birthday is this Sat. He is going to dine out with his sister. No SOb. No Cp. He has slight cough. Has cough for always a week. No abd pain. No bloating. No diarrhea and no constipation. History of present illness Mr. Irvin Diaz is a 62-year-old gentleman whom I saw at [facility]. He is transfer his care to [facility]. He has a remote history of left testicular cancer diagnosed in 2004 status post radical left orchiectomy followed by chemotherapy for 3 cycles without radiation treatment. Patient presented with about 5-6 months of history of weight loss, fatigue, malaise, abdominal distention, and adenopathy. CT CAP on 05/30/2018 showed extensive lymphadenopathy in the neck, retroperitoneum, along the celiac axis, near the GE junction, head of pancreas and prominent bilateral inguinal lymph nodes as well as markedly enlarged spleen. Patient was hospitalized at [facility] on May 31, 2018. Patient underwent TTE on 05/31/2018 that showedLVEF of 60-65%. Due to findings of ascites, patient underwent paracentesis and the cytology showed atypical lymphocytes suspicious for lymphoma. He underwent excisional biopsy of the right groin lymph node on June 03, 2018. And the final pathology showed T- lymphoproliferative disorder, favoring angioimmunoblastic T-cell lymphoma. And on June 10, 2018 patient was transferred to [facility] for further evaluation and treatment. At [facility], on June 11, 2018 the patient underwent bone marrow aspiration biopsy. The final pathology showed morphologically abnormal bone marrow with multi-focal, ill-defined mixed (lymphohistiocytic and eosinophilic) infiltrate suggestive of marrow involvement by T-cell lymphoma, hypercellular marrow with trilineage hematopoiesis and anemia with borderline microcytic anemia and absolute lymphopenia. At [facility], the patient was started on chemotheray CHOEP (C1D1 = Jun 12, 2018) Doxorubicin 50 mg/m2 (95 mg) IVP once. IV push over 10-15 minutes day 1, for 1 dose Vincristine 1.4 mg/m2(max = 2 mg) IV once. Infuse over 10 min. Day 1, for 1 dose Cyclophosphamide 750 mg/m2 (1400 mg) IV once. Infused over 1 hr. Day 1, dfor 1 dose Etoposide 100 mg/m2 (190 mg) IVPB Q24H. Days 1 to 2, for 2 doses Prednisone 100 mg p.o. Q24H. Days 1 to 5, for 5 doses Cycle every 21 days. - Patient Self-Reported Symptoms SR ears, nose, mouth, throat issues: Cough (minor cough, dry with some upper chest congestion) SR Musculoskeletal issues: Back or neck pain (on oxycodone and helpful.) SR Neuro issues: Headache (migraine.) - Additional ROS All systems PM: reviewed and no additional remarkable complaints except as stated Home Medications and Allergies Home Medications Medication Instructions Recorded Confirmed Type esomeprazole magnesium [Nexium] 40 mg PO DAILY #0 12/31/16 08/14/18 History lzcsicpgpea-J5-Fpcstnysw serr 2 tab PO QAM 05/22/18 08/14/18 History [Glucosamine Daily Complex] leqinxd-osrrvolbqbyac-yczxnwok 1 tab PO Q4-6H PRN 06/24/18 08/14/18 History [Excedrin Extra Strength] filgrastim-sndz [Zarxio] 5 mcg/kg SUBCUT Q24H 06/24/18 08/14/18 History fish,bora,flax oils-om3,6,9no1 1 cap PO DAILY 07/04/18 08/14/18 History [[place] 3-6-9 Complex] nadolol 80 mg PO DAILY 07/04/18 08/14/18 History ondansetron 4 mg PO TID PRN 07/04/18 08/14/18 History oxycodone-acetaminophen 1 tab PO Q4-6H PRN #60 tab 07/24/18 08/14/18 Rx acyclovir 800 mg PO Q12H #60 tab 08/14/18 Rx zolpidem [Ambien] 10 mg PO BEDTIME PRN #30 tab 08/14/18 Rx Allergies Allergy/AdvReac Type Severity Reaction Status Date / Time Sulfa (Sulfonamide Allergy Intermediate Hives Verified 06/24/18 08:50 Antibiotics) iodine Allergy Verified 05/27/18 14:53 Exam Vital signs: Last Vital Signs Temp 98.6 F 08/14/18 09:29 Pulse 89 08/14/18 09:29 Resp 18 08/14/18 09:29 BP 125/51 L 08/14/18 09:29 Pulse Ox 97 08/14/18 09:29 ECOG 1 - Constitutional positive no acute distress, positive thin, positive cooperative - Routine HEENT Exam Head: Present: normocephalic, atraumatic Eye: Present: EOMI, PERRL, normal accommodation. Absent: conjunctival icterus ENT: Present: mucous membranes moist - Routine Neck Exam Present: supple, full ROM. Absent: lymphadenopathy, thyromegaly, swelling - Routine Chest/Breast/Axilla Exam Axillae: Present: lymphadenopathy (Right side > left side. 1-2 cm in size, in groups.) - Routine Respiratory Exam Present: Clear to auscultation bilaterally. Absent: wheezes - Routine Cardiovascular Exam Present: RRR, S1, S2. Absent: murmur, gallop, rubs, S3 - Routine Abdominal Exam Present: soft, normoactive bowel sounds. Absent: tenderness, distended Palpation/Percussion: Present: splenomegaly (4-5 cm below MCL). Absent: hepatomegaly - Routine Extremities Exam Absent: cyanosis, edema - Routine Neurological Exam Present: alert, oriented X3, CN II-XII intact, normal reflexes. Absent: sensory deficit, motor deficit - Routine Psychiatric Exam Present: normal affect, normal thought process, cooperative, good insight, good judgment. Absent: suicidal ideation Results - Labs Laboratory Last Values WBC 17.4 X10^3/uL (4.5-11.0) H 08/14/18 09:00 RBC 3.24 X10^6/uL (4.5-5.9) L 08/14/18 09:00 Hgb 9.1 g/dL (13.5-17.5) L 08/14/18 09:00 Hct 26.6 % (41-53) L 08/14/18 09:00 MCV 82.0 fL (80-100) 08/14/18 09:00 MCH 28.2 PG (26-34) 08/14/18 09:00 MCHC 34.3 % (30-36) 08/14/18 09:00 RDW 18.7 % (11.6-14.8) H 08/14/18 09:00 Plt Count 144 X10^3/uL (150-400) L 08/14/18 09:00 Neut % (Auto) Not Reportable 08/14/18 09:00 Lymph % (Auto) Not Reportable 08/14/18 09:00 [place] % (Auto) Not Reportable 08/14/18 09:00 Eos % (Auto) Not Reportable 08/14/18 09:00 Baso % (Auto) Not Reportable 08/14/18 09:00 Neut # (Auto) 5100 /uL (6645-5485) 07/30/18 10:55 Total Counted 100 08/11/18 13:18 Seg Neutrophils % 71.0 % (38-70) H 08/11/18 13:18 Band Neutrophils % 2.0 % (3-7) L 08/11/18 13:18 Lymphocytes % (Manual) 3.0 % (25-45) L 08/11/18 13:18 Atypical Lymphs % 1.0 % (-0) H 08/11/18 13:18 Monocytes % (Manual) 13.0 % (2-11) H 08/11/18 13:18 Eosinophils % (Manual) 2.0 % (2-4) 08/07/18 11:00 Basophils % (Manual) 3.0 % (0-1) H 08/08/18 13:05 Metamyelocytes % 7.0 % (-0) H 08/11/18 13:18 Myelocytes % 1.0 % (-0) H 08/11/18 13:18 Promyelocytes % 2.0 % (-0) H 08/11/18 13:18 Neutrophils # (Manual) 26007 /uL ([id number]) H 08/11/18 13:18 Nucleated RBCs 1 #/Diff (-0) H 08/11/18 13:18 Dohle Bodies 1+ H 08/08/18 13:05 RBC Morphology See below 08/11/18 13:18 Polychromasia 1+ H 08/11/18 13:18 Hypochromasia 2+ H 06/23/18 15:32 Poikilocytosis 1+ H 07/23/18 13:39 Anisocytosis 2+ H 08/11/18 13:18 Microcytosis 2+ H 06/23/18 15:32 Sodium 136 mmol/L (137-145) L 08/14/18 09:00 Potassium 4.1 mmol/L (3.4-5.1) 08/14/18 09:00 Chloride 98 mmol/L (98-107) 08/14/18 09:00 Carbon Dioxide 25 mmol/L (22-32) 08/14/18 09:00 BUN 13 mg/dL (9-20) 08/14/18 09:00 Creatinine 0.70 mg/dL (0.66-1.25) 08/14/18 09:00 Estimated GFR > 60.0 mL/min (>60) 08/14/18 09:00 BUN/Creatinine Ratio 18.6 (6-22) 08/14/18 09:00 Glucose 179 mg/dL (80-110) H 08/14/18 09:00 Calcium 9.5 mg/dL (8.4-10.2) 08/14/18 09:00 Total Bilirubin 0.4 mg/dL (0.2-1.3) 08/14/18 09:00 AST 26 IU/L (17-59) 08/14/18 09:00 ALT 24 IU/L (21-72) 08/14/18 09:00 Alkaline Phosphatase 175 U/L (38-126) H D 08/14/18 09:00 Total Protein 7.1 g/dL (6.3-8.2) 08/14/18 09:00 Albumin 4.0 g/dL (3.5-5.0) 08/14/18 09:00 Globulin 3.1 g/dL (1.7-4.1) 08/14/18 09:00 Albumin/Globulin Ratio 1.3 (1.0-2.8) 08/14/18 09:00 Blood Type A Positive 07/02/18 10:17 Antibody Screen Negative 07/02/18 10:17 Crossmatch See Detail 07/02/18 10:17 Assessment and Plan (1) T-cell lymphoma Problem details: Presented with weight loss, fatigue, malaise, and abdominal distention. CT CAP 05/30/2018: extensive lymphadenopathy in the neck, retroperitoneum, celiac axis, GE junction, head of pancreas, bilateral inguinal lymph nodes as well as markedly enlarged spleen. Excisional biopsy of the right groin lymph node on 06/03/2018: T-lymphoproliferative disorder, favoring angioimmunoblastic T-cell lymphoma. BMA/Bx 06/11/2018: involvement by T-cell lymphoma. Assessment: At [facility], the patient was started on chemotheray CHOEP (C1D1 = Jun) Doxorubicin 50 mg/m2 (95 mg) IVP once. IV push over 10-15 minutes day 1, for 1 dose Vincristine 1.4 mg/m2(max = 2 mg) IV once. Infuse over 10 min. Day 1, for 1 dose Cyclophosphamide 750 mg/m2 (1400 mg) IV once. Infused over 1 hr. Day 1, dfor 1 dose Etoposide 100 mg/m2 (190 mg) IVPB Q24H. Days 1 to 2, for 2 doses Prednisone 100 mg p.o. Q24H. Days 1 to 5, for 5 doses Cycle every 21 days. Clinically patient apparently has made significant improvement as far as fatigue , and abdominal distention are concerned. I talked with the patient that I will continue current treatment. Plan: 1. Ok to proceed to cycle 4 CHOEP 2. Weekly CBC 3. Continue Acyclovir 800 mg q12h prophylactically. (2) Anemia Assessment and Plan: The transfusion threshold is 8/24. Today, his H/H were 9.1/ 26.6. No blood transfusion needed. We will continue to monitor weekly (3) Thrombocytopenia Assessment and Plan: Transfusion threshold 20K or bleeding. His platelet was 144. No bleeding. No platelet transfusion needed. Monitor weekly. (4) Pain, low back His back pain is most likely related to his underlying T-cell lymphoma. It is 9 /10 in severity. Continue oxycodone 5/325, 1# p.o. every 4-6 hours on an as needed basis. (5) History of malignant neoplasm of testis Patient underwent radical left orchiectomy followed by 3 cycles of chemotherapy likely in 2003. No clinical evidence or biochemical evidence of disease recurrence or metastasis. I will continue active surveillance. (6) Depression Assessment and plan: Patient is complaining a little bit depressed. He said his stayed in home for 4 days. And he denies any suicidal ideation. He has already gotten touch with Nila our social insurance adviser, who will be talking with him either today or tomorrow.
[2018-08-14 09:50] LABS: Anisocytosis 2+; Neutrophils Absolute Manual 12876 /uL (3000-5900); Poikilocytosis 1+; Polychromasia 1+; Total Cells Counted 100
--- NOTE | 2018-08-14 10:16 | PC.NURSE ---
It was discovered that this pt had never received his Rx for Prednisone 100mg. He was given his day 1 dose in clinic prior to treatment and an Rx was called to [facility] in [place] for the remainder. Rx as follows: Prednisone 100mg PO on days 1 to 5 for 5 doses every 21 days #[address] Zhang this is to be called in on the first day of each cycle. This should give him 1 extra to take on the first day of each cycle.
[2018-08-14] MEDS: DEXAMETHASONE 12 MG in SODIUM CHLORIDE 0.9% 50 ML 212 ML IV (10:38)
[2018-08-14] MEDS: predniSONE 20 MG TABLET 100 MG PO (10:38)
[2018-08-14] MEDS: LORazepam 0.5 MG TABLET PO (10:38)
[2018-08-14] MEDS: ONDANSETRON 16 MG in SODIUM CHLORIDE 0.9% 50 ML 232 ML IV (11:00)
[2018-08-14] MEDS: FOSAPREPITANT 150 MG in SODIUM CHLORIDE 0.9% 150 ML 300 ML IV (11:25)
[2018-08-14] MEDS: diphenhydrAMINE 50 MG/ML VIAL IV (12:02)
[2018-08-14] MEDS: [UNRECOGNIZED DRUG - OTHER] IV (12:19)
[2018-08-14] MEDS: CYCLOPHOSPHAMIDE IV (12:19)
[2018-08-14] MEDS: SODIUM CHLORIDE 0.9% IV ×2 (13:08→15:13)
[2018-08-14] MEDS: DOXORUBICIN HCL IV (13:08)
[2018-08-14] MEDS: NORMAL SALINE IV (13:56)
[2018-08-14] MEDS: ETOPOSIDE IV (13:56)
[2018-08-14] MEDS: VINCRISTINE IV (15:13)
[2018-08-15 13:00] VITALS: BP 125/67; PULSE 84; RESP 18; TEMP 36.6
[2018-08-15] MEDS: SODIUM CHLORIDE 0.9% 100 ML 21 ML IV (13:13)
[2018-08-15] MEDS: ONDANSETRON 8 MG in SODIUM CHLORIDE 0.9% 50 ML 216 ML IV (13:13)
[2018-08-15] MEDS: DEXAMETHASONE 10 MG/ML VIAL 8 MG IV (13:13)
[2018-08-15] MEDS: NORMAL SALINE IV (14:15)
[2018-08-15] MEDS: ETOPOSIDE IV (14:15)
--- NOTE | 2018-08-20 09:42 | PC.NURSE ---
Prescription called in for Prednisone 100 mg q day on days 1-5 q 21 days with 5 refills to [facility] in [place].
[2018-08-20 13:14] LABS: Add Manual Diff / Slide Review NO; Eosinophils Percent Auto 0.2 % (2-4); Hematocrit 24.5 % (41-53); Hemoglobin 8.7 g/dL (13.5-17.5); Lymphocytes Percent Auto 4.2 % (25-40); Mean Corpuscular HGB Conc 35.5 % (30-36); Mean Corpuscular Hemoglobin 28.5 PG (26-34); Mean Corpuscular Volume 80.4 fL (80-100); Monocytes Percent Auto 0.2 % (3-14); Neutrophils Absolute Auto 6100 /uL (3000-5900); Neutrophils Percent Auto 95.4 % (50-75); Platelet Count 78 X10^3/uL (150-400); Red Blood Cell Count 3.05 X10^6/uL (4.5-5.9); Red Cell Distribution Width 18.2 % (11.6-14.8); White Blood Cell Count 6.4 X10^3/uL (4.5-11.0)
--- NOTE | 2018-08-20 14:31 | PC.NURSE ---
todays labs shows a post tx plt count of 78 down from 144 on 08/14. Pt is on weekly CBC's and currently does not fit the requirement for transfusion. Next lab review is 08/27 with provider visit on 09/04.
[2018-08-27 14:31] LABS: Hemoglobin 7.1 g/dL (13.5-17.5); Mean Corpuscular HGB Conc 34.7 % (30-36); Mean Corpuscular Hemoglobin 27.7 PG (26-34); Mean Corpuscular Volume 79.9 fL (80-100); Platelet Count 241 X10^3/uL (150-400); Red Blood Cell Count 2.55 X10^6/uL (4.5-5.9); Red Cell Distribution Width 18.7 % (11.6-14.8)
[2018-08-27 14:32] LABS: Add Manual Diff / Slide Review YES
[2018-08-27 14:34] LABS: Hematocrit 20.4 % (41-53); White Blood Cell Count 1.3 X10^3/uL (4.5-11.0)
[2018-08-27 14:57] LABS: Neutrophils Absolute Manual 182 /uL (3000-5900); Total Cells Counted 50
[2018-08-27 15:00] LABS: Microcytosis 1+; Ovalocytes 1+; Poikilocytosis 2+; Tear Drop Cells 1+
[2018-08-27] MEDS: FILGRASTIM-SNDZ 300 MCG/0.5 ML SYRINGE SUBCUT (15:53)
[2018-08-27] MEDS: SODIUM CHLORIDE 0.9% 1,000 ML 1000 ML IV (15:57)
[2018-08-27 16:10] VITALS: BP 119/63; PULSE 78; RESP 18; TEMP 36.7; O2SAT 100
--- NOTE | 2018-08-27 17:21 | PC.NURSE ---
PATIENT RECEIVED FLUIDS TODAY INTAKE HAS BEEN SOMEWHAT REDUCED. HE STATES DUE TO SORES IN BACK OF THROAT. HCT ALSO FOUND TO BE LOW AND PATIENT WILL RECEIVE TRANSFUSION TOMORROW. NCI INFO RE TIPS FOR EATING WHEN DEALING WITH CANCER WAS GIVEN TO PATIENT AND ADVISED TO USE SALT AND OR BAKING SODA SOLUTION TO RINSE ORAL CAVITY.
[2018-08-28] VITALS (10 sets, daily range): BP systolic 101–132; BP diastolic 47–64; PULSE 77–86; RESP 15–18; TEMP 36.4–36.7; O2SAT 100
[2018-08-28] MEDS: FILGRASTIM-SNDZ 300 MCG/0.5 ML SYRINGE SUBCUT (11:49)
--- NOTE | 2018-08-28 15:47 | TAR.TRANSNT ---
Patient dropped blood pressure from 125/61 to 101/47 after 15 minutes at 75ml/hr of PRBC's. No other symptoms. Retake of BP with patient sitting instead of lying made no change. Rate increased to 125ml/hr and vitals taken again 15 minutes later with BP remaining at 104/54. Patient still experiencing no other symptoms. Rate increased to 200ml/hr.
[2018-08-28] MEDS: diphenhydrAMINE 25 MG TABLET PO (15:50)
[2018-08-28] MEDS: SODIUM CHLORIDE 0.9% 250 ML 21 ML IV (17:19)
--- NOTE | 2018-08-28 17:23 | TAR.TRANSNT ---
AFTER INITIAL BLOOD PRESSURE DROP PATIENT CONTINUED TO HAVE NO PROBLEMS DURING SECOND PACK OF PRBCS AND BP INCREASED TO 115/61 BY END OF INFUSION.
[2018-08-29] MEDS: FILGRASTIM-SNDZ 300 MCG/0.5 ML SYRINGE SUBCUT (10:16)
[2018-08-29 10:22] VITALS: BP 125/74; PULSE 80; RESP 16; TEMP 36.4; O2SAT 100
[2018-08-30] MEDS: FILGRASTIM-SNDZ 300 MCG/0.5 ML SYRINGE SUBCUT (12:39)
[2018-08-30 12:44] VITALS: BP 136/86; PULSE 82; RESP 18; TEMP 36.7; O2SAT 96
--- NOTE | 2018-08-30 12:45 | PC.NURSE ---
ambulatory, apologizes for being late, no s/sx's of distress.
[2018-08-31] MEDS: FILGRASTIM-SNDZ 300 MCG/0.5 ML SYRINGE SUBCUT (14:46)
[2018-08-31 15:12] VITALS: BP 122/75; PULSE 82; RESP 18; TEMP 36.9; O2SAT 97
--- NOTE | 2018-09-04 08:29 | P.PNONC_ITS ---
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 He presents today for consideration of cycle 5 D1 of CHOEP. He reports ongoing depression, he has been staying in house for the past 4 days. He denies suicide ideation. Nila KENNEDY has met with the patient. He said that his energy level is normal today. He was low yesterday. He continues with acyclovir 800 mg a.m. and p.m.. No new pain. Sleeping OK. His appetite is stable he has lost some weight his dentures are a bit loose he is eating mostly soft foods although ate a cheeseburger yesterday without difficulty. No SOb. No Cp. He has slight cough No abd pain. No bloating. No diarrhea and no constipation. No unexplained bleeding or bruising. He is hoping to travel to [place] to see his 90 year old father prior to his next chemotherapy. History of present illness Mr. Irvin Diaz is a 62-year-old gentleman whom I saw at [facility]. He is transfer his care to [facility]. He has a remote history of left testicular cancer diagnosed in 2004 status post radical left orchiectomy followed by chemotherapy for 3 cycles without radiation treatment. Patient presented with about 5-6 months of history of weight loss, fatigue, malaise, abdominal distention, and adenopathy. CT CAP on 05/30/2018 showed extensive lymphadenopathy in the neck, retroperitoneum, along the celiac axis, near the GE junction, head of pancreas and prominent bilateral inguinal lymph nodes as well as markedly enlarged spleen. Patient was hospitalized at [facility] on May 31, 2018. Patient underwent TTE on 05/31/2018 that showedLVEF of 60-65%. Due to findings of ascites, patient underwent paracentesis and the cytology showed atypical lymphocytes suspicious for lymphoma. He underwent excisional biopsy of the right groin lymph node on June 03, 2018. And the final pathology showed T- lymphoproliferative disorder, favoring angioimmunoblastic T-cell lymphoma. And on June 10, 2018 patient was transferred to [facility] for further evaluation and treatment. At [facility], on June 11, 2018 the patient underwent bone marrow aspiration biopsy. The final pathology showed morphologically abnormal bone marrow with multi-focal, ill-defined mixed (lymphohistiocytic and eosinophilic) infiltrate suggestive of marrow involvement by T-cell lymphoma, hypercellular marrow with trilineage hematopoiesis and anemia with borderline microcytic anemia and absolute lymphopenia. At [facility], the patient was started on chemotheray CHOEP (C1D1 = Jun 12, 2018) Doxorubicin 50 mg/m2 (95 mg) IVP once. IV push over 10-15 minutes day 1, for 1 dose Vincristine 1.4 mg/m2(max = 2 mg) IV once. Infuse over 10 min. Day 1, for 1 dose Cyclophosphamide 750 mg/m2 (1400 mg) IV once. Infused over 1 hr. Day 1, dfor 1 dose Etoposide 100 mg/m2 (190 mg) IVPB Q24H. Days 1 to 2, for 2 doses Prednisone 100 mg p.o. Q24H. Days 1 to 5, for 5 doses Cycle every 21 days. - Patient Self-Reported Symptoms SR Constitution: Weight loss/gain (gain 2 lbs since last visit, good appetite) SR ears, nose, mouth, throat issues: Cough (minor cough, dry with some upper chest congestion) SR Cardiovascular issues: Extreme swelling (improving.) SR Skin issues: Skin rash or itching (on the lower legs and are improving.) SR Musculoskeletal issues: Back or neck pain (on oxycodone and helpful.) SR Neuro issues: Headache (migraine.) Home Medications and Allergies Home Medications Medication Instructions Recorded Confirmed Type esomeprazole magnesium [Nexium] 40 mg PO DAILY #0 12/31/16 08/14/18 History izepdlwkxzs-P3-Hwpmckdia serr 2 tab PO QAM 05/22/18 08/14/18 History [Glucosamine Daily Complex] sxjctpt-tfjzsldltggpz-bbkocbro 1 tab PO Q4-6H PRN 06/24/18 08/14/18 History [Excedrin Extra Strength] filgrastim-sndz [Zarxio] 5 mcg/kg SUBCUT Q24H 06/24/18 08/14/18 History fish,bora,flax oils-om3,6,9no1 1 cap PO DAILY 07/04/18 08/14/18 History [Renovo 3-6-9 Complex] nadolol 80 mg PO DAILY 07/04/18 08/14/18 History ondansetron 4 mg PO TID PRN 07/04/18 08/14/18 History acyclovir 800 mg PO Q12H #60 tab 08/14/18 Rx zolpidem [Ambien] 10 mg PO BEDTIME PRN #30 tab 08/14/18 Rx oxycodone-acetaminophen 1 tab PO Q4-6H PRN #60 tab 09/04/18 Rx sertraline 25 mg PO DAILY #14 tab 09/04/18 Rx sertraline 50 mg PO DAILY #60 tab 09/04/18 Rx Allergies Allergy/AdvReac Type Severity Reaction Status Date / Time Sulfa (Sulfonamide Allergy Intermediate Hives Verified 06/24/18 08:50 Antibiotics) iodine Allergy Verified 05/27/18 14:53 Exam - Constitutional positive no acute distress, positive thin - Routine HEENT Exam Eye: Present: conjunctivae pink. Absent: conjunctival icterus, scleral injection ENT: Present: mucous membranes moist, oropharynx clear - Routine Neck Exam Present: supple. Absent: lymphadenopathy - Routine Respiratory Exam Present: Clear to auscultation bilaterally. Absent: rales, rhonchi, wheezes - Routine Cardiovascular Exam Present: RRR, S1, S2. Absent: murmur, gallop, rubs, JVD - Routine Abdominal Exam Present: soft, normoactive bowel sounds. Absent: tenderness, distended, organomegaly - Routine Extremities Exam Absent: edema, calf tenderness - Routine Skin Exam Present: intact, normal turgor. Absent: petechiae, rash - Routine Neurological Exam Present: alert, oriented X3 - Routine Psychiatric Exam Present: normal affect Results - Labs Laboratory Last Values WBC 1.3 X10^3/uL (4.5-11.0) L* 08/27/18 14:19 RBC 2.55 X10^6/uL (4.5-5.9) L 08/27/18 14:19 Hgb 7.1 g/dL (13.5-17.5) L 08/27/18 14:19 Hct 20.4 % (41-53) L* 08/27/18 14:19 MCV 79.9 fL (80-100) L 08/27/18 14:19 MCH 27.7 PG (26-34) 08/27/18 14:19 MCHC 34.7 % (30-36) 08/27/18 14:19 RDW 18.7 % (11.6-14.8) H 08/27/18 14:19 Plt Count 241 X10^3/uL (150-400) 08/27/18 14:19 Neut % (Auto) Not Reportable 08/27/18 14:19 Lymph % (Auto) Not Reportable 08/27/18 14:19 [place] % (Auto) Not Reportable 08/27/18 14:19 Eos % (Auto) Not Reportable 08/27/18 14:19 Baso % (Auto) Not Reportable 08/27/18 14:19 Neut # (Auto) 6100 /uL (2293-6220) H 08/20/18 13:06 Total Counted 50 08/27/18 14:19 Seg Neutrophils % 4.0 % (38-70) L 08/27/18 14:19 Band Neutrophils % 10.0 % (3-7) H 08/27/18 14:19 Lymphocytes % (Manual) 40.0 % (25-45) 08/27/18 14:19 Atypical Lymphs % 6.0 % (-0) H 08/14/18 09:00 Monocytes % (Manual) 46.0 % (2-11) H 08/27/18 14:19 Eosinophils % (Manual) 1.0 % (2-4) L 08/14/18 09:00 Basophils % (Manual) 3.0 % (0-1) H 08/08/18 13:05 Metamyelocytes % 3.0 % (-0) H 08/14/18 09:00 Myelocytes % 2.0 % (-0) H 08/14/18 09:00 Promyelocytes % 2.0 % (-0) H 08/11/18 13:18 Neutrophils # (Manual) 182 /uL (4649-2726) L 08/27/18 14:19 Nucleated RBCs 1 #/Diff (-0) H 08/11/18 13:18 Dohle Bodies 1+ H 08/08/18 13:05 RBC Morphology See below 08/27/18 14:19 Polychromasia 1+ H 08/14/18 09:00 Hypochromasia 2+ H 06/23/18 15:32 Poikilocytosis 2+ H 08/27/18 14:19 Anisocytosis 2+ H 08/14/18 09:00 Microcytosis 1+ H 08/27/18 14:19 Tear Drop Cells 1+ H 08/27/18 14:19 Ovalocytes 1+ H 08/27/18 14:19 Sodium 136 mmol/L (137-145) L 08/14/18 09:00 Potassium 4.1 mmol/L (3.4-5.1) 08/14/18 09:00 Chloride 98 mmol/L (98-107) 08/14/18 09:00 Carbon Dioxide 25 mmol/L (22-32) 08/14/18 09:00 BUN 13 mg/dL (9-20) 08/14/18 09:00 Creatinine 0.70 mg/dL (0.66-1.25) 08/14/18 09:00 Estimated GFR > 60.0 mL/min (>60) 08/14/18 09:00 BUN/Creatinine Ratio 18.6 (6-22) 08/14/18 09:00 Glucose 179 mg/dL (80-110) H 08/14/18 09:00 Calcium 9.5 mg/dL (8.4-10.2) 08/14/18 09:00 Total Bilirubin 0.4 mg/dL (0.2-1.3) 08/14/18 09:00 AST 26 IU/L (17-59) 08/14/18 09:00 ALT 24 IU/L (21-72) 08/14/18 09:00 Alkaline Phosphatase 175 U/L (38-126) H D 08/14/18 09:00 Total Protein 7.1 g/dL (6.3-8.2) 08/14/18 09:00 Albumin 4.0 g/dL (3.5-5.0) 08/14/18 09:00 Globulin 3.1 g/dL (1.7-4.1) 08/14/18 09:00 Albumin/Globulin Ratio 1.3 (1.0-2.8) 08/14/18 09:00 Blood Type A Positive 08/28/18 11:20 Antibody Screen Negative 08/28/18 11:20 Crossmatch See Detail 08/28/18 11:20 Assessment and Plan (1) T-cell lymphoma Problem details: Presented with weight loss, fatigue, malaise, and abdominal distention. CT CAP 05/30/2018: extensive lymphadenopathy in the neck, retroperitoneum, celiac axis, GE junction, head of pancreas, bilateral inguinal lymph nodes as well as markedly enlarged spleen. Excisional biopsy of the right groin lymph node on 06/03/2018: T-lymphoproliferative disorder, favoring angioimmunoblastic T-cell lymphoma. BMA/Bx 06/11/2018: involvement by T-cell lymphoma. Assessment: At [facility], the patient was started on chemotheray CHOEP (C1D1 = Jun) Doxorubicin 50 mg/m2 (95 mg) IVP once. IV push over 10-15 minutes day 1, for 1 dose Vincristine 1.4 mg/m2(max = 2 mg) IV once. Infuse over 10 min. Day 1, for 1 dose Cyclophosphamide 750 mg/m2 (1400 mg) IV once. Infused over 1 hr. Day 1, dfor 1 dose Etoposide 100 mg/m2 (190 mg) IVPB Q24H. Days 1 to 2, for 2 doses Prednisone 100 mg p.o. Q24H. Days 1 to 5, for 5 doses Cycle every 21 days. Clinically patient apparently has made significant improvement as far as fatigue , and abdominal distention are concerned. In regards to persistent depressed mood the patient has met with our MS Ascencion Waters. He reports spending 3 days in bed over the holidays. He admits to depressed mood. No suicidal ideations. He is agreeable to initiating a trial of antidepressant. Discussed options with the patient we will go ahead and try sertraline 25 mg times 14 days then increase to 50 mg. Will continue based upon patient response to the medication. Additionally, patient would like to go in visit his 90-year-old father in [place] prior to his next treatment. I discussed with the patient if he is feeling well enough however we would like to check blood work prior to his departure also a triage to insure he is well enough to fly. I discussed with the patient certainly if he is feeling poorly, fatigue, nausea, vomiting, diarrhea, unexplained bleeding or bruising he is not to travel. We will proceed with cycle 5 day 1 CHOEP today. It is noted platelets are low today at 73,000. Patient has no unexplained bleeding or bruising. I discussed this lab value with the patient after discussing we will proceed. Continue weekly CBC for further evaluation. Patient is to call the clinic for any unexplained bleeding or bruising. WBC and ANC are elevated, pt is taking prednisone. Plan: 1. Ok to proceed to cycle 5 CHOEP 2. Weekly CBC 3. Continue Acyclovir 800 mg q12h prophylactically. (2) Anemia Assessment and Plan: The transfusion threshold is 8/24. Today, his H/H were 9.6/ 28. No blood transfusion needed. We will continue to monitor weekly (3) Thrombocytopenia Assessment and Plan: Transfusion threshold 20K or bleeding. His platelet [place] [id number]. No bleeding. No platelet transfusion needed. Monitor weekly. (4) Pain, low back His back pain is most likely related to his underlying T-cell lymphoma. It is 9 /10 in severity. Continue oxycodone 5/325, 1# p.o. every 4-6 hours on an as needed basis. (5) History of malignant neoplasm of testis Patient underwent radical left orchiectomy followed by 3 cycles of chemotherapy likely in 2003. No clinical evidence or biochemical evidence of disease recurrence or metastasis. I will continue active surveillance. (6) Depression Assessment and plan: Initiate sertraline 25 mg times 14 days followed by sertraline 50 mg. Patient has met and will continue to meet with [employer] PROFESSOR Nila Waters. I have pribnted literature re: sertraline for the pt w anayalso discussed possible side effects as well as expected outcomes. - Time Spent with Patient 30 mins
[2018-09-04 09:06] LABS: Add Manual Diff / Slide Review YES; Hemoglobin 9.6 g/dL (13.5-17.5); Mean Corpuscular HGB Conc 34.2 % (30-36); Mean Corpuscular Hemoglobin 27.8 PG (26-34); Mean Corpuscular Volume 81.4 fL (80-100); Platelet Count 73 X10^3/uL (150-400); Red Blood Cell Count 3.44 X10^6/uL (4.5-5.9); Red Cell Distribution Width 19.4 % (11.6-14.8); White Blood Cell Count 20.5 X10^3/uL (4.5-11.0)
[2018-09-04 09:14] VITALS: BP 126/69; PULSE 80; RESP 18; TEMP 36.2; O2SAT 100
[2018-09-04 09:17] LABS: Alanine Aminotransferase 17 IU/L (21-72); Albumin 3.7 g/dL (3.5-5.0); Albumin Globulin Ratio 1.3 (1.0-2.8); Alkaline Phosphatase 184 U/L (38-126); Aspartate Aminotransferase 19 IU/L (17-59); BUN Creatinine Ratio 15.7 (6-22); Bilirubin Total 0.4 mg/dL (0.2-1.3); Blood Urea Nitrogen 11 mg/dL (9-20); Calcium 9.3 mg/dL (8.4-10.2); Carbon Dioxide 24 mmol/L (22-32); Chloride 97 mmol/L (98-107); Estimated Glomerular Filt Rate > 60.0 mL/min (>60); Globulin 2.9 g/dL (1.7-4.1); Glucose 135 mg/dL (80-110); HEMOLYSIS < 15 (0-50); Potassium 3.8 mmol/L (3.4-5.1); Sodium 135 mmol/L (137-145); Total Protein 6.6 g/dL (6.3-8.2)
[2018-09-04 09:31] LABS: Anisocytosis 2+; Hypochromasia 1+; Neutrophils Absolute Manual 15580 /uL (3000-5900); Total Cells Counted 100
[2018-09-04] MEDS: DEXAMETHASONE 12 MG in SODIUM CHLORIDE 0.9% 50 ML 212 ML IV (10:36)
[2018-09-04] MEDS: LORazepam 0.5 MG TABLET PO (10:40)
[2018-09-04] MEDS: SODIUM CHLORIDE 0.9% 100 ML 21 ML IV (10:41)
[2018-09-04] MEDS: ONDANSETRON 16 MG in SODIUM CHLORIDE 0.9% 50 ML 232 ML IV (11:02)
[2018-09-04] MEDS: FOSAPREPITANT 150 MG in SODIUM CHLORIDE 0.9% 150 ML 300 ML IV (11:22)
[2018-09-04] MEDS: [UNRECOGNIZED DRUG - OTHER] IV (12:29)
[2018-09-04] MEDS: CYCLOPHOSPHAMIDE IV (12:29)
[2018-09-04] MEDS: DOXORUBICIN HCL IV (13:15)
[2018-09-04] MEDS: SODIUM CHLORIDE 0.9% IV ×2 (13:15→15:22)
[2018-09-04] MEDS: ETOPOSIDE IV (14:07)
[2018-09-04] MEDS: NORMAL SALINE IV (14:07)
[2018-09-04] MEDS: VINCRISTINE IV (15:22)
[2018-09-05] MEDS: SODIUM CHLORIDE 0.9% 100 ML 21 ML IV (10:08)
[2018-09-05] MEDS: DEXAMETHASONE 10 MG/ML VIAL 8 MG IV (10:46)
[2018-09-05] MEDS: ONDANSETRON 8 MG in SODIUM CHLORIDE 0.9% 50 ML 216 ML IV (11:00)
[2018-09-05] MEDS: ETOPOSIDE IV (11:42)
[2018-09-05] MEDS: NORMAL SALINE IV (11:42)
[2018-09-05] MEDS: diphenhydrAMINE 50 MG/ML VIAL IV (12:06)
[2018-09-11 10:23] LABS: Add Manual Diff / Slide Review NO; Basophils Percent Auto 1.3 % (0-2); Eosinophils Percent Auto 0.5 % (2-4); Hematocrit 23.5 % (41-53); Hemoglobin 8.2 g/dL (13.5-17.5); Lymphocytes Percent Auto 16.2 % (25-40); Mean Corpuscular HGB Conc 34.8 % (30-36); Mean Corpuscular Hemoglobin 27.7 PG (26-34); Mean Corpuscular Volume 79.6 fL (80-100); Monocytes Percent Auto 0.5 % (3-14); Neutrophils Absolute Auto 1600 /uL (1500-7000); Neutrophils Percent Auto 81.5 % (50-75); Red Blood Cell Count 2.96 X10^6/uL (4.5-5.9); Red Cell Distribution Width 18.7 % (11.6-14.8)
[2018-09-11 10:30] LABS: Platelet Count 19 X10^3/uL (150-400)
[2018-09-11 10:42] LABS: Platelet Estimate Decreased on smear
[2018-09-11 10:43] LABS: Anisocytosis 3+; Ovalocytes 1+; Poikilocytosis 2+
--- NOTE | 2018-09-11 12:53 | PC.NURSE ---
Pts platelets were noted to be 19 on todays lab draw. After conferring with ROAD TESTER, as long as pt is not symptomatic he should return to the clinic on Friday 09/15 for CBC. This was discussed with pt who denies sx r/t low platelet count and will return Saturday for further evaluation
[2018-09-12 12:09] VITALS: BP 80/40; PULSE 85; RESP 17; TEMP 36.9; O2SAT 100
[2018-09-12] MEDS: SODIUM CHLORIDE 0.9% 1,000 ML 1000 ML IV (12:13)
[2018-09-12 13:19] VITALS: BP 97/49; PULSE 86; RESP 16
--- NOTE | 2018-09-12 14:27 | PC.NURSE ---
Pt seen in clinic today for IV fluids. denies chest pain and SOB. Hypotensive (see vitals). Denies light headedness and dizziness, c/o just feeling so tired. I have been sleeping a lot. Denies N/V. Reports good appetite. Reports feeling a little better post IV fluids. Educated pt to call clinic or seek emergency medical attention if symptoms progress or new symptoms of hypotension arise, (symptoms discussed in detail) pt verbalized understanding.
[2018-09-15] VITALS (7 sets, daily range): BP systolic 97–125; BP diastolic 51–69; PULSE 80–91; RESP 16–17; TEMP 36.4–36.8; O2SAT 100
[2018-09-15 10:55] LABS: Mean Corpuscular HGB Conc 35.6 % (30-36); Mean Corpuscular Hemoglobin 27.2 PG (26-34); Mean Corpuscular Volume 76.5 fL (80-100); Platelet Count 37 X10^3/uL (150-400); Red Blood Cell Count 2.31 X10^6/uL (4.5-5.9); Red Cell Distribution Width 18.7 % (11.6-14.8)
[2018-09-15 10:59] LABS: Add Manual Diff / Slide Review YES; Hematocrit 17.7 % (41-53); Hemoglobin 6.3 g/dL (13.5-17.5); White Blood Cell Count 0.6 X10^3/uL (4.5-11.0)
[2018-09-15 11:32] LABS: Neutrophils Absolute Manual 72 /uL (3000-5900); Total Cells Counted 50
[2018-09-15 11:33] LABS: Anisocytosis 3+; Tear Drop Cells 1+
[2018-09-15 11:34] LABS: Ovalocytes 1+
[2018-09-15 12:18] LABS: Blood Urea Nitrogen 10 mg/dL (9-20); Calcium 9.3 mg/dL (8.4-10.2); Carbon Dioxide 22 mmol/L (22-32); Chloride 98 mmol/L (98-107); Estimated Glomerular Filt Rate > 60.0 mL/min (>60); Glucose 140 mg/dL (80-110); HEMOLYSIS < 15 (0-50); Sodium 132 mmol/L (137-145)
[2018-09-15] MEDS: FILGRASTIM-SNDZ 300 MCG/0.5 ML SYRINGE SUBCUT (17:15)
--- NOTE | 2018-09-15 17:15 | ONC.APRN.PN ---
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 He has completed 5 cycles of CHOEP with his most recent chemo 09/04/2018. Pt presents today for urgent/acute visit reporting I dont feel good also severe fatigue. Patient states he has had difficulty getting himself out of bed the last several days. He reports weakness. States he is feeling very tired. He denies any shortness of breath. No chest pain. He has had some nausea. Also some ?sores? in his mouth which have made it difficult to eat and drink. He denies cough, fever, chills. No abdominal pain. Bowel movements have been normal he denies any blood in stool he denies any black or tarry stool. No skin changes. No new pain. No new lumps or bumps. Recently he was started on sertraline for self reported ?depression?. He has plans to travel to [place] this saturdaySep 19 to see his 90 year old father. History of present illness Mr. Irvin Diaz is a 62-year-old gentleman whom I saw at [facility]. He is transfer his care to [facility]. He has a remote history of left testicular cancer diagnosed in 2004 status post radical left orchiectomy followed by chemotherapy for 3 cycles without radiation treatment. Patient presented with about 5-6 months of history of weight loss, fatigue, malaise, abdominal distention, and adenopathy. CT CAP on 05/30/2018 showed extensive lymphadenopathy in the neck, retroperitoneum, along the celiac axis, near the GE junction, head of pancreas and prominent bilateral inguinal lymph nodes as well as markedly enlarged spleen. Patient was hospitalized at [facility] on May 31, 2018. Patient underwent TTE on 05/31/2018 that showedLVEF of 60-65%. Due to findings of ascites, patient underwent paracentesis and the cytology showed atypical lymphocytes suspicious for lymphoma. He underwent excisional biopsy of the right groin lymph node on June 03, 2018. And the final pathology showed T-lymphoproliferative disorder, favoring angioimmunoblastic T-cell lymphoma. And on June 10, 2018 patient was transferred to [facility] for further evaluation and treatment. At [facility], on June 11, 2018 the patient underwent bone marrow aspiration biopsy. The final pathology showed morphologically abnormal bone marrow with multi-focal, ill-defined mixed (lymphohistiocytic and eosinophilic) infiltrate suggestive of marrow involvement by T-cell lymphoma, hypercellular marrow with trilineage hematopoiesis and anemia with borderline microcytic anemia and absolute lymphopenia. At [facility], the patient was started on chemotheray CHOEP (C1D1 = Jun 12, 2018) Doxorubicin 50 mg/m2 (95 mg) IVP once. IV push over 10-15 minutes day 1, for 1 dose Vincristine 1.4 mg/m2(max = 2 mg) IV once. Infuse over 10 min. Day 1, for 1 dose Cyclophosphamide 750 mg/m2 (1400 mg) IV once. Infused over 1 hr. Day 1, dfor 1 dose Etoposide 100 mg/m2 (190 mg) IVPB Q24H. Days 1 to 2, for 2 doses Prednisone 100 mg p.o. Q24H. Days 1 to 5, for 5 doses Cycle every 21 days. - Patient Self-Reported Symptoms SR Constitution: Weight loss/gain (gain 2 lbs since last visit, good appetite) SR ears, nose, mouth, throat issues: Cough (minor cough, dry with some upper chest congestion) SR Cardiovascular issues: Extreme swelling (improving.) SR Skin issues: Skin rash or itching (on the lower legs and are improving.) SR Musculoskeletal issues: Back or neck pain (on oxycodone and helpful.) SR Neuro issues: Headache (migraine.) Home Medications and Allergies Home Medications Medication Instructions Recorded Confirmed Type esomeprazole magnesium [Nexium] 40 mg PO DAILY #0 12/31/16 08/14/18 History pguvtdyhmgt-E1-Oaxcfnmnz serr 2 tab PO QAM 05/22/18 08/14/18 History [Glucosamine Daily Complex] hilpvkq-wjtktmruuyhnc-ciwrsdzo 1 tab PO Q4-6H PRN 06/24/18 08/14/18 History [Excedrin Extra Strength] filgrastim-sndz [Zarxio] 5 mcg/kg SUBCUT Q24H 06/24/18 08/14/18 History fish,bora,flax oils-om3,6,9no1 1 cap PO DAILY 07/04/18 08/14/18 History [Mobile 3-6-9 Complex] nadolol 80 mg PO DAILY 07/04/18 08/14/18 History ondansetron 4 mg PO TID PRN 07/04/18 08/14/18 History acyclovir 800 mg PO Q12H #60 tab 08/14/18 Rx zolpidem [Ambien] 10 mg PO BEDTIME PRN #30 tab 08/14/18 Rx oxycodone-acetaminophen 1 tab PO Q4-6H PRN #60 tab 09/04/18 Rx sertraline 25 mg PO DAILY #14 tab 09/04/18 Rx sertraline 50 mg PO DAILY #60 tab 09/04/18 Rx levofloxacin [Levaquin] 500 mg PO DAILY #10 tab 09/15/18 Rx nystatin 5 ml PO TID #120 ml 09/15/18 Rx Allergies Allergy/AdvReac Type Severity Reaction Status Date / Time Sulfa (Sulfonamide Allergy Intermediate Hives Verified 06/24/18 08:50 Antibiotics) iodine Allergy Verified 05/27/18 14:53 Results - Labs Laboratory Last Values WBC 0.6 X10^3/uL (4.5-11.0) L* 09/15/18 10:35 RBC 2.31 X10^6/uL (4.5-5.9) L 09/15/18 10:35 Hgb 6.3 g/dL (13.5-17.5) L* 09/15/18 10:35 Hct 17.7 % (41-53) L* 09/15/18 10:35 MCV 76.5 fL (80-100) L D 09/15/18 10:35 MCH 27.2 PG (26-34) 09/15/18 10:35 MCHC 35.6 % (30-36) 09/15/18 10:35 RDW 18.7 % (11.6-14.8) H 09/15/18 10:35 Plt Count 37 X10^3/uL (150-400) L 09/15/18 10:35 Neut % (Auto) Not Reportable 09/15/18 10:35 Lymph % (Auto) Not Reportable 09/15/18 10:35 [place] % (Auto) Not Reportable 09/15/18 10:35 Eos % (Auto) Not Reportable 09/15/18 10:35 Baso % (Auto) Not Reportable 09/15/18 10:35 Neut # (Auto) 1600 /uL (5390-0420) 09/11/18 10:07 Total Counted 50 09/15/18 10:35 Seg Neutrophils % 10.0 % (38-70) L 09/15/18 10:35 Band Neutrophils % 2.0 % (3-7) L 09/15/18 10:35 Lymphocytes % (Manual) 56.0 % (25-45) H 09/15/18 10:35 Atypical Lymphs % 8.0 % (-0) H 09/15/18 10:35 Monocytes % (Manual) 20.0 % (2-11) H 09/15/18 10:35 Eosinophils % (Manual) 1.0 % (2-4) L 08/14/18 09:00 Basophils % (Manual) 4.0 % (0-1) H 09/15/18 10:35 Metamyelocytes % 2.0 % (-0) H 09/04/18 08:49 Myelocytes % 2.0 % (-0) H 08/14/18 09:00 Promyelocytes % 2.0 % (-0) H 08/11/18 13:18 Neutrophils # (Manual) 72 /uL (9497-7301) L 09/15/18 10:35 Nucleated RBCs 1 #/Diff (-0) H 08/11/18 13:18 Dohle Bodies 1+ H 08/08/18 13:05 Platelet Estimate Decreased on smear 09/11/18 10:07 RBC Morphology See below 09/15/18 10:35 Polychromasia 1+ H 08/14/18 09:00 Hypochromasia 1+ H 09/04/18 08:49 Poikilocytosis 2+ H 09/11/18 10:07 Anisocytosis 3+ H 09/15/18 10:35 Microcytosis 1+ H 08/27/18 14:19 Tear Drop Cells 1+ H 09/15/18 10:35 Ovalocytes 1+ H 09/15/18 10:35 Sodium 132 mmol/L (137-145) L 09/15/18 10:35 Potassium 4.0 mmol/L (3.4-5.1) 09/15/18 10:35 Chloride 98 mmol/L (98-107) 09/15/18 10:35 Carbon Dioxide 22 mmol/L (22-32) 09/15/18 10:35 BUN 10 mg/dL (9-20) 09/15/18 10:35 Creatinine 0.50 mg/dL (0.66-1.25) L 09/15/18 10:35 Estimated GFR > 60.0 mL/min (>60) 09/15/18 10:35 BUN/Creatinine Ratio 20.0 (6-22) 09/15/18 10:35 Glucose 140 mg/dL (80-110) H 09/15/18 10:35 Calcium 9.3 mg/dL (8.4-10.2) 09/15/18 10:35 Total Bilirubin 0.4 mg/dL (0.2-1.3) 09/04/18 08:49 AST 19 IU/L (17-59) 09/04/18 08:49 ALT 17 IU/L (21-72) L 09/04/18 08:49 Alkaline Phosphatase 184 U/L (38-126) H 09/04/18 08:49 Total Protein 6.6 g/dL (6.3-8.2) 09/04/18 08:49 Albumin 3.7 g/dL (3.5-5.0) 09/04/18 08:49 Globulin 2.9 g/dL (1.7-4.1) 09/04/18 08:49 Albumin/Globulin Ratio 1.3 (1.0-2.8) 09/04/18 08:49 Blood Type A Positive 09/15/18 10:45 Antibody Screen Negative 09/15/18 10:45 Crossmatch See Detail 09/15/18 10:45 Assessment and Plan (1) T-cell lymphoma Problem details: Presented with weight loss, fatigue, malaise, and abdominal distention. CT CAP 05/30/2018: extensive lymphadenopathy in the neck, retroperitoneum, celiac axis, GE junction, head of pancreas, bilateral inguinal lymph nodes as well as markedly enlarged spleen. Excisional biopsy of the right groin lymph node on 06/03/2018: T-lymphoproliferative disorder, favoring angioimmunoblastic T-cell lymphoma. BMA/Bx 06/11/2018: involvement by T-cell lymphoma. Assessment: At [facility], the patient was started on chemotheray CHOEP (C1D1 = Jun 12, 2018) Doxorubicin 50 mg/m2 (95 mg) IVP once. IV push over 10-15 minutes day 1, for 1 dose Vincristine 1.4 mg/m2(max = 2 mg) IV once. Infuse over 10 min. Day 1, for 1 dose Cyclophosphamide 750 mg/m2 (1400 mg) IV once. Infused over 1 hr. Day 1, dfor 1 dose Etoposide 100 mg/m2 (190 mg) IVPB Q24H. Days 1 to 2, for 2 doses Prednisone 100 mg p.o. Q24H. Days 1 to 5, for 5 doses Cycle every 21 days. Cycle 5 CHOEP 09/05/2018. Clinically on exam today no signs or symptoms to suggest disease progression although I am very concerned about his blodd counts. See below. The pt may require a dose adjustment I will review with oncologist Dr Zhang. Plan: 1. Keep appointment Sep 26 for cycle 6 CHOEP, dose adjustment if indicated by Dr Zhang. 2. Cont weekly cbc 3. Continue Acyclovir 800 mg q12h prophylactically. (2) Pain, low back His back pain is most likely related to his underlying T-cell lymphoma. Per pt report has been improving. Continue oxycodone 5/325, 1# p.o. every 4-6 hours on an as needed basis. (3) History of malignant neoplasm of testis Patient underwent radical left orchiectomy followed by 3 cycles of chemotherapy likely in 2003. No clinical evidence or biochemical evidence of disease recurrence or metastasis. I will continue active surveillance. (4) Depression Assessment and plan: Initiate sertraline 25 mg times 14 days followed by sertraline 50 mg. Patient has met and will continue to meet with BRENT Waters. I have pribnted literature re: sertraline for the pt w hanna discussed possible side effects as well as expected outcomes. (5) Pancytopenia due to chemotherapy Current visit: Yes Status: Acute Pancytopenia etiology chemotherapy. Patient had quite a drop in his blood work since previous visit September 11, 2018. Today CBC demonstrates white count 0.6 hemoglobin 6.3 hematocrit 17.7 platelets [id number]. Manual neutrophils 72. Patient adamantly denies any bleeding. No blood in his stool. No black or tarry stool. No abdominal pain. No skin changes specifically petechiae. He denies shortness of breath. He denies chest pain. No unexplained bleeding or bruising. Today we will provide the patient with 2 units of packed red blood cells. Additionally we will provide him with 300 mcg G-CSF subcutaneous today, September 16 of September 17September 18. Additionally levofloxacin 500 mg once daily prophylaxis. We will continue with weekly CBC, we will repeat CBC this September 18 noting patient's desire to travel to [place] to see his elderly father. I have discussed with the patient travel would be quite high risk at this point in time and is not recommended. However, we will re-evaluate this September 18 based on how the patient is feeling as well as his blood work. Patient has been instructed to go directly to emergency department for any acute change in his condition specifically acute abdominal pain, nausea, vomiting, bloody stool, black tarry stool, dizziness, lightheadedness. - Time Spent with Patient 30 mins
--- NOTE | 2018-09-15 17:23 | P.PNONC_ITS ---
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 He has completed 5 cycles of CHOEP with his most recent chemo 09/04/2018. Pt presents today for urgent/acute visit reporting I dont feel good also severe fatigue. Patient states he has had difficulty getting himself out of bed the last several days. He reports weakness. States he is feeling very tired. He denies any shortness of breath. No chest pain. He has had some nausea. Also some ?sores? in his mouth which have made it difficult to eat and drink. He denies cough, fever, chills. No abdominal pain. Bowel movements have been normal he denies any blood in stool he denies any black or tarry stool. No skin changes. No new pain. No new lumps or bumps. Recently he was started on sertraline for self reported ?depression?. He has plans to travel to [place] this saturdaySep 19 to see his 90 year old father. History of present illness Mr. Irvin Diaz is a 62-year-old gentleman whom I saw at [facility]. He is transfer his care to [facility]. He has a remote history of left testicular cancer diagnosed in 2004 status post radical left orchiectomy followed by chemotherapy for 3 cycles without radiation treatment. Patient presented with about 5-6 months of history of weight loss, fatigue, malaise, abdominal distention, and adenopathy. CT CAP on 05/30/2018 showed extensive lymphadenopathy in the neck, retroperitoneum, along the celiac axis, near the GE junction, head of pancreas and prominent bilateral inguinal lymph nodes as well as markedly enlarged spleen. Patient was hospitalized at [facility] on May 31, 2018. Patient underwent TTE on 05/31/2018 that showedLVEF of 60-65%. Due to findings of ascites, patient underwent paracentesis and the cytology showed atypical lymphocytes suspicious for lymphoma. He underwent excisional biopsy of the right groin lymph node on June 03, 2018. And the final pathology showed T- lymphoproliferative disorder, favoring angioimmunoblastic T-cell lymphoma. And on June 10, 2018 patient was transferred to [facility] for further evaluation and treatment. At [facility], on June 11, 2018 the patient underwent bone marrow aspiration biopsy. The final pathology showed morphologically abnormal bone marrow with multi-focal, ill-defined mixed (lymphohistiocytic and eosinophilic) infiltrate suggestive of marrow involvement by T-cell lymphoma, hypercellular marrow with trilineage hematopoiesis and anemia with borderline microcytic anemia and absolute lymphopenia. At [facility], the patient was started on chemotheray CHOEP (C1D1 = Jun 12, 2018) Doxorubicin 50 mg/m2 (95 mg) IVP once. IV push over 10-15 minutes day 1, for 1 dose Vincristine 1.4 mg/m2(max = 2 mg) IV once. Infuse over 10 min. Day 1, for 1 dose Cyclophosphamide 750 mg/m2 (1400 mg) IV once. Infused over 1 hr. Day 1, dfor 1 dose Etoposide 100 mg/m2 (190 mg) IVPB Q24H. Days 1 to 2, for 2 doses Prednisone 100 mg p.o. Q24H. Days 1 to 5, for 5 doses Cycle every 21 days. - Patient Self-Reported Symptoms SR Constitution: Weight loss/gain (gain 2 lbs since last visit, good appetite) SR ears, nose, mouth, throat issues: Cough (minor cough, dry with some upper chest congestion) SR Cardiovascular issues: Extreme swelling (improving.) SR Skin issues: Skin rash or itching (on the lower legs and are improving.) SR Musculoskeletal issues: Back or neck pain (on oxycodone and helpful.) SR Neuro issues: Headache (migraine.) Home Medications and Allergies Home Medications Medication Instructions Recorded Confirmed Type esomeprazole magnesium [Nexium] 40 mg PO DAILY #0 12/31/16 08/14/18 History lqxttynzoin-W9-Kybeuiuyq serr 2 tab PO QAM 05/22/18 08/14/18 History [Glucosamine Daily Complex] kppymhw-olnkzeitgwcip-jzmjwrpz 1 tab PO Q4-6H PRN 06/24/18 08/14/18 History [Excedrin Extra Strength] filgrastim-sndz [Zarxio] 5 mcg/kg SUBCUT Q24H 06/24/18 08/14/18 History fish,bora,flax oils-om3,6,9no1 1 cap PO DAILY 07/04/18 08/14/18 History [[place] 3-6-9 Complex] nadolol 80 mg PO DAILY 07/04/18 08/14/18 History ondansetron 4 mg PO TID PRN 07/04/18 08/14/18 History acyclovir 800 mg PO Q12H #60 tab 08/14/18 Rx zolpidem [Ambien] 10 mg PO BEDTIME PRN #30 tab 08/14/18 Rx oxycodone-acetaminophen 1 tab PO Q4-6H PRN #60 tab 09/04/18 Rx sertraline 25 mg PO DAILY #14 tab 09/04/18 Rx sertraline 50 mg PO DAILY #60 tab 09/04/18 Rx levofloxacin [Levaquin] 500 mg PO DAILY #10 tab 09/15/18 Rx nystatin 5 ml PO TID #120 ml 09/15/18 Rx Allergies Allergy/AdvReac Type Severity Reaction Status Date / Time Sulfa (Sulfonamide Allergy Intermediate Hives Verified 06/24/18 08:50 Antibiotics) iodine Allergy Verified 05/27/18 14:53 Results - Labs Laboratory Last Values WBC 0.6 X10^3/uL (4.5-11.0) L* 09/15/18 10:35 RBC 2.31 X10^6/uL (4.5-5.9) L 09/15/18 10:35 Hgb 6.3 g/dL (13.5-17.5) L* 09/15/18 10:35 Hct 17.7 % (41-53) L* 09/15/18 10:35 MCV 76.5 fL (80-100) L D 09/15/18 10:35 MCH 27.2 PG (26-34) 09/15/18 10:35 MCHC 35.6 % (30-36) 09/15/18 10:35 RDW 18.7 % (11.6-14.8) H 09/15/18 10:35 Plt Count 37 X10^3/uL (150-400) L 09/15/18 10:35 Neut % (Auto) Not Reportable 09/15/18 10:35 Lymph % (Auto) Not Reportable 09/15/18 10:35 [place] % (Auto) Not Reportable 09/15/18 10:35 Eos % (Auto) Not Reportable 09/15/18 10:35 Baso % (Auto) Not Reportable 09/15/18 10:35 Neut # (Auto) 1600 /uL ([id number]) 09/11/18 10:07 Total Counted 50 09/15/18 10:35 Seg Neutrophils % 10.0 % (38-70) L 09/15/18 10:35 Band Neutrophils % 2.0 % (3-7) L 09/15/18 10:35 Lymphocytes % (Manual) 56.0 % (25-45) H 09/15/18 10:35 Atypical Lymphs % 8.0 % (-0) H 09/15/18 10:35 Monocytes % (Manual) 20.0 % (2-11) H 09/15/18 10:35 Eosinophils % (Manual) 1.0 % (2-4) L 08/14/18 09:00 Basophils % (Manual) 4.0 % (0-1) H 09/15/18 10:35 Metamyelocytes % 2.0 % (-0) H 09/04/18 08:49 Myelocytes % 2.0 % (-0) H 08/14/18 09:00 Promyelocytes % 2.0 % (-0) H 08/11/18 13:18 Neutrophils # (Manual) 72 /uL ([id number]) L 09/15/18 10:35 Nucleated RBCs 1 #/Diff (-0) H 08/11/18 13:18 Dohle Bodies 1+ H 08/08/18 13:05 Platelet Estimate Decreased on smear 09/11/18 10:07 RBC Morphology See below 09/15/18 10:35 Polychromasia 1+ H 08/14/18 09:00 Hypochromasia 1+ H 09/04/18 08:49 Poikilocytosis 2+ H 09/11/18 10:07 Anisocytosis 3+ H 09/15/18 10:35 Microcytosis 1+ H 08/27/18 14:19 Tear Drop Cells 1+ H 09/15/18 10:35 Ovalocytes 1+ H 09/15/18 10:35 Sodium 132 mmol/L (137-145) L 09/15/18 10:35 Potassium 4.0 mmol/L (3.4-5.1) 09/15/18 10:35 Chloride 98 mmol/L (98-107) 09/15/18 10:35 Carbon Dioxide 22 mmol/L (22-32) 09/15/18 10:35 BUN 10 mg/dL (9-20) 09/15/18 10:35 Creatinine 0.50 mg/dL (0.66-1.25) L 09/15/18 10:35 Estimated GFR > 60.0 mL/min (>60) 09/15/18 10:35 BUN/Creatinine Ratio 20.0 (6-22) 09/15/18 10:35 Glucose 140 mg/dL (80-110) H 09/15/18 10:35 Calcium 9.3 mg/dL (8.4-10.2) 09/15/18 10:35 Total Bilirubin 0.4 mg/dL (0.2-1.3) 09/04/18 08:49 AST 19 IU/L (17-59) 09/04/18 08:49 ALT 17 IU/L (21-72) L 09/04/18 08:49 Alkaline Phosphatase 184 U/L (38-126) H 09/04/18 08:49 Total Protein 6.6 g/dL (6.3-8.2) 09/04/18 08:49 Albumin 3.7 g/dL (3.5-5.0) 09/04/18 08:49 Globulin 2.9 g/dL (1.7-4.1) 09/04/18 08:49 Albumin/Globulin Ratio 1.3 (1.0-2.8) 09/04/18 08:49 Blood Type A Positive 09/15/18 10:45 Antibody Screen Negative 09/15/18 10:45 Crossmatch See Detail 09/15/18 10:45 Assessment and Plan (1) T-cell lymphoma Problem details: Presented with weight loss, fatigue, malaise, and abdominal distention. CT CAP 05/30/2018: extensive lymphadenopathy in the neck, retroperitoneum, celiac axis, GE junction, head of pancreas, bilateral inguinal lymph nodes as well as markedly enlarged spleen. Excisional biopsy of the right groin lymph node on 06/03/2018: T-lymphoproliferative disorder, favoring angioimmunoblastic T-cell lymphoma. BMA/Bx 06/11/2018: involvement by T-cell lymphoma. Assessment: At [facility], the patient was started on chemotheray CHOEP (C1D1 = Jun 12, 2018) Doxorubicin 50 mg/m2 (95 mg) IVP once. IV push over 10-15 minutes day 1, for 1 dose Vincristine 1.4 mg/m2(max = 2 mg) IV once. Infuse over 10 min. Day 1, for 1 dose Cyclophosphamide 750 mg/m2 (1400 mg) IV once. Infused over 1 hr. Day 1, dfor 1 dose Etoposide 100 mg/m2 (190 mg) IVPB Q24H. Days 1 to 2, for 2 doses Prednisone 100 mg p.o. Q24H. Days 1 to 5, for 5 doses Cycle every 21 days. Cycle 5 CHOEP 09/05/2018. Clinically on exam today no signs or symptoms to suggest disease progression although I am very concerned about his blodd counts. See below. The pt may require a dose adjustment I will review with oncologist Dr Zhang. Plan: 1. Keep appointment Sep 26 for cycle 6 CHOEP, dose adjustment if indicated by Dr Zhang. 2. Cont weekly cbc 3. Continue Acyclovir 800 mg q12h prophylactically. (2) Pain, low back His back pain is most likely related to his underlying T-cell lymphoma. Per pt report has been improving. Continue oxycodone 5/325, 1# p.o. every 4-6 hours on an as needed basis. (3) History of malignant neoplasm of testis Patient underwent radical left orchiectomy followed by 3 cycles of chemotherapy likely in 2003. No clinical evidence or biochemical evidence of disease recurrence or metastasis. I will continue active surveillance. (4) Depression Assessment and plan: Initiate sertraline 25 mg times 14 days followed by sertraline 50 mg. Patient has met and will continue to meet with BRENT Waters. I have pribnted literature re: sertraline for the pt w hanna discussed possible side effects as well as expected outcomes. (5) Pancytopenia due to chemotherapy Current visit: Yes Status: Acute Pancytopenia etiology chemotherapy. Patient had quite a drop in his blood work since previous visit September 11, 2018. Today CBC demonstrates white count 0.6 hemoglobin 6.3 hematocrit 17.7 platelets [id number]. Manual neutrophils 72. Patient adamantly denies any bleeding. No blood in his stool. No black or tarry stool. No abdominal pain. No skin changes specifically petechiae. He denies shortness of breath. He denies chest pain. No unexplained bleeding or bruising. Today we will provide the patient with 2 units of packed red blood cells. Additionally we will provide him with 300 mcg G-CSF subcutaneous today, September 16 of September 17September 18. Additionally levofloxacin 500 mg once daily prophylaxis. We will continue with weekly CBC, we will repeat CBC this September 18 noting patient's desire to travel to [place] to see his elderly father. I have discussed with the patient travel would be quite high risk at this point in time and is not recommended. However, we will re- evaluate this September 18 based on how the patient is feeling as well as his blood work. Patient has been instructed to go directly to emergency department for any acute change in his condition specifically acute abdominal pain, nausea, vomiting, bloody stool, black tarry stool, dizziness, lightheadedness. - Time Spent with Patient 30 mins
[2018-09-16] MEDS: FILGRASTIM-SNDZ 300 MCG/0.5 ML SYRINGE SUBCUT (09:20)
[2018-09-16 09:26] VITALS: BP 132/81; PULSE 88; RESP 18; TEMP 36.4; O2SAT 100
[2018-09-17] MEDS: FILGRASTIM-SNDZ 300 MCG/0.5 ML SYRINGE SUBCUT (12:02)
[2018-09-17 14:24] VITALS: BP 134/80; PULSE 108; RESP 18; TEMP 36.7; O2SAT 99
--- NOTE | 2018-09-17 14:33 | PC.NURSE ---
Patient pulse measured at 122, 100 and 108 while here. Apical auscultation confirmed same. Patient reports no other symptoms but that he is feeling very concerned about all he has to do. He reported he was told to stop Nadalol end of last week due to low blood pressure. He would like to go back on as headaches are increasing. As blood pressure WNL today he was told he may resume his nadalol and should continue to drink plenty of fluids, monitor pulse and call in here if it is continuing high or he is experiencing dizziness. Patient received GCSF today for low WBC count. [ End ]
--- NOTE | 2018-09-18 08:00 | ONC.APRN.PN ---
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 He has completed 5 cycles of CHOEP with his most recent chemo 09/04/2018. Pt presents today for scheduled triage. Previous visit earlier this week patient was seen acutely for severe fatigue also general malaise. He also had some ?sores? in his mouth. Blood work demonstrated severe anemia with a hemoglobin of 6.3 hematocrit 17.7. Platelets also low at 37,000 seven thousand. Patient was afebrile. No dysuria, hematuria. No blood in stools. We provided the patient with 2 units of PRBCs also hydration. Patient returns today stating ?I feel so much better?. Activity tolerance is improved. No shortness of breath. Appetite is improved he states ?my mouth is getting better?. Denies cough, fever, chills. No unexplained bleeding or bruising. Patient goes on to report he has been taking Ambien 10 mg HS and he is having increasing difficulty waking in the morning. At this point he is still planning to fly to [place] tomorrow September 19 to visit his father who is 90 years old. History of present illness Mr. Irvin Diaz is a 62-year-old gentleman whom I saw at [facility]. He is transfer his care to [facility]. He has a remote history of left testicular cancer diagnosed in 2004 status post radical left orchiectomy followed by chemotherapy for 3 cycles without radiation treatment. Patient presented with about 5-6 months of history of weight loss, fatigue, malaise, abdominal distention, and adenopathy. CT CAP on 05/30/2018 showed extensive lymphadenopathy in the neck, retroperitoneum, along the celiac axis, near the GE junction, head of pancreas and prominent bilateral inguinal lymph nodes as well as markedly enlarged spleen. Patient was hospitalized at [facility] on May 31, 2018. Patient underwent TTE on 05/31/2018 that showedLVEF of 60-65%. Due to findings of ascites, patient underwent paracentesis and the cytology showed atypical lymphocytes suspicious for lymphoma. He underwent excisional biopsy of the right groin lymph node on June 03, 2018. And the final pathology showed T-lymphoproliferative disorder, favoring angioimmunoblastic T-cell lymphoma. And on June 10, 2018 patient was transferred to [facility] for further evaluation and treatment. At [facility], on June 11, 2018 the patient underwent bone marrow aspiration biopsy. The final pathology showed morphologically abnormal bone marrow with multi-focal, ill-defined mixed (lymphohistiocytic and eosinophilic) infiltrate suggestive of marrow involvement by T-cell lymphoma, hypercellular marrow with trilineage hematopoiesis and anemia with borderline microcytic anemia and absolute lymphopenia. At [facility], the patient was started on chemotheray CHOEP (C1D1 = Jun 12, 2018) Doxorubicin 50 mg/m2 (95 mg) IVP once. IV push over 10-15 minutes day 1, for 1 dose Vincristine 1.4 mg/m2(max = 2 mg) IV once. Infuse over 10 min. Day 1, for 1 dose Cyclophosphamide 750 mg/m2 (1400 mg) IV once. Infused over 1 hr. Day 1, dfor 1 dose Etoposide 100 mg/m2 (190 mg) IVPB Q24H. Days 1 to 2, for 2 doses Prednisone 100 mg p.o. Q24H. Days 1 to 5, for 5 doses Cycle every 21 days. - Patient Self-Reported Symptoms SR Constitution: Weight loss/gain (gain 2 lbs since last visit, good appetite) SR ears, nose, mouth, throat issues: Cough (minor cough, dry with some upper chest congestion) SR Cardiovascular issues: Extreme swelling (improving.) SR Skin issues: Skin rash or itching (on the lower legs and are improving.) SR Musculoskeletal issues: Back or neck pain (on oxycodone and helpful.) SR Neuro issues: Headache (migraine.) Home Medications and Allergies Home Medications Medication Instructions Recorded Confirmed Type esomeprazole magnesium [Nexium] 40 mg PO DAILY #0 12/31/16 08/14/18 History fygvjjznvdk-C7-Gvrzrtdzu serr 2 tab PO QAM 05/22/18 08/14/18 History [Glucosamine Daily Complex] omezejy-izuaqtyjymisy-odzphjhs 1 tab PO Q4-6H PRN 06/24/18 08/14/18 History [Excedrin Extra Strength] filgrastim-sndz [Zarxio] 5 mcg/kg SUBCUT Q24H 06/24/18 08/14/18 History fish,bora,flax oils-om3,6,9no1 1 cap PO DAILY 07/04/18 08/14/18 History [[place] 3-6-9 Complex] nadolol 80 mg PO DAILY 10/26/18 12/06/18 History ondansetron 4 mg PO TID PRN 07/04/18 08/14/18 History acyclovir 800 mg PO Q12H #60 tab 08/14/18 Rx zolpidem [Ambien] 10 mg PO BEDTIME PRN #30 tab 08/14/18 Rx oxycodone-acetaminophen 1 tab PO Q4-6H PRN #60 tab 09/04/18 Rx sertraline 25 mg PO DAILY #14 tab 09/04/18 Rx sertraline 50 mg PO DAILY #60 tab 09/04/18 Rx levofloxacin [Levaquin] 500 mg PO DAILY #10 tab 09/15/18 Rx nystatin 5 ml PO TID #120 ml 09/15/18 Rx Allergies Allergy/AdvReac Type Severity Reaction Status Date / Time Sulfa (Sulfonamide Allergy Intermediate Hives Verified 06/24/18 08:50 Antibiotics) iodine Allergy Verified 05/27/18 14:53 Exam - Constitutional positive no acute distress, positive thin - Routine HEENT Exam Eye: Present: conjunctivae pink. Absent: conjunctival icterus, scleral injection ENT: Present: mucous membranes moist, oropharynx clear Comments: no open areas, lesions on exam today. - Routine Neck Exam Present: supple. Absent: lymphadenopathy - Routine Respiratory Exam Present: Clear to auscultation bilaterally. Absent: rales, rhonchi, wheezes - Routine Cardiovascular Exam Present: RRR, S1, S2. Absent: murmur, gallop, rubs, JVD - Routine Abdominal Exam Present: soft, normoactive bowel sounds. Absent: tenderness, distended, organomegaly - Routine Extremities Exam Absent: edema - Routine Skin Exam Present: intact. Absent: petechiae, rash - Routine Neurological Exam Present: alert, oriented X3 - Routine Psychiatric Exam Present: normal affect Results - Labs Laboratory Last Values WBC 0.6 X10^3/uL (4.5-11.0) L* 09/15/18 10:35 RBC 2.31 X10^6/uL (4.5-5.9) L 09/15/18 10:35 Hgb 6.3 g/dL (13.5-17.5) L* 09/15/18 10:35 Hct 17.7 % (41-53) L* 09/15/18 10:35 MCV 76.5 fL (80-100) L D 09/15/18 10:35 MCH 27.2 PG (26-34) 09/15/18 10:35 MCHC 35.6 % (30-36) 09/15/18 10:35 RDW 18.7 % (11.6-14.8) H 09/15/18 10:35 Plt Count 37 X10^3/uL (150-400) L 09/15/18 10:35 Neut % (Auto) Not Reportable 09/15/18 10:35 Lymph % (Auto) Not Reportable 09/15/18 10:35 [place] % (Auto) Not Reportable 09/15/18 10:35 Eos % (Auto) Not Reportable 09/15/18 10:35 Baso % (Auto) Not Reportable 09/15/18 10:35 Neut # (Auto) 1600 /uL ([id number]) 09/11/18 10:07 Total Counted 50 09/15/18 10:35 Seg Neutrophils % 10.0 % (38-70) L 09/15/18 10:35 Band Neutrophils % 2.0 % (3-7) L 09/15/18 10:35 Lymphocytes % (Manual) 56.0 % (25-45) H 09/15/18 10:35 Atypical Lymphs % 8.0 % (-0) H 09/15/18 10:35 Monocytes % (Manual) 20.0 % (2-11) H 09/15/18 10:35 Eosinophils % (Manual) 1.0 % (2-4) L 08/14/18 09:00 Basophils % (Manual) 4.0 % (0-1) H 09/15/18 10:35 Metamyelocytes % 2.0 % (-0) H 09/04/18 08:49 Myelocytes % 2.0 % (-0) H 08/14/18 09:00 Promyelocytes % 2.0 % (-0) H 08/11/18 13:18 Neutrophils # (Manual) 72 /uL ([id number]) L 09/15/18 10:35 Nucleated RBCs 1 #/Diff (-0) H 08/11/18 13:18 Dohle Bodies 1+ H 08/08/18 13:05 Platelet Estimate Decreased on smear 09/11/18 10:07 RBC Morphology See below 09/15/18 10:35 Polychromasia 1+ H 08/14/18 09:00 Hypochromasia 1+ H 09/04/18 08:49 Poikilocytosis 2+ H 09/11/18 10:07 Anisocytosis 3+ H 09/15/18 10:35 Microcytosis 1+ H 08/27/18 14:19 Tear Drop Cells 1+ H 09/15/18 10:35 Ovalocytes 1+ H 09/15/18 10:35 Sodium 132 mmol/L (137-145) L 09/15/18 10:35 Potassium 4.0 mmol/L (3.4-5.1) 09/15/18 10:35 Chloride 98 mmol/L (98-107) 09/15/18 10:35 Carbon Dioxide 22 mmol/L (22-32) 09/15/18 10:35 BUN 10 mg/dL (9-20) 09/15/18 10:35 Creatinine 0.50 mg/dL (0.66-1.25) L 09/15/18 10:35 Estimated GFR > 60.0 mL/min (>60) 09/15/18 10:35 BUN/Creatinine Ratio 20.0 (6-22) 09/15/18 10:35 Glucose 140 mg/dL (80-110) H 09/15/18 10:35 Calcium 9.3 mg/dL (8.4-10.2) 09/15/18 10:35 Total Bilirubin 0.4 mg/dL (0.2-1.3) 09/04/18 08:49 AST 19 IU/L (17-59) 09/04/18 08:49 ALT 17 IU/L (21-72) L 09/04/18 08:49 Alkaline Phosphatase 184 U/L (38-126) H 09/04/18 08:49 Total Protein 6.6 g/dL (6.3-8.2) 09/04/18 08:49 Albumin 3.7 g/dL (3.5-5.0) 09/04/18 08:49 Globulin 2.9 g/dL (1.7-4.1) 09/04/18 08:49 Albumin/Globulin Ratio 1.3 (1.0-2.8) 09/04/18 08:49 Blood Type A Positive 09/15/18 10:45 Antibody Screen Negative 09/15/18 10:45 Crossmatch See Detail 09/15/18 10:45 Assessment and Plan (1) T-cell lymphoma Problem details: Presented with weight loss, fatigue, malaise, and abdominal distention. CT CAP 05/30/2018: extensive lymphadenopathy in the neck, retroperitoneum, celiac axis, GE junction, head of pancreas, bilateral inguinal lymph nodes as well as markedly enlarged spleen. Excisional biopsy of the right groin lymph node on 06/03/2018: T-lymphoproliferative disorder, favoring angioimmunoblastic T-cell lymphoma. BMA/Bx 06/11/2018: involvement by T-cell lymphoma. Assessment: At [facility], the patient was started on chemotheray CHOEP (C1D1 = Jun 12, 2018) Doxorubicin 50 mg/m2 (95 mg) IVP once. IV push over 10-15 minutes day 1, for 1 dose Vincristine 1.4 mg/m2(max = 2 mg) IV once. Infuse over 10 min. Day 1, for 1 dose Cyclophosphamide 750 mg/m2 (1400 mg) IV once. Infused over 1 hr. Day 1, dfor 1 dose Etoposide 100 mg/m2 (190 mg) IVPB Q24H. Days 1 to 2, for 2 doses Prednisone 100 mg p.o. Q24H. Days 1 to 5, for 5 doses Cycle every 21 days. Cycle 5 CHOEP 09/05/2018. Clinically on exam today no signs or symptoms to suggest disease progression. CBC is much improved after 2 units of packed red blood cells. The pt may require a dose adjustment, I think his tolerability has been sub par also he has had significant cytopenias. I will discuss further with oncologist Dr. Zhang. Plan: 1. Keep appointment Sep 26 for cycle 6 CHOEP, dose adjustment if indicated by Dr Zhang. 2. Cont weekly cbc 3. Continue Acyclovir 800 mg q12h prophylactically. (2) Pain, low back His back pain is most likely related to his underlying T-cell lymphoma. Per pt report has been improving. Continue oxycodone 5/325, 1# p.o. every 4-6 hours on an as needed basis. (3) History of malignant neoplasm of testis Patient underwent radical left orchiectomy followed by 3 cycles of chemotherapy likely in 2003. No clinical evidence or biochemical evidence of disease recurrence or metastasis. I will continue active surveillance. (4) Depression Assessment and plan: Initiate sertraline 25 mg times 14 days followed by sertraline 50 mg. Patient has met and will continue to meet with [employer] Nila Waters. I have printed literature re: sertraline for the pt we also discussed possible side effects as well as expected outcomes. (5) Pancytopenia due to chemotherapy Current visit: Yes Status: Acute Pancytopenia etiology chemotherapy. Hemoglobin and hematocrit are much improved after 2 units of PRBCs. Platelets improved at 153,000. Patient has also been receiving G-CSF white count is now 5.0 ANC 2350. As noted above I will discuss with Dr Zhang if a dose adjustment is indicated. Patient has been instructed to go directly to emergency department for any acute change in his condition specifically acute abdominal pain, nausea, vomiting, bloody stool, black tarry stool, dizziness, lightheadedness. (6) Insomnia Current visit: Yes Status: Acute Has been taking Ambien 10 mg HS. Patient reports he is increasingly fatigued in the morning he has difficulty waking and getting out of bed. Advised the patient to take only 1/2 tablet see how he does. Additionally, I cautioned him may not even need the medication noting ongoing generalized fatigue. Patient states he will try to sleep without it if he is unsuccessful he will try 1/2 or 5 mg of Ambien.
[2018-09-18 09:45] LABS: Hematocrit 26.9 % (41-53); Hemoglobin 9.5 g/dL (13.5-17.5); Mean Corpuscular HGB Conc 35.3 % (30-36); Mean Corpuscular Hemoglobin 28.4 PG (26-34); Mean Corpuscular Volume 80.2 fL (80-100); Platelet Count 153 X10^3/uL (150-400); Red Blood Cell Count 3.36 X10^6/uL (4.5-5.9); Red Cell Distribution Width 19.6 % (11.6-14.8)
[2018-09-18 09:46] LABS: Alanine Aminotransferase 19 IU/L (21-72); Albumin 4.2 g/dL (3.5-5.0); Albumin Globulin Ratio 1.4 (1.0-2.8); Alkaline Phosphatase 150 U/L (38-126); Aspartate Aminotransferase 22 IU/L (17-59); BUN Creatinine Ratio 18.8 (6-22); Bilirubin Total 0.7 mg/dL (0.2-1.3); Blood Urea Nitrogen 15 mg/dL (9-20); Calcium 9.8 mg/dL (8.4-10.2); Carbon Dioxide 25 mmol/L (22-32); Chloride 96 mmol/L (98-107); Estimated Glomerular Filt Rate > 60.0 mL/min (>60); Globulin 3.1 g/dL (1.7-4.1); Glucose 122 mg/dL (80-110); HEMOLYSIS < 15 (0-50); Potassium 4.1 mmol/L (3.4-5.1); Sodium 135 mmol/L (137-145); Total Protein 7.3 g/dL (6.3-8.2)
[2018-09-18 09:47] LABS: Add Manual Diff / Slide Review YES
[2018-09-18 09:48] VITALS: BP 129/82; PULSE 18; RESP 18; TEMP 36.8; O2SAT 98
[2018-09-18 10:08] LABS: Anisocytosis 2+; Neutrophils Absolute Manual 2350 /uL (3000-5900); Nucleated Red Blood Cells 1 #/Diff; Ovalocytes 1+; Polychromasia 1+; Total Cells Counted 100
[2018-09-18] MEDS: SODIUM CHLORIDE 0.9% 1,000 ML 1000 ML IV (10:48)
[2018-09-18 10:52] VITALS: BP 128/79; PULSE 87; RESP 16; O2SAT 100
[2018-09-18 10:53] VITALS: BP 108/59; BP 118/59; PULSE 82; PULSE 83; RESP 16; O2SAT 100
[2018-09-18 11:05] VITALS: BP 124/74; PULSE 87; RESP 16; O2SAT 100
[2018-09-18 11:20] VITALS: BP 121/68; PULSE 85; RESP 18; O2SAT 100
[2018-09-18 11:35] VITALS: BP 106/61; PULSE 83; RESP 16; O2SAT 100
[2018-09-18] MEDS: FILGRASTIM-SNDZ 300 MCG/0.5 ML SYRINGE SUBCUT (12:13)
--- NOTE | 2018-09-25 11:14 | ONC.APRN.PN ---
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 He has completed 5 cycles of CHOEP with his most recent chemo 09/04/2018. Pt presents today for scheduled triage and consideration of cycle 6 of 6 planned CHOEP. Pt reports once again increasing malaise, fatigue, weakness. Has not eaten in about 3 days has not been taking in fluids until this morning. States I have been too tired and too depressed. Pt goes on to report a long family history of mental health issues and ongoing mental health issueds with his x and current . Additionally, he is living with his niece and that is stressful I think I have overstayed my welcome. Pt was recently started on sertraline a few weeks ago at 25mg QD, dose subsequently increased to 50mg QD. He is not receiving any counseling or therapy. he denies any suicidal ideations whatsoever. Also no homicidal ideations. Although pt does report I feel angry about everything. Specifically his illness, his 's current illness, his unstable living situation, ongoing social issues with his ex- and his children. Pts CC today is fatigue, reporting all I do is sleep. He denies any cough or fever. No CP or shortness of breath. No unexplained bleeding or bruising. States he has had some intermittent chills the last few days. He has not had any appetite the last few days. He has been taking in only very small sips of water infrequently. No dysuria, hematuria. He is having a normal bowel movement about every other day. No nausea. Patient reports his mouth is ?so much better?. History of present illness Mr. Irvin Diaz is a 62-year-old gentleman whom I saw at [facility]. He is transfer his care to [facility]. He has a remote history of left testicular cancer diagnosed in 2004 status post radical left orchiectomy followed by chemotherapy for 3 cycles without radiation treatment. Patient presented with about 5-6 months of history of weight loss, fatigue, malaise, abdominal distention, and adenopathy. CT CAP on 05/30/2018 showed extensive lymphadenopathy in the neck, retroperitoneum, along the celiac axis, near the GE junction, head of pancreas and prominent bilateral inguinal lymph nodes as well as markedly enlarged spleen. Patient was hospitalized at [facility] on May 31, 2018. Patient underwent TTE on 05/31/2018 that showedLVEF of 60-65%. Due to findings of ascites, patient underwent paracentesis and the cytology showed atypical lymphocytes suspicious for lymphoma. He underwent excisional biopsy of the right groin lymph node on June 03, 2018. And the final pathology showed T-lymphoproliferative disorder, favoring angioimmunoblastic T-cell lymphoma. And on June 10, 2018 patient was transferred to [facility] for further evaluation and treatment. At [facility], on June 11, 2018 the patient underwent bone marrow aspiration biopsy. The final pathology showed morphologically abnormal bone marrow with multi-focal, ill-defined mixed (lymphohistiocytic and eosinophilic) infiltrate suggestive of marrow involvement by T-cell lymphoma, hypercellular marrow with trilineage hematopoiesis and anemia with borderline microcytic anemia and absolute lymphopenia. At [facility], the patient was started on chemotheray CHOEP (C1D1 = Jun 12, 2018) Doxorubicin 50 mg/m2 (95 mg) IVP once. IV push over 10-15 minutes day 1, for 1 dose Vincristine 1.4 mg/m2(max = 2 mg) IV once. Infuse over 10 min. Day 1, for 1 dose Cyclophosphamide 750 mg/m2 (1400 mg) IV once. Infused over 1 hr. Day 1, dfor 1 dose Etoposide 100 mg/m2 (190 mg) IVPB Q24H. Days 1 to 2, for 2 doses Prednisone 100 mg p.o. Q24H. Days 1 to 5, for 5 doses Cycle every 21 days. - Patient Self-Reported Symptoms SR Constitution: Weight loss/gain (gain 2 lbs since last visit, good appetite) SR ears, nose, mouth, throat issues: Cough (minor cough, dry with some upper chest congestion) SR Cardiovascular issues: Extreme swelling (improving.) SR Skin issues: Skin rash or itching (on the lower legs and are improving.) SR Musculoskeletal issues: Back or neck pain (on oxycodone and helpful.) SR Neuro issues: Headache (migraine.) Home Medications and Allergies Home Medications Medication Instructions Recorded Confirmed Type esomeprazole magnesium [Nexium] 40 mg PO DAILY #0 12/31/16 08/14/18 History [id number]-Zyxydshyu serr 2 tab PO QAM 05/22/18 08/14/18 History [Glucosamine Daily Complex] xqobbih-wcrsudmngoxxj-zzykscyp 1 tab PO Q4-6H PRN 06/24/18 08/14/18 History [Excedrin Extra Strength] filgrastim-sndz [Zarxio] 5 mcg/kg SUBCUT Q24H 06/24/18 08/14/18 History fish,bora,flax oils-om3,6,9no1 1 cap PO DAILY 07/04/18 08/14/18 History [[place] 3-6-9 Complex] nadolol 80 mg PO DAILY 07/04/18 08/14/18 History ondansetron 4 mg PO TID PRN 07/04/18 08/14/18 History acyclovir 800 mg PO Q12H #60 tab 08/14/18 Rx zolpidem [Ambien] 10 mg PO BEDTIME PRN #30 tab 08/14/18 Rx oxycodone-acetaminophen 1 tab PO Q4-6H PRN #60 tab 09/04/18 Rx sertraline 25 mg PO DAILY #14 tab 09/04/18 Rx sertraline 50 mg PO DAILY #60 tab 09/04/18 Rx levofloxacin [Levaquin] 500 mg PO DAILY #10 tab 09/15/18 Rx nystatin 5 ml PO TID #120 ml 09/15/18 Rx Allergies Allergy/AdvReac Type Severity Reaction Status Date / Time Sulfa (Sulfonamide Allergy Intermediate Hives Verified 06/24/18 08:50 Antibiotics) iodine Allergy Verified 05/27/18 14:53 Exam - Constitutional positive no acute distress, positive thin, positive chronically ill appearing - Routine HEENT Exam Eye: Present: EOMI, PERRL, normal accommodation, conjunctivae pink. Absent: conjunctival icterus, scleral injection ENT: Present: mucous membranes moist, oropharynx clear - Routine Neck Exam Present: supple. Absent: lymphadenopathy - Routine Respiratory Exam Present: Clear to auscultation bilaterally. Absent: rales, rhonchi, wheezes - Routine Cardiovascular Exam Present: RRR, S1, S2, tachycardia. Absent: murmur, gallop, rubs, JVD - Routine Abdominal Exam Present: soft, normoactive bowel sounds. Absent: tenderness, distended, rebound, organomegaly - Routine Extremities Exam Absent: edema, calf tenderness - Routine Skin Exam Present: intact, normal turgor. Absent: petechiae, rash - Routine Neurological Exam Present: alert, oriented X3 - Routine Psychiatric Exam Present: normal affect, cooperative, good insight, good judgment. Absent: suicidal ideation, homicidal ideation Results - Labs Laboratory Last Values WBC 5.0 X10^3/uL (4.5-11.0) 09/18/18 09:20 RBC 3.36 X10^6/uL (4.5-5.9) L 09/18/18 09:20 Hgb 9.5 g/dL (13.5-17.5) L 09/18/18 09:20 Hct 26.9 % (41-53) L 09/18/18 09:20 MCV 80.2 fL (80-100) D 09/18/18 09:20 MCH 28.4 PG (26-34) 09/18/18 09:20 MCHC 35.3 % (30-36) 09/18/18 09:20 RDW 19.6 % (11.6-14.8) H 09/18/18 09:20 Plt Count 153 X10^3/uL (150-400) 09/18/18 09:20 Neut % (Auto) Not Reportable 09/18/18 09:20 Lymph % (Auto) Not Reportable 09/18/18 09:20 Towns % (Auto) Not Reportable 09/18/18 09:20 Eos % (Auto) Not Reportable 09/18/18 09:20 Baso % (Auto) Not Reportable 09/18/18 09:20 Neut # (Auto) 1600 /uL (7615-6904) 09/11/18 10:07 Total Counted 100 09/18/18 09:20 Seg Neutrophils % 20.0 % (38-70) L 09/18/18 09:20 Band Neutrophils % 27.0 % (3-7) H 09/18/18 09:20 Lymphocytes % (Manual) 15.0 % (25-45) L 09/18/18 09:20 Atypical Lymphs % 3.0 % (-0) H 09/18/18 09:20 Monocytes % (Manual) 34.0 % (2-11) H 09/18/18 09:20 Eosinophils % (Manual) 1.0 % (2-4) L 09/18/18 09:20 Basophils % (Manual) 4.0 % (0-1) H 09/15/18 10:35 Metamyelocytes % 2.0 % (-0) H 09/04/18 08:49 Myelocytes % 2.0 % (-0) H 08/14/18 09:00 Promyelocytes % 2.0 % (-0) H 08/11/18 13:18 Neutrophils # (Manual) 2350 /uL ([id number]) L 09/18/18 09:20 Nucleated RBCs 1 #/Diff (-0) H 09/18/18 09:20 Dohle Bodies 1+ H 08/08/18 13:05 Platelet Estimate Decreased on smear 09/11/18 10:07 RBC Morphology Not Reportable 09/18/18 09:20 Polychromasia 1+ H 09/18/18 09:20 Hypochromasia 1+ H 09/04/18 08:49 Poikilocytosis 2+ H 09/11/18 10:07 Anisocytosis 2+ H 09/18/18 09:20 Microcytosis 1+ H 08/27/18 14:19 Tear Drop Cells 1+ H 09/15/18 10:35 Ovalocytes 1+ H 09/18/18 09:20 Sodium 135 mmol/L (137-145) L 09/18/18 09:20 Potassium 4.1 mmol/L (3.4-5.1) 09/18/18 09:20 Chloride 96 mmol/L (98-107) L 09/18/18 09:20 Carbon Dioxide 25 mmol/L (22-32) 09/18/18 09:20 BUN 15 mg/dL (9-20) 09/18/18 09:20 Creatinine 0.80 mg/dL (0.66-1.25) 09/18/18 09:20 Estimated GFR > 60.0 mL/min (>60) 09/18/18 09:20 BUN/Creatinine Ratio 18.8 (6-22) 09/18/18 09:20 Glucose 122 mg/dL (80-110) H 09/18/18 09:20 Calcium 9.8 mg/dL (8.4-10.2) 09/18/18 09:20 Total Bilirubin 0.7 mg/dL (0.2-1.3) 09/18/18 09:20 AST 22 IU/L (17-59) 01/10/19 09:20 ALT 19 IU/L (21-72) L 09/18/18 09:20 Alkaline Phosphatase 150 U/L (38-126) H 09/18/18 09:20 Total Protein 7.3 g/dL (6.3-8.2) 09/18/18 09:20 Albumin 4.2 g/dL (3.5-5.0) 09/18/18 09:20 Globulin 3.1 g/dL (1.7-4.1) 09/18/18 09:20 Albumin/Globulin Ratio 1.4 (1.0-2.8) 09/18/18 09:20 Blood Type A Positive 09/15/18 10:45 Antibody Screen Negative 09/15/18 10:45 Crossmatch See Detail 09/15/18 10:45 Assessment and Plan (1) T-cell lymphoma Problem details: Presented with weight loss, fatigue, malaise, and abdominal distention. CT CAP 05/30/2018: extensive lymphadenopathy in the neck, retroperitoneum, celiac axis, GE junction, head of pancreas, bilateral inguinal lymph nodes as well as markedly enlarged spleen. Excisional biopsy of the right groin lymph node on 06/03/2018: T-lymphoproliferative disorder, favoring angioimmunoblastic T-cell lymphoma. BMA/Bx 06/11/2018: involvement by T-cell lymphoma. Assessment: At [facility], the patient was started on chemotheray CHOEP (C1D1 = Jun 12, 2018) Doxorubicin 50 mg/m2 (95 mg) IVP once. IV push over 10-15 minutes day 1, for 1 dose Vincristine 1.4 mg/m2(max = 2 mg) IV once. Infuse over 10 min. Day 1, for 1 dose Cyclophosphamide 750 mg/m2 (1400 mg) IV once. Infused over 1 hr. Day 1, dfor 1 dose Etoposide 100 mg/m2 (190 mg) IVPB Q24H. Days 1 to 2, for 2 doses Prednisone 100 mg p.o. Q24H. Days 1 to 5, for 5 doses Cycle every 21 days. Cycle 5 CHOEP 09/05/2018. Plan has been to complete 6 cycles. Pt is here today for consideration of his 6th cycle which I will hold for severe anorexia, fatigue, weakness as well as clinical dehydration with tachycardia and hypotension. Pt verbalizes understanding and agrees with this POC. I will have him return in one week for visit with oncologist Dr Zhang and to reconsider his 6th treatment. Today we will provide him with fluids. Plan: 1. 1 L NS today 2. RTC in one week reconsider C6 CHOEP, visit with oncologist Dr Zhang, cbc cmp (2) Pain, low back His back pain is most likely related to his underlying T-cell lymphoma. Per pt report has been improving. Continue oxycodone 5/325, 1# p.o. every 4-6 hours on an as needed basis. (3) History of malignant neoplasm of testis Patient underwent radical left orchiectomy followed by 3 cycles of chemotherapy likely in 2003. No clinical evidence or biochemical evidence of disease recurrence or metastasis. I will continue active surveillance. (4) Depression Assessment and plan: Initiate sertraline 25 mg times 14 days followed by sertraline 50 mg. Patient reports ongoing depression due to his illness, his 's illness, social to stressors between himself and his ex- and his children. Also he has an on stable living situation. Patient has met and will continue to meet with BRENT Waters. I have also discussed with the patient professional counseling and or therapy outside of this clinic. Patient agrees. I will discuss further with [facility]. Pt is very clear he has no suicidal ideations or homicidal ideations. He is appropriate and cooperative on exam today. He is demonstrating good insight and good judgment. Consider increasing sertraline however will wait to do so hoping severe fatigue improves, I want to be sure sertraline is not contributing. (5) Pancytopenia due to chemotherapy Current visit: Yes Status: Acute Pancytopenia etiology chemotherapy. Patient received 2 units of packed red blood cells 09/15/2018 with good response noting hemoglobin 9.5 hematocrit 26.9 September 18. Today hemoglobin is expectedly low again today at 7.9 hematocrit 23.4. Patient denies shortness of breath, patient denies chest pain. We are holding treatment today no indication to transfuse at this point in time. Hopefully these counts will continue to recover. Plan is to return to clinic in 1 week time reconsideration for treatment we will also repeat CBC, CMP. Patient received G-CSF 300 mcg September 15, , , . [place] [id number] no indications to report acute illness or infection. Pt has been receiving G-CSF after which we have been seeing his white blood cell count greater than 20,000. (6) Insomnia Current visit: Yes Status: Acute Has been taking Ambien 10 mg HS. Patient reports he is increasingly fatigued in the morning he has difficulty waking and getting out of bed. Advised the patient to take only 1/2 tablet see how he does. Additionally, I cautioned him may not even need the medication noting ongoing generalized fatigue. Patient states he will try to sleep without it if he is unsuccessful he will try 1/2 or 5 mg of Ambien.
[2018-09-25 11:44] LABS: Add Manual Diff / Slide Review YES; Hematocrit 23.4 % (41-53); Hemoglobin 7.9 g/dL (13.5-17.5); Mean Corpuscular HGB Conc 33.9 % (30-36); Mean Corpuscular Hemoglobin 27.2 PG (26-34); Mean Corpuscular Volume 80.2 fL (80-100); Platelet Count 60 X10^3/uL (150-400); Red Blood Cell Count 2.91 X10^6/uL (4.5-5.9); Red Cell Distribution Width 18.8 % (11.6-14.8)
[2018-09-25 11:51] VITALS: BP 105/71; PULSE 144; RESP 20; TEMP 37; O2SAT 100
[2018-09-25 12:00] LABS: Alanine Aminotransferase 29 IU/L (21-72); Albumin 3.7 g/dL (3.5-5.0); Albumin Globulin Ratio 1.3 (1.0-2.8); Alkaline Phosphatase 287 U/L (38-126); Aspartate Aminotransferase 34 IU/L (17-59); BUN Creatinine Ratio 23.3 (6-22); Blood Urea Nitrogen 21 mg/dL (9-20); Calcium 9.4 mg/dL (8.4-10.2); Carbon Dioxide 19 mmol/L (22-32); Chloride 94 mmol/L (98-107); Estimated Glomerular Filt Rate > 60.0 mL/min (>60); Globulin 2.9 g/dL (1.7-4.1); Glucose 160 mg/dL (80-110); HEMOLYSIS < 15 (0-50); Lactate Dehydrogenase 822 U/L (313-618); Potassium 3.7 mmol/L (3.4-5.1); Sodium 130 mmol/L (137-145); Total Protein 6.6 g/dL (6.3-8.2)
[2018-09-25 12:07] LABS: Neutrophils Absolute Manual 22880 /uL (3000-5900); Nucleated Red Blood Cells 1 #/Diff; Total Cells Counted 100
[2018-09-25 12:08] LABS: Anisocytosis 1+; Hypersegmented Neutrophils 1+; Poikilocytosis 1+; Polychromasia 1+
[2018-09-25 12:27] VITALS: BP 107/61; PULSE 132; RESP 20; TEMP 36.8; O2SAT 100
[2018-09-25] MEDS: SODIUM CHLORIDE 0.9% 1,000 ML 1000 ML IV ×2 (12:40→13:50)
[2018-09-25 13:15] VITALS: BP 96/57; PULSE 125; RESP 18; TEMP 36.7; O2SAT 100
[2018-09-25 15:15] VITALS: BP 111/66; PULSE 109; RESP 18
[2018-10-02] VITALS (7 sets, daily range): BP systolic 112–148; BP diastolic 65–84; PULSE 94–121; RESP 18–24; TEMP 36.6–36.8; O2SAT 97
[2018-10-02 09:07] LABS: Mean Corpuscular HGB Conc 35.3 % (30-36); Mean Corpuscular Hemoglobin 28.6 PG (26-34); Mean Corpuscular Volume 81.1 fL (80-100); Platelet Count 47 X10^3/uL (150-400); Red Blood Cell Count 2.04 X10^6/uL (4.5-5.9); Red Cell Distribution Width 19.6 % (11.6-14.8); White Blood Cell Count 7.3 X10^3/uL (4.5-11.0)
[2018-10-02 09:10] LABS: Add Manual Diff / Slide Review YES; Hematocrit 16.6 % (41-53); Hemoglobin 5.8 g/dL (13.5-17.5)
--- NOTE | 2018-10-02 09:11 | PC.NURSE ---
Received call from [place] in lab, critical lab result; HH 5.8 & 16.6, database administration manager aware.
[2018-10-02 09:16] LABS: Alanine Aminotransferase 19 IU/L (21-72); Albumin 3.5 g/dL (3.5-5.0); Albumin Globulin Ratio 1.3 (1.0-2.8); Alkaline Phosphatase 152 U/L (38-126); Aspartate Aminotransferase 17 IU/L (17-59); BUN Creatinine Ratio 24.3 (6-22); Bilirubin Total 0.8 mg/dL (0.2-1.3); Blood Urea Nitrogen 17 mg/dL (9-20); Calcium 9.8 mg/dL (8.4-10.2); Carbon Dioxide 21 mmol/L (22-32); Chloride 96 mmol/L (98-107); Estimated Glomerular Filt Rate > 60.0 mL/min (>60); Globulin 2.7 g/dL (1.7-4.1); Glucose 155 mg/dL (80-110); HEMOLYSIS < 15 (0-50); Lactate Dehydrogenase 660 U/L (313-618); Potassium 3.8 mmol/L (3.4-5.1); Sodium 131 mmol/L (137-145); Total Protein 6.2 g/dL (6.3-8.2)
--- NOTE | 2018-10-02 09:25 | ONC.PN ---
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 He has completed 5 cycles of CHOEP with his most recent chemo 09/04/2018. Today (10/02/2018), he came here today for scheduled follow-up visit. Patient is coughing quite a bit. And he is feeling quite cold. He denies any new pain except the existing back pain. He is in wheelchair. Denies fever or chills. Denies abdominal pain. History of present illness Mr. Irvin Diaz is a 62-year-old gentleman whom I saw at [facility]. He is transfer his care to [facility]. He has a remote history of left testicular cancer diagnosed in 2004 status post radical left orchiectomy followed by chemotherapy for 3 cycles without radiation treatment. Patient presented with about 5-6 months of history of weight loss, fatigue, malaise, abdominal distention, and adenopathy. CT CAP on 05/30/2018 showed extensive lymphadenopathy in the neck, retroperitoneum, along the celiac axis, near the GE junction, head of pancreas and prominent bilateral inguinal lymph nodes as well as markedly enlarged spleen. Patient was hospitalized at [facility] on May 31, 2018. Patient underwent TTE on 05/31/2018 that showedLVEF of 60-65%. Due to findings of ascites, patient underwent paracentesis and the cytology showed atypical lymphocytes suspicious for lymphoma. He underwent excisional biopsy of the right groin lymph node on June 03, 2018. And the final pathology showed T-lymphoproliferative disorder, favoring angioimmunoblastic T-cell lymphoma. And on June 10, 2018 patient was transferred to [facility] for further evaluation and treatment. At [facility], on June 11, 2018 the patient underwent bone marrow aspiration biopsy. The final pathology showed morphologically abnormal bone marrow with multi-focal, ill-defined mixed (lymphohistiocytic and eosinophilic) infiltrate suggestive of marrow involvement by T-cell lymphoma, hypercellular marrow with trilineage hematopoiesis and anemia with borderline microcytic anemia and absolute lymphopenia. At [facility], the patient was started on chemotheray CHOEP (C1D1 = Jun 12, 2018) Doxorubicin 50 mg/m2 (95 mg) IVP once. IV push over 10-15 minutes day 1, for 1 dose Vincristine 1.4 mg/m2(max = 2 mg) IV once. Infuse over 10 min. Day 1, for 1 dose Cyclophosphamide 750 mg/m2 (1400 mg) IV once. Infused over 1 hr. Day 1, dfor 1 dose Etoposide 100 mg/m2 (190 mg) IVPB Q24H. Days 1 to 2, for 2 doses Prednisone 100 mg p.o. Q24H. Days 1 to 5, for 5 doses Cycle every 21 days. - Patient Self-Reported Symptoms SR Constitution: Weight loss/gain (gain 2 lbs since last visit, good appetite) SR ears, nose, mouth, throat issues: Cough (minor cough, dry with some upper chest congestion) SR Cardiovascular issues: Extreme swelling (improving.) SR Skin issues: Skin rash or itching (on the lower legs and are improving.) SR Musculoskeletal issues: Back or neck pain (on oxycodone and helpful.) SR Neuro issues: Headache (migraine.) SR Endocrine issues: Cold intolerance - Additional ROS All systems PM: reviewed and no additional remarkable complaints except as stated Home Medications and Allergies Home Medications Medication Instructions Recorded Confirmed Type esomeprazole magnesium [Nexium] 40 mg PO DAILY #0 12/31/16 08/14/18 History vuzmnkaxdbi-E0-Zvdszzjcc serr 2 tab PO QAM 05/22/18 08/14/18 History [Glucosamine Daily Complex] vlrypkf-bvthkwldkjvty-otiwxuve 1 tab PO Q4-6H PRN 06/24/18 08/14/18 History [Excedrin Extra Strength] filgrastim-sndz [Zarxio] 5 mcg/kg SUBCUT Q24H 06/24/18 08/14/18 History fish,bora,flax oils-om3,6,9no1 1 cap PO DAILY 07/04/18 08/14/18 History [Many 3-6-9 Complex] nadolol 80 mg PO DAILY 07/04/18 08/14/18 History ondansetron 4 mg PO TID PRN 07/04/18 08/14/18 History acyclovir 800 mg PO Q12H #60 tab 08/14/18 Rx zolpidem [Ambien] 10 mg PO BEDTIME PRN #30 tab 08/14/18 Rx oxycodone-acetaminophen 1 tab PO Q4-6H PRN #60 tab 09/04/18 Rx sertraline 25 mg PO DAILY #14 tab 09/04/18 Rx sertraline 50 mg PO DAILY #60 tab 09/04/18 Rx levofloxacin [Levaquin] 500 mg PO DAILY #10 tab 09/15/18 Rx nystatin 5 ml PO TID #120 ml 09/15/18 Rx Allergies Allergy/AdvReac Type Severity Reaction Status Date / Time Sulfa (Sulfonamide Allergy Intermediate Hives Verified 06/24/18 08:50 Antibiotics) iodine Allergy Verified 05/27/18 14:53 Exam Vital signs: Last Vital Signs Temp 98.0 F 09/25/18 13:15 Pulse 109 H 09/25/18 15:15 Resp 18 09/25/18 15:15 BP 111/66 09/25/18 15:15 Pulse Ox 100 09/25/18 13:15 ECOG 2 Narrative: Constitutional: Well developed, thin, not in any acute respiratory distress, average body habitus, well groomed, pleasant and cooperative. in wheelchair. HEENT: Normocephalic atraumatic. Extraocular muscle movement intact. Pupils are round, equal and reactive to light and accommodations. Anicteric sclera. No hearing difficulty; Oral mucus membrane moist and without ulcers. Neck: Supple, symmetrical, and tracheal midline; No palpable thyromegaly and no palpable lymph nodes. Respiratory: No use of accessory muscles. Clear to auscultation, and no wheezes or rales or rubs. Cardiovascular: Regular rate and rhythm, S1 and S2 normal, no murmurs gallops or rubs. No JVD. Abdomen: Soft, nontender, non-distended, bowel sounds normal, no hernia, no palpable masses. Palpable splenomegaly and mild hepatomegaly. Lower extremities: 1+ edema noted. Lymphatic: no palpable lymph nodes in the neck, axillae, or groins. Musculoskeletal: normal gait and station, no clubbing, no cyanosis, no pitting edema. Skin: no rashes, no ulcers, no petechiae Neurological: Awake and alert and oriented x3. CN II-XII grossly intact. No focal motor or sensory deficit. Psychiatric: Good judgment, good insight, normal affect, normal thought process, cooperative, no depression, no anxiety. Results - Labs Laboratory Last Values WBC 7.3 X10^3/uL (4.5-11.0) 10/02/18 08:58 RBC 2.04 X10^6/uL (4.5-5.9) L 10/02/18 08:58 Hgb 5.8 g/dL (13.5-17.5) L* 10/02/18 08:58 Hct 16.6 % (41-53) L* 10/02/18 08:58 MCV 81.1 fL (80-100) 10/02/18 08:58 MCH 28.6 PG (26-34) 10/02/18 08:58 MCHC 35.3 % (30-36) 10/02/18 08:58 RDW 19.6 % (11.6-14.8) H 10/02/18 08:58 Plt Count 47 X10^3/uL (150-400) L 10/02/18 08:58 Neut % (Auto) Not Reportable 10/02/18 08:58 Lymph % (Auto) Not Reportable 10/02/18 08:58 [place] % (Auto) Not Reportable 10/02/18 08:58 Eos % (Auto) Not Reportable 10/02/18 08:58 Baso % (Auto) Not Reportable 10/02/18 08:58 Neut # (Auto) 1600 /uL (4683-3300) 09/11/18 10:07 Lymph # (Auto) Not Reportable 10/02/18 08:58 [place] # (Auto) Not Reportable 10/02/18 08:58 Baso # (Auto) Not Reportable 10/02/18 08:58 Total Counted 100 09/25/18 11:29 Seg Neutrophils % 77.0 % (38-70) H 09/25/18 11:29 Band Neutrophils % 11.0 % (3-7) H 09/25/18 11:29 Lymphocytes % (Manual) 4.0 % (25-45) L 09/25/18 11:29 Atypical Lymphs % 3.0 % (-0) H 09/18/18 09:20 Monocytes % (Manual) 8.0 % (2-11) 09/25/18 11:29 Eosinophils % (Manual) 1.0 % (2-4) L 09/18/18 09:20 Basophils % (Manual) 4.0 % (0-1) H 09/15/18 10:35 Metamyelocytes % 2.0 % (-0) H 09/04/18 08:49 Myelocytes % 2.0 % (-0) H 08/14/18 09:00 Promyelocytes % 2.0 % (-0) H 08/11/18 13:18 Neutrophils # (Manual) 49464 /uL (9012-2172) H 09/25/18 11:29 Nucleated RBCs 1 #/Diff (-0) H 09/25/18 11:29 Hypersegmented Neuts 1+ 09/25/18 11:29 Dohle Bodies 1+ H 08/08/18 13:05 Platelet Estimate Decreased on smear 09/11/18 10:07 RBC Morphology Not Reportable 09/25/18 11:29 Polychromasia 1+ H 09/25/18 11:29 Hypochromasia 1+ H 09/04/18 08:49 Poikilocytosis 1+ H 09/25/18 11:29 Anisocytosis 1+ H 09/25/18 11:29 Microcytosis 1+ H 08/27/18 14:19 Tear Drop Cells 1+ H 09/15/18 10:35 Ovalocytes 1+ H 09/18/18 09:20 Sodium 131 mmol/L (137-145) L 10/02/18 08:58 Potassium 3.8 mmol/L (3.4-5.1) 10/02/18 08:58 Chloride 96 mmol/L (98-107) L 10/02/18 08:58 Carbon Dioxide 21 mmol/L (22-32) L 10/02/18 08:58 BUN 17 mg/dL (9-20) 10/02/18 08:58 Creatinine 0.70 mg/dL (0.66-1.25) 10/02/18 08:58 Estimated GFR > 60.0 mL/min (>60) 10/02/18 08:58 BUN/Creatinine Ratio 24.3 (6-22) H 10/02/18 08:58 Glucose 155 mg/dL (80-110) H 10/02/18 08:58 Calcium 9.8 mg/dL (8.4-10.2) 10/02/18 08:58 Total Bilirubin 0.8 mg/dL (0.2-1.3) 10/02/18 08:58 AST 17 IU/L (17-59) 10/02/18 08:58 ALT 19 IU/L (21-72) L 10/02/18 08:58 Alkaline Phosphatase 152 U/L (38-126) H 10/02/18 08:58 Lactate Dehydrogenase 660 U/L (313-618) H 10/02/18 08:58 Total Protein 6.2 g/dL (6.3-8.2) L 10/02/18 08:58 Albumin 3.5 g/dL (3.5-5.0) 10/02/18 08:58 Globulin 2.7 g/dL (1.7-4.1) 10/02/18 08:58 Albumin/Globulin Ratio 1.3 (1.0-2.8) 10/02/18 08:58 Blood Type A Positive 09/15/18 10:45 Antibody Screen Negative 09/15/18 10:45 Crossmatch See Detail 09/15/18 10:45 Assessment and Plan (1) T-cell lymphoma Problem details: Presented with weight loss, fatigue, malaise, and abdominal distention. CT CAP 05/30/2018: extensive lymphadenopathy in the neck, retroperitoneum, celiac axis, GE junction, head of pancreas, bilateral inguinal lymph nodes as well as markedly enlarged spleen. Excisional biopsy of the right groin lymph node on 06/03/2018: T-lymphoproliferative disorder, favoring angioimmunoblastic T-cell lymphoma. BMA/Bx 06/11/2018: involvement by T-cell lymphoma. Assessment: At [facility], the patient was started on chemotheray CHOEP (C1D1 = Jun 12, 2018) Doxorubicin 50 mg/m2 (95 mg) IVP once. IV push over 10-15 minutes day 1, for 1 dose Vincristine 1.4 mg/m2(max = 2 mg) IV once. Infuse over 10 min. Day 1, for 1 dose Cyclophosphamide 750 mg/m2 (1400 mg) IV once. Infused over 1 hr. Day 1, dfor 1 dose Etoposide 100 mg/m2 (190 mg) IVPB Q24H. Days 1 to 2, for 2 doses Prednisone 100 mg p.o. Q24H. Days 1 to 5, for 5 doses Cycle every 21 days. Patient has already received 5 cycles of CHOEP. However patient is having lot of dry coughing. Patient has worsening anemia. I will proceed with blood transfusion. We will hold the chemotherapy for now. I will obtain a CT scan to evaluate if there is any progression of the underlying T-cell lymphoma. Plan: 1. Hold chemo 2. pRBC [address] CAP w/contrast 4. RTC in one week, CBC, CMP, LDH (2) Pain, low back His back pain is most likely related to his underlying T-cell lymphoma. Per pt report has been improving. Continue oxycodone 5/325, 1# p.o. every 4-6 hours on an as needed basis. (3) History of malignant neoplasm of testis Patient underwent radical left orchiectomy followed by 3 cycles of chemotherapy likely in 2003. No clinical evidence or biochemical evidence of disease recurrence or metastasis. I will continue active surveillance. (4) Depression Assessment and plan: Initiate sertraline 25 mg times 14 days followed by sertraline 50 mg. Patient reports ongoing depression due to his illness, his 's illness, social stress between himself and his ex- and his children. Also he has an on stable living situation. Patient has met and will continue to meet with [facility] Nila [employer]. Pt is very clear he has no suicidal ideation or homicidal ideation. He is demonstrating good insight and good judgment. (5) Pancytopenia due to chemotherapy Pancytopenia related to chemotherapy as well as underlying T-cell lymphoma. Today, his H/H were 5.9/16.6. I will hold chemotherapy and give pRBC 3 units. I will have him back in one week, repeat CBC. His WBC was normal today, and his PLT was 47K. No bleeding events. (6) Insomnia He is now taking Ambien 5-10 mg before going to bed.
[2018-10-02 09:27] LABS: Anisocytosis 3+; Neutrophils Absolute Manual 5621 /uL (3000-5900); Poikilocytosis 2+; Total Cells Counted 100
--- NOTE | 2018-10-02 09:31 | P.PNONC_ITS ---
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 He has completed 5 cycles of CHOEP with his most recent chemo 2017. Today (10/02/2018), he came here today for scheduled follow-up visit. Patient is coughing quite a bit. And he is feeling quite cold. He denies any new pain except the existing back pain. He is in wheelchair. Denies fever or chills. Denies abdominal pain. History of present illness Mr. Irvin Diaz is a 62-year-old gentleman whom I saw at [facility]. He is transfer his care to [facility]. He has a remote history of left testicular cancer diagnosed in 2004 status post radical left orchiectomy followed by chemotherapy for 3 cycles without radiation treatment. Patient presented with about 5-6 months of history of weight loss, fatigue, malaise, abdominal distention, and adenopathy. CT CAP on 05/30/2018 showed extensive lymphadenopathy in the neck, retroperitoneum, along the celiac axis, near the GE junction, head of pancreas and prominent bilateral inguinal lymph nodes as well as markedly enlarged spleen. Patient was hospitalized at [facility] on May 31, 2018. Patient underwent TTE on 05/31/2018 that showedLVEF of 60-65%. Due to findings of ascites, patient underwent paracentesis and the cytology showed atypical lymphocytes suspicious for lymphoma. He underwent excisional biopsy of the right groin lymph node on June 03, 2018. And the final pathology showed T- lymphoproliferative disorder, favoring angioimmunoblastic T-cell lymphoma. And on June 10, 2018 patient was transferred to [facility] for further evaluation and treatment. At [facility], on June 11, 2018 the patient underwent bone marrow aspiration biopsy. The final pathology showed morphologically abnormal bone marrow with multi-focal, ill-defined mixed (lymphohistiocytic and eosinophilic) infiltrate suggestive of marrow involvement by T-cell lymphoma, hypercellular marrow with trilineage hematopoiesis and anemia with borderline microcytic anemia and absolute lymphopenia. At [facility], the patient was started on chemotheray CHOEP (C1D1 = Jun 12, 2018) Doxorubicin 50 mg/m2 (95 mg) IVP once. IV push over 10-15 minutes day 1, for 1 dose Vincristine 1.4 mg/m2(max = 2 mg) IV once. Infuse over 10 min. Day 1, for 1 dose Cyclophosphamide 750 mg/m2 (1400 mg) IV once. Infused over 1 hr. Day 1, dfor 1 dose Etoposide 100 mg/m2 (190 mg) IVPB Q24H. Days 1 to 2, for 2 doses Prednisone 100 mg p.o. Q24H. Days 1 to 5, for 5 doses Cycle every 21 days. - Patient Self-Reported Symptoms SR Constitution: Weight loss/gain (gain 2 lbs since last visit, good appetite) SR ears, nose, mouth, throat issues: Cough (minor cough, dry with some upper chest congestion) SR Cardiovascular issues: Extreme swelling (improving.) SR Skin issues: Skin rash or itching (on the lower legs and are improving.) SR Musculoskeletal issues: Back or neck pain (on oxycodone and helpful.) SR Neuro issues: Headache (migraine.) SR Endocrine issues: Cold intolerance - Additional ROS All systems PM: reviewed and no additional remarkable complaints except as stated Home Medications and Allergies Home Medications Medication Instructions Recorded Confirmed Type esomeprazole magnesium [Nexium] 40 mg PO DAILY #0 12/31/16 08/14/18 History qoxuosvdunp-C3-Zisgjylvo serr 2 tab PO QAM 05/22/18 08/14/18 History [Glucosamine Daily Complex] zjfvdlb-rdzsaacrvmjhg-sihzzmxa 1 tab PO Q4-6H PRN 06/24/18 08/14/18 History [Excedrin Extra Strength] filgrastim-sndz [Zarxio] 5 mcg/kg SUBCUT Q24H 06/24/18 08/14/18 History fish,bora,flax oils-om3,6,9no1 1 cap PO DAILY 07/04/18 08/14/18 History [[place]ke 3-6-9 Complex] nadolol 80 mg PO DAILY 07/04/18 08/14/18 History ondansetron 4 mg PO TID PRN 07/04/18 08/14/18 History acyclovir 800 mg PO Q12H #60 tab 08/14/18 Rx zolpidem [Ambien] 10 mg PO BEDTIME PRN #30 tab 08/14/18 Rx oxycodone-acetaminophen 1 tab PO Q4-6H PRN #60 tab 09/04/18 Rx sertraline 25 mg PO DAILY #14 tab 09/04/18 Rx sertraline 50 mg PO DAILY #60 tab 09/04/18 Rx levofloxacin [Levaquin] 500 mg PO DAILY #10 tab 09/15/18 Rx nystatin 5 ml PO TID #120 ml 09/15/18 Rx Allergies Allergy/AdvReac Type Severity Reaction Status Date / Time Sulfa (Sulfonamide Allergy Intermediate Hives Verified 06/24/18 08:50 Antibiotics) iodine Allergy Verified 05/27/18 14:53 Exam Vital signs: Last Vital Signs Temp 98.0 F 09/25/18 13:15 Pulse 109 H 09/25/18 15:15 Resp 18 09/25/18 15:15 BP 111/66 09/25/18 15:15 Pulse Ox 100 09/25/18 13:15 ECOG 2 Narrative: Constitutional: Well developed, thin, not in any acute respiratory distress, average body habitus, well groomed, pleasant and cooperative. in wheelchair. HEENT: Normocephalic atraumatic. Extraocular muscle movement intact. Pupils are round, equal and reactive to light and accommodations. Anicteric sclera. No hearing difficulty; Oral mucus membrane moist and without ulcers. Neck: Supple, symmetrical, and tracheal midline; No palpable thyromegaly and no palpable lymph nodes. Respiratory: No use of accessory muscles. Clear to auscultation, and no wheezes or rales or rubs. Cardiovascular: Regular rate and rhythm, S1 and S2 normal, no murmurs gallops or rubs. No JVD. Abdomen: Soft, nontender, non-distended, bowel sounds normal, no hernia, no palpable masses. Palpable splenomegaly and mild hepatomegaly. Lower extremities: 1+ edema noted. Lymphatic: no palpable lymph nodes in the neck, axillae, or groins. Musculoskeletal: normal gait and station, no clubbing, no cyanosis, no pitting edema. Skin: no rashes, no ulcers, no petechiae Neurological: Awake and alert and oriented x3. CN II-XII grossly intact. No focal motor or sensory deficit. Psychiatric: Good judgment, good insight, normal affect, normal thought process , cooperative, no depression, no anxiety. Results - Labs Laboratory Last Values WBC 7.3 X10^3/uL (4.5-11.0) 10/02/18 08:58 RBC 2.04 X10^6/uL (4.5-5.9) L 10/02/18 08:58 Hgb 5.8 g/dL (13.5-17.5) L* 10/02/18 08:58 Hct 16.6 % (41-53) L* 10/02/18 08:58 MCV 81.1 fL (80-100) 10/02/18 08:58 MCH 28.6 PG (26-34) 10/02/18 08:58 MCHC 35.3 % (30-36) 10/02/18 08:58 RDW 19.6 % (11.6-14.8) H 10/02/18 08:58 Plt Count 47 X10^3/uL (150-400) L 10/02/18 08:58 Neut % (Auto) Not Reportable 10/02/18 08:58 Lymph % (Auto) Not Reportable 10/02/18 08:58 [place] % (Auto) Not Reportable 10/02/18 08:58 Eos % (Auto) Not Reportable 10/02/18 08:58 Baso % (Auto) Not Reportable 10/02/18 08:58 Neut # (Auto) 1600 /uL (5225-3893) 09/11/18 10:07 Lymph # (Auto) Not Reportable 10/02/18 08:58 [place] # (Auto) Not Reportable 10/02/18 08:58 Baso # (Auto) Not Reportable 10/02/18 08:58 Total Counted 100 09/25/18 11:29 Seg Neutrophils % 77.0 % (38-70) H 09/25/18 11:29 Band Neutrophils % 11.0 % (3-7) H 09/25/18 11:29 Lymphocytes % (Manual) 4.0 % (25-45) L 09/25/18 11:29 Atypical Lymphs % 3.0 % (-0) H 09/18/18 09:20 Monocytes % (Manual) 8.0 % (2-11) 09/25/18 11:29 Eosinophils % (Manual) 1.0 % (2-4) L 09/18/18 09:20 Basophils % (Manual) 4.0 % (0-1) H 09/15/18 10:35 Metamyelocytes % 2.0 % (-0) H 09/04/18 08:49 Myelocytes % 2.0 % (-0) H 08/14/18 09:00 Promyelocytes % 2.0 % (-0) H 08/11/18 13:18 Neutrophils # (Manual) 15367 /uL (1012-9760) H 09/25/18 11:29 Nucleated RBCs 1 #/Diff (-0) H 09/25/18 11:29 Hypersegmented Neuts 1+ 09/25/18 11:29 Dohle Bodies 1+ H 08/08/18 13:05 Platelet Estimate Decreased on smear 09/11/18 10:07 RBC Morphology Not Reportable 09/25/18 11:29 Polychromasia 1+ H 09/25/18 11:29 Hypochromasia 1+ H 09/04/18 08:49 Poikilocytosis 1+ H 09/25/18 11:29 Anisocytosis 1+ H 09/25/18 11:29 Microcytosis 1+ H 08/27/18 14:19 Tear Drop Cells 1+ H 09/15/18 10:35 Ovalocytes 1+ H 09/18/18 09:20 Sodium 131 mmol/L (137-145) L 10/02/18 08:58 Potassium 3.8 mmol/L (3.4-5.1) 10/02/18 08:58 Chloride 96 mmol/L (98-107) L 10/02/18 08:58 Carbon Dioxide 21 mmol/L (22-32) L 10/02/18 08:58 BUN 17 mg/dL (9-20) 10/02/18 08:58 Creatinine 0.70 mg/dL (0.66-1.25) 10/02/18 08:58 Estimated GFR > 60.0 mL/min (>60) 10/02/18 08:58 BUN/Creatinine Ratio 24.3 (6-22) H 10/02/18 08:58 Glucose 155 mg/dL (80-110) H 10/02/18 08:58 Calcium 9.8 mg/dL (8.4-10.2) 10/02/18 08:58 Total Bilirubin 0.8 mg/dL (0.2-1.3) 10/02/18 08:58 AST 17 IU/L (17-59) 10/02/18 08:58 ALT 19 IU/L (21-72) L 10/02/18 08:58 Alkaline Phosphatase 152 U/L (38-126) H 10/02/18 08:58 Lactate Dehydrogenase 660 U/L (313-618) H 10/02/18 08:58 Total Protein 6.2 g/dL (6.3-8.2) L 10/02/18 08:58 Albumin 3.5 g/dL (3.5-5.0) 10/02/18 08:58 Globulin 2.7 g/dL (1.7-4.1) 10/02/18 08:58 Albumin/Globulin Ratio 1.3 (1.0-2.8) 10/02/18 08:58 Blood Type A Positive 09/15/18 10:45 Antibody Screen Negative 09/15/18 10:45 Crossmatch See Detail 09/15/18 10:45 Assessment and Plan (1) T-cell lymphoma Problem details: Presented with weight loss, fatigue, malaise, and abdominal distention. CT CAP 05/30/2018: extensive lymphadenopathy in the neck, retroperitoneum, celiac axis, GE junction, head of pancreas, bilateral inguinal lymph nodes as well as markedly enlarged spleen. Excisional biopsy of the right groin lymph node on 06/03/2018: T-lymphoproliferative disorder, favoring angioimmunoblastic T-cell lymphoma. BMA/Bx 06/11/2018: involvement by T-cell lymphoma. Assessment: At [facility], the patient was started on chemotheray CHOEP (C1D1 = Jun 12, 2018) Doxorubicin 50 mg/m2 (95 mg) IVP once. IV push over 10-15 minutes day 1, for 1 dose Vincristine 1.4 mg/m2(max = 2 mg) IV once. Infuse over 10 min. Day 1, for 1 dose Cyclophosphamide 750 mg/m2 (1400 mg) IV once. Infused over 1 hr. Day 1, dfor 1 dose Etoposide 100 mg/m2 (190 mg) IVPB Q24H. Days 1 to 2, for 2 doses Prednisone 100 mg p.o. Q24H. Days 1 to 5, for 5 doses Cycle every 21 days. Patient has already received 5 cycles of CHOEP. However patient is having lot of dry coughing. Patient has worsening anemia. I will proceed with blood transfusion. We will hold the chemotherapy for now. I will obtain a CT scan to evaluate if there is any progression of the underlying T-cell lymphoma. Plan: 1. Hold chemo 2. pRBC [address] CAP w/contrast 4. RTC in one week, CBC, CMP, LDH (2) Pain, low back His back pain is most likely related to his underlying T-cell lymphoma. Per pt report has been improving. Continue oxycodone 5/325, 1# p.o. every 4-6 hours on an as needed basis. (3) History of malignant neoplasm of testis Patient underwent radical left orchiectomy followed by 3 cycles of chemotherapy likely in 2003. No clinical evidence or biochemical evidence of disease recurrence or metastasis. I will continue active surveillance. (4) Depression Assessment and plan: Initiate sertraline 25 mg times 14 days followed by sertraline 50 mg. Patient reports ongoing depression due to his illness, his 's illness, social stress between himself and his ex- and his children. Also he has an on stable living situation. Patient has met and will continue to meet with [facility] [employer]. Pt is very clear he has no suicidal ideation or homicidal ideation. He is demonstrating good insight and good judgment. (5) Pancytopenia due to chemotherapy Pancytopenia related to chemotherapy as well as underlying T-cell lymphoma. Today, his H/H were 5.9/16.6. I will hold chemotherapy and give pRBC 3 units. I will have him back in one week, repeat CBC. His WBC was normal today, and his PLT was 47K. No bleeding events. (6) Insomnia He is now taking Ambien 5-10 mg before going to bed.
--- NOTE | 2018-10-02 16:24 | PC.NURSE ---
Per pts tx protocol I called in a refill for Prednisone 50mg taking 100mg on days 1-5 of tx. Just like the previous rx
[2018-10-03 10:15] VITALS: BP 134/80; PULSE 101; RESP 18; TEMP 36.5
[2018-10-03 10:30] VITALS: BP 145/77; PULSE 104; RESP 18; TEMP 36.6
[2018-10-03 12:30] VITALS: BP 135/65; PULSE 104; RESP 18; TEMP 36.7
--- NOTE | 2018-10-03 14:20 | PC.NURSE ---
Tylenol not given during transfusion, pt took morning home does of Percocet.
[2018-10-07 10:10] LABS: Hematocrit 29.1 % (41-53); Mean Corpuscular HGB Conc 34.3 % (30-36); Mean Corpuscular Hemoglobin 28.8 PG (26-34); Mean Corpuscular Volume 83.8 fL (80-100); Platelet Count 62 X10^3/uL (150-400); Red Blood Cell Count 3.48 X10^6/uL (4.5-5.9); Red Cell Distribution Width 17.8 % (11.6-14.8); White Blood Cell Count 9.2 X10^3/uL (4.5-11.0)
[2018-10-07 10:12] LABS: Add Manual Diff / Slide Review YES
[2018-10-07 10:22] LABS: Alanine Aminotransferase 24 IU/L (21-72); Albumin 3.4 g/dL (3.5-5.0); Albumin Globulin Ratio 1.2 (1.0-2.8); Alkaline Phosphatase 223 U/L (38-126); Aspartate Aminotransferase 21 IU/L (17-59); BUN Creatinine Ratio 31.7 (6-22); Bilirubin Total 0.7 mg/dL (0.2-1.3); Blood Urea Nitrogen 19 mg/dL (9-20); Calcium 10.3 mg/dL (8.4-10.2); Carbon Dioxide 22 mmol/L (22-32); Chloride 99 mmol/L (98-107); Estimated Glomerular Filt Rate > 60.0 mL/min (>60); Globulin 2.8 g/dL (1.7-4.1); Glucose 104 mg/dL (80-110); HEMOLYSIS < 15 (0-50); Sodium 135 mmol/L (137-145); Total Protein 6.2 g/dL (6.3-8.2)
[2018-10-07 10:28] LABS: Anisocytosis 2+; Neutrophils Absolute Manual 7544 /uL (3000-5900); Platelet Estimate Decreased on smear; Total Cells Counted 100
[2018-10-07 10:29] LABS: Ovalocytes 1+; Poikilocytosis 2+
[2018-10-07 12:18] VITALS: BP 106/54; PULSE 118; RESP 16; TEMP 36.8; O2SAT 100
[2018-10-07] MEDS: SODIUM CHLORIDE 0.9% 1,000 ML 1000 ML IV (12:23)
[2018-10-13 14:17] LABS: Hemoglobin 7.2 g/dL (13.5-17.5); Mean Corpuscular HGB Conc 34.7 % (30-36); Mean Corpuscular Volume 83.7 fL (80-100); Platelet Count 59 X10^3/uL (150-400); Red Blood Cell Count 2.47 X10^6/uL (4.5-5.9); Red Cell Distribution Width 18.2 % (11.6-14.8); White Blood Cell Count 9.9 X10^3/uL (4.5-11.0)
[2018-10-13 14:19] LABS: Alanine Aminotransferase 20 IU/L (21-72); Albumin 3.2 g/dL (3.5-5.0); Albumin Globulin Ratio 1.2 (1.0-2.8); Alkaline Phosphatase 195 U/L (38-126); Aspartate Aminotransferase 23 IU/L (17-59); Bilirubin Total 0.9 mg/dL (0.2-1.3); Blood Urea Nitrogen 18 mg/dL (9-20); Calcium 10.3 mg/dL (8.4-10.2); Carbon Dioxide 22 mmol/L (22-32); Chloride 94 mmol/L (98-107); Estimated Glomerular Filt Rate > 60.0 mL/min (>60); Globulin 2.7 g/dL (1.7-4.1); Glucose 142 mg/dL (80-110); HEMOLYSIS < 15 (0-50); Lactate Dehydrogenase 994 U/L (313-618); Potassium 3.7 mmol/L (3.4-5.1); Sodium 129 mmol/L (137-145); Total Protein 5.9 g/dL (6.3-8.2)
[2018-10-13 14:23] LABS: Add Manual Diff / Slide Review YES; Hematocrit 20.7 % (41-53)
[2018-10-13 15:46] LABS: Neutrophils Absolute Manual 8613 /uL (3000-5900); Total Cells Counted 100
[2018-10-13 15:47] LABS: Anisocytosis 2+; Ovalocytes 1+; Platelet Estimate Decreased on smear; Poikilocytosis 1+; Tear Drop Cells 1+
[2018-10-13 15:48] LABS: Polychromasia 1+
[2018-10-13 16:00] VITALS: BP 135/69; PULSE 117; RESP 20; TEMP 36.6; O2SAT 95
--- NOTE | 2018-10-13 16:05 | PC.NURSE ---
Patient here for lab draw showing need for transfusion. Patient requests to come back tomorrow for transfusion and will return at 9. VSS, increased heart rate has been his normal. He was told to go to ER if developing chest pain or shortness of breath which does not resolve with rest.
--- NOTE | 2018-10-13 16:11 | PC.NURSE ---
THIS NURSE ASKED PATIENT TO BRING IN A RECORD OF ALL MEDICATIONS HE IS CURRENTLY TAKING. HE RESPONDED HE WILL BRING A LIST TOMORROW WITH NAME STRENGTH AND DOSING.
[2018-10-14] MEDS: SODIUM CHLORIDE 0.9% 250 ML 21 ML IV (09:48)
[2018-10-14 10:00] VITALS: BP 108/59; PULSE 130; RESP 20; TEMP 36.7
[2018-10-14 10:15] VITALS: BP 104/49; PULSE 131; RESP 20; TEMP 37.2
[2018-10-14] MEDS: ACETAMINOPHEN 325 MG TABLET 650 MG PO (10:39)
[2018-10-14 12:45] VITALS: BP 99/52; PULSE 109; RESP 18; TEMP 36.7
[2018-10-14 13:05] VITALS: BP 105/63; PULSE 108; RESP 18; TEMP 36.6
--- NOTE | 2018-10-14 13:09 | TAR.TRANSNT ---
pre administration vitals documented for 2nd unit, however, this television script writer kept getting prompt by computer/program that pre vitals haven't been documented. This television script writer able to view pre vitals documented at 12:45pm for second unit.
[2018-10-14 15:46] VITALS: BP 109/64; PULSE 94; RESP 20; TEMP 36.4
--- NOTE | 2018-10-14 16:16 | PC.NURSE ---
Pt seen in clinic for 2 units RBC's. Tolerated both infusions w/o difficulty, HR prior to first unit was elevated (see documentation), HR within normal limits after 2nd unit infused. Denies chest pain and SOB. RR equal and unlabored. Denies N/V. Edema noted to abdomen, pt reports improvement since yesterday. Pt has appointment on Saturday with provider. Pt agrees to continue to monitor abdomen and seek medical attention accordingly as discussed with this sign writer letterer or painter. Speech clear. Steady on feet. Port needle dc'd intact.
[2018-10-17 10:55] LABS: Hematocrit 25.5 % (41-53); Hemoglobin 8.8 g/dL (13.5-17.5); Mean Corpuscular HGB Conc 34.4 % (30-36); Mean Corpuscular Hemoglobin 29.5 PG (26-34); Mean Corpuscular Volume 85.6 fL (80-100); Platelet Count 38 X10^3/uL (150-400); Red Blood Cell Count 2.97 X10^6/uL (4.5-5.9); Red Cell Distribution Width 18.5 % (11.6-14.8); White Blood Cell Count 18.9 X10^3/uL (4.5-11.0)
[2018-10-17 10:57] LABS: Add Manual Diff / Slide Review YES; Alanine Aminotransferase 23 IU/L (21-72); Albumin 3.1 g/dL (3.5-5.0); Albumin Globulin Ratio 1.1 (1.0-2.8); Alkaline Phosphatase 188 U/L (38-126); Aspartate Aminotransferase 23 IU/L (17-59); BUN Creatinine Ratio 46.4 (6-22); Bilirubin Total 0.7 mg/dL (0.2-1.3); Blood Urea Nitrogen 51 mg/dL (9-20); Calcium 11.6 mg/dL (8.4-10.2); Carbon Dioxide 20 mmol/L (22-32); Chloride 95 mmol/L (98-107); Estimated Glomerular Filt Rate > 60.0 mL/min (>60); Globulin 2.8 g/dL (1.7-4.1); Glucose 117 mg/dL (80-110); HEMOLYSIS < 15 (0-50); Potassium 4.2 mmol/L (3.4-5.1); Sodium 128 mmol/L (137-145); Total Protein 5.9 g/dL (6.3-8.2)
[2018-10-17 11:16] VITALS: BP 113/66; PULSE 111; RESP 18; TEMP 36.5; O2SAT 96
[2018-10-17 11:18] LABS: Neutrophils Absolute Manual 15120 /uL (3000-5900); Total Cells Counted 100
[2018-10-17 11:20] LABS: Anisocytosis 2+; Macrocytosis 1+; Microcytosis 1+; Platelet Estimate Decreased on smear; Poikilocytosis 1+
[2018-10-17 11:22] LABS: Hypochromasia 1+; Polychromasia 1+
--- NOTE | 2018-10-19 12:50 | ONC.APRN.PN ---
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 He has completed 5 cycles of CHOEP with his most recent chemo 09/04/2018. Chemotherapy previously held by oncologist Dr Zhang due to cough, fatigue, chills. CT scan 10/07/2018 demonstrated rather stable disease with decreased lymphadenopathy in thorax abdomen and pelvis. Stable hepatosplenomegaly, decreased ascites. Liver and spleen remain moderately enlarged but stable. Patient presents today per request of nursing with a report he is not doing well. Nursing reports increased fatigue and dyspnea. Getting progressively worse over the past 7 days. Patient has been in the transfusion center almost daily receiving fluid and or PRBCs. Patient has received 12 units of PRBCs since initiating treatment. Most recently he received transfusions October 14 of October 03 of October 02 and September 15. Patient reports he spends ?all day in bed?. Is with great effort he will get out of bed and eat a little bit of food. He reports his fluid intake is ?okay?. States he sips on water throughout the day when he is awake. He feels he is urinating a normal amount. He continues to have chronic headaches was taking nadolol for prevention however he has had ongoing dizzy spells with near-syncope he has been hypotensive here in the clinic. He reports he is till having dizzy spells especially when I stand up. Denies any falls. Patient denies feeling feverish or chilled. He does admit to an ongoing dry cough however ?not as bad as it used to be?. Admits to feeling short of breath when walking. Denies shortness of breath when lying down. States he often has to rest when walking more than 30 or 40 yd. No new pain, no new lumps or bumps. However he does report my stomach is bloated. Denies any issues with bowel movements. Denies unexplained bleeding or bruising. History of present illness Mr. Irvin Diaz is a 62-year-old gentleman whom I saw at [facility]. He is transfer his care to [facility]. He has a remote history of left testicular cancer diagnosed in 2004 status post radical left orchiectomy followed by chemotherapy for 3 cycles without radiation treatment. Patient presented with about 5-6 months of history of weight loss, fatigue, malaise, abdominal distention, and adenopathy. CT CAP on 05/30/2018 showed extensive lymphadenopathy in the neck, retroperitoneum, along the celiac axis, near the GE junction, head of pancreas and prominent bilateral inguinal lymph nodes as well as markedly enlarged spleen. Patient was hospitalized at [facility] on May 31, 2018. Patient underwent TTE on 05/31/2018 that showedLVEF of 60-65%. Due to findings of ascites, patient underwent paracentesis and the cytology showed atypical lymphocytes suspicious for lymphoma. He underwent excisional biopsy of the right groin lymph node on June 03, 2018. And the final pathology showed T-lymphoproliferative disorder, favoring angioimmunoblastic T-cell lymphoma. And on June 10, 2018 patient was transferred to [facility] for further evaluation and treatment. At [facility], on June 11, 2018 the patient underwent bone marrow aspiration biopsy. The final pathology showed morphologically abnormal bone marrow with multi-focal, ill-defined mixed (lymphohistiocytic and eosinophilic) infiltrate suggestive of marrow involvement by T-cell lymphoma, hypercellular marrow with trilineage hematopoiesis and anemia with borderline microcytic anemia and absolute lymphopenia. At [facility], the patient was started on chemotheray CHOEP (C1D1 = Jun 12, 2018) Doxorubicin 50 mg/m2 (95 mg) IVP once. IV push over 10-15 minutes day 1, for 1 dose Vincristine 1.4 mg/m2(max = 2 mg) IV once. Infuse over 10 min. Day 1, for 1 dose Cyclophosphamide 750 mg/m2 (1400 mg) IV once. Infused over 1 hr. Day 1, dfor 1 dose Etoposide 100 mg/m2 (190 mg) IVPB Q24H. Days 1 to 2, for 2 doses Prednisone 100 mg p.o. Q24H. Days 1 to 5, for 5 doses Cycle every 21 days. - Patient Self-Reported Symptoms SR Constitution: Weight loss/gain SR eye issues: Vision changes SR ears, nose, mouth, throat issues: Cough (minor cough, dry with some upper chest congestion) SR respiratory issues: Shortness of breath SR Cardiovascular issues: Extreme swelling (improving.) SR Skin issues: Skin rash or itching (on the lower legs and are improving.) SR Musculoskeletal issues: Back or neck pain (on oxycodone and helpful.) SR Neuro issues: Headache (migraine.) SR Endocrine issues: Cold intolerance Home Medications and Allergies Home Medications Medication Instructions Recorded Confirmed Type esomeprazole magnesium [Nexium] 40 mg PO DAILY #0 12/31/16 08/14/18 History rcaibbympqb-C0-Cmuyvptcb serr 2 tab PO QAM 05/22/18 08/14/18 History [Glucosamine Daily Complex] nimeywu-klrsrseloblpp-gfbirlff 1 tab PO Q4-6H PRN 06/24/18 08/14/18 History [Excedrin Extra Strength] filgrastim-sndz [Zarxio] 5 mcg/kg SUBCUT Q24H 06/24/18 08/14/18 History fish,bora,flax oils-om3,6,9no1 1 cap PO DAILY 07/04/18 08/14/18 History [Minter 3-6-9 Complex] nadolol 80 mg PO DAILY 07/04/18 08/14/18 History ondansetron 4 mg PO TID PRN 07/04/18 08/14/18 History zolpidem [Ambien] 10 mg PO BEDTIME PRN #30 tab 08/14/18 10/17/18 Rx oxycodone-acetaminophen 1 tab PO Q4-6H PRN #60 tab 09/04/18 10/17/18 Rx sertraline 50 mg PO DAILY #60 tab 09/04/18 10/17/18 Rx acyclovir 800 mg PO Q12H #60 tab 10/10/18 10/17/18 Rx loratadine 10 mg PO DAILY 10/17/18 10/17/18 History prednisone 50 mg PO BID 10/17/18 10/17/18 History Allergies Allergy/AdvReac Type Severity Reaction Status Date / Time Sulfa (Sulfonamide Allergy Intermediate Hives Verified 06/24/18 08:50 Antibiotics) iodine Allergy Verified 05/27/18 14:53 Exam - Constitutional positive thin, positive chronically ill appearing - Routine HEENT Exam Head: Present: normocephalic, atraumatic. Absent: scalp tenderness Eye: Absent: conjunctival icterus, scleral injection ENT: Present: mucous membranes moist, oropharynx clear - Routine Neck Exam Present: supple. Absent: lymphadenopathy - Routine Chest/Breast/Axilla Exam Axillae: Absent: lymphadenopathy, mass, tenderness - Routine Respiratory Exam Present: Clear to auscultation bilaterally, decreased breath sounds, rhonchi. Absent: accessory muscle use, prolonged expiratory phase, rales, respiratory distress, wheezes - Routine Cardiovascular Exam Present: RRR, S1, S2. Absent: murmur, gallop, rubs, JVD - Routine Abdominal Exam Present: soft, normoactive bowel sounds, distended, organomegaly. Absent: tenderness, rebound, guarding, firm Palpation/Percussion: Present: hepatomegaly, splenomegaly, fluid waves - Routine Extremities Exam Present: edema. Absent: calf tenderness - Routine Skin Exam Present: intact. Absent: petechiae, rash - Routine Neurological Exam Present: alert, oriented X3 - Routine Psychiatric Exam Present: normal affect Results - Labs Laboratory Last Values WBC 18.9 X10^3/uL (4.5-11.0) H 10/17/18 10:25 RBC 2.97 X10^6/uL (4.5-5.9) L 10/17/18 10:25 Hgb 8.8 g/dL (13.5-17.5) L 10/17/18 10:25 Hct 25.5 % (41-53) L 10/17/18 10:25 MCV 85.6 fL (80-100) 10/17/18 10:25 MCH 29.5 PG (26-34) 10/17/18 10:25 MCHC 34.4 % (30-36) 10/17/18 10:25 RDW 18.5 % (11.6-14.8) H 10/17/18 10:25 Plt Count 38 X10^3/uL (150-400) L 10/17/18 10:25 Neut % (Auto) Not Reportable 10/17/18 10:25 Lymph % (Auto) Not Reportable 10/17/18 10:25 [place] % (Auto) Not Reportable 10/17/18 10:25 Eos % (Auto) Not Reportable 10/17/18 10:25 Baso % (Auto) Not Reportable 10/17/18 10:25 Neut # (Auto) 1600 /uL (1219-0218) 09/11/18 10:07 Lymph # (Auto) Not Reportable 10/17/18 10:25 [place] # (Auto) Not Reportable 10/17/18 10:25 Baso # (Auto) Not Reportable 10/17/18 10:25 Total Counted 100 10/17/18 10:25 Seg Neutrophils % 68.0 % (38-70) 10/17/18 10:25 Band Neutrophils % 12.0 % (3-7) H 10/17/18 10:25 Lymphocytes % (Manual) 1.0 % (25-45) L 10/17/18 10:25 Atypical Lymphs % 2.0 % (-0) H 10/17/18 10:25 Monocytes % (Manual) 5.0 % (2-11) 10/17/18 10:25 Eosinophils % (Manual) 11.0 % (2-4) H 10/17/18 10:25 Basophils % (Manual) 4.0 % (0-1) H 09/15/18 10:35 Metamyelocytes % 1.0 % (-0) H 10/17/18 10:25 Myelocytes % 2.0 % (-0) H 08/14/18 09:00 Promyelocytes % 2.0 % (-0) H 08/11/18 13:18 Neutrophils # (Manual) 67847 /uL (4908-1705) H 10/17/18 10:25 Nucleated RBCs 1 #/Diff (-0) H 09/25/18 11:29 Hypersegmented Neuts 1+ 09/25/18 11:29 Dohle Bodies 1+ H 08/08/18 13:05 Platelet Estimate Decreased on smear 10/17/18 10:25 RBC Morphology See below 10/17/18 10:25 Polychromasia 1+ H 10/17/18 10:25 Hypochromasia 1+ H 10/17/18 10:25 Poikilocytosis 1+ H 10/17/18 10:25 Anisocytosis 2+ H 10/17/18 10:25 Microcytosis 1+ H 10/17/18 10:25 Macrocytosis 1+ H 10/17/18 10:25 Tear Drop Cells 1+ H 10/13/18 13:59 Ovalocytes 1+ H 10/13/18 13:59 Sodium 128 mmol/L (137-145) L 10/17/18 10:25 Potassium 4.2 mmol/L (3.4-5.1) 10/17/18 10:25 Chloride 95 mmol/L (98-107) L 10/17/18 10:25 Carbon Dioxide 20 mmol/L (22-32) L 10/17/18 10:25 BUN 51 mg/dL (9-20) H 10/17/18 10:25 Creatinine 1.10 mg/dL (0.66-1.25) 10/17/18 10:25 Estimated GFR > 60.0 mL/min (>60) 10/17/18 10:25 BUN/Creatinine Ratio 46.4 (6-22) H 10/17/18 10:25 Glucose 117 mg/dL (80-110) H 10/17/18 10:25 Calcium 11.6 mg/dL (8.4-10.2) H 10/17/18 10:25 Total Bilirubin 0.7 mg/dL (0.2-1.3) 10/17/18 10:25 AST 23 IU/L (17-59) 10/17/18 10:25 ALT 23 IU/L (21-72) 10/17/18 10:25 Alkaline Phosphatase 188 U/L (38-126) H 10/17/18 10:25 Lactate Dehydrogenase 994 U/L (313-618) H 10/13/18 13:59 Total Protein 5.9 g/dL (6.3-8.2) L 10/17/18 10:25 Albumin 3.1 g/dL (3.5-5.0) L 10/17/18 10:25 Globulin 2.8 g/dL (1.7-4.1) 10/17/18 10:25 Albumin/Globulin Ratio 1.1 (1.0-2.8) 10/17/18 10:25 Blood Type A Positive 10/17/18 10:25 Antibody Screen Negative 10/13/18 13:59 Crossmatch See Detail 10/13/18 13:59 Assessment and Plan (1) T-cell lymphoma Problem details: Presented with weight loss, fatigue, malaise, and abdominal distention. CT CAP 05/30/2018: extensive lymphadenopathy in the neck, retroperitoneum, celiac axis, GE junction, head of pancreas, bilateral inguinal lymph nodes as well as markedly enlarged spleen. Excisional biopsy of the right groin lymph node on 06/03/2018: T-lymphoproliferative disorder, favoring angioimmunoblastic T-cell lymphoma. BMA/Bx 06/11/2018: involvement by T-cell lymphoma. Assessment: At [facility], the patient was started on chemotheray CHOEP (C1D1 = Jun 12, 2018) Doxorubicin 50 mg/m2 (95 mg) IVP once. IV push over 10-15 minutes day 1, for 1 dose Vincristine 1.4 mg/m2(max = 2 mg) IV once. Infuse over 10 min. Day 1, for 1 dose Cyclophosphamide 750 mg/m2 (1400 mg) IV once. Infused over 1 hr. Day 1, dfor 1 dose Etoposide 100 mg/m2 (190 mg) IVPB Q24H. Days 1 to 2, for 2 doses Prednisone 100 mg p.o. Q24H. Days 1 to 5, for 5 doses Cycle every 21 days. Patient has received [address] scan dated October 07, 2018 demonstrated stable disease however patient does seem to be declining clinically with severe fatigue, weakness, anorexia. Additionally, he is requiring ongoing PRBC transfusions. On exam today he does have hepatosplenomegaly with associated ascites, concerning for malignant ascites. See below. ECOG 3, PPS 50 Plan: 1. Hold chemo as per oncologist Dr Zhang 2. Fluids today 3. Schedule diagnostic paracentesis. 4. First available appointment with oncologist Dr Zhang. (2) Pain, low back His back pain is most likely related to his underlying T-cell lymphoma. Per pt report has been improving. Continue oxycodone 5/325, 1# p.o. every 4-6 hours on an as needed basis. (3) History of malignant neoplasm of testis Patient underwent radical left orchiectomy followed by 3 cycles of chemotherapy likely in 2003. No clinical evidence or biochemical evidence of disease recurrence or metastasis. I will continue active surveillance. (4) Depression Assessment and plan: Mood has improved and stabilized with sertraline, will continue to monitor. BRENT Waters remains in regular contact with the pt. (5) Pancytopenia due to chemotherapy Pancytopenia related to chemotherapy as well as underlying T-cell lymphoma. Cont with transfusions PRN. No transfusions indicated today hemoglobin 8.8 hematocrit 25.0 platelets 27669. However, I have ordered platelets to be infused prior to diagnostic paracentesis. (6) Hyponatremia Current visit: No Status: Acute Chronic. Sodium today 128 has been running 129-130. Will follow very closely. Patient is receiving 1 L of normal saline today. I have instructed the patient to try to eat more high sodium foods such as soups, crackers, vegetable juice, also add salt as tolerated to meals (7) Hepatosplenomegaly Current visit: Yes Status: Acute with suspected ascites, concerning for malignant ascites. Will order US guided diagnostic paracentesis with cytology, cell count, LDH. Low suspicion for SBP patient has no fever, no abdominal pain, no chills. Patient verbalizes understanding and agrees with the above plan of care. I have called Radiology platelets must be at least 50,000 for paracentesis I will go ahead and order platelets to be infused prior. (8) Dyspnea on exertion Current visit: Yes Status: Acute Multifactorial, due to T-cell lymphoma, pancytopenia patient now presents with ascites which also likely contributing. Will order CXR concerning also for pleural effusion, he had diminished breath sounds on exam.
[2018-10-20] VITALS (7 sets, daily range): BP systolic 114–133; BP diastolic 63–75; PULSE 107–115; RESP 18–20; TEMP 36.4–37.4
--- NOTE | 2018-10-20 11:45 | PC.NURSE ---
to diagnostic/radiology for us guided paracentesis. Pt taken by wheelchair. Plts x 2 bags completed and post platelet count is pending. Instructed pt to return here after his cxr and u/s guided paracentesis.
[2018-10-20 11:51] LABS: Platelet Count 50 X10^3/uL (150-400)
--- NOTE | 2018-10-20 14:50 | PC.NURSE ---
Pt was here today for 2 units of platelets prior to his paracentesis. Note was left by STILL PHOTOGRAPHER that she wanted him to also have a CXR 2V to r/o pneumonia. Results of the CXR showed worsening asymmetric atypical pneumonia. I attempted to contact Elizabeth and when I was unable to reach her I did show Dr Zhang this result. He requested the pt go to ED for further workup to include labs, blood cx and in house ABX due to his current Dx of T-cell lymphoma. I contacted the pt with these instruction and he agreed.
[2018-10-22] VITALS (7 sets, daily range): BP systolic 118–144; BP diastolic 63–79; PULSE 95–113; RESP 20–24; TEMP 36.4–36.7; O2SAT 95
[2018-10-22 09:56] LABS: Hemoglobin 7.8 g/dL (13.5-17.5); Mean Corpuscular HGB Conc 34.3 % (30-36); Mean Corpuscular Hemoglobin 30.2 PG (26-34); Red Blood Cell Count 2.58 X10^6/uL (4.5-5.9); Red Cell Distribution Width 17.9 % (11.6-14.8); White Blood Cell Count 7.5 X10^3/uL (4.5-11.0)
[2018-10-22 09:58] LABS: Hematocrit 22.7 % (41-53)
[2018-10-22 09:59] LABS: Add Manual Diff / Slide Review YES; Platelet Count 23 X10^3/uL (150-400)
[2018-10-22 10:32] LABS: Neutrophils Absolute Manual 5100 /uL (3000-5900); Total Cells Counted 100
[2018-10-22 10:34] LABS: Anisocytosis 3+
[2018-10-22 10:35] LABS: Ovalocytes 1+
[2018-10-22 10:36] LABS: Polychromasia 1+; Tear Drop Cells 1+
[2018-10-22] MEDS: SODIUM CHLORIDE 0.9% 250 ML 21 ML IV (10:36)
--- NOTE | 2018-10-22 15:42 | ONC.NAV ---
Description: Coping and Emotional Support Activity: Met with pt to offer counseling and assistance. Pt is showing continued signs and symptoms of decline, and is appearing to be progressing in his disease. Pt is now very weak, required wheelchair assistance to get from the car to the infusion room today, is showing signs of temporal wasting and continued weight loss/cachexia. His will be coming into town this coming weekend, and is planning to stay with him for the next 6-weeks. STRADDLE BUG initiated a gentle goals conversation, which led to a conversation re: where he plans to live as he continues to decline, who will be caring for him, relationships that have been estranged with his children, and what he needs in terms of support and assistance in planning for end of life. STRADDLE BUG assured him that as he acknowledged, we are observing continued decline, and are encouraging of him having a conversation with Dr. Zhang about prognosis and continued plan for either supportive care or comfort-focused care. 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 STRADDLE BUG will f/u with pt again early next week to continue support and assist with any planning/resource needs/care coordination at that time.
--- NOTE | 2018-10-22 16:08 | PC.NURSE ---
Patient here for prbc transfusion. He arrived feeling extremely weak in wheelchair and needed to be brought per wc to bathroom. After first transfusion he was able to walk to bathroom. He arrived reporting intensity 5 of pain in back and head for which he took 2 of his own percocet which he reported helping. Tolerated transfusion without problem sleeping much of the time. At end (post 6 hours) pain in back again increased to a 7 (patient states middle back at site of an old injury) and BP also increased most likely due to the pain. Patient brought per wc to his ride, advised to take his pain pills again and informed he and his niece that he should return tomorrow at 11 for labs and visit with Dr. Zhang.
[2018-10-23 12:13] LABS: Hematocrit 27.6 % (41-53); Hemoglobin 9.5 g/dL (13.5-17.5); Mean Corpuscular HGB Conc 34.6 % (30-36); Mean Corpuscular Hemoglobin 30.1 PG (26-34); Red Blood Cell Count 3.17 X10^6/uL (4.5-5.9); White Blood Cell Count 11.8 X10^3/uL (4.5-11.0)
[2018-10-23 12:14] LABS: Platelet Count 14 X10^3/uL (150-400)
[2018-10-23 12:15] LABS: Add Manual Diff / Slide Review YES
[2018-10-23 12:24] LABS: Anisocytosis 3+; Neutrophils Absolute Manual 8614 /uL (3000-5900); Platelet Estimate Decreased on smear; Poikilocytosis 1+; Total Cells Counted 100
--- NOTE | 2018-10-23 12:47 | ONC.PN ---
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 After cycle 5 (administer on 09/04/18 and 09/05/2018), scheduled cycle 6 had to be postponed multiple times due to severe anemia, severe neutropenia as well as severe thrombocytopenia. Patient has had multiple platelet transfusion. No bleeding events. Patient is also complaining significant headache which presumably due to his known history of migraine. Patient has responded well to use of nadolol for the migraine prescribed by LAVELLE Johnson. Clinically, he reports no n/v, no diarrhea and no constipation, no fever and no chills, and no night sweats. He eats about 5 times a day, small portions because he felt uneasy if too much at one time. He is having back pain all the time. 4.510. He denies any worsening lower extremity edema. He also reports that his abd swelling is getting better. History of present illness Mr. Irvin Diaz is a 62-year-old gentleman whom I saw at [facility]. He is transfer his care to [facility]. He has a remote history of left testicular cancer diagnosed in 2004 status post radical left orchiectomy followed by chemotherapy for 3 cycles without radiation treatment. Patient presented with about 5-6 months of history of weight loss, fatigue, malaise, abdominal distention, and adenopathy. CT CAP on 05/30/2018 showed extensive lymphadenopathy in the neck, retroperitoneum, along the celiac axis, near the GE junction, head of pancreas and prominent bilateral inguinal lymph nodes as well as markedly enlarged spleen. Patient was hospitalized at [facility] on May 31, 2018. Patient underwent TTE on 05/31/2018 that showedLVEF of 60-65%. Due to findings of ascites, patient underwent paracentesis and the cytology showed atypical lymphocytes suspicious for lymphoma. He underwent excisional biopsy of the right groin lymph node on June 03, 2018. And the final pathology showed T-lymphoproliferative disorder, favoring angioimmunoblastic T-cell lymphoma. And on June 10, 2018 patient was transferred to [facility] for further evaluation and treatment. At [facility], on June 11, 2018 the patient underwent bone marrow aspiration biopsy. The final pathology showed morphologically abnormal bone marrow with multi-focal, ill-defined mixed (lymphohistiocytic and eosinophilic) infiltrate suggestive of marrow involvement by T-cell lymphoma, hypercellular marrow with trilineage hematopoiesis and anemia with borderline microcytic anemia and absolute lymphopenia. At [facility], the patient was started on chemotheray CHOEP (C1D1 = Jun 12, 2018) Doxorubicin 50 mg/m2 (95 mg) IVP once. IV push over 10-15 minutes day 1, for 1 dose Vincristine 1.4 mg/m2(max = 2 mg) IV once. Infuse over 10 min. Day 1, for 1 dose Cyclophosphamide 750 mg/m2 (1400 mg) IV once. Infused over 1 hr. Day 1, dfor 1 dose Etoposide 100 mg/m2 (190 mg) IVPB Q24H. Days 1 to 2, for 2 doses Prednisone 100 mg p.o. Q24H. Days 1 to 5, for 5 doses Cycle every 21 days. - Patient Self-Reported Symptoms SR Constitution: Weight loss/gain SR eye issues: Vision changes SR ears, nose, mouth, throat issues: Cough (minor cough, dry with some upper chest congestion) SR respiratory issues: Shortness of breath SR Cardiovascular issues: Extreme swelling (improving.) SR Skin issues: Skin rash or itching (on the lower legs and are improving.) SR Musculoskeletal issues: Back or neck pain (on oxycodone and helpful.) SR Neuro issues: Headache (migraine.) SR Endocrine issues: Cold intolerance - Additional ROS All systems PM: reviewed and no additional remarkable complaints except as stated Home Medications and Allergies Home Medications Medication Instructions Recorded Confirmed Type esomeprazole magnesium [Nexium] 40 mg PO DAILY #0 12/31/16 08/14/18 History cyexwwfhwwx-K9-Bfxbcqoko serr 2 tab PO QAM 05/22/18 08/14/18 History [Glucosamine Daily Complex] aqdvrle-fipmapstoeryb-cdposnfj 1 tab PO Q4-6H PRN 06/24/18 08/14/18 History [Excedrin Extra Strength] filgrastim-sndz [Zarxio] 5 mcg/kg SUBCUT Q24H 06/24/18 08/14/18 History fish,bora,flax oils-om3,6,9no1 1 cap PO DAILY 07/04/18 08/14/18 History [[place] 3-6-9 Complex] nadolol 80 mg PO DAILY 07/04/18 08/14/18 History ondansetron 4 mg PO TID PRN 07/04/18 08/14/18 History zolpidem [Ambien] 10 mg PO BEDTIME PRN #30 tab 08/14/18 10/17/18 Rx oxycodone-acetaminophen 1 tab PO Q4-6H PRN #60 tab 09/04/18 10/17/18 Rx sertraline 50 mg PO DAILY #60 tab 09/04/18 10/20/18 Rx acyclovir 800 mg PO Q12H #60 tab 10/10/18 10/20/18 Rx loratadine 10 mg PO DAILY 10/17/18 10/17/18 History prednisone See Rx Instructions .ROUTE .COMPLEX 10/20/18 10/20/18 History Allergies Allergy/AdvReac Type Severity Reaction Status Date / Time Sulfa (Sulfonamide Allergy Intermediate Hives Verified 10/20/18 16:03 Antibiotics) iodine Allergy Verified 10/20/18 16:03 Exam Vital signs: Last Vital Signs Temp 97.7 F 10/23/18 17:35 Pulse 106 H 10/23/18 17:35 Resp 24 10/23/18 17:35 BP 111/68 10/23/18 17:35 Pulse Ox 95 10/23/18 13:27 ECOG 1 Narrative: Constitutional: Well developed, but thin. NAD. well groomed, pleasant and cooperative. Came in by himself. HEENT: NCAT, EOMI, PERLLA, anicteric sclera. Neck: Supple, No palpable thyromegaly and no palpable lymph nodes. Respiratory: Clear to auscultation, and no wheezes or rales or rubs. Cardiovascular: Regular rate and rhythm, S1 and S2 normal, no murmurs gallops or rubs. No JVD. Abdomen: Soft, Palpable splenomegaly and mild hepatomegaly. Lower extremities: minimal edema noted bilaterally Lymphatic: no palpable lymph nodes in the neck, axillae, or groins. Skin: no rashes, no ulcers, no petechiae Neurological: Awake and alert and oriented x3. CN II-XII grossly intact. No focal motor or sensory deficit. Psychiatric: Good judgment, good insight, normal affect, normal thought process, cooperative, no depression, no anxiety. Results - Labs Laboratory Last Values WBC 11.8 X10^3/uL (4.5-11.0) H D 10/23/18 11:54 RBC 3.17 X10^6/uL (4.5-5.9) L 10/23/18 11:54 Hgb 9.5 g/dL (13.5-17.5) L 10/23/18 11:54 Hct 27.6 % (41-53) L 10/23/18 11:54 MCV 87.0 fL (80-100) 10/23/18 11:54 MCH 30.1 PG (26-34) 10/23/18 11:54 MCHC 34.6 % (30-36) 10/23/18 11:54 RDW 17.0 % (11.6-14.8) H 10/23/18 11:54 Plt Count 14 X10^3/uL (150-400) L* 10/23/18 11:54 Neut % (Auto) Not Reportable 10/23/18 11:54 Lymph % (Auto) Not Reportable 10/23/18 11:54 [place] % (Auto) Not Reportable 10/23/18 11:54 Eos % (Auto) Not Reportable 10/23/18 11:54 Baso % (Auto) Not Reportable 10/23/18 11:54 Neut # (Auto) 1600 /uL (1064-8590) 09/11/18 10:07 Lymph # (Auto) Not Reportable 10/23/18 11:54 [place] # (Auto) Not Reportable 10/23/18 11:54 Baso # (Auto) Not Reportable 10/23/18 11:54 Total Counted 100 10/23/18 11:54 Seg Neutrophils % 69.0 % (38-70) 10/23/18 11:54 Band Neutrophils % 4.0 % (3-7) 10/23/18 11:54 Lymphocytes % (Manual) 9.0 % (25-45) L 10/23/18 11:54 Atypical Lymphs % 6.0 % (-0) H 10/23/18 11:54 Monocytes % (Manual) 11.0 % (2-11) 10/23/18 11:54 Eosinophils % (Manual) 1.0 % (2-4) L 10/23/18 11:54 Basophils % (Manual) 4.0 % (0-1) H 09/15/18 10:35 Metamyelocytes % 5.0 % (-0) H 10/22/18 09:26 Myelocytes % 4.0 % (-0) H 10/22/18 09:26 Promyelocytes % 2.0 % (-0) H 08/11/18 13:18 Neutrophils # (Manual) 8614 /uL (2720-5313) H 10/23/18 11:54 Nucleated RBCs 1 #/Diff (-0) H 09/25/18 11:29 Hypersegmented Neuts 1+ 09/25/18 11:29 Dohle Bodies 1+ H 08/08/18 13:05 Platelet Estimate Decreased on smear 10/23/18 11:54 RBC Morphology Not Reportable 10/23/18 11:54 Polychromasia 1+ H 10/22/18 09:26 Hypochromasia 1+ H 10/17/18 10:25 Poikilocytosis 1+ H 10/23/18 11:54 Anisocytosis 3+ H 10/23/18 11:54 Microcytosis 1+ H 10/17/18 10:25 Macrocytosis 1+ H 10/17/18 10:25 Tear Drop Cells 1+ H 10/22/18 09:26 Ovalocytes 1+ H 10/22/18 09:26 Sodium 128 mmol/L (137-145) L 10/17/18 10:25 Potassium 4.2 mmol/L (3.4-5.1) 10/17/18 10:25 Chloride 95 mmol/L (98-107) L 10/17/18 10:25 Carbon Dioxide 20 mmol/L (22-32) L 10/17/18 10:25 BUN 51 mg/dL (9-20) H 10/17/18 10:25 Creatinine 1.10 mg/dL (0.66-1.25) 10/17/18 10:25 Estimated GFR > 60.0 mL/min (>60) 10/17/18 10:25 BUN/Creatinine Ratio 46.4 (6-22) H 10/17/18 10:25 Glucose 117 mg/dL (80-110) H 10/17/18 10:25 Calcium 11.6 mg/dL (8.4-10.2) H 10/17/18 10:25 Total Bilirubin 0.7 mg/dL (0.2-1.3) 10/17/18 10:25 AST 23 IU/L (17-59) 10/17/18 10:25 ALT 23 IU/L (21-72) 10/17/18 10:25 Alkaline Phosphatase 188 U/L (38-126) H 10/17/18 10:25 Lactate Dehydrogenase 994 U/L (313-618) H 10/13/18 13:59 Total Protein 5.9 g/dL (6.3-8.2) L 10/17/18 10:25 Albumin 3.1 g/dL (3.5-5.0) L 10/17/18 10:25 Globulin 2.8 g/dL (1.7-4.1) 10/17/18 10:25 Albumin/Globulin Ratio 1.1 (1.0-2.8) 10/17/18 10:25 Blood Type A Positive 10/22/18 09:30 Antibody Screen Negative 10/22/18 09:30 Crossmatch See Detail 10/22/18 09:30 Assessment and Plan (1) T-cell lymphoma Problem details: Presented with weight loss, fatigue, malaise, and abdominal distention. CT CAP 05/30/2018: extensive lymphadenopathy in the neck, retroperitoneum, celiac axis, GE junction, head of pancreas, bilateral inguinal lymph nodes as well as markedly enlarged spleen. Excisional biopsy of the right groin lymph node on 06/03/2018: T-lymphoproliferative disorder, favoring angioimmunoblastic T-cell lymphoma. BMA/Bx 06/11/2018: involvement by T-cell lymphoma. At [facility], the patient was started on chemotheray CHOEP (C1D1 = Jun 12, 2018) Doxorubicin 50 mg/m2 (95 mg) IVP once. IV push over 10-15 minutes day 1, for 1 dose Vincristine 1.4 mg/m2(max = 2 mg) IV once. Infuse over 10 min. Day 1, for 1 dose Cyclophosphamide 750 mg/m2 (1400 mg) IV once. Infused over 1 hr. Day 1, dfor 1 dose Etoposide 100 mg/m2 (190 mg) IVPB Q24H. Days 1 to 2, for 2 doses Prednisone 100 mg p.o. Q24H. Days 1 to 5, for 5 doses Cycle every 21 days. Assessment: Up until now, patient has received 5 cycles of the planned 6 cycles. And I reviewed both the images as well as the report of the CT scans of the chest abdomen pelvis obtained on 10/07/[address] scan of the chest abdomen pelvis obtained on 05/30/2018. There is clear evidence of decreased lymphadenopathy in the thorax, abdomen, and pelvis as well as groins. In addition intra-abdominal ascites has decreased significantly. Pleural effusions bilaterally also has improved dramatically. Patient's hepatosplenomegaly has remained about the same. Clinically I think patient is also making progress. Patient himself reports that the abdominal discomfort has improved. I think at present we are dealing with the pancytopenia associated with the use of the chemotherapy. I will continue supportive care for now hopefully we can push 1 more cycle of chemotherapy. Plan: 1. Hold chemo for now 2. Platelet transfusion today, one 6-pack 3. CBC 10/27/2018. 4. [facility] visit 10/28/2018 (2) Pancytopenia due to chemotherapy Assessment and Plan: Grade 3 thrombocytopenia with plt 18K today. Platelet transfusion today (see above) (3) Pain, low back His back pain is most likely related to his underlying T-cell lymphoma. Per pt report has been improving. Continue oxycodone 5/325, 1# p.o. every 4-6 hours on an as needed basis. (4) Depression Assessment and plan: Mood has improved and stabilized with sertraline, will continue to monitor. BRENT Abadah Milady Waters remains in regular contact with the pt. (5) History of malignant neoplasm of testis Patient underwent radical left orchiectomy followed by 3 cycles of chemotherapy likely in 2003. No clinical evidence or biochemical evidence of disease recurrence or metastasis. I will continue active surveillance.
--- NOTE | 2018-10-23 12:52 | P.PNONC_ITS ---
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 After cycle 5 (administer on 09/04/18 and 09/05/2018), scheduled cycle 6 had to be postponed multiple times due to severe anemia, severe neutropenia as well as severe thrombocytopenia. Patient has had multiple platelet transfusion. No bleeding events. Patient is also complaining significant headache which presumably due to his known history of migraine. Patient has responded well to use of nadolol for the migraine prescribed by LAVELLE Johnson. Clinically, he reports no n/v, no diarrhea and no constipation, no fever and no chills, and no night sweats. He eats about 5 times a day, small portions because he felt uneasy if too much at one time. He is having back pain all the time. 4.510. He denies any worsening lower extremity edema. He also reports that his abd swelling is getting better. History of present illness Mr. Irvin Diaz is a 62-year-old gentleman whom I saw at [facility]. He is transfer his care to [facility]. He has a remote history of left testicular cancer diagnosed in 2004 status post radical left orchiectomy followed by chemotherapy for 3 cycles without radiation treatment. Patient presented with about 5-6 months of history of weight loss, fatigue, malaise, abdominal distention, and adenopathy. CT CAP on 05/30/2018 showed extensive lymphadenopathy in the neck, retroperitoneum, along the celiac axis, near the GE junction, head of pancreas and prominent bilateral inguinal lymph nodes as well as markedly enlarged spleen. Patient was hospitalized at [facility] on May 31, 2018. Patient underwent TTE on 05/31/2018 that showedLVEF of 60-65%. Due to findings of ascites, patient underwent paracentesis and the cytology showed atypical lymphocytes suspicious for lymphoma. He underwent excisional biopsy of the right groin lymph node on June 03, 2018. And the final pathology showed T-lymphoproliferative disorder, favoring angioimmunoblastic T-cell lymphoma. And on June 10, 2018 patient was transferred to [facility] for further evaluation and treatment. At [facility], on June 11, 2018 the patient underwent bone marrow aspiration biopsy. The final pathology showed morphologically abnormal bone marrow with multi- focal, ill-defined mixed (lymphohistiocytic and eosinophilic) infiltrate suggestive of marrow involvement by T-cell lymphoma, hypercellular marrow with trilineage hematopoiesis and anemia with borderline microcytic anemia and absolute lymphopenia. At [facility], the patient was started on chemotheray CHOEP (C1D1 = Jun 12, 2018) Doxorubicin 50 mg/m2 (95 mg) IVP once. IV push over 10-15 minutes day 1, for 1 dose Vincristine 1.4 mg/m2(max = 2 mg) IV once. Infuse over 10 min. Day 1, for 1 dose Cyclophosphamide 750 mg/m2 (1400 mg) IV once. Infused over 1 hr. Day 1, dfor 1 dose Etoposide 100 mg/m2 (190 mg) IVPB Q24H. Days 1 to 2, for 2 doses Prednisone 100 mg p.o. Q24H. Days 1 to 5, for 5 doses Cycle every 21 days. - Patient Self-Reported Symptoms SR Constitution: Weight loss/gain SR eye issues: Vision changes SR ears, nose, mouth, throat issues: Cough (minor cough, dry with some upper chest congestion) SR respiratory issues: Shortness of breath SR Cardiovascular issues: Extreme swelling (improving.) SR Skin issues: Skin rash or itching (on the lower legs and are improving.) SR Musculoskeletal issues: Back or neck pain (on oxycodone and helpful.) SR Neuro issues: Headache (migraine.) SR Endocrine issues: Cold intolerance - Additional ROS All systems PM: reviewed and no additional remarkable complaints except as stated Home Medications and Allergies Home Medications Medication Instructions Recorded Confirmed Type esomeprazole magnesium [Nexium] 40 mg PO DAILY #0 12/31/16 08/14/18 History zobckpxhums-E9-Imlvqeioa serr 2 tab PO QAM 05/22/18 08/14/18 History [Glucosamine Daily Complex] huxvlgh-tsmlntuyoypby-gtmdgzld 1 tab PO Q4-6H PRN 06/24/18 08/14/18 History [Excedrin Extra Strength] filgrastim-sndz [Zarxio] 5 mcg/kg SUBCUT Q24H 06/24/18 08/14/18 History fish,bora,flax oils-om3,6,9no1 1 cap PO DAILY 07/04/18 08/14/18 History [[place] 3-6-9 Complex] nadolol 80 mg PO DAILY 07/04/18 08/14/18 History ondansetron 4 mg PO TID PRN 07/04/18 08/14/18 History zolpidem [Ambien] 10 mg PO BEDTIME PRN #30 tab 08/14/18 10/17/18 Rx oxycodone-acetaminophen 1 tab PO Q4-6H PRN #60 tab 09/04/18 10/17/18 Rx sertraline 50 mg PO DAILY #60 tab 09/04/18 10/20/18 Rx acyclovir 800 mg PO Q12H #60 tab 10/10/18 10/20/18 Rx loratadine 10 mg PO DAILY 10/17/18 10/17/18 History prednisone See Rx Instructions .ROUTE .COMPLEX 10/20/18 10/20/18 History Allergies Allergy/AdvReac Type Severity Reaction Status Date / Time Sulfa (Sulfonamide Allergy Intermediate Hives Verified 10/20/18 16:03 Antibiotics) iodine Allergy Verified 10/20/18 16:03 Exam Vital signs: Last Vital Signs Temp 97.7 F 10/23/18 17:35 Pulse 106 H 10/23/18 17:35 Resp 24 10/23/18 17:35 BP 111/68 10/23/18 17:35 Pulse Ox 95 10/23/18 13:27 ECOG 1 Narrative: Constitutional: Well developed, but thin. NAD. well groomed, pleasant and cooperative. Came in by himself. HEENT: NCAT, EOMI, PERLLA, anicteric sclera. Neck: Supple, No palpable thyromegaly and no palpable lymph nodes. Respiratory: Clear to auscultation, and no wheezes or rales or rubs. Cardiovascular: Regular rate and rhythm, S1 and S2 normal, no murmurs gallops or rubs. No JVD. Abdomen: Soft, Palpable splenomegaly and mild hepatomegaly. Lower extremities: minimal edema noted bilaterally Lymphatic: no palpable lymph nodes in the neck, axillae, or groins. Skin: no rashes, no ulcers, no petechiae Neurological: Awake and alert and oriented x3. CN II-XII grossly intact. No focal motor or sensory deficit. Psychiatric: Good judgment, good insight, normal affect, normal thought process, cooperative, no depression, no anxiety. Results - Labs Laboratory Last Values WBC 11.8 X10^3/uL (4.5-11.0) H D 10/23/18 11:54 RBC 3.17 X10^6/uL (4.5-5.9) L 10/23/18 11:54 Hgb 9.5 g/dL (13.5-17.5) L 10/23/18 11:54 Hct 27.6 % (41-53) L 10/23/18 11:54 MCV 87.0 fL (80-100) 10/23/18 11:54 MCH 30.1 PG (26-34) 10/23/18 11:54 MCHC 34.6 % (30-36) 10/23/18 11:54 RDW 17.0 % (11.6-14.8) H 10/23/18 11:54 Plt Count 14 X10^3/uL (150-400) L* 10/23/18 11:54 Neut % (Auto) Not Reportable 10/23/18 11:54 Lymph % (Auto) Not Reportable 10/23/18 11:54 [place] % (Auto) Not Reportable 10/23/18 11:54 Eos % (Auto) Not Reportable 10/23/18 11:54 Baso % (Auto) Not Reportable 10/23/18 11:54 Neut # (Auto) 1600 /uL (9896-2583) 09/11/18 10:07 Lymph # (Auto) Not Reportable 10/23/18 11:54 [place] # (Auto) Not Reportable 10/23/18 11:54 Baso # (Auto) Not Reportable 10/23/18 11:54 Total Counted 100 10/23/18 11:54 Seg Neutrophils % 69.0 % (38-70) 10/23/18 11:54 Band Neutrophils % 4.0 % (3-7) 10/23/18 11:54 Lymphocytes % (Manual) 9.0 % (25-45) L 10/23/18 11:54 Atypical Lymphs % 6.0 % (-0) H 10/23/18 11:54 Monocytes % (Manual) 11.0 % (2-11) 10/23/18 11:54 Eosinophils % (Manual) 1.0 % (2-4) L 10/23/18 11:54 Basophils % (Manual) 4.0 % (0-1) H 09/15/18 10:35 Metamyelocytes % 5.0 % (-0) H 10/22/18 09:26 Myelocytes % 4.0 % (-0) H 10/22/18 09:26 Promyelocytes % 2.0 % (-0) H 08/11/18 13:18 Neutrophils # (Manual) 8614 /uL (4574-6816) H 10/23/18 11:54 Nucleated RBCs 1 #/Diff (-0) H 09/25/18 11:29 Hypersegmented Neuts 1+ 09/25/18 11:29 Dohle Bodies 1+ H 08/08/18 13:05 Platelet Estimate Decreased on smear 10/23/18 11:54 RBC Morphology Not Reportable 10/23/18 11:54 Polychromasia 1+ H 10/22/18 09:26 Hypochromasia 1+ H 10/17/18 10:25 Poikilocytosis 1+ H 10/23/18 11:54 Anisocytosis 3+ H 10/23/18 11:54 Microcytosis 1+ H 10/17/18 10:25 Macrocytosis 1+ H 10/17/18 10:25 Tear Drop Cells 1+ H 10/22/18 09:26 Ovalocytes 1+ H 10/22/18 09:26 Sodium 128 mmol/L (137-145) L 10/17/18 10:25 Potassium 4.2 mmol/L (3.4-5.1) 10/17/18 10:25 Chloride 95 mmol/L (98-107) L 10/17/18 10:25 Carbon Dioxide 20 mmol/L (22-32) L 10/17/18 10:25 BUN 51 mg/dL (9-20) H 10/17/18 10:25 Creatinine 1.10 mg/dL (0.66-1.25) 10/17/18 10:25 Estimated GFR > 60.0 mL/min (>60) 10/17/18 10:25 BUN/Creatinine Ratio 46.4 (6-22) H 10/17/18 10:25 Glucose 117 mg/dL (80-110) H 10/17/18 10:25 Calcium 11.6 mg/dL (8.4-10.2) H 10/17/18 10:25 Total Bilirubin 0.7 mg/dL (0.2-1.3) 10/17/18 10:25 AST 23 IU/L (17-59) 10/17/18 10:25 ALT 23 IU/L (21-72) 10/17/18 10:25 Alkaline Phosphatase 188 U/L (38-126) H 10/17/18 10:25 Lactate Dehydrogenase 994 U/L (313-618) H 10/13/18 13:59 Total Protein 5.9 g/dL (6.3-8.2) L 10/17/18 10:25 Albumin 3.1 g/dL (3.5-5.0) L 10/17/18 10:25 Globulin 2.8 g/dL (1.7-4.1) 10/17/18 10:25 Albumin/Globulin Ratio 1.1 (1.0-2.8) 10/17/18 10:25 Blood Type A Positive 10/22/18 09:30 Antibody Screen Negative 10/22/18 09:30 Crossmatch See Detail 10/22/18 09:30 Assessment and Plan (1) T-cell lymphoma Problem details: Presented with weight loss, fatigue, malaise, and abdominal distention. CT CAP 05/30/2018: extensive lymphadenopathy in the neck, retroperi toneum, celiac axis, GE junction, head of pancreas, bilateral inguinal lymph nodes as well as markedly enlarged spleen. Excisional biopsy of the right groin lymph node on 06/03/2018: T-lymphoproliferative disorder, favoring angioimmunoblastic T-cell lymphoma. BMA/Bx 06/11/2018: involvement by T-cell lymphoma. At [facility], the patient was started on chemotheray CHOEP (C1D1 = Jun 12, 2018) Doxorubicin 50 mg/m2 (95 mg) IVP once. IV push over 10-15 minutes day 1, for 1 dose Vincristine 1.4 mg/m2(max = 2 mg) IV once. Infuse over 10 min. Day 1, for 1 dose Cyclophosphamide 750 mg/m2 (1400 mg) IV once. Infused over 1 hr. Day 1, dfor 1 dose Etoposide 100 mg/m2 (190 mg) IVPB Q24H. Days 1 to 2, for 2 doses Prednisone 100 mg p.o. Q24H. Days 1 to 5, for 5 doses Cycle every 21 days. Assessment: Up until now, patient has received 5 cycles of the planned 6 cycles. And I reviewed both the images as well as the report of the CT scans of the chest abdomen pelvis obtained on 10/07/[address] scan of the chest abdomen pelvis obtained on 05/30/2018. There is clear evidence of decreased lymphadenopathy in the thorax, abdomen, and pelvis as well as groins. In additio n intra-abdominal ascites has decreased significantly. Pleural effusions bilaterally also has improved dramatically. Patient's hepatosplenomegaly has remained about the same. Clinically I think patient is also making progress. Patient himself reports that the abdominal discomfort has improved. I think at present we are dealing with the pancytopenia associated with the use of the chemotherapy. I will continue supportive care for now hopefully we can push 1 more cycle of chemotherapy. Plan: 1. Hold chemo for now 2. Platelet transfusion today, one 6-pack 3. CBC 10/27/2018. 4. [employer] visit 10/28/2018 (2) Pancytopenia due to chemotherapy Assessment and Plan: Grade 3 thrombocytopenia with plt 18K today. Platelet transfusion today (see above) (3) Pain, low back His back pain is most likely related to his underlying T-cell lymphoma. Per pt report has been improving. Continue oxycodone 5/325, 1# p.o. every 4-6 hours on an as needed basis. (4) Depression Assessment and plan: Mood has improved and stabilized with sertraline, will continue to monitor. [employer] Nila Henning Jt remains in regular contact with the pt. (5) History of malignant neoplasm of testis Patient underwent radical left orchiectomy followed by 3 cycles of chemotherapy likely in 2003. No clinical evidence or biochemical evidence of disease recurrence or metastasis. I will continue active surveillance.
[2018-10-23 13:27] VITALS: BP 107/70; PULSE 106; RESP 18; O2SAT 95
[2018-10-23] MEDS: SODIUM CHLORIDE 0.9% 250 ML 21 ML IV (16:37)
[2018-10-23 17:34] VITALS: BP 120/64; PULSE 106; RESP 20; TEMP 36.4
[2018-10-23 17:35] VITALS: BP 111/68; PULSE 106; RESP 24; TEMP 36.5
[2018-10-23 19:15] VITALS: BP 111/64; PULSE 108; RESP 20; TEMP 36.4
--- NOTE | 2018-10-23 19:35 | PC.NURSE ---
Patient tolerated platelet transfusion without problem. Escorted in wheelchair to car.
[2018-10-30] VITALS (8 sets, daily range): BP systolic 109–128; BP diastolic 62–68; PULSE 98–114; RESP 18–22; TEMP 36.3–36.5; O2SAT 96
--- NOTE | 2018-10-30 12:51 | ONC.PN ---
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 After cycle 5 (administer on 09/04/18 and 09/05/2018), scheduled cycle 6 has been on hold due to severe pancytopenia. Patient has had multiple platelet transfusion. On Saturday (10/27/2018), he woke up with nose bleed like a faucet turning on and would not stop. He went to ER. At ER, labs showed WBC 14.8, H/H 8.8/26.5, and Plt 11K. He was given platelets 1 unit. For past 1+ week, he is also taking antibiotic for left lower lung pneumonia. He is coughing, but no hemoptysis. Some irritation of the left upper pre-cordial chest. His said, when he coughs, it is more like an explosive cough. He has extended abdomen. He has 2-3+ lower extremity edema on both sides. He is having headache, ? migraine. He has lower back pain due to previous injury to his back due to his work. The leg hurts all the time. History of present illness Mr. Irvin Diaz is a 62-year-old gentleman whom I saw at [facility]. He is transfer his care to [facility]. He has a remote history of left testicular cancer diagnosed in 2004 status post radical left orchiectomy followed by chemotherapy for 3 cycles without radiation treatment. Patient presented with about 5-6 months of history of weight loss, fatigue, malaise, abdominal distention, and adenopathy. CT CAP on 05/30/2018 showed extensive lymphadenopathy in the neck, retroperitoneum, along the celiac axis, near the GE junction, head of pancreas and prominent bilateral inguinal lymph nodes as well as markedly enlarged spleen. Patient was hospitalized at [facility] on May 31, 2018. Patient underwent TTE on 05/31/2018 that showedLVEF of 60-65%. Due to findings of ascites, patient underwent paracentesis and the cytology showed atypical lymphocytes suspicious for lymphoma. He underwent excisional biopsy of the right groin lymph node on June 03, 2018. And the final pathology showed T-lymphoproliferative disorder, favoring angioimmunoblastic T-cell lymphoma. And on June 10, 2018 patient was transferred to [facility] for further evaluation and treatment. At [facility], on June 11, 2018 the patient underwent bone marrow aspiration biopsy. The final pathology showed morphologically abnormal bone marrow with multi-focal, ill-defined mixed (lymphohistiocytic and eosinophilic) infiltrate suggestive of marrow involvement by T-cell lymphoma, hypercellular marrow with trilineage hematopoiesis and anemia with borderline microcytic anemia and absolute lymphopenia. At [facility], the patient was started on chemotheray CHOEP (C1D1 = Jun 12, 2018) Doxorubicin 50 mg/m2 (95 mg) IVP once. IV push over 10-15 minutes day 1, for 1 dose Vincristine 1.4 mg/m2(max = 2 mg) IV once. Infuse over 10 min. Day 1, for 1 dose Cyclophosphamide 750 mg/m2 (1400 mg) IV once. Infused over 1 hr. Day 1, dfor 1 dose Etoposide 100 mg/m2 (190 mg) IVPB Q24H. Days 1 to 2, for 2 doses Prednisone 100 mg p.o. Q24H. Days 1 to 5, for 5 doses Cycle every 21 days. - Patient Self-Reported Symptoms SR Constitution: Weight loss/gain SR eye issues: Vision changes SR ears, nose, mouth, throat issues: Nose bleeds SR respiratory issues: Cough SR Cardiovascular issues: Extreme swelling (improving.) SR Skin issues: Skin rash or itching (on the lower legs and are improving.) SR Musculoskeletal issues: Back or neck pain (on oxycodone and helpful.) SR Neuro issues: Headache (migraine.) SR Endocrine issues: Cold intolerance - Additional ROS All systems PM: reviewed and no additional remarkable complaints except as stated Home Medications and Allergies Home Medications Medication Instructions Recorded Confirmed Type esomeprazole magnesium [Nexium] 40 mg PO DAILY #0 12/31/16 10/27/18 History [id number]-[id number] serr 2 tab PO QAM 05/22/18 10/27/18 History [Glucosamine Daily Complex] xsmfhij-idghflufqgjxk-pfxyujlp 1 tab PO Q4-6H PRN 06/24/18 10/27/18 History [Excedrin Extra Strength] filgrastim-sndz [Zarxio] 5 mcg/kg SUBCUT Q24H 06/24/18 10/27/18 History fish,bora,flax oils-om3,6,9no1 1 cap PO DAILY 07/04/18 10/27/18 History [[place] 3-6-9 Complex] nadolol 80 mg PO DAILY 07/04/18 10/27/18 History ondansetron 4 mg PO TID PRN 07/04/18 10/27/18 History zolpidem [Ambien] 10 mg PO BEDTIME PRN #30 tab 08/14/18 10/27/18 Rx oxycodone-acetaminophen 1 tab PO Q4-6H PRN #60 tab 09/04/18 10/27/18 Rx sertraline 50 mg PO DAILY #60 tab 09/04/18 10/27/18 Rx acyclovir 800 mg PO Q12H #60 tab 10/10/18 10/27/18 Rx loratadine 10 mg PO DAILY 10/17/18 10/27/18 History prednisone See Rx Instructions .ROUTE .COMPLEX 10/20/18 10/27/18 History doxycycline hyclate 100 mg PO BID #14 cap 10/27/18 Rx levofloxacin 500 mg PO DAILY 10/27/18 10/27/18 History oxycodone-acetaminophen [Percocet] 1 tab PO Q4-6H PRN #10 tab 10/27/18 Rx Allergies Allergy/AdvReac Type Severity Reaction Status Date / Time Sulfa (Sulfonamide Allergy Intermediate Hives Verified 10/20/18 16:03 Antibiotics) iodine Allergy Verified 10/20/18 16:03 Exam Vital signs: Last Vital Signs Temp 97.7 F 10/30/18 12:48 Pulse 101 H 10/30/18 12:48 Resp 18 10/30/18 12:48 BP 115/65 10/30/18 12:48 Pulse Ox 96 10/30/18 12:48 ECOG 2 Narrative: Constitutional: thin, NAD, chronically ll, pleasant and cooperative, accompanied by his . HEENT: NCAT, EOMI, PERLLA, anicteric sclera. Neck: Supple, No palpable thyromegaly and no palpable lymph nodes. Respiratory: Clear to auscultation, and no wheezes or rales or rubs. Cardiovascular: Regular rate and rhythm, S1 and S2 normal, no murmurs gallops or rubs. No JVD. Abdomen: Soft, Palpable splenomegaly and mild hepatomegaly. Lower extremities: 2+ edema noted bilaterally Lymphatic: no palpable lymph nodes in the neck, axillae Skin: no rashes, no ulcers, no petechiae Neurological: Awake and alert and oriented x3. CN II-XII grossly intact. No focal motor or sensory deficit. Psychiatric: Good judgment, good insight, normal affect, normal thought process, cooperative, no depression, no anxiety. Results - Labs Laboratory Last Values WBC 5.5 X10^3/uL (4.5-11.0) 10/30/18 13:10 RBC 2.69 X10^6/uL (4.5-5.9) L 10/30/18 13:10 Hgb 8.0 g/dL (13.5-17.5) L 10/30/18 13:10 Hct 24.1 % (41-53) L 10/30/18 13:10 MCV 89.3 fL (80-100) 10/30/18 13:10 MCH 29.9 PG (26-34) 10/30/18 13:10 MCHC 33.4 % (30-36) 10/30/18 13:10 RDW 17.9 % (11.6-14.8) H 10/30/18 13:10 Plt Count 7 X10^3/uL (150-400) L* 10/30/18 13:10 Neut % (Auto) Not Reportable 10/30/18 13:10 Lymph % (Auto) Not Reportable 10/30/18 13:10 [place] % (Auto) Not Reportable 10/30/18 13:10 Eos % (Auto) Not Reportable 10/30/18 13:10 Baso % (Auto) Not Reportable 10/30/18 13:10 Neut # (Auto) 1600 /uL ([id number]) 09/11/18 10:07 Lymph # (Auto) Not Reportable 10/30/18 13:10 [place] # (Auto) Not Reportable 10/30/18 13:10 Baso # (Auto) Not Reportable 10/30/18 13:10 Total Counted 100 10/30/18 13:10 Seg Neutrophils % 71.0 % (38-70) H 10/30/18 13:10 Band Neutrophils % 7.0 % (3-7) 10/30/18 13:10 Lymphocytes % (Manual) 9.0 % (25-45) L 10/30/18 13:10 Atypical Lymphs % 3.0 % (-0) H 10/30/18 13:10 Monocytes % (Manual) 6.0 % (2-11) 10/30/18 13:10 Eosinophils % (Manual) 4.0 % (2-4) 10/30/18 13:10 Basophils % (Manual) 4.0 % (0-1) H 09/15/18 10:35 Metamyelocytes % 5.0 % (-0) H 10/22/18 09:26 Myelocytes % 4.0 % (-0) H 10/22/18 09:26 Promyelocytes % 2.0 % (-0) H 08/11/18 13:18 Neutrophils # (Manual) 4290 /uL ([id number]) 10/30/18 13:10 Nucleated RBCs 1 #/Diff (-0) H 10/30/18 13:10 Hypersegmented Neuts 1+ 09/25/18 11:29 Dohle Bodies 1+ H 08/08/18 13:05 Platelet Estimate Decreased on smear 10/23/18 11:54 RBC Morphology Not Reportable 10/30/18 13:10 Polychromasia 1+ H 10/30/18 13:10 Hypochromasia 1+ H 10/17/18 10:25 Poikilocytosis 1+ H 10/23/18 11:54 Anisocytosis 2+ H 10/30/18 13:10 Microcytosis 1+ H 10/17/18 10:25 Macrocytosis 1+ H 10/17/18 10:25 Tear Drop Cells 1+ H 10/22/18 09:26 Ovalocytes 1+ H 10/22/18 09:26 Sodium 128 mmol/L (137-145) L 10/17/18 10:25 Potassium 4.2 mmol/L (3.4-5.1) 10/17/18 10:25 Chloride 95 mmol/L (98-107) L 10/17/18 10:25 Carbon Dioxide 20 mmol/L (22-32) L 10/17/18 10:25 BUN 51 mg/dL (9-20) H 10/17/18 10:25 Creatinine 1.10 mg/dL (0.66-1.25) 10/17/18 10:25 Estimated GFR > 60.0 mL/min (>60) 10/17/18 10:25 BUN/Creatinine Ratio 46.4 (6-22) H 10/17/18 10:25 Glucose 117 mg/dL (80-110) H 10/17/18 10:25 Calcium 11.6 mg/dL (8.4-10.2) H 10/17/18 10:25 Total Bilirubin 0.7 mg/dL (0.2-1.3) 10/17/18 10:25 AST 23 IU/L (17-59) 10/17/18 10:25 ALT 23 IU/L (21-72) 10/17/18 10:25 Alkaline Phosphatase 188 U/L (38-126) H 10/17/18 10:25 Lactate Dehydrogenase 994 U/L (313-618) H 10/13/18 13:59 Total Protein 5.9 g/dL (6.3-8.2) L 10/17/18 10:25 Albumin 3.1 g/dL (3.5-5.0) L 10/17/18 10:25 Globulin 2.8 g/dL (1.7-4.1) 10/17/18 10:25 Albumin/Globulin Ratio 1.1 (1.0-2.8) 10/17/18 10:25 Blood Type A Positive 10/22/18 09:30 Antibody Screen Negative 10/22/18 09:30 Crossmatch See Detail 10/22/18 09:30 Assessment and Plan (1) T-cell lymphoma Problem details: Presented with weight loss, fatigue, malaise, and abdominal distention. CT CAP 05/30/2018: extensive lymphadenopathy in the neck, retroperitoneum, celiac axis, GE junction, head of pancreas, bilateral inguinal lymph nodes as well as markedly enlarged spleen. Excisional biopsy of the right groin lymph node on 06/03/2018: T-lymphoproliferative disorder, favoring angioimmunoblastic T-cell lymphoma. BMA/Bx 06/11/2018: involvement by T-cell lymphoma. At [facility], the patient was started on chemotheray CHOEP (C1D1 = Jun 12, 2018) Doxorubicin 50 mg/m2 (95 mg) IVP once. IV push over 10-15 minutes day 1, for 1 dose Vincristine 1.4 mg/m2(max = 2 mg) IV once. Infuse over 10 min. Day 1, for 1 dose Cyclophosphamide 750 mg/m2 (1400 mg) IV once. Infused over 1 hr. Day 1, dfor 1 dose Etoposide 100 mg/m2 (190 mg) IVPB Q24H. Days 1 to 2, for 2 doses Prednisone 100 mg p.o. Q24H. Days 1 to 5, for 5 doses Cycle every 21 days. Assessment: Up until now, patient has received 5 cycles of the planned 6 cycles. During his previous visit, I reviewed images and report of the CT scans of the chest abdomen pelvis obtained on 10/07/[address] scan of the chest abdomen pelvis obtained on 05/30/2018. There is clear evidence of decreased lymphadenopathy in the thorax, abdomen, and pelvis as well as groins. In addition intra-abdominal ascites has decreased significantly. Pleural effusions bilaterally also has improved dramatically. Patient's hepatosplenomegaly has remained about the same. Clinically I think at present we are dealing with the prolonged pancytopenia most likely associated with the use of the chemotherapy. With time hopefully it will improve. However refractory pancytopenia may indicate that his underlying T-cell lymphoma may be progressing, especially infiltrating the bone marrow. I talked with the patient that I would recommend repeat a bone marrow aspiration and biopsy to further evaluate. Next I talked with the patient that his underlying T-cell lymphoma is incurable, and if it progresses, the options are very limited. I talked with the patient and encouraged him to engage in conversation with his family about palliative care and hospice care. I also encouraged the patient to talk about living will, and durable power of scrap materials buyer. Patient said that at present his sister is his durable power of scrap materials buyer. Plan: 1. Continue to hold chemo for now 2. Platelet transfusion, 2 x 6-packs 3. pRBC 2 units. 4. Lasix 20 mg iv in between blood transfusion 5. BMA/Bx in 1-2 weeks (2) Pancytopenia due to chemotherapy Assessment and Plan: Severe thrombocytopenia and severe anemia. Please see discussion above. (3) Pain, low back Assessment and Plan: His back pain is most likely related to his underlying T-cell lymphoma. Continue oxycodone 5/325, 1# p.o. every 4-6 hours on an as needed basis. (4) Depression Assessment and plan: Mood has improved and stabilized with sertraline, will continue to monitor. BRENT Abadah Milady Waters remains in regular contact with the pt.
--- NOTE | 2018-10-30 13:04 | P.PNONC_ITS ---
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 After cycle 5 (administer on 09/04/18 and 09/05/2018), scheduled cycle 6 has been on hold due to severe pancytopenia. Patient has had multiple platelet transfusion. On Saturday (10/27/2018), he woke up with nose bleed like a faucet turning on and would not stop. He went to ER. At ER, labs showed WBC 14.8, H/H 8.8/26.5, and Plt 11K. He was given platelets 1 unit. For past 1+ week, he is also taking antibiotic for left lower lung pneumonia. He is coughing, but no hemoptysis. Some irritation of the left upper pre-cordial chest. His said, when he coughs, it is more like an explosive cough. He has extended abdomen. He has 2-3+ lower extremity edema on both sides. He is having headache, ? migraine. He has lower back pain due to previous injury to his back due to his work. The leg hurts all the time. History of present illness Mr. Irvin Diaz is a 62-year-old gentleman whom I saw at [facility]. He is transfer his care to [facility]. He has a remote history of left testicular cancer diagnosed in 2004 status post radical left orchiectomy followed by chemotherapy for 3 cycles without radiation treatment. Patient presented with about 5-6 months of history of weight loss, fatigue, malaise, abdominal distention, and adenopathy. CT CAP on 05/30/2018 showed extensive lymphadenopathy in the neck, retroperitoneum, along the celiac axis, near the GE junction, head of pancreas and prominent bilateral inguinal lymph nodes as well as markedly enlarged spleen. Patient was hospitalized at [facility] on May 31, 2018. Patient underwent TTE on 05/31/2018 that showedLVEF of 60-65%. Due to findings of ascites, patient underwent paracentesis and the cytology showed atypical lymphocytes suspicious for lymphoma. He underwent excisional biopsy of the right groin lymph node on June 03, 2018. And the final pathology showed T-lymphoproliferative disorder, favoring angioimmunoblastic T-cell lymphoma. And on June 10, 2018 patient was transferred to [facility] for further evaluation and treatment. At [facility], on June 11, 2018 the patient underwent bone marrow aspiration biopsy. The final pathology showed morphologically abnormal bone marrow with multi- focal, ill-defined mixed (lymphohistiocytic and eosinophilic) infiltrate suggestive of marrow involvement by T-cell lymphoma, hypercellular marrow with trilineage hematopoiesis and anemia with borderline microcytic anemia and absolute lymphopenia. At [facility], the patient was started on chemotheray CHOEP (C1D1 = Jun 12, 2018) Doxorubicin 50 mg/m2 (95 mg) IVP once. IV push over 10-15 minutes day 1, for 1 dose Vincristine 1.4 mg/m2(max = 2 mg) IV once. Infuse over 10 min. Day 1, for 1 dose Cyclophosphamide 750 mg/m2 (1400 mg) IV once. Infused over 1 hr. Day 1, dfor 1 dose Etoposide 100 mg/m2 (190 mg) IVPB Q24H. Days 1 to 2, for 2 doses Prednisone 100 mg p.o. Q24H. Days 1 to 5, for 5 doses Cycle every 21 days. - Patient Self-Reported Symptoms SR Constitution: Weight loss/gain SR eye issues: Vision changes SR ears, nose, mouth, throat issues: Nose bleeds SR respiratory issues: Cough SR Cardiovascular issues: Extreme swelling (improving.) SR Skin issues: Skin rash or itching (on the lower legs and are improving.) SR Musculoskeletal issues: Back or neck pain (on oxycodone and helpful.) SR Neuro issues: Headache (migraine.) SR Endocrine issues: Cold intolerance - Additional ROS All systems PM: reviewed and no additional remarkable complaints except as stated Home Medications and Allergies Home Medications Medication Instructions Recorded Confirmed Type esomeprazole magnesium [Nexium] 40 mg PO DAILY #0 12/31/16 10/27/18 History aiuzdhuaxje-[id number] serr 2 tab PO QAM 05/22/18 10/27/18 History [Glucosamine Daily Complex] xnhgxbn-czorotxgreuet-sdizlkvu 1 tab PO Q4-6H PRN 06/24/18 10/27/18 History [Excedrin Extra Strength] filgrastim-sndz [Zarxio] 5 mcg/kg SUBCUT Q24H 06/24/18 10/27/18 History fish,bora,flax oils-om3,6,9no1 1 cap PO DAILY 07/04/18 10/27/18 History [Dequincy 3-6-9 Complex] nadolol 80 mg PO DAILY 07/04/18 10/27/18 History ondansetron 4 mg PO TID PRN 07/04/18 10/27/18 History zolpidem [Ambien] 10 mg PO BEDTIME PRN #30 tab 08/14/18 10/27/18 Rx oxycodone-acetaminophen 1 tab PO Q4-6H PRN #60 tab 09/04/18 10/27/18 Rx sertraline 50 mg PO DAILY #60 tab 09/04/18 10/27/18 Rx acyclovir 800 mg PO Q12H #60 tab 10/10/18 10/27/18 Rx loratadine 10 mg PO DAILY 10/17/18 10/27/18 History prednisone See Rx Instructions .ROUTE .COMPLEX 10/20/18 10/27/18 History doxycycline hyclate 100 mg PO BID #14 cap 10/27/18 Rx levofloxacin 500 mg PO DAILY 10/27/18 10/27/18 History oxycodone-acetaminophen [Percocet] 1 tab PO Q4-6H PRN #10 tab 10/27/18 Rx Allergies Allergy/AdvReac Type Severity Reaction Status Date / Time Sulfa (Sulfonamide Allergy Intermediate Hives Verified 10/20/18 16:03 Antibiotics) iodine Allergy Verified 10/20/18 16:03 Exam Vital signs: Last Vital Signs Temp 97.7 F 10/30/18 12:48 Pulse 101 H 10/30/18 12:48 Resp 18 10/30/18 12:48 BP 115/65 10/30/18 12:48 Pulse Ox 96 10/30/18 12:48 ECOG 2 Narrative: Constitutional: thin, NAD, chronically ll, pleasant and cooperative, accompanied by his . HEENT: NCAT, EOMI, PERLLA, anicteric sclera. Neck: Supple, No palpable thyromegaly and no palpable lymph nodes. Respiratory: Clear to auscultation, and no wheezes or rales or rubs. Cardiovascular: Regular rate and rhythm, S1 and S2 normal, no murmurs gallops or rubs. No JVD. Abdomen: Soft, Palpable splenomegaly and mild hepatomegaly. Lower extremities: 2+ edema noted bilaterally Lymphatic: no palpable lymph nodes in the neck, axillae Skin: no rashes, no ulcers, no petechiae Neurological: Awake and alert and oriented x3. CN II-XII grossly intact. No focal motor or sensory deficit. Psychiatric: Good judgment, good insight, normal affect, normal thought process, cooperative, no depression, no anxiety. Results - Labs Laboratory Last Values WBC 5.5 X10^3/uL (4.5-11.0) 10/30/18 13:10 RBC 2.69 X10^6/uL (4.5-5.9) L 10/30/18 13:10 Hgb 8.0 g/dL (13.5-17.5) L 10/30/18 13:10 Hct 24.1 % (41-53) L 10/30/18 13:10 MCV 89.3 fL (80-100) 10/30/18 13:10 MCH 29.9 PG (26-34) 10/30/18 13:10 MCHC 33.4 % (30-36) 10/30/18 13:10 RDW 17.9 % (11.6-14.8) H 10/30/18 13:10 Plt Count 7 X10^3/uL (150-400) L* 10/30/18 13:10 Neut % (Auto) Not Reportable 10/30/18 13:10 Lymph % (Auto) Not Reportable 10/30/18 13:10 [place] % (Auto) Not Reportable 10/30/18 13:10 Eos % (Auto) Not Reportable 10/30/18 13:10 Baso % (Auto) Not Reportable 10/30/18 13:10 Neut # (Auto) 1600 /uL (3256-2919) 09/11/18 10:07 Lymph # (Auto) Not Reportable 10/30/18 13:10 [place] # (Auto) Not Reportable 10/30/18 13:10 Baso # (Auto) Not Reportable 10/30/18 13:10 Total Counted 100 10/30/18 13:10 Seg Neutrophils % 71.0 % (38-70) H 10/30/18 13:10 Band Neutrophils % 7.0 % (3-7) 10/30/18 13:10 Lymphocytes % (Manual) 9.0 % (25-45) L 10/30/18 13:10 Atypical Lymphs % 3.0 % (-0) H 10/30/18 13:10 Monocytes % (Manual) 6.0 % (2-11) 10/30/18 13:10 Eosinophils % (Manual) 4.0 % (2-4) 10/30/18 13:10 Basophils % (Manual) 4.0 % (0-1) H 09/15/18 10:35 Metamyelocytes % 5.0 % (-0) H 10/22/18 09:26 Myelocytes % 4.0 % (-0) H 10/22/18 09:26 Promyelocytes % 2.0 % (-0) H 08/11/18 13:18 Neutrophils # (Manual) 4290 /uL ([id number]) 10/30/18 13:10 Nucleated RBCs 1 #/Diff (-0) H 10/30/18 13:10 Hypersegmented Neuts 1+ 09/25/18 11:29 Dohle Bodies 1+ H 08/08/18 13:05 Platelet Estimate Decreased on smear 10/23/18 11:54 RBC Morphology Not Reportable 10/30/18 13:10 Polychromasia 1+ H 10/30/18 13:10 Hypochromasia 1+ H 10/17/18 10:25 Poikilocytosis 1+ H 10/23/18 11:54 Anisocytosis 2+ H 10/30/18 13:10 Microcytosis 1+ H 10/17/18 10:25 Macrocytosis 1+ H 10/17/18 10:25 Tear Drop Cells 1+ H 10/22/18 09:26 Ovalocytes 1+ H 10/22/18 09:26 Sodium 128 mmol/L (137-145) L 10/17/18 10:25 Potassium 4.2 mmol/L (3.4-5.1) 10/17/18 10:25 Chloride 95 mmol/L (98-107) L 10/17/18 10:25 Carbon Dioxide 20 mmol/L (22-32) L 10/17/18 10:25 BUN 51 mg/dL (9-20) H 10/17/18 10:25 Creatinine 1.10 mg/dL (0.66-1.25) 10/17/18 10:25 Estimated GFR > 60.0 mL/min (>60) 10/17/18 10:25 BUN/Creatinine Ratio 46.4 (6-22) H 10/17/18 10:25 Glucose 117 mg/dL (80-110) H 10/17/18 10:25 Calcium 11.6 mg/dL (8.4-10.2) H 10/17/18 10:25 Total Bilirubin 0.7 mg/dL (0.2-1.3) 10/17/18 10:25 AST 23 IU/L (17-59) 10/17/18 10:25 ALT 23 IU/L (21-72) 10/17/18 10:25 Alkaline Phosphatase 188 U/L (38-126) H 10/17/18 10:25 Lactate Dehydrogenase 994 U/L (313-618) H 10/13/18 13:59 Total Protein 5.9 g/dL (6.3-8.2) L 10/17/18 10:25 Albumin 3.1 g/dL (3.5-5.0) L 10/17/18 10:25 Globulin 2.8 g/dL (1.7-4.1) 10/17/18 10:25 Albumin/Globulin Ratio 1.1 (1.0-2.8) 10/17/18 10:25 Blood Type A Positive 10/22/18 09:30 Antibody Screen Negative 10/22/18 09:30 Crossmatch See Detail 10/22/18 09:30 Assessment and Plan (1) T-cell lymphoma Problem details: Presented with weight loss, fatigue, malaise, and abdominal distention. CT CAP 05/30/2018: extensive lymphadenopathy in the neck, retroperitoneum, celiac axis, GE junction, head of pancreas, bilateral inguinal lymph nodes as well as markedly enlarged spleen. Excisional biopsy of the right groin lymph node on 06/03/2018: T-lymphoproliferative disorder, favoring angioimmunoblastic T-cell lymphoma. BMA/Bx 06/11/2018: involvement by T-cell lymphoma. At [facility], the patient was started on chemotheray CHOEP (C1D1 = Jun 12, 2018) Doxorubicin 50 mg/m2 (95 mg) IVP once. IV push over 10-15 minutes day 1, for 1 dose Vincristine 1.4 mg/m2(max = 2 mg) IV once. Infuse over 10 min. Day 1, for 1 dose Cyclophosphamide 750 mg/m2 (1400 mg) IV once. Infused over 1 hr. Day 1, dfor 1 dose Etoposide 100 mg/m2 (190 mg) IVPB Q24H. Days 1 to 2, for 2 doses Prednisone 100 mg p.o. Q24H. Days 1 to 5, for 5 doses Cycle every 21 days. Assessment: Up until now, patient has received 5 cycles of the planned 6 cycles. During his previous visit, I reviewed images and report of the CT scans of the chest abdomen pelvis obtained on 10/07/[address] scan of the chest abdomen pe lvis obtained on 05/30/2018. There is clear evidence of decreased lymphadenopathy in the thorax, abdomen, and pelvis as well as groins. In addition intra-abdominal ascites has decreased significantly. Pleural effusions bilaterally also has improved dramatically. Patient's hepatosplenomegaly has remained about the same. Clinically I think at present we are dealing with the prolonged pancytopenia most likely associated with the use of the chemotherapy. With time hopefully it will improve. However refractory pancytopenia may indicate that his underlying T-cell lymphoma may be progressing, especially infiltrating the bone marrow. I talked with the patient that I would recommend repeat a bone marrow aspiration and biopsy to further evaluate. Next I talked with the patient that his underlying T-cell lymphoma is incurable, and if it progresses, the options are very limited. I talked with the patient and encouraged him to engage in conversation with his family about palliative care and hospice care. I also encouraged the patient to talk about living will, and durable power of certified coding specialist. Patient said that at present his sister is his durable power of certified coding specialist. Plan: 1. Continue to hold chemo for now 2. Platelet transfusion, 2 x 6-packs 3. pRBC 2 units. 4. Lasix 20 mg iv in between blood transfusion 5. BMA/Bx in 1-2 weeks (2) Pancytopenia due to chemotherapy Assessment and Plan: Severe thrombocytopenia and severe anemia. Please see discussion above. (3) Pain, low back Assessment and Plan: His back pain is most likely related to his underlying T- cell lymphoma. Continue oxycodone 5/325, 1# p.o. every 4-6 hours on an as needed basis. (4) Depression Assessment and plan: Mood has improved and stabilized with sertraline, will continue to monitor. CLIENT RENEWAL SPECIALIST Nila Henning Jt remains in regular contact with the pt.
[2018-10-30 13:38] LABS: Hematocrit 24.1 % (41-53); Mean Corpuscular HGB Conc 33.4 % (30-36); Mean Corpuscular Hemoglobin 29.9 PG (26-34); Mean Corpuscular Volume 89.3 fL (80-100); Red Blood Cell Count 2.69 X10^6/uL (4.5-5.9); Red Cell Distribution Width 17.9 % (11.6-14.8); White Blood Cell Count 5.5 X10^3/uL (4.5-11.0)
[2018-10-30 13:39] LABS: Add Manual Diff / Slide Review YES; Platelet Count 7 X10^3/uL (150-400)
[2018-10-30 14:00] LABS: Anisocytosis 2+; Neutrophils Absolute Manual 4290 /uL (3000-5900); Nucleated Red Blood Cells 1 #/Diff; Polychromasia 1+; Total Cells Counted 100
--- NOTE | 2018-10-30 17:52 | PC.NURSE ---
Addendum entered by Lesly Flores R.N. 10/30/18 22:25: Platelets finished infusing. No signs or symptoms of reaction. Pt aware to come back for the second PRBC/Platelet infusion tomorrow. Port flushed/clamped and tubing secured, remains accessed. Original Note: Addendum entered by Lesly Flores R.N. 10/30/18 20:39: PRBCs finished infusing, no signs/symptoms of reaction. Lasix given. Platelets started. Original Note: Addendum entered by Lesly Flores R.N. 10/30/18 18:10: Vitals stable, no signs of reaction. Infusion increased to 150ml/hr Original Note: PRBC first unit started. Pt in room/eating dinner. Port previously accessed, hub attached to needle tubing. Oriented to room/call light.
[2018-10-30] MEDS: FUROSEMIDE 20 MG/2 ML VIAL IV (20:21)
[2018-10-31 10:36] VITALS: BP 136/72; PULSE 140; RESP 20; TEMP 36.4
[2018-10-31 10:59] VITALS: BP 109/55; PULSE 133; RESP 20; TEMP 36.7
[2018-10-31 13:06] VITALS: BP 102/63; PULSE 120; RESP 18; TEMP 36.6
[2018-10-31] MEDS: FUROSEMIDE 20 MG/2 ML VIAL IV (13:08)
[2018-10-31 13:31] VITALS: BP 106/57; PULSE 121; RESP 18; TEMP 36.5
[2018-10-31 13:47] VITALS: BP 115/73; PULSE 120; RESP 18; TEMP 36.6
[2018-10-31 14:52] VITALS: BP 112/70; PULSE 120; RESP 18; TEMP 36.6
--- NOTE | 2018-10-31 14:56 | PC.NURSE ---
1 unit PRBC and 1 unit platelets transfused without issue. Pt received 20 mg lasix between blood products. VSS, present for transfusion. port deaccessed per pt request according to hospital policies and procedures. pt left in w/c with as escort.
[2018-11-06] VITALS (7 sets, daily range): BP systolic 100–122; BP diastolic 58–65; PULSE 97–139; RESP 18–21; TEMP 36.4–36.6; O2SAT 91
[2018-11-06 10:47] LABS: Hematocrit 27.2 % (41-53); Hemoglobin 9.3 g/dL (13.5-17.5); Mean Corpuscular HGB Conc 33.9 % (30-36); Mean Corpuscular Hemoglobin 30.1 PG (26-34); Mean Corpuscular Volume 88.7 fL (80-100); Red Blood Cell Count 3.07 X10^6/uL (4.5-5.9); Red Cell Distribution Width 18.4 % (11.6-14.8); White Blood Cell Count 7.2 X10^3/uL (4.5-11.0)
[2018-11-06 10:50] LABS: Add Manual Diff / Slide Review YES; Platelet Count 9 X10^3/uL (150-400)
[2018-11-06] MEDS: HYDROMORPHONE 1 MG INJ IV (11:09)
[2018-11-06 11:37] LABS: Neutrophils Absolute Manual 4392 /uL (3000-5900); Total Cells Counted 100
[2018-11-06 11:38] LABS: Anisocytosis 2+; Polychromasia 1+
[2018-11-06 11:39] LABS: Platelet Estimate Decreased on smear
--- NOTE | 2018-11-06 15:03 | TAR.TRANSNT ---
pack cells ending in [id number] were completed today as they were never stopped after transfusion completed
--- NOTE | 2018-11-06 16:48 | P.PCN_ITS ---
Date of procedure: 11/06/18 Diagnosis: T cell lymphoma Onc Bone Marrow: bone marrow biopsy and aspiration Procedure: Due to grade 4 low level of platelets, the procedure was canceled today. Patient received platelet transfusion 2 x 6-packs. We will have the patient come back next week and repeat the platelet counts. In addition today Nila, our precision printing worker also touched base with the patient about palliative/hospice care. We talked with the patient and emphasized that whenever he is having concerns or questions, he needs to call us or go to the emergency room.
[2018-11-10] VITALS (11 sets, daily range): BP systolic 100–115; BP diastolic 53–75; PULSE 99–111; RESP 15–22; TEMP 36.4–37.5
[2018-11-10 10:55] LABS: Hemoglobin 7.4 g/dL (13.5-17.5); Mean Corpuscular Hemoglobin 30.2 PG (26-34); Mean Corpuscular Volume 89.1 fL (80-100); Red Blood Cell Count 2.43 X10^6/uL (4.5-5.9); White Blood Cell Count 5.4 X10^3/uL (4.5-11.0)
[2018-11-10 10:56] LABS: Add Manual Diff / Slide Review YES; Hematocrit 21.7 % (41-53); Platelet Count 11 X10^3/uL (150-400)
[2018-11-10 11:44] LABS: Neutrophils Absolute Manual 3294 /uL (3000-5900); Total Cells Counted 100
[2018-11-10 11:45] LABS: RBC Morphology Normal Morphology
[2018-11-10] MEDS: SODIUM CHLORIDE 0.9% 250 ML 21 ML IV (12:29)
[2018-11-10] MEDS: FUROSEMIDE 20 MG/2 ML VIAL IV ×2 (16:49→21:45)
--- NOTE | 2018-11-10 23:35 | PC.NURSE ---
sumaya note Unable to scan pt's wristband for TAR. Took one hour to get correct wristbands printed for this visit. Pt tolerated both units well with lasix in between. left chest port a cath deaccessed. Pt getting ready to leave and was incontinent of stool. Obtained sweat pants for pt to wear home.
== END ==
PROVIDERS: Nurse Practitioner Gerontology; Family Provider Family Medicine; PCP Student in an Organized Health Care Education/Training Program; Visit Provider Internal Medicine Hematology & Oncology
DX: C86.5 Angioimmunoblastic T-cell lymphoma (principal)
CPT/HCPCS: 36415; 36430; 36592; 38222; 71260; 74177; 80048; 80053; 83615; 85025; 85049; 86850; 86900; 86901; 96360; 96361; 96367; 96368; 96372; 96374; 96375; 96376; 96409; 96411; 96413; 96417; 96523; 99000; 99214; 99215; P9016; J1100; J1170; J1200; J1453; J1940; J2060; J2405; J9000; J9070; J9181; J9370; P9035; Q5101; Q9967